=== PATIENT | male | born 1955 | race Caucasian/White ===

== ENCOUNTER 2024-02-19 09:46 | Outpatient (OUT) | payer MEDICARE, SELFPAY ==
--- NOTE | 2024-02-19 10:26 | ECG_ITS ---
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
--- NOTE | 2024-02-19 11:02 | P.GSHP_ITS ---
History of Present Illness History of Present Illness Chief complaint: bladder stones Narrative: Patient presents for preadmission testing. The patient states he had a cystoscopy after a prostate biopsy which demonstrated bladder stones. The patient states he does have a history of renal cancer with a left nephrectomy. He denies gross hematuria, dysuria, or abdominal pain. But he does admit to frequency and urgency with urination. Review of Systems ROS Narrative REVIEW OF SYSTEMS: Negative except as stated in HPI, ten or more systems reviewed. Constitutional: No fever, chills, weakness ENT: No sore throat or epistaxis Cardiovascular: intermittent pedal edema; no chest pain, palpitations, or activity intolerance Respiratory: No shortness of breath, cough, or wheezing Musculoskeletal: No joint pain or swelling Gastrointestinal: No abdominal pain, constipation, diarrhea, or vomiting Neurological: No numbness, tingling, weakness, or headache Psychiatric: No mood changes PFSH [facility] Medical History (Updated 02/19/24 @ 11:06 by Nasra Dunn NP) Urinary retention ?R33.9 - Retention of urine, unspecified (ICD-10) Elevated PSA ?R97.20 - Elevated prostate specific antigen [PSA] (ICD-10) BPH (benign prostatic hyperplasia) ?N40.0 - Benign prostatic hyperplasia without lower urinary tract symptoms (ICD-10) Bladder neoplasm ?D49.4 - Neoplasm of unspecified behavior of bladder (ICD-10) Anticoagulated ?Z79.01 - FPC (current) use of anticoagulants (ICD-10) Neuropathy ?G62.9 - Polyneuropathy, unspecified (ICD-10) Arthritis ?M19.90 - Unspecified osteoarthritis, unspecified site (ICD-10) Sleep apnea ?G47.30 - Sleep apnea, unspecified (ICD-10) Bladder stone ?N21.0 - Calculus in bladder (ICD-10) Extremity edema ?R60.0 - Localized edema (ICD-10) Atrial fibrillation ?I48.91 - Unspecified atrial fibrillation (ICD-10) Hypothyroidism ?E03.9 - Hypothyroidism, unspecified (ICD-10) Tremor ?R25.1 - Tremor, unspecified (ICD-10) Cancer of kidney ?C64.9 - Malignant neoplasm of unspecified kidney, except renal pelvis (ICD- 10) Surgical History (Updated 02/19/24 @ 11:05 by Nasra Dunn NP) Status post ORIF of fracture of ankle ?Z98.890 - Other specified postprocedural states (ICD-10) ?Z87.81 - Personal history of (healed) traumatic fracture (ICD-10) History of repair of rotator cuff ?Z98.890 - Other specified postprocedural states (ICD-10) History of colonoscopy ?Z98.890 - Other specified postprocedural states (ICD-10) History of nephrectomy, left ?Z90.5 - Acquired absence of kidney (ICD-10) S/P TURP ?Z90.79 - Acquired absence of other genital organ(s) (ICD-10) History of total hip arthroplasty ?Z96.649 - Presence of unspecified artificial hip joint (ICD-10) Hx of prostate biopsy ?Z98.890 - Other specified postprocedural states (ICD-10) S/P cystoscopy ?Z98.890 - Other specified postprocedural states (ICD-10) Family History (Updated 02/19/24 @ 10:39 by Nasra Dunn NP) Other Cancer Dementia Family history of diabetes mellitus Social History (Updated 02/19/24 @ 10:32 by Nasra Dunn NP) Within the past year, how often did you have a drink containing alcohol: monthly or less Smoking status: Never smoker Non-prescribed substance use: denies use Highest level of school completed/degree received: Associate degree: academic program Meds Home Medications and Allergies Home Medications ?Medication ?Instructions ?Recorded ?Confirmed ?Type apixaban 5 mg tablet (Eliquis) 5 mg PO Q12H 02/19/24 02/19/24 History dutasteride 0.5 mg capsule 0.5 mg PO DAILY 02/19/24 02/19/24 History levothyroxine 125 mcg tablet 125 mcg PO DAILY 02/19/24 02/19/24 History multivitamin (Daily Multi-Vitamin 1 tab PO DAILY 02/19/24 02/19/24 History tablet) pregabalin 150 mg capsule 150 mg PO Q12H 02/19/24 02/19/24 History primidone 50 mg tablet 50 mg PO Q8H 02/19/24 02/19/24 History propranolol 160 mg capsule,24 160 mg PO Q24H 02/19/24 02/19/24 History hr,extended release Allergies Allergy/AdvReac Type Severity Reaction Status Date / Time meloxicam Allergy Unknown Verified 02/19/24 10:26 Exam Narrative Exam Narrative: Constitutional: Awake, alert, comfortable, well-appearing, nontoxic, interactive, vital signs as charted Head: Normocephalic, atraumatic Neck: Supple, normal appearance, normal range of motion, no meningeal signs, no lymphadenopathy Respiratory: No respiratory distress, breath sounds clear Cardiovascular: Bradycardic rate, irregularly irregular rhythm Abdomen: Nontender, normal bowel sounds, soft, no CVA tenderness Musculoskeletal: Normal gait, no swelling or edema Skin: No rashes or induration, no lesions, only visible skin inspected Neuro: No neurological deficits, normal sensation Psychiatric: Oriented ?3, normal affect Assessment and Plan Assessment and Plan (1) Bladder stone: Plan Cystoscopy, litholapaxy scheduled with Dr. Mendiola March 04, 2024.
[2024-02-19 11:34] LABS: Basophils Percent Auto 0.6 % (0.2-2.0); Eosinophils Absolute Auto 0.3 10^3/uL (0.0-0.7); Hematocrit 43.9 % (42.0-54.0); Hemoglobin 14.3 g/dL (14.0-18.0); Immature Granulocytes Abs Auto 0.03 10^3/uL (0.00-0.03); Immature Granulocytes Pct Auto 0.6 % (0.0-0.5); Lymphocytes Absolute Auto 1.1 10^3/uL (1.2-3.8); Lymphocytes Percent Auto 20.7 % (20.5-60.0); Mean Corpuscular HGB Conc 32.6 g/dL (29.9-35.2); Mean Platelet Volume 10.9 fL (9.5-13.5); Monocytes Absolute Auto 0.8 10^3/uL (0.3-0.8); Monocytes Percent Auto 15.5 % (1.7-12.0); Neutrophils Percent Auto 57.6 % (43.0-75.0); Platelet Count 160 10^3/uL (150-450); Red Blood Count 4.62 10^6/uL (4.70-6.10); Red Cell Distribution Width 14.2 % (11.0-15.0); White Blood Count 5.2 10^3/uL (4.0-11.0)
[2024-02-19 11:56] LABS: Anion Gap 11.9; BUN Creatinine Ratio 9.4; Calcium 9.2 mg/dL (8.5-10.1); Carbon Dioxide 27.5 mmol/L (21.0-32.0); Chloride 103 mmol/L (98-107); Estimated GFR (African America >60 (>=60 mL/min/1.73m^2); Estimated GFR (Non-African Ame 56 (>=60 mL/min/1.73m^2); Glucose 100 mg/dL (74-106); Potassium 5.4 mmol/L (3.5-5.1); Sodium 137 mmol/L (136-145)
[2024-02-19 11:57] LABS: INR 1.11; Partial Thromboplastin Time 32.2 sec (22.3-36.2); Prothrombin Time 11.6 sec (9.0-11.6)
== END 2024-02-19 09:47 | disposition home or self-care (01) ==
LOC: PST 09:51
PROVIDERS: PCP Family Medicine; Visit Provider Urology
DX: Z01.810 Encounter for preprocedural cardiovascular examination (principal); Z01.812 Encounter for preprocedural laboratory examination; Z01.818 Encounter for other preprocedural examination; N21.0 Calculus in bladder
CPT/HCPCS: 36415; 80048; 85025; 85610; 85730; 93005; G0463

== ENCOUNTER 2024-03-04 07:57 | Day surgery (SDC) | payer MEDICARE, SELFPAY ==
[2024-02-19 10:51] VITALS: BP 135/84; PULSE 56; TEMP 36.3; O2SAT 98; BMI 44.6
[2024-03-04] VITALS (10 sets, daily range): BP systolic 99–121; BP diastolic 64–76; PULSE 52–68; TEMP 35.9–36.1; O2SAT 94–99; BMI 44.6
--- OUTSIDE RECORDS SUMMARY | 2024-03-04 08:03 | XMS_ITS | CCD ---
Author Organization [facility] Care Team Providers Care Piece Cutter Name Role Phone Elliot Galvan Unavailable Unavailable [facility] Unavailable Unavailable Shelby Daniels Primary Care Provider [phone] Kaushik Gallagher Attending Provider Unavailable Unavailable Dewey DANIELS Primary Care Physician Ashley Bates Unavailable Unavailable Katarina Daniels Unavailable Unavailable Primary Care Provider UnavailKatarina Willis Jr. Primary Care Provider Aba Amaya MD Unavailable Grey FIREPERSON.ORDER CLERK, Lucio Unavailable Joann KAPLAN, Nirmala Unavailable Ebony Reyes Unavailable DO Shelby Daniels Primary Care Provider CARLA Tucker Attending Provider Shelby Daniels Primary Care Unavailable Mary Tucker Attending Unavailable Mary Tucker Admitting Unavailable Joann KAPLAN, Nirmala Unavailable Katarina Daniels DO Primary Care Provider Frances Faria DO, George Robert Primary Care Provi mario Frances Faria DO, George Robert Primary Care Provi mario Elliot AN Attending Unavailable Elliot AN R Admitting Unavailable Elliot AN R Referring Unavailable Elliot AN Attending Unavailable Elliot AN Attending Unavailable Elliot AN R Admitting Unavailable Elliot AN R Attending Unavailable Elliot AN Attending Unavailable ABA AMAYA Referring Unavailable KASUSYAN KATARINA LATIF Primary Care Unavail able ABA AMAYA Attending Unavailable ABA AMAYA Attending Unavailable ABA AMAYA Referring Unavailable KASUSYAN KATARINA LATIF FLORENCIO Primary Care Unavail able ABA AMAYA Referring Unavailable KASUSYAN KATARINA LATIF FLORENCIO Primary Care Unavail able ABA AMAYA Referring Unavailable KASUSYAN KATARINA LATIF Primary Care Unavail able ABA AMAYA Referring Unavailable KASUSYAN KATARINA LATIF FLORENCIO Primary Care Unavail able ABA AMAYA Referring Unavailable KASUSYAN KATARINA LATIF FLORENCIO Primary Care Unavail able ABA AMAYA Attending Unavailable ABA AMAYA Referring Unavailable KAFTAN KATARINA LATIF FLORENCIO Primary Care Unavail able ABA AMAYA Referring Unavailable KAFTAN KATARINA LATIF FLORENCIO Primary Care Unavail able ABA AMAYA Referring Unavailable KASUSYAN KATARINA LATIF FLORENCIO Primary Care Unavail able ABA AMAYA Referring Unavailable MARTINAN KATARINA LATIF FLORENCIO Primary Care Unavail able ABA AMAYA Referring Unavailable KASUSYAN KATARINA LATIF Primary Care Unavail able ABA AMAYA Attending Unavailable ABA AMAYA Referring Unavailable KATARINA DANIELS JR FL[facility] Primary Care Unavail able LUCIO DAMON Attending Unavailable KATARINA DANIELS JR [facility] Primary Care Unavail able ABA AMAYA Referring Unavailable KASUSYAN KATARINA LATIF FLORENCIO Primary Care Unavail able ABA AMAYA Referring Unavailable ABA AMAYA Referring Unavailable KASUSYAN KATARINA LATIF FLORENCIO Primary Care Unavail able ABA AMAYA Referring Unavailable KATARINA DANIELS JR [facility] Care Unavail able ABA AMAYA Referring Unavailable KATARINA DANIELS JR [facility] Care Unavail able KATARINA DANIELS JR [facility] Primary Care Unavail able ABA AMAYA Referring Unavailable KASUSYAN KATARINA LATIF Primary Care Unavail able ABA AMAYA Attending Unavailable ABA AMAYA Referring Unavailable KAKATARINA CHADWICK JR [facility] Primary Care Unavail able KASUSYAN JR [facility] Primary Care Unavail able ABA AMAYA Referring Unavailable ABA AMAYA Referring Unavailable KASUSYAN KATARINA LATIF FLORENCIO Primary Care Unavail able KASUSYAN KATARINA LATIF FLORENCIO Primary Care Unavail able ABA AMAYA Referring Unavailable KAFTAN KATARINA LATIF FLORENCIO Primary Care Unavail able ABA AMAYA Referring Unavailable KASUSYAN KATARINA LATIF FLORENCIO Primary Care Unavail able ABA AMAYA Attending Unavailable ABA AMAYA Referring Unavailable KASUSYAN KATARINA LATIF Primary Care Unavail able ABA AMAYA Referring Unavailable KASUSYAN JR [facility] Primary Care Unavail able LUCIO DAMON Attending Unavailable ABA AMAYA Referring Unavailable KATARINA DANIELS JR Primary Care Unavail able BALA URIAS Attending Unavailable KATARINA DANIELS Primary Care Unavailable RAISA ARMSTRONG Attending Unavailable BALA URIAS Referring Unavailable KATARINA DANIELS Primary Care Unavailable Elliot AN Admitting Unavailable Elliot AN Attending Unavailable Elliot AN Referring Unavailable Elliot AN Attending Unavailable Katarina Daniels DO Unavailable Katarina Daniels DO Primary Care Provider Nicole Valadez LPN Unavailable Unavailable KATARINA DANIELS Attending Unavailable TAYE MENDOZA Attending Unavailable KATARINA DANIELS Referring Unavailable KATARINA DANIELS Attending Unavailable KATARINA DANIELS Attending Unavailable Unavailable Unavailable Unavailable Allergies Allergy Classification Reported Allergen(s) Allergy Type Date of Onset Reaction(s) Facility (20 sources) meloxicam; Translations: [meloxicam] Drug Allergy 1 Vomiting [facility] (20 sources) Non-steroidal anti-inflammato ry agent; Translations: [NSAIDS (NON-STEROIDAL ANTI-INFLAMMATO RY DRUG)] Drug Allergy 1 Other: See Comments [facility] (2 sources) No Known Medication Allergies; Translations: [No Known Medication Allergies] Propensity to adverse reactions (disorder) [facility] (5 sources) meloxicam Drug Allergy 3 [facility] Work Phone: (5 sources) Non-steroidal anti-inflammato ry agent Drug Allergy 3 [facility] Medications Current Medications Medication Drug Class(es) Dates Sig (Normalized) Sig (Original) apixaban 5 mg oral tablet (20 sources) Factor Xa Inhibitor Start: 08-17-2022 End: 08-26-2022 take 1 tablet by mouth twice daily apixaban (ELIQUIS) 2.5 mg tab(s) Take 1 tablet by mouth twice daily for 9 days. 18 tablet 0 08/17/2022 08/26/2022 Active Start: 09-16-2018 End: 08-17-2022 take 1 tablet by mouth in the morning Eliquis 5 MG tablet Take 5 mg by mouth in the morning and 5 mg before bedtime. 08/12/2022 Active Comment on above: Take 5 mg by mouth t wice daily. Take 1 tablet by luiz th twice daily for 9 days. Take 1 tablet by luiz th twice daily. You may resume this medication on August 26. Apoaequorin (PREVAGEN PO) (2 sources) Apoaequorin (PRE VAGEN PO) Take by mouth Active cephalexin 500 mg oral capsule (8 sources) Cephalosporin Antibacterial Start: 01-30-2024 End: 02-26-2024 cephalexin (Keflex) 500 MG capsule Indications: Presence of artificial hip joint, left Take two caps evening prior to appointment, take two caps one hour prior to appointment 4 capsule 2 01/30/2024 02/26/2024 Discontinued Start: 08-22-2022 End: 09-06-2022 take 1 capsule by mouth four times daily cephALEXin (KEFLEX) 500 mg capsule Take 1 capsule by mouth four times daily for 7 days. 28 capsule 0 08/30/2022 09/06/2022 Active Comment on above: Take 1 capsule by mo [facility] four times daily for 7 days. digoxin 0.25 mg oral tablet (20 sources) Cardiac Glycoside Start: 04-24-2020 take 1 tablet by mouth once daily digoxin 250 mcg (0.25 mg) Tab 250 mcg = 1 tab(s), Oral, Daily Start Date: 04/24/20 Status: Ordered Start: 09-16-2018 digoxin (LANOX IN) 125 mcg (0.125 mg) tablet Take by mouth once daily. 09/16/2018 Active Start: 09-16-2018 take 250 ug by mouth once daily in the morning Digoxin Active 250 MCG PO Every morning September 16, 2018 12:00am Digoxin 0.25 MG/ ML Injection Not-Taking Digoxin Active Comment on above: Take by mouth at bed time as needed. Take by mouth once d aily. dutasteride 0.5 mg oral capsule (20 sources) 5-alpha Reductase Inhibitor Start: 05-21-2023 End: 05-15-2024 dutasteride (AVODART) 0.5 mg capsule Take 0.5 mg by mouth. 05/21/2023 05/15/2024 Active Comment on above: Take 0.5 mg by mouth . enteric contrast (will be provided with radiology test) (5 sources) Start: 01-01-2024 End: 01-02-2024 enteric contrast (will be provided with radiology test) For CT CHESTABD/PEL W IVCON Routine order Administer, As Directed One Time Only, via Oral, Rectal, both Oral and Rectal, Enteric Tube, Stoma or Indwelling Catheter, Enteric Contrast as designated per enteric contrast guidelines 1 Each 0 01/01/2024 01/02/2024 Active Start: 08-28-2023 End: 08-29-2023 enteric contrast (will be pr ovided with radiology test) For CT CHESTABD/PEL W IVCON Routine order Administer, As Directed One Time Only, via Oral, Rectal, both Oral and Rectal, Enteric Tube, Stoma or Indwelling Catheter, Enteric Contrast as designated per enteric contrast guidelines 1 Each 0 08/28/2023 08/29/2023 Active Start: 11-21-2022 End: 11-21-2022 take 1 dose by mouth once, then take 1 dose by mouth once enteric contrast (will be provided with radiology test) Take 1 Each by mouth one time only for [address] Chest ABD/PEL WO Routine order Administer, As Directed One Time Only, via Oral, Rectal, both Oral and Rectal, Enteric Tube, Stoma or Indwelling Catheter, Enteric Contrast as designated per enteric contrast guidelines 1 Each 0 11/21/2022 11/21/2022 Active Comment on above: Take 1 Each by mouth one time only for [address] Chest ABD/PEL WO Routine order Administer, As Directed One Time Only, via Oral, Rectal, both Oral and Rectal, Enteric Tube, Stoma or Indwelling Catheter, Enteric Contrast as designated per enteric contrast guidelines For CT CHESTABD/PEL W IVCON Routine order Administer, As Directed One Time Only, via Oral, Rectal, both Oral and Rectal, Enteric Tube, Stoma or Indwelling Catheter, Enteric Contrast as designated per enteric contrast guidelines gabapentin 400 mg oral capsule (20 sources) Anti-epileptic Agent Start: 05-21-2023 take 1 mg by mouth three times daily gabapentin 400 mg Cap mg cap(s), Oral, TID Start Date: 05/21/23 Status: Ordered Start: 07-18-2022 take 1 capsule by mo [facility] once daily at bedtime gabapentin (NEURONTIN) 300 mg capsule TAKE 1 CAPSULE BY MOUTH EVERY DAY AT BEDTIME 0 07/18/2022 Active take 1 tablet by luiz three times daily gabapentin (NEURONTIN) 800 mg tablet Take 800 mg by mouth three times a day. Active take 1 capsule by mo ut three times daily gabapentin (NEURONTIN) 300 mg capsule Take 300 mg by mouth three times daily. 0 Active take 1 capsule by mo uth twice daily gabapentin (NEURONTIN) 300 mg capsule Take 300 mg by mouth twice daily. 0 Active Gabapentin Activ e Comment on above: TAKE 1 CAPSULE BY MO UT EVERY DAY AT BEDTIME Take 300 mg by mouth twice daily. Take 300 mg by mouth three times daily. Take 800 mg by mouth three times a day. iv contrast (will be provided with radiology test) (4 sources) Start: 01-01-2024 End: 01-02-2024 iv contrast (will be provided with radiology test) CT Chest ABD/PEL-Inject, intravenously, once for 1 dose.No IV access, insert saline lock prior to the beginning of sedation, infusion, injection of imaging exam. Discontinue saline lock post exam. If Pt. has a central line or IVAD, may access for administration according to line specific nursing protocol. Once exam is complete flush line and de-access according to line specific nursing protocol in the CT contrast administration guidelines link. 1 Each 0 01/01/2024 01/02/2024 Active Start: 08-28-2023 End: 08-29-2023 iv contrast (will be provide d with radiology test) CT Chest ABD/PEL-Inject, intravenously, once for 1 dose.No IV access, insert saline lock prior to the beginning of sedation, infusion, injection of imaging exam. Discontinue saline lock post exam. If Pt. has a central line or IVAD, may access for administration according to line specific nursing protocol. Once exam is complete flush line and de-access according to line specific nursing protocol in the CT contrast administration guidelines link. 1 Each 0 08/28/2023 08/29/2023 Active Start: 08-22-2022 End: 08-23-2022 iv contrast (will be provide d with radiology test) Indications: Renal cell carcinoma of left kidney (HCC) CT Chest W -Inject, intravenously, once for 1 dose.No IV access, insert saline lock prior to the beginning of sedation, infusion, injection of imaging exam. Discontinue saline lock post exam. If Pt. has a central line or IVAD, may access for administration according to line specific nursing protocol. Once exam is complete flush line and de-access according to line specific nursing protocol in the CT contrast administration guidelines link. 1 Each 0 08/22/2022 08/23/2022 Active Comment on above: CT Chest W -Inject, intravenously, once for 1 dose.No IV access, insert saline lock prior to the beginning of sedation, infusion, injection of imaging exam. Discontinue saline lock post exam. If Pt. has a central line or IVAD, may access for administration according to line specific nursing protocol. Once exam is complete flush line and de-access according to line specific nursing protocol in the CT contrast administration guidelines link. CT Chest ABD/PEL-Inj ect, intravenously, once for 1 dose.No IV access, insert saline lock prior to the beginning of sedation, infusion, injection of imaging exam. Discontinue saline lock post exam. If Pt. has a central line or IVAD, may access for administration according to line specific nursing protocol. Once exam is complete flush line and de-access according to line specific nursing protocol in the CT contrast administration guidelines link. levothyroxine sodium 0.125 mg oral tablet (20 sources) l-Thyroxine Start: 12-24-19 take 1 tablet by mouth once daily levothyroxine 125 mcg (0.125 mg) Tab 125 mcg = 1 tab(s), Oral, Daily Start Date: 12/24/23 Status: Ordered Start: 11-14-2023 End: 03-13-2024 take 1 tablet by mouth once daily levothyroxine (SYNTHROID) 125 mcg tablet Take 1 tablet by mouth once daily. 30 tablet 3 11/14/2023 03/13/2024 Active Start: 10-03-2023 take 1 tablet by luiz th in the morning levothyroxine (Synthroid, Levoxyl) 100 MCG tablet Take 100 mcg by mouth in the morning. 10/03/2023 Active Start: 08-28-2023 take 1 tablet by luiz th once daily levothyroxine (SYNTHROID) 75 mcg tablet Take 1 tablet by mouth once daily. 30 tablet 2 08/28/2023 Active Start: 07-21-2023 End: 10-03-2023 take 1 tablet by mouth once daily levothyroxine (SYNTHROID) 50 mcg tablet Take 1 tablet by mouth once daily. 30 tablet 1 07/21/2023 10/03/2023 Discontinued (Course of therapy completed) Comment on above: Take 1 tablet by luiz th once daily. lidocaine 0.05 mg/mg medicated patch (2 sources) Antiarrhythmic, Amide Local Anesthetic Start: 09-21-2021 apply 1 dose topically once daily Lidocaine Active 1 PATCH TOPICAL Daily September 21, 2021 12:00am leave on most painful area for up to 12 hrs Multi Vitamin Daily (1 source) take 1 tablet by mouth once daily Multi Vitamin Daily 1 tablet Orally Once a day Active Multi Vitamin+ (8 sources) Start: 04-26-2019 Multi Vitamin+ Refill(s) 0 Start Date: 04/26/19 Status: Ordered Multiple Vitamins-Minerals (Multivitamin Adults 50+) tablet (5 sources) take 1 tablet by mouth once daily Multiple Vitamins-Minerals (Multivitamin Adults 50+) tablet Take 1 tablet by mouth 1 (one) time each day. Active multivit,thx,calciu m,iron,mins (MULTIVITAMIN AND MINERAL ORAL) (20 sources) take 1 dose by mouth once daily multivit,thx,calci um,iron,mins (MULTIVITAMIN AND MINERAL ORAL) Take 1 Dose by mouth once daily. Active take 1 dose by mouth once daily multivit,thx,calcium,iron,mins (MULTIVIT OLIVA AND MINERAL ORAL) Take 1 Dose by mouth once daily. 0 Active multivit,thx,willie cium,iron,mins (MULTIVITAMIN AND MINERAL ORAL) Take by mouth q 24 HR. 0 Active Comment on above: Take by mouth q 24 H R. Take 1 Dose by mouth once daily. Multivitamin (Multiple Vitamins) Tablet (3 sources) Start: 09-16-2018 take 1 tablet by mouth once daily Multivitamin (Multiple Vitamins) Tablet Active 1 TAB PO Daily September 16, 2018 10:13am Start: 09-16-2018 take 1 tablet by luiz th once daily Multivitamin (Multiple Vitamins) Tablet Active 1 TAB PO Daily September 16, 2018 12:00am multivitamin tablet (1 source) take 1 tablet by mouth once daily multivitamin tablet Take 1 tablet by mouth once daily. 0 Active oxybutynin chloride 5 mg oral tablet (8 sources) Cholinergic Muscarinic Antagonist Start: 08-18-19 End: 11-02-19 23 take 1 tablet by mouth three times daily oxybutynin (DITROPAN) 5 mg tablet Take 1 tablet by mouth three times daily. 90 tablet 0 08/17/2022 11/01/2022 Discontinued (Discontinued by Patient) Comment on above: Take 1 tablet by luiz three times daily. polyethylene glycol 3350 42704 mg powder for oral solution (2 sources) Osmotic Laxative Start: 08-18-19 End: 09-17-19 23 take 1 dose by mouth once daily polyethylene glycol 3350 (MIRALAX) 17 gram packet Take 1 Packet by mouth once daily. 30 Packet 0 08/17/2022 09/16/2022 Active Comment on above: Take 1 Packet by [facility] once daily. predniSONE 50 mg oral tablet (2 sources) Start: 09-22-19 take 50 mg by mouth once daily at mealtime Prednisone Active 50 MG PO Daily 09 20September 21, 2021 12:00am administer with food or milk pregabalin 150 mg oral capsule (9 sources) Start: 12-24-19 End: 03-18-20 24 take 1 capsule by mouth in the morning pregabalin (Lyrica) 150 MG capsule Indications: Neuropathy Take 1 capsule (150 mg) by mouth in the morning and 1 capsule (150 mg) before bedtime. 60 capsule 02/17/2024 03/18/2024 Active primidone 50 mg oral tablet (5 sources) Anti-epileptic Agent Start: 01-07-20 End: 01-07-20 25 take 2 tablets by mouth in the morning, then take 2 tablets by mouth in the evening, then take 2 tablets by mouth at bedtime primidone (Mysoline) 50 MG tablet Indications: Essential tremor Take 2 tablets (100 mg) by mouth in the morning and 2 tablets (100 mg) in the evening and 2 tablets (100 mg) before bedtime. 01/07/2024 01/06/2025 Active 24 hr propranolol hydrochloride 160 mg extended release oral capsule (20 sources) beta-Adrenergic [place] Start: 10-07-19 take 1 capsule by mouth once daily propranolol LA (Inderal LA) 160 MG 24 hr capsule Indications: Essential tremor Take 1 capsule (160 mg) by mouth Daily 30 capsule 3 10/07/2023 Active Start: 05-31-2020 take 1 capsule by mo [facility] once daily propranolol 80 mg Cap-ER 80 mg = 1 cap(s), Oral, Daily, # 30 cap(s), Refills(s) 0 Start Date: 05/31/20 Status: Ordered Start: 03-22-2020 take 1 capsule by mo ut once daily propranolol ER (INDERAL LA) 80 mg 24 hr capsule Take 80 mg by mouth once daily. 07/02/2022 Active Propranolol HCl Active Comment on above: Take 80 mg by mouth once daily. Completed/Discontinued Medications Medication Drug Class(es) Dates Sig (Normalized) Sig (Original) acetaminophen 325 mg / oxyCODONE hydrochloride 5 mg oral tablet (5 sources) Opioid Agonist Start: 07-16-2022 End: 02-26-2023 oxyCODONE-acetamin ophen (Percocet) 5-325 mg tablet Start: 09-21-2021 End: 07-19-2022 take 1 tablet by mouth every six hours Oxycodone-Acetaminophen Active 1 TAB PO Q6H 12 September 21, 2021 atenolol 25 mg oral tablet (4 sources) beta-Adrenergic [place] Start: 09-16-2018 End: 03-22-2020 take 25 mg by mouth once daily in the morning Atenolol Discontinued 25 MG PO Every morning September 16, 2018 12:00am March 22, 2020 8:55am ciprofloxacin 500 mg oral tablet (6 sources) Quinolone Antimicrobial Start: 12-24-2023 Cipro 500 mg Tab 500 mg = 1 tab(s), Oral, As Directed, Patient to take 1 tab the day before procedure and the 2nd tab the day of procedure once completed, # 2 tab(s), Refills(s) 0, Pharmacy: [id number], 178, cm, 12/24/23 9:49:00 EDT, Height/Length Dosing, 144, kg, 12/24/23 9:49:00 EDT, Weight Dosing Start Date: 12/24/23 Status: Ordered Start: 10-01-2018 End: 03-22-2020 take 1 tablet by mouth twice daily Ciprofloxacin Hcl (Cipro) 500 mg Tablet Discontinued 500 MG PO Twice daily 14 October 01, 2018 12:00am March 22, 2020 8:55am docusate sodium 100 mg oral capsule (2 sources) Start: 08-17-2022 take 1 capsule by mouth twice daily docusate sodium (COLACE) 100 mg capsule Take 1 capsule by mouth twice daily. 30 capsule 0 08/17/2022 Active Comment on above: Take 1 capsule by mo uth twice daily. doxycycline hyclate 100 mg oral capsule (2 sources) Tetracycline-c lass Drug Start: 08-23-2021 doxycycline hyclate 100 mg Cap 100 mg = 1 cap(s), Oral, As Directed, Take 1 pill the day before procedure, then 1 pill after the procedure., # 2 cap(s), Refills(s) 0, Pharmacy: [id number], 178, cm, 08/16/21 10:54:00 EDT, Height/Length Dosing, 142.1, kg, 08/16/21 10:54... Start Date: 08/23/21 Status: Ordered Multi Vitamin TABS (2 sources) Multi Vitamin TA BS TAKE 1 TABLET DAILY. Quantity: 0 Refills: 0 Ordered: 04-Sep-2021 DO Active oxyCODONE hydrochloride 5 mg oral tablet (3 sources) Opioid Agonist Start: 08-17-2022 End: 08-22-2022 take 1 tablet by mouth every eight hours as needed for pain oxyCODONE IR (ROXICODONE) 5 mg immediate release tablet Indications: Post-operative pain Take 1 tablet by mouth every 8 hours as needed for pain. 10 tablet 0 08/22/2022 Active Comment on above: Take 1 tablet by [facility] every 8 hours as needed for pain. PAXLOVID 150-100 mg tablets in a dose pack (2 sources) Start: 02-12-2023 End: 02-25-2023 PAXLOVID 150-100 mg tablets in a dose pack as directed. TAKE DIRECTED ON PACKAGE. 0 02/12/2023 02/25/2023 Discontinued (Course of therapy completed) Start: 02-12-2023 PAXLOVID 150-1 00 mg tablets in a dose pack as directed. TAKE DIRECTED ON PACKAGE. 0 02/12/2023 Active Comment on above: as directed. TAKE DIRECTED ON PACKAGE. perflutren lipid microspheres 1.3 mL in NaCl (PF) 0.9% 10 mL injection (DEFINITY) (20 sources) Start: 08-02-2022 End: 11-01-2023 perflutren lipid microspheres 1.3 mL in NaCl (PF) 0.9% 10 mL injection (DEFINITY) 125 ml sodium chloride 9 mg/ml prefilled syringe (20 sources) Start: 08-02-2022 End: 11-01-2023 sodium chloride 0.9 % (flush) 10 mL (BD POSIFLUSH) Problems Active Problems Problem Classification Problem Date Documented Date Episodic/Chronic Abdominal hernia (1 source) Hernia of anterior abdominal wall; Translations: [Ventral hernia without obstruction or gangrene] Onset: 07-16-2022 Episodic Calculus of urinary tract (20 sources) Kidney stone; Translations: [Calculus of kidney] Onset: 07-16-2022 07-16-2022 Episodic Cancer of kidney and renal pelvis (20 sources) Renal cell carcinoma; Translations: [Malignant neoplasm of left kidney, except renal pelvis] Onset: 08-29-2022 Chronic Cancer of kidney and renal pelvis (1 source) History of malignant neoplasm of kidney; Translations: [Personal history of other malignant neoplasm of kidney] 11-29-2022 Episodic Cardiac dysrhythmias (20 sources) Atrial fibrillation; Translations: [Chronic atrial fibrillation] Onset: 08-05-2022 05-09-2020 Chronic Chronic kidney disease (20 sources) Chronic kidney disease stage 3; Translations: [Stage 3 chronic kidney disease, unspecified whether stage 3a or 3b CKD (HCC)] Onset: 12-13-2022 12-13-2022 Chronic Complications of surgical procedures or medical care (1 source) Postoperative wound infection; Translations: [Infection following a procedure, other surgical site, initial encounter] Episodic Disorders of lipid metabolism (5 sources) Hyperlipidemia; Translations: [Hyperlipidemia, unspecified] Onset: 12-09-2022 12-09-2022 Chronic Fluid and electrolyte disorders (2 sources) Hyperkalemia; Translations: [Hyperkalemia] 02-26-2024 Episodic Hyperplasia of prostate (20 sources) Benign prostatic hyperplasia; Translations: [Benign prostatic hypertrophy without outflow obstruction] Onset: 12-31-2021 04-26-2019 Chronic Malaise and fatigue (5 sources) Malaise and fatigue; Translations: [Other malaise] Episodic Neoplasms of unspecified nature or uncertain behavior (9 sources) Neoplasm of uncertain behavior of bladder; 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] Onset: 12-24-2023 Episodic Osteoarthritis (18 sources) Osteoarthritis of hip; Translations: [Localized, primary osteoarthritis of the pelvic region and thigh] Onset: 12-09-2022 05-09-2020 Chronic Other aftercare (7 sources) Long-term current use of anticoagulant; Translations: [USP (current) use of anticoagulants] Onset: 05-21-2023 Episodic Other aftercare (2 sources) USP (current) use of anticoagulants; Translations: [USP (current) use of anticoagulants] Onset: 12-15-2023 Episodic Other connective tissue disease (5 sources) Hip joint prosthesis present; Translations: [Presence of left artificial hip joint] Onset: 12-09-2022 12-09-2022 Chronic Other connective tissue disease (10 sources) History of repair of hip joint; Translations: [Presence of left artificial hip joint] Onset: 06-10-2020 12-24-2022 Chronic Other diseases of kidney and ureters (2 sources) Disorder of kidney and/or ureter; Translations: [Other specified disorders of kidney and ureter] Onset: 07-16-2022 Chronic Other diseases of kidney and ureters (20 sources) Renal mass; Translations: [Other specified disorders of kidney and ureter] Onset: 08-02-2022 07-16-2022 Chronic Other hereditary and degenerative nervous system conditions (8 sources) Essential tremor; Translations: [Essential tremor] Onset: 02-26-2023 02-26-2023 Chronic Other hereditary and degenerative nervous system conditions (1 source) Essential tremor; Translations: [Essential tremor] Onset: 02-26-2023 Chronic Other lower respiratory disease (2 sources) Rib pain; Translations: [Pleurodynia] 09-21-2021 Episodic Other nervous system disorders (6 sources) Neuropathy; Translations: [Polyneuropathy, unspecified] Onset: 12-09-2022 02-17-2024 Chronic Other nervous system disorders (1 source) Postoperative pain ; Translations: [Other acute postprocedural pain] Episodic Other nutritional; endocrine; and metabolic disorders (20 sources) Body mass index 40+ - severely obese; Translations: [Morbid obesity] Onset: 08-10-2022 12-28-2020 Chronic Other nutritional; endocrine; and metabolic disorders (3 sources) Body mass index (BMI) 40.0-44.9, adult; Translations: [Body mass index (BMI) 40.0-44.9, adult ([facility])] Onset: 01-23-2023 Chronic Other nutritional; endocrine; and metabolic disorders (2 sources) Body mass index (BMI) 45.0-49.9, adult; Translations: [Body mass index (BMI) 45.0-49.9, adult (Multi)] Onset: 12-15-2023 Chronic Other nutritional; endocrine; and metabolic disorders (2 sources) Morbid (severe) obesity due to excess calories; Translations: [Morbid (severe) obesity due to excess calories (CMS/HCC)] Onset: 01-23-2023 Chronic Residual codes; unclassified (20 sources) Obstructive sleep apnea syndrome; Translations: [Obstructive sleep apnea (adult) (pediatric)] Onset: 08-05-2022 Chronic Residual codes; unclassified (12 sources) Sleep apnea; Translations: [Unspecified sleep apnea] Onset: 01-23-2023 04-26-2019 Chronic Residual codes; unclassified (3 sources) Obstructive sleep apnea (adult) (pediatric); Translations: [Obstructive sleep apnea (adult) (pediatric)] Onset: 01-23-2023 Chronic Residual codes; unclassified (1 source) Obstructive sleep apnea (adult)(pediatric); Translations: [Obstructive sleep apnea (adult) (pediatric)] Onset: 10-17-2022 Chronic Residual codes; unclassified (2 sources) History of nephrectomy; Translations: [Acquired absence of kidney] Episodic Residual codes; unclassified (1 source) Edema of lower extremity; Translations: [Localized edema] 04-25-2023 Episodic Screening and history of mental health and substance abuse codes (2 sources) Ex-cigarette smoker; Translations: [Personal history of tobacco use] Episodic Thyroid disorders (3 sources) Hypothyroidism caused by drug; 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] 08-28-2023 Chronic Unclassified (1 source) Patient encounter status; Translations: [Encounter for screening for malignant neoplasm of colon] Unclassified (8 sources) Drug therapy finding 06-07-2020 Unclassified (8 sources) History of repair of hip joint 06-07-2020 Unclassified (4 sources) Chronic atrial fibrillation, unspecified; Translations: [Chronic atrial fibrillation, unspecified (Multi)] Onset: 01-23-2023 Past or Other Problems Problem Classification Problem Date Documented Da te Episodic/Chronic Diabetes mellitus without complication (5 sources) Prediabetes; Translations: [Prediabetes] Onset: 12-09-2022 12-09-2022 Episodic Genitourinary symptoms and ill-defined conditions (20 sources) Cassius hematuria; Translations: [Nocturia] Onset: 12-31-2021 06-07-2020 Episodic Mood disorders (5 sources) Mood disorders Onset: 10-07-2023 10-07-2023 Other aftercare (8 sources) Drug therapy finding; Translations: [Long-term (current) use of other medications] Onset: 12-24-2022 12-24-2022 Episodic Other screening for suspected conditions (not mental disorders or infectious disease) (20 sources) Raised prostate specific antigen; Translations: [Elevated prostate specific antigen [PSA]] Onset: 12-31-2021 08-28-2020 Episodic Sprains and strains (5 sources) Partial division, tendo calcaneus (Achilles tendon); Translations: [Strain of right Achilles tendon, initial encounter] Onset: 06-28-2019 12-24-2022 Episodic Unclassified (8 sources) Asymptomatic microscopic hematuria 05-09-2020 Unclassified (1 source) Onset: 02-26-2023 02-26-2023 Results Test Name Value Interpretation Reference Range Facility ALL CBC WITH AUTO DIFFon BASOPHILS ABSOLUTE AUTO 0.0 [facility] Basophils/100 WBC (Bld) 0.6 % 0.2 - 2.0 % [facility] Eosinophils/100 WBC (Bld) 5.0 % 0.9 - 7.0 % [facility] Erythrocyte distribution width (RBC) [Ratio] 14.2 % 11.0 - 15.0 % [facility] Hematocrit (Bld) [Volume fraction] 43.9 % 42.0 - 54.0 % [facility] Hemoglobin (Bld) [Mass/Vol] 14.3 g/dL 14.0 - 18.0 g/dL [facility] IMMATURE GRANULOCYTES ABS AUTO 0.03 [facility] Immature granulocytes/100 WBC (Bld) 0.6 % High 0.0 - 0.5 % [facility] Interpretation and review of laboratory results Abnormal [facility] LYMPHOCYTES ABSOLUTE AUTO 1.1 Low [facility] Lymphocytes/100 WBC (Bld) 20.7 % 20.5 - 60.0 % [facility] MCH (RBC) [Entitic mass] 31.0 pg 25.9 - 34.0 pg [facility] MCHC (RBC) [Mass/Vol] 32.6 g/dL 29.9 - 35.2 g/dL [facility] MCV (RBC) [Entitic vol] 95.0 fL High 80.0 - 94.0 fL [facility] MONOCYTES ABSOLUTE AUTO 0.8 [facility] Monocytes/100 WBC (Bld) 15.5 % High 1.7 - 12.0 % [facility] NEUTROPHILS ABSOLUTE AUTO 3.0 [facility] Neutrophils/100 WBC (Bld) 57.6 % 43.0 - 75.0 % [facility] Platelet mean volume (Bld) [Entitic vol] 10.9 fL 9.5 - 13.5 fL [facility] TBH EO # 0.3 [facility] Healthcare TBH PLT 160 [facility] Healthcare TBH RBC 4.62 Low [facility] TB WBC 5.2 [facility] Healthcare [facility] Healthcare Main OR Preoperative Recordo n 01-29-2024 Main OR Preoperative Record Main OR Preoperative Record Holding Area Document Type FTURO Summary Primary Physician: Elliot AN MD Finalized Date/Time: 01/29/24 14:40:33 Pt. Name: KORINA BAUMSTAR Cat D.O.B./Sex: 1955 Male Med Rec #: [id number] Physician: Elliot AN MD Financial #: [id number] Pt. Type: O Room/Bed: / Admit/Disch: 01/20/24 09:32:23 - 01/20/24 23:59:59 Institution: Case Times Holding FTURO Pre-Care Text: Verifies consent for planned procedure, identifies individual values and wishes concerning care, includes family members in perioperative teaching Secures patient's records' belongings, and valuables, maintains patient's dignity and privacy, and maintains patient confidentiality Entry 1 In Holding 01/20/24 09:50:00 Outcomes Met? Yes Last Modified By: Shruthi Jaquez LPN 01/20/24 09:51:04 Post-Care Text: The patient participates in decisions affecting his or her perioperative plan of care The patient's right to privacy is maintained Surgery Checklist FTURO Entry 1 Patient Birthday, ID Band Procedure Surgical Consent, With Identification: Check, Patient Verification: Patient Participation NPO after Midnight: n/a Personal Items: Glasses Limitations: up ad micah Complaints of Pain: No Skin Integrity Intact, [place], Warm, & Dry Vitals - EU Blood Pressure 126/69 Pulse 60 bpm Respirations 18 br/min SPO2 98 % Additional None RN Reviewed Yes Specimens Collected Last Modified By: Marco Antonio KAPLAN, Amber Youssef 01/20/24 10:25:54 Finalized By: MARIETTA Costa RN, Ruthann Document Signatures Signed By: Shruthi Jaquez LPN 01/20/24 09:54 Julissa KAPLAN, Aniyah MCMANUS 01/29/24 14:40 Normal [facility] Main OR Intraoperative Recor don 01-20-2024 Main OR Intraoperative Record Main OR Intraoperative Record IntraOp Document Type FTURO Summary Primary Physician: Elliot AN MD Finalized Date/Time: 01/20/24 10:38:22 Pt. Name: JUANCARLOS BAUM Cathi Cabrera/Sex: 1955 Male Med Rec #: [id number] Physician: Elliot AN MD Financial #: [id number] Pt. Type: O Room/Bed: / Admit/Disch: 01/20/24 09:32:23 - Institution: Case Times FTURO Entry 1 Patient Times In Room 01/20/24 10:23:00 Out Room 01/20/24 10:39:00 Procedure Times Start 01/20/24 10:29:00 Stop 01/20/24 10:33:00 Anesthesia Times Last Modified By: Marco Antonio KAPLAN, Amber Youssef 01/20/24 10:33:24 Case Attendance FTURO Entry 1 Entry 2 Entry 3 Case Attendee NATALIYA SAAVEDRA, Elliot Bernard RN, Gemma Farias Role Performed Surgeon - Primary Fire Assistant - Primary Scrub - Primary Time In 01/20/24 10:23:00 01/20/24 10:23:00 01/20/24 10:23:00 Time Out 01/20/24 10:39:00 01/20/24 10:39:00 01/20/24 10:39:00 Procedure CYSTOSCOPY LOCAL(.) CYSTOSCOPY LOCAL(.) CYSTOSCOPY LOCAL(.) Comments Last Modified By: Marco Antonio KAPLAN, Amber Bernard RN, Amber Francis RN 01/20/24 Meghan Youssef 01/20/24 Meghan Youssef 01/20/24 10:33:27 10:33:27 10:33:27 Entry 4 Case Attendee MARICARMEN LAURA MD Role Performed Staff - Other Time In 01/20/24 10:23:00 Time Out 01/20/24 10:39:00 Procedure CYSTOSCOPY LOCAL(.) Comments OBSERVING Last Modified By: Amber Bernard RN 01/20/24 10:33:34 Surgical Procedures FTURO Entry 1 Procedure Description Procedure CYSTOSCOPY LOCAL Modifiers . Surgeon Description CYSTOSCOPY Primary Procedure Yes Primary Surgeon Elliot AN MD Start 01/20/24 10:29:00 Stop 01/20/24 10:33:00 Anesthesia Type Local Surgical Service Urology Wound Class 2 - Clean-Contaminated Last Modified By: Amber Bernard RN 01/20/24 10:33:26 General Case Data FTURO Pre-Care Text: Classifies surgical wound, implements aseptic technique, initiates traffic control Entry 1 Case Information OR URO 1 FT Case Level None Wound Class 2 - Clean-Contaminated Specialty Urology Preop Diagnosis HEMATURIA, HISTORY OF Postop Same As Preop Yes KIDNEY CANCER, BPH Postop Diagnosis HEMATURIA, HISTORY OF Outcomes Met? Yes KIDNEY CANCER, BPH Last Modified By: Amber Bernard RN 01/20/24 10:24:10 Post-Care Text: The patient is free from signs and symptoms of infection EU IntraOp - FTURO Pre-Care Text: Implements protective measures prior to operative or invasive procedure, confirms identity before the operative or invasive procedure, verifies operative procedure, surgical site, and laterality Entry 1 EU Perioperative Protocols Procedure(s) CYSTOSCOPY LOCAL(.) Patient Identity Birthday, ID Band Verified (select at Check, Patient least 2): Participation Consents / H and P H&P, Surgery/Procedure Operative Site N/A Verified Consent Marking Verified Surgical Site Yes Laterality Verified n/a Verified Procedure Verified Yes Correct Patient Yes Position Verified Availability Equipment, Medication Time Out Elliot AN MD, Verified (If Participants Marco Antonio KAPLAN, Amber Applicable) Miguel Douglas Laura C, KEYA SAAVEDRA, MARICARMEN Time Out Complete 01/20/24 10:29:00 Allergies Reviewed? Yes Allergies Reviewed Self/Patient With Body Position Supine Prep Area PENIS Prep Agents Betadine Solution Skin. Condition Unable to Visualize Description PARTIALLY CLOTHED Additional None Specimens Collected Vitals - EU Blood Pressure 126/69 Pulse 60 bpm Respirations 18 br/min SPO2 I&O - EU Outcomes Met? Yes Last Modified By: Amber Bernard RN 01/20/24 10:29:31 Post-Care Text: The patient is free from signs and symptoms of injury caused by extraneous objects Sign Out FTURO Entry 1 Before Patient Leaves OR Nurse verbally Yes Nurse verbally Yes confirms with the confirms with the team the name of team that the procedure(s) instrument, sponge, recorded and needle counts are correct (or N/A) Nurse verbally n/a Nurse verbally n/a confirms with the confirms with the team how the team whether there specimen is labeled are any equipment (including patient problems to be name), if applicable addressed Sign Out Complete 01/20/24 10:33:00 Last Modified By: Amber Bernard RN 01/20/24 10:33:26 Case Comments Finalized By: Amber Bernard RN Document Signatures Signed By: Amber Bernard RN 01/20/24 10:38 Normal [facility] Operative Reporton Operative Report Operative Report Patient: JUANCARLOS BAUM Age: 68 years Sex: Male : 1955 Associated Diagnoses: None Author: Elliot AN MD Procedure Operative Information Details: Date/ Time: 01/20/2024 10:38:00. Pre-Op Dx: Micro Hematuria - Asymptomatic - R31.21, BPH w/ LUTS - N40.1, Bladder Stone - N21.0, Incomplete Bladder Emptying - R39.14. Post-Op Dx: Same. Anesthesia Type: Local. Procedure: Local Cystoscopy. Complications: None. Risks/Benefits/Infor med Consent: Surgical risks, benefits, details of the procedure have been explained to the patient, Full informed consent has been obtained. Intraoperative Information Prepped: Patient is brought back to the endoscopy suite, Patient is placed in supine position, Patient prepped in the usual fashion with Betadine solution, 2% Xylocaine Jelly is placed per Urethra, After waiting several minutes the Cystoscope is introduced. The Urethra is: Normal. The Prostatic Urethra is: Obstructed, Long obstructing lateral lobes. The Bladder is: Abnormal, Trabeculated (Moderate (2), 2 bladder calculi. Each of which is approximately 1 cm in size. No bladder tumors.). The ureteral orifices: Show efflux of clear urine. Specimens Removed: Voided specimen sent for cytology. Devices Implanted: None. Removal: Cystoscope is removed, The patient tolerated it well. Postoperative Information Discharge: Patient is discharged home with antibiotic coverage, Follow up arranged. The patient is desirous for cystolitholapaxy. This will be scheduled under general anesthesia.. Normal [facility] Comment on above: Result Comment: Elec tronically Signed By: NATALIYA SAAVEDRA, Elliot Wright.autumn\Date and Time Signed: 01/20/24 10:40 EDT CNOVSPon 01-01-2024 CNOVSP Visit (SP) Office ([facility]) JUANCARLOS BAUM ([id number]) 1955 M Date Time Provider Department 01/01/24 10:00 AM ABA AMAYA During your visit today, we recorded the following information about you: Temperature Pulse Respiration Blood pressure 97.8 degrees 53/minute 18/minute 113/79 Weight Height 141.5 kg 1.73 m Aba Amaya MD 01/02/2024 5:12 AM Signed PATIENT NAME: Juancarlos Baum DATE: 01/01/2024 PRIMARY CARE PHYSICIAN: Dr. Katarina Daniels OTHER PHYSICIANS: Dr. Florencio Rose. Dr. Urias, Dr. An Portions of this encounter note have been copied from the note from 08/28/2023 and has been updated where appropriate, and reflect my current medical decision making from today. CC: This is a 68 year old male with kidney cancer, seen for scheduled follow-up and treatment. INTERIM HISTORY: Since the patient's last visit here he completed his 1 year of adjuvant pembrolizumab on 08/28/2023. He tolerated treatment well with no apparent side effects. On follow-up today he feels well. No unusual pain or other systemic symptoms. He is urinating normally. MEDICATIONS: Current Outpatient Medications Medication Sig levothyroxine (SYNTHROID) 125 mcg tablet Take 1 tablet by mouth once daily. levothyroxine (SYNTHROID) 100 mcg tablet Take 1 tablet by mouth once daily. levothyroxine (SYNTHROID) 75 mcg tablet Take 1 tablet by mouth once daily. dutasteride (AVODART) 0.5 mg capsule Take 0.5 mg by mouth. gabapentin (NEURONTIN) 800 mg tablet Take 800 mg by mouth three times a day. ELIQUIS 5 mg tab(s) Take 1 tablet by mouth twice daily. You may resume this medication on August 26. digoxin (LANOXIN) 125 mcg (0.125 mg) tablet Take by mouth once daily. propranolol ER (INDERAL LA) 80 mg 24 hr capsule Take 80 mg by mouth once daily. multivit,thx,calcium ,iron,mins (MULTIVITAMIN AND MINERAL ORAL) Take 1 Dose by mouth once daily. No current facility-administere d medications for this visit. ALLERGIES: ALLERGIES Allergen Reactions Meloxicam Vomiting Nsaids (Non-Steroid* Other: See Comments PAST MEDICAL HISTORY: PAST MEDICAL HISTORY No date: Atrial fibrillation (HCC) No date: Renal cell carcinoma (HCC) PAST SURGICAL HISTORY: PAST SURGICAL HISTORY No date: NEPHRECTOMY PARTIAL; Left Comment: total left No date: TOTAL HIP REPLACEMENT; Left FAMILY HISTORY: No family history on file. SOCIAL HISTORY: Social History Tobacco Use Smoking status: Never Passive exposure: Never Smokeless tobacco: Never Vaping Use Vaping Use: Never used Substance Use Topics Alcohol use: Yes Comment: Less than monthly per pt 08/05/2022 Drug use: Never REVIEW OF SYSTEMS: General: No weight loss, malaise or fevers. HEENT: Negative for frequent or significant headaches. No changes in hearing or vision, no nose bleeds or other nasal problems. Respiratory: Negative for cough, wheezing or shortness of breath. Cardiovascular: Negative for chest pain, leg swelling or palpitations. GI: Negative for abdominal discomfort, blood in stools or black stools or change in bowel habits. : No history of dysuria, frequency or incontinence. See HPI. Musculoskeletal: Negative for: joint pain or swelling, back pain and muscle pain. Skin: Negative for lesions, rash and itching. Hematology/Lympholog y: Negative for prolonged bleeding, bruising easily or swollen nodes. Neuro: No history of headaches, syncope, paralysis, seizures or tremors. PHYSICAL EXAM: BP 113/79 Pulse (!) 53 Temp 36.6 ?C (97.8 ?F) (Temporal) Resp 18 Ht 173 cm (5' 8.11 ) Wt (!) 141.5 kg (311 lb 15.2 oz) SpO2 98% BMI 47.28 kg/m? ECOG 0 General: Alert and oriented, no distress, pleasant and cooperative. Heart: Regular, normal S1 and S2, no murmurs, rubs, or gallops. Lungs: Clear to auscultation bilaterally. Abdomen: Benign. Extremities: Feet/ankles without edema, posterior tibial pulses full and symmetrical. PATHOLOGY: 08/14/2022 Kidney, left, total nephrectomy: - Renal cell carcinoma (7.7 cm), clear cell type, WHO/ISUP grade 3, with focal early invasion of renal sinus vessel. - Surgical margins are negative. LABS: Hemoglobin (g/dL) Date Value 12/22/2023 15.2 Hematocrit (%) Date Value 12/22/2023 45.4 WBC (k/uL) Date Value 12/22/2023 7.79 Platelet Count (k/uL) Date Value 12/22/2023 155 RADIOLOGY/OTHER STUDIES: 12/25/2023 CT chest IMPRESSION: No metastatic disease in the chest. 12/25/2023 CT abdomen/pelvis IMPRESSION: No recurrent disease in the nephrectomy bed and no metastatic disease in abdomen or pelvis. 07/12/2023 CT chest IMPRESSION: 1. Stable CT of the chest. Unchanged appearance of right upper lobe nodular opacity. No new or enlarging nodules are visualized. 2. No evidence of intrathoracic lymphadenopathy. 3. Stable sclerotic focus in the T4 vertebrae, li (more content not included)... Normal [facility] Urine Cytology ([facility])on 0 12-27-2023 Microscopic exam Cytology (U) [Interp] Diagnosis Info Invalid Interpretation Code [facility] Comment on above: Result Comment: A:Ur ine,Urine:Voided Interpretation - Negative for dysplastic cells or malignancy. Reactive urothelial cells present. Adequate cellularity for evaluation. MicroScopic Description - Adequacy - Adequate Gross Description Site ID:A color Yellow fixative Alcohol Specimen designated Urine received in alcohol preservative and labeled with the patient?s name, consists of 80ml clear yellow fluid. Electronically signed by : on: 12/27/2023 11:37:39 Performed By: #### 1 [id number] #### [facility] [address] [place] [address] CT ABD/PEL W IVCONon 024 CT ABD/PEL W IVCON * * *Final Report* * * DATE OF EXAM: Dec 25 2023 9:45AM [facility] 0530 - CT ABD/PEL W IVCON / PROCEDURE REASON: Renal cell carcinoma of left kidney (HCC) * * * * Physician Interpretation * * * * RESULT: EXAMINATION: CT ABDOMEN AND PELVIS WITH IV CONTRAST PATIENT/TECHNOLOGIST PROVIDED HISTORY: renal cell ca CLINICAL INFORMATION ( PROVIDED BY ORDERING CLINICIAN) : Renal cell carcinoma of left kidney (HCC) TECHNIQUE: CT of the abdomen and pelvis was performed using standard technique, scanning from just above the dome of the diaphragm to the pubic symphysis. . Contrast: IV: 150 ml of Omnipaque 300 Oral: 500 ml of Omni 240 10-25ml diluted with water CT Radiation dose: Integrated Dose-length product (DLP) for this visit = 2882 mGy*cm. CT Dose Reduction Employed: Automated exposure control(AEC) and iterative recon COMPARISON: 07/10/2023 and 07/16/2022 Abdomen / Pelvis: Liver: No focal hepatic lesions. Spleen: No focal splenic lesion. Pancreas: No focal pancreatic lesions. Adrenals: No mass. Biliary: No bile duct dilation. Cholelithiasis. Kidneys: Left nephrectomy. No residual/recurrent neoplasm in the resection bed. No right-sided hydronephrosis. Vasculature: The celiac axis and SMA are patent. The portal vein and branches, splenic vein, SMV, and hepatic veins are patent. Mild atherosclerotic calcifications of the abdominal aorta without aneurysm. GI tract: No bowel obstruction. Small hiatal hernia. Normal appendix. Lymph nodes: No lymphadenopathy by CT size criteria. Mesentery/Peritoneum : No ascites, fluid collection, or mass. Pelvis: Large prostate gland. Multiple bladder calcifications measuring up to 1.3 cm. Bones/Soft tissues: Left hip arthroplasty. Degenerative changes in lumbar spine. Lower thorax: Dedicated CT imaging of the chest was performed concurrently and is dictated separately. Travel Agent (topogram) images: Unremarkable. IMPRESSION: No recurrent disease in the nephrectomy bed and no metastatic disease in abdomen or pelvis. Transcribe Date/Time: Dec 25 2023 3:51P Dictated by: DALILA RON MD This examination was interpreted and the report reviewed and electronically signed by: DALILA RON MD on Dec 25 2023 4:07PM EST Thank you for allowing us to participate in the care of your patient. Should there be any questions regarding this interpretation, please call [phone]. If you are unable to reach us at the number above, please feel free to contact [facility] at [phone]. [id number] CN Normal [facility] CT Abdomen and Pelvis W cont rast Tiffanie 12-25-2023 IMPRESSION: No recurrent disease in the nephrectomy bed and no metastatic disease in abdomen or pelvis. Transcribe Date/Time: Dec 25 2023 3:51P Dictated by: DALILA RON MD This examination was interpreted and the report reviewed and electronically signed by: DALILA RON MD on Dec 25 2023 4:07PM EST Thank you for allowing us to participate in the care of your patient. Should there be any questions regarding this interpretation, please call [phone]. If you are unable to reach us at the number above, please feel free to contact [facility] at [phone]. DIVISION OF RADIOLOGY * * *Final Report* * * DATE OF EXAM: Dec 25 2023 9:45AM [facility] 0530 - CT ABD/PEL W IVCON / PROCEDURE REASON: Renal cell carcinoma of left kidney (HCC) * * * * Physician Interpretation * * * * RESULT: EXAMINATION: CT ABDOMEN AND PELVIS WITH IV CONTRAST PATIENT/TECHNOLOGIST PROVIDED HISTORY: renal cell ca CLINICAL INFORMATION ( PROVIDED BY ORDERING CLINICIAN) : Renal cell carcinoma of left kidney (HCC) TECHNIQUE: CT of the abdomen and pelvis was performed using standard technique, scanning from just above the dome of the diaphragm to the pubic symphysis. . Contrast: IV: 150 ml of Omnipaque 300 Oral: 500 ml of Omni 240 10-25ml diluted with water CT Radiation dose: Integrated Dose-length product (DLP) for this visit = 2882 mGy*cm. CT Dose Reduction Employed: Automated exposure control(AEC) and iterative recon COMPARISON: 07/10/2023 and 07/16/2022 Abdomen / Pelvis: Liver: No focal hepatic lesions. Spleen: No focal splenic lesion. Pancreas: No focal pancreatic lesions. Adrenals: No mass. Biliary: No bile duct dilation. Cholelithiasis. Kidneys: Left nephrectomy. No residual/recurrent neoplasm in the resection bed. No right-sided hydronephrosis. Vasculature: The celiac axis and SMA are patent. The portal vein and branches, splenic vein, SMV, and hepatic veins are patent. Mild atherosclerotic calcifications of the abdominal aorta without aneurysm. GI tract: No bowel obstruction. Small hiatal hernia. Normal appendix. Lymph nodes: No lymphadenopathy by CT size criteria. Mesentery/Peritoneum : No ascites, fluid collection, or mass. Pelvis: Large prostate gland. Multiple bladder calcifications measuring up to 1.3 cm. Bones/Soft tissues: Left hip arthroplasty. Degenerative changes in lumbar spine. Lower thorax: Dedicated CT imaging of the chest was performed concurrently and is dictated separately. Travel Agent (topogram) images: Unremarkable. DIVISION OF RADIOLOGY Provider, [facility] [place] - 12/25/2023 * * *Final Report* * * DATE OF EXAM: Dec 25 2023 9:45AM [facility] 0530 - CT ABD/PEL W IVCON / PROCEDURE REASON: Renal cell carcinoma of left kidney (HCC) * * * * Physician Interpretation * * * * RESULT: EXAMINATION: CT ABDOMEN AND PELVIS WITH IV CONTRAST PATIENT/TECHNOLOGIST PROVIDED HISTORY: renal cell ca CLINICAL INFORMATION ( PROVIDED BY ORDERING CLINICIAN) : Renal cell carcinoma of left kidney (HCC) TECHNIQUE: CT of the abdomen and pelvis was performed using standard technique, scanning from just above the dome of the diaphragm to the pubic symphysis. . Contrast: IV: 150 ml of Omnipaque 300 Oral: 500 ml of Omni 240 10-25ml diluted with water CT Radiation dose: Integrated Dose-length product (DLP) for this visit = 2882 mGy*cm. CT Dose Reduction Employed: Automated exposure control(AEC) and iterative recon COMPARISON: 07/10/2023 and 07/16/2022 Abdomen / Pelvis: Liver: No focal hepatic lesions. Spleen: No focal splenic lesion. Pancreas: No focal pancreatic lesions. Adrenals: No mass. Biliary: No bile duct dilation. Cholelithiasis. Kidneys: Left nephrectomy. No residual/recurrent neoplasm in the resection bed. No right-sided hydronephrosis. Vasculature: The celiac axis and SMA are patent. The portal vein and branches, splenic vein, SMV, and hepatic veins are patent. Mild atherosclerotic calcifications of the abdominal aorta without aneurysm. GI tract: No bowel obstruction. Small hiatal hernia. Normal appendix. Lymph nodes: No lymphadenopathy by CT size criteria. Mesentery/Peritoneum : No ascites, fluid collection, or mass. Pelvis: Large prostate gland. Multiple bladder calcifications measuring up to 1.3 cm. Bones/Soft tissues: Left hip arthroplasty. Degenerative changes in lumbar spine. Lower thorax: Dedicated CT imaging of the chest was performed concurrently and is dictated separately. Travel Agent (topogram) images: Unremarkable. IMPRESSION IMPRESSION: No recurrent disease in the nephrectomy bed and no metastatic disease in abdomen or pelvis. Transcribe Date/Time: Dec 25 2023 3:51P Dictated by: DALILA RON MD This examination was interpreted and the report reviewed and electronically signed by: DALILA RON MD on Dec 25 2023 4:07PM EST Thank you for allowing us to participate in the care of your patient. Should there be any questions regarding this interpretation, please call [phone]. If you are unable to reach us at the number above, please feel free to contact [facility] eRadiology at [phone]. [facility] CT Abdomen and Pelvis W cont rast IVOrdered By: [facility] Provider on 12-25-[address] [facility] [address] CHEST W IVCONon CT CHEST W IVCON * * *Final Report* * * DATE OF EXAM: Dec 25 2023 9:45AM [facility] 0539 - CT CHEST W IVCON / PROCEDURE REASON: Renal cell carcinoma of left kidney (HCC) * * * * Physician Interpretation * * * * RESULT: EXAMINATION: CHEST CT WITH CONTRAST CLINICAL HISTORY: Renal cell carcinoma of left kidney (HCC) Technique: Spiral CT acquisition of the chest from the thoracic inlet to the upper abdomen following IV contrast. MQ: CTCWR_5 Contrast: 150 mL Omnipaque [address] Dose-Length Product: 2882 mGy*cm CT Dose Reduction Employed: Automated exposure control(AEC) and iterative recon Comparison: 07/08/2023 RESULT: Lines, tubes, and devices: None. Lung parenchyma and airways: Trachea and central airways are patent. No consolidative opacity. No suspicious appearing pulmonary nodules. Pleural space: No pleural effusion or pneumothorax. Lower neck, lymph nodes, and mediastinum: No axillary, supraclavicular, mediastinal or hilar lymphadenopathy by CT size criteria. Heart, pericardium, and thoracic vessels: Moderate cardiomegaly. No pericardial effusion. The thoracic aorta and main pulmonary artery are normal in caliber. Atherosclerotic calcifications of the thoracic aorta and coronary arteries. Bones/Soft Tissues: No aggressive osseous lesions. Upper abdomen: Dedicated CT imaging of the abdomen and pelvis was performed concurrently and is dictated separately. Travel Agent (topogram) images: Unremarkable. IMPRESSION: No metastatic disease in the chest. Transcribe Date/Time: Dec 25 2023 4:12P Dictated by: DALILA RON MD This examination was interpreted and the report reviewed and electronically signed by: DALILA RON MD on Dec 25 2023 4:21PM EST Thank you for allowing us to participate in the care of your patient. Should there be any questions regarding this interpretation, please call [phone]. If you are unable to reach us at the number above, please feel free to contact [facility] eRadiology at [phone]. [id number] CN Normal [facility] CT Chest W contrast Tiffanie IMPRESSION: No metastatic disease in the chest. Transcribe Date/Time: Dec 25 2023 4:12P Dictated by: DALILA RON MD This examination was interpreted and the report reviewed and electronically signed by: DALILA RON MD on Dec 25 2023 4:21PM EST Thank you for allowing us to participate in the care of your patient. Should there be any questions regarding this interpretation, please call [phone]. If you are unable to reach us at the number above, please feel free to contact [facility] at [phone]. DIVISION OF RADIOLOGY * * *Final Report* * * DATE OF EXAM: Dec 25 2023 9:45AM [facility] 0539 - CT CHEST W IVCON / PROCEDURE REASON: Renal cell carcinoma of left kidney (HCC) * * * * Physician Interpretation * * * * RESULT: EXAMINATION: CHEST CT WITH CONTRAST CLINICAL HISTORY: Renal cell carcinoma of left kidney (HCC) Technique: Spiral CT acquisition of the chest from the thoracic inlet to the upper abdomen following IV contrast. MQ: CTCWR_5 Contrast: 150 mL Omnipaque [address] Dose-Length Product: 2882 mGy*cm CT Dose Reduction Employed: Automated exposure control(AEC) and iterative recon Comparison: 07/08/2023 RESULT: Lines, tubes, and devices: None. Lung parenchyma and airways: Trachea and central airways are patent. No consolidative opacity. No suspicious appearing pulmonary nodules. Pleural space: No pleural effusion or pneumothorax. Lower neck, lymph nodes, and mediastinum: No axillary, supraclavicular, mediastinal or hilar lymphadenopathy by CT size criteria. Heart, pericardium, and thoracic vessels: Moderate cardiomegaly. No pericardial effusion. The thoracic aorta and main pulmonary artery are normal in caliber. Atherosclerotic calcifications of the thoracic aorta and coronary arteries. Bones/Soft Tissues: No aggressive osseous lesions. Upper abdomen: Dedicated CT imaging of the abdomen and pelvis was performed concurrently and is dictated separately. Travel Agent (topogram) images: Unremarkable. DIVISION OF RADIOLOGY Provider, [facility] [place] - 12/25/2023 * * *Final Report* * * DATE OF EXAM: Dec 25 2023 9:45AM [facility] 0539 - CT CHEST W IVCON / PROCEDURE REASON: Renal cell carcinoma of left kidney (HCC) * * * * Physician Interpretation * * * * RESULT: EXAMINATION: CHEST CT WITH CONTRAST CLINICAL HISTORY: Renal cell carcinoma of left kidney (HCC) Technique: Spiral CT acquisition of the chest from the thoracic inlet to the upper abdomen following IV contrast. MQ: CTCWR_5 Contrast: 150 mL Omnipaque [address] Dose-Length Product: 2882 mGy*cm CT Dose Reduction Employed: Automated exposure control(AEC) and iterative recon Comparison: 07/08/2023 RESULT: Lines, tubes, and devices: None. Lung parenchyma and airways: Trachea and central airways are patent. No consolidative opacity. No suspicious appearing pulmonary nodules. Pleural space: No pleural effusion or pneumothorax. Lower neck, lymph nodes, and mediastinum: No axillary, supraclavicular, mediastinal or hilar lymphadenopathy by CT size criteria. Heart, pericardium, and thoracic vessels: Moderate cardiomegaly. No pericardial effusion. The thoracic aorta and main pulmonary artery are normal in caliber. Atherosclerotic calcifications of the thoracic aorta and coronary arteries. Bones/Soft Tissues: No aggressive osseous lesions. Upper abdomen: Dedicated CT imaging of the abdomen and pelvis was performed concurrently and is dictated separately. Travel Agent (topogram) images: Unremarkable. IMPRESSION IMPRESSION: No metastatic disease in the chest. Transcribe Date/Time: Dec 25 2023 4:12P Dictated by: DALILA RON MD This examination was interpreted and the report reviewed and electronically signed by: DALILA RON MD on Dec 25 2023 4:21PM EST Thank you for allowing us to participate in the care of your patient. Should there be any questions regarding this interpretation, please call [phone]. If you are unable to reach us at the number above, please feel free to contact [facility]Radiology at [phone]. [facility] No Panel Informationon 12-24 Radiology Study observation (narrative) [facility] Ambulatory Visit Summaryon 0 12-24-2023 Ambulatory Visit Summary Ambulatory Visit Summary JUANCARLOS BAUM :1955 Visit Date:12/24/2023 Ambulatory Visit Instructions Your Diagnosis Elevated PSA Bladder stone Gross hematuria Cancer of kidney BPH (benign prostatic hyperplasia) Anticoagulated Your Care Team Attending Physician - NATALIYA SAAVEDRA, Elliot Muniz Primary Care Physician - Dewey DANIELS DO This Is Your Medications List dutasteride (dutasteride 0.5 mg Cap) Contact prescribing physician if questions or concerns apixaban (Eliquis 5 mg oral tablet) digoxin (digoxin 250 mcg (0.25 mg) Tab) gabapentin (gabapentin 400 mg Cap) levothyroxine (levothyroxine 125 mcg (0.125 mg) Tab) multivitamin (Multi Vitamin+) pregabalin (pregabalin 150 mg Cap) propranolol (propranolol 80 mg Cap-ER) Procedures Performed Transrectal biopsy of prostate using ultrasound (US) guidance (04/22/2023), Cystoscopy (06/02/2020), Total hip replacement (05/29/2020), TURP - Transurethral resection of prostate (09/29/2018), Ankle (1985), Colonoscopy, Left nephrectomy, Rotator cuff. Discharge Vitals Heart Rate (Peripheral) 60 Respiratory Rate 16 Blood Pressure 130/80 Height 178 cm Height 70 in Weight 144 kg Weight 316.8 lb BMI 45.45 What to do next You Need to Schedule the Following Appointments Follow Up with NATALIYA SAAVEDRA, DANGELO Lin When: Where: [facility] [address], [place] [address]- Medications What How Much When Instructions Unchanged dutasteride (dutasteride 0.5 mg Cap) 1 Capsules By Mouth Every day Duration: 30 Days Unchanged apixaban (Eliquis 5 mg oral tablet) By Mouth 2 times a day Contact prescribing physician if questions or concerns Unchanged digoxin (digoxin 250 mcg (0.25 mg) Tab) 1 Tablets By Mouth Every day Contact prescribing physician if questions or concerns Unchanged gabapentin (gabapentin 400 mg Cap) By Mouth 3 times a day Contact prescribing physician if questions or concerns Unchanged levothyroxine (levothyroxine 125 mcg (0.125 mg) Tab) 1 Tablets By Mouth Every day Contact prescribing physician if questions or concerns Unchanged multivitamin (Multi Vitamin+) Contact prescribing physician if questions or concerns Unchanged pregabalin (pregabalin 150 mg Cap) 1 Capsules By Mouth 2 times a day Contact prescribing physician if questions or concerns Unchanged propranolol (propranolol 80 mg Cap-ER) 1 Capsules By Mouth Every day Contact prescribing physician if questions or concerns Allergies meloxicam (nausea/ kidney pain) Problems Ongoing - Any problem that you are currently receiving treatment for. Anticoagulated Bladder stone BMI 40.0-44.9, adult BPH (benign prostatic hyperplasia) Cancer of kidney Elevated PSA Gross hematuria Kidney stone Nocturia Sleep apnea Status post left hip replacement Urinary retention Historical - Any problem that you are no longer receiving treatment for. Asymptomatic microscopic hematuria Atrial fibrillation Renal mass Patient Survey You may receive a survey via text or e-mail asking about your office visit. Please share your experience with us by completing your survey. We appreciate your feedback and thank you for choosing us for your care. Normal [facility] Provider Letteron 12-24-2023 Provider Letter Provider Letter December 24, 2023 JUANCARLOS BAUM [address] [place] [address] : 1955 To Whom It May Concern, Please excuse JUANCARLOS BAUM from work ON 12/24/23. From: _ To: _ Sincerely, Madeline Ryan [facility] Normal [facility] Urine Cytology ([facility])on 0 12-24-2023 Method of Extraction Voided Normal [facility] Comment on above: Performed By: #### 1 [id number] #### [facility] [address] [place] [address] Number of Jars 1 Invalid Interpretation Code [facility] Comment on above: Performed By: #### 1 [id number] #### [facility] [address] [place] [address] Specimen Urine Normal [facility] Comment on above: Performed By: #### 1 [id number] #### [facility] [address] [place] [address] Type of Service Technical Only Normal [facility] Comment on above: Performed By: #### 1 [id number] #### [facility] [address] [place] [address] Urology Office/Clinic Noteon 12-24-2023 Urology Office/Clinic Note Urology Office/Clinic Note Chief Complaint 6 month follow up HPI Staff 6 month f/u, trus/bx 04/22/23 Dx: elevated PSA, cancer of kidney, BPH, anticoagulated. S/p TURP 09/29/18. *Started on Dutasteride 0.5mg qd at prior OV. Last PSA 01/21/23 - 5.8 & 33%. Dysuria: denies pain or burning Incomplete bladder emptying: denies Hematuria: yes sometimes once every 3 months, UA shows MODERATE Frequency: every 3-4 hours Urgency: yes Nocturia: 1x a night Stream: denies hesitancy, yes has weak stream Leaking: denies Post void dripping: yes Wearing pads/ Depends: denies Urge incontinence: denies Stress incontinence: denies Incontinence without Sensory Awareness: denies Abdominal pain: denies Flank pain: denies Sexual complaints: denies History of Present Illness Tests reviewed: reviewed UA, CT, cysto I have reviewed the previous health record information and history for this patient from Dr. An. I have reviewed and verified the staff HPI to be accurate for this encounter. Review of Systems PHQ Score Initial Depression Screen Score: 0 SCORE ROS - Provider Constitutional: denies weight loss, denies hot flashes. Eyes: denies eye problems. Gastrointestinal: denies nausea, denies vomiting. Cardiovascular: denies chest pain or angina. Integumentary: no dryness Musculoskeletal: denies musculoskeletal symptoms. ENMT: denies otolaryngeal symptoms. Respiratory: no shortness of breath. Heme/Lymph: denies easy bleeding tendency, denies easy bruising tendency. Psychiatric: no confusion, no anxiety. Genitourinary: See HPI. Physical Exam Vitals & Measurements HR: 60(Peripheral) RR: 16 BP: 130/80 HT: 70 in HT: 178 cm WT: 144 kg WT: 316.8 lb BMI: 45.45 General Appearance: alert, no distress, well nourished, well developed male. Assessment/Plan 1. Elevated PSA (R97.20: Elevated prostate specific antigen [PSA]) PSA: 04/17/20 - 9.3 & 26% 08/22/20 - 4.2 & 33% 12/20/20 - 4.1 & 32% 12/25/21 - 4.8 & 33% 01/21/23 - 5.8 & 33% S/p TRUS/bx 04/22/23 - HGPIN x 1 core, R lateral mid. Prostate volume 216 cc. 2. Bladder stone (N21.0: Calculus in bladder) CT AP wo con 12/26/22 [facility] - S/p L nephrectomy. No evidence of locally recurrent mass. Punctate 1 mm nonobstructing R renal stone. R kidney normal. Multiple urinary bladder calcifications measuring up to 8 mm, may represent a combination of urinary bladder stones and prostate calcifications. Pt recalls Dr. Au telling him that his bladder looked like an aquarium due to all of the bladder stones. No record of Dr. Au f/u on this. Discussed cysto to eval for bladder stones and likely cystolitholapaxy. Reviewed CT with pt. Will schedule cysto. The risks and benefits for cystoscopy have been discussed. The risks include bleeding, infection, and irritation of the bladder and urinary channel, among others. The patient, after being informed of procedural details and after questions have been answered, wishes to proceed. Full informed consent has been obtained. Will order Local anesthesia. Prophylactic abx sent to [facility]. 3. Gross hematuria (R31.0: Gross hematuria) UA shows moderate blood wo signs of infection. Still having gross hematuria every now and then. Counseled pt that this is not normal especially after TURPs. 4. 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 Au 08/29/21 - several superficial bladder tumors at the dome of the bladder I counted 7 in all scattered over the top of the dome of the bladder. [4] Pt had L nephrectomy after this cysto but there appears to be no f/u TURBT after this cysto. -Cysto above. 5. Cancer of kidney (C64.9: Malignant neoplasm of unspecified kidney, except renal pelvis) S/p hand assisted laparoscopic L radical nephrectomy by Dr. Rose at [facility] 08/14/22 - RCC, clear cell type, WHO/ISUP grade 3, with focal early invasion of renal sinus vessel. Surgical margins are neg. Adjuvant Pembrolizumab q3wk started 09/19/22, plan for pt to receive for [address] AP wo con 12/26/22 - No evidence of intra-abdominal/pelv ic mets. [1] Pt having CT done tomorrow through [facility] for Dr. Amaya. 6. BPH (benign prostatic hyperplasia) (N40.0: Benign prostatic hyperplasia without lower urinary tract symptoms) S/p TURP 09/29/18 and 06/02/20. Cysto by Dr. Au 08/29/21 - Moderate Hypertrophy. [1] Trabeculated (Moderate (2) [2]. Prostate bladder neck open now since TURP [3]. Started Dutasteride 0.5 mg qd. IPSS 13 (22). Happy with stream but a little weak. Start/stop stream once in a while. Feels he empties completely but can void a little more if he stays over the toilet. 7. Anticoagulated (Z79.01: USP (current) use of anticoagulants) Eliquis. Likely exacerbating #3. Follow-up With When Contact Information Elliot AN MD, URL [facility] [address], [place] [address]- Additional Instructions: sched cysto Patient Education B (more content not included)... Normal [facility] Comment on above: Result Comment: Elec tronically Signed By: Elliot AN MD\.br\Date and Time Signed: 12/24/23 10:24 EDT\.br\Electronically Co-Signed By: Alba Layne\.br\Date and Time Co-Signed: 12/24/23 10:20 EDT CBC W Auto Differential pane l (Bld)on 12-22-2023 Basophils (Bld) [#/Vol] 0.06 10*3/uL Normal <0.11 [facility] Comment on above: Order Comment: Speci men Type: BLOOD SPECIMENOrdering Facility: [facility] Address: [address] [place] [address] Performed By: #### 5 7021-8 ####[facility] LABCLIA [id number] [place] [address] Basophils/100 WBC (Bld) 0.8 % Normal [facility] Comment on above: Order Comment: Speci men Type: BLOOD SPECIMENOrdering Facility: [facility] Address: [address] [place] [address] Performed By: #### 5 7021-8 ####[facility] LABCLIA [id number] [place] [address] Differential cell count method Nom (Bld) Auto Normal [facility] Comment on above: Order Comment: Speci men Type: BLOOD SPECIMENOrdering Facility: [facility] Address: [address] [place] [address] Performed By: #### 5 7021-8 ####[facility] LABCLIA [id number] [place] [address] Eosinophils (Bld) [#/Vol] 0.38 10*3/uL Normal <0.46 [facility] Comment on above: Order Comment: Speci men Type: BLOOD SPECIMENOrdering Facility: [facility] Address: [address] [place] [address] Performed By: #### 5 7021-8 ####[facility] LABCLIA [id number] [place] [address] Eosinophils/100 WBC (Bld) 4.9 % Normal [facility] Comment on above: Order Comment: Speci men Type: BLOOD SPECIMENOrdering Facility: [facility] Address: [address] [place] [address] Performed By: #### 5 7021-8 ####[facility] LABCLIA [id number] [place] [address] Erythrocyte distribution width (RBC) [Ratio] 13.8 % Normal 11.5-15.0 [facility] Comment on above: Order Comment: Speci men Type: BLOOD SPECIMENOrdering Facility: [facility] Address: [address] [place] [address] Performed By: #### 5 7021-8 ####[facility] LABCLIA [id number] [place] [address] Hematocrit (Bld) [Volume fraction] 45.4 % Normal 39.0-51.0 [facility] Comment on above: Order Comment: Speci men Type: BLOOD SPECIMENOrdering Facility: [facility] Address: [address] [place] [address] Performed By: #### 5 7021-8 ####[facility] LABCLIA [id number] [place] [address] Hemoglobin (Bld) [Mass/Vol] 15.2 g/dL Normal 13.0-17.0 [facility] Comment on above: Order Comment: Speci men Type: BLOOD SPECIMENOrdering Facility: [facility] Address: [address] [place] [address] Performed By: #### 5 7021-8 ####[facility] LABCLIA [id number] [place] [address] Immature granulocytes (Bld) [#/Vol] 0.06 10*3/uL Normal <0.10 [facility] Comment on above: Order Comment: Speci men Type: BLOOD SPECIMENOrdering Facility: [facility] Address: [address] [place] [address] Performed By: #### 5 7021-8 ####[facility] LABCLIA [id number] [place] [address] Immature granulocytes/100 WBC (Bld) 0.8 % Normal [facility] Comment on above: Order Comment: Speci men Type: BLOOD SPECIMENOrdering Facility: [facility] Address: [address] [place] [address] Performed By: #### 5 7021-8 ####[facility] LABCLIA [id number] [place] [address] Lymphocytes (Bld) [#/Vol] 1.22 10*3/uL Normal 1.00-4.00 [facility] Comment on above: Order Comment: Speci men Type: BLOOD SPECIMENOrdering Facility: [facility] Address: [address] [place] [address] Performed By: #### 5 7021-8 ####[facility] LABCLIA [id number] [place] [address] Lymphocytes/100 WBC (Bld) 15.7 % Normal [facility] Comment on above: Order Comment: Speci men Type: BLOOD SPECIMENOrdering Facility: [facility] Address: [address] [place] [address] Performed By: #### 5 7021-8 ####[facility] LABCLIA [id number] [place] [address] MCH (RBC) [Entitic mass] 31.9 pg Normal 26.0-34.0 [facility] Comment on above: Order Comment: Speci men Type: BLOOD SPECIMENOrdering Facility: [facility] Address: [address] [place] [address] Performed By: #### 5 7021-8 ####[facility] LABCLIA [id number] [place] [address] MCHC (RBC) [Mass/Vol] 33.5 g/dL Normal 30.5-36.0 [facility] Comment on above: Order Comment: Speci men Type: BLOOD SPECIMENOrdering Facility: [facility] Address: [address] [place] [address] Performed By: #### 5 7021-8 ####[facility] LABCLIA [id number] [place] [address] MCV (RBC) [Entitic vol] 95.2 fL Normal 80.0-100.0 [facility] Comment on above: Order Comment: Speci men Type: BLOOD SPECIMENOrdering Facility: [facility] Address: [address] [place] [address] Performed By: #### 5 7021-8 ####[facility] LABCLIA [id number] [place] [address] Monocytes (Bld) [#/Vol] 1.23 10*3/uL High <0.87 [facility] Comment on above: Order Comment: Speci men Type: BLOOD SPECIMENOrdering Facility: [facility] Address: [address] [place] [address] Performed By: #### 5 7021-8 ####[facility] LABCLIA [id number] [place] [address] Monocytes/100 WBC (Bld) 15.8 % Normal [facility] Comment on above: Order Comment: Speci men Type: BLOOD SPECIMENOrdering Facility: [facility] Address: [address] [place] [address] Performed By: #### 5 7021-8 ####[facility] LABCLIA [id number] [place] [address] Neutrophils (Bld) [#/Vol] 4.84 10*3/uL Normal 1.45-7.50 [facility] Comment on above: Order Comment: Speci men Type: BLOOD SPECIMENOrdering Facility: [facility] Address: [address] [place] [address] Performed By: #### 5 7021-8 ####[facility] LABCLIA [id number] [place] [address] Neutrophils/100 WBC (Bld) 62.0 % Normal [facility] Comment on above: Order Comment: Speci men Type: BLOOD SPECIMENOrdering Facility: [facility] Address: [address] [place] [address] Performed By: #### 5 7021-8 ####[facility] LABCLIA [id number] [place] [address] Nucleated RBC (Bld) [#/Vol] 10*3/uL Normal <0.01 [facility] Comment on above: Order Comment: Speci men Type: BLOOD SPECIMENOrdering Facility: [facility] Address: [address] [place] [address] Performed By: #### 5 7021-8 ####[facility] LABCLIA [id number] [place] [address] Nucleated RBC/100 WBC (Bld) [Ratio] 0.0 /100 WBC Normal [facility] Comment on above: Order Comment: Speci men Type: BLOOD SPECIMENOrdering Facility: [facility] Address: [address] [place] [address] Performed By: #### 5 7021-8 ####[facility] LABCLIA [id number] [place] [address] Platelet mean volume (Bld) [Entitic vol] 11.5 fL Normal 9.0-12.7 [facility] Comment on above: Order Comment: Speci men Type: BLOOD SPECIMENOrdering Facility: [facility] Address: [address] [place] [address] Performed By: #### 5 7021-8 ####[facility] LABIA [id number] [place] [address] Platelets (Bld) [#/Vol] 155 10*3/uL Normal 150-400 [facility] Comment on above: Order Comment: Speci men Type: BLOOD SPECIMENOrdering Facility: [facility] Address: [address] [place] [address] Performed By: #### 5 7021-8 ####[facility] LABIA [id number] [place] [address] RBC (Bld) [#/Vol] 4.77 10*6/uL Normal 4.20-6.[address] [facility] Comment on above: Order Comment: Speci men Type: BLOOD SPECIMENOrdering Facility: [facility] Address: [address] [place] [address] Performed By: #### 5 7021-8 ####[facility] [id number] [place] [address] WBC (Bld) [#/Vol] 7.79 10*3/uL Normal 3.70-11.[address] [facility] Comment on above: Order Comment: Speci men Type: BLOOD SPECIMENOrdering Facility: [facility] Address: [address] [place] [address] Performed By: #### 5 7021-8 ####[facility] [id number] [place] [address] CNCOon 12-22-2023 CNCO Letter Text Normal [facility] Peter 12-22-2023 CNPN Telephone (HEMASA) JUANCARLOS BAUM ([id number]) 1955 M Date Time Provider Department 12/22/23 NIRMALA REGALADO During your visit today, we recorded the following information about you: Nirmala Regalado RN 12/22/2023 10:28 AM Signed Pt requesting a letter confirming that he was in our office today for labs. Will hand picker when back on . Letter written and up at front office coordinator. Nirmala Regalado RN Allergies As of Date: 12/22/2023 Noted Allergy Reaction MELOXICAM 04/24/2021 11 - Vomiting NSAIDS (NON-STEROIDAL ANTI-INFLAM*04/24/20 21 14 - Other: See Comments Date Reviewed: 10/03/2023 Reviewed by: Lara Wells PA-C - Fully Assessed Reason for Visit: Care Coordination [0932] Cmt: Letter Request Prescriptions as of 12/22/2023 - levothyroxine (SYNTHROID) 125 mcg tablet Take 1 tablet by mouth once daily. - levothyroxine (SYNTHROID) 100 mcg tablet Take 1 tablet by mouth once daily. - levothyroxine (SYNTHROID) 75 mcg tablet Take 1 tablet by mouth once daily. - dutasteride (AVODART) 0.5 mg capsule Take 0.5 mg by mouth. - gabapentin (NEURONTIN) 800 mg tablet Take 800 mg by mouth three times a day. - ELIQUIS 5 mg tab(s) Take 1 tablet by mouth twice daily. You may resume this medication on August 26. - digoxin (LANOXIN) 125 mcg (0.125 mg) tablet Take by mouth once daily. - propranolol ER (INDERAL LA) 80 mg 24 hr capsule Take 80 mg by mouth once daily. - multivit,thx,calcium ,iron,mins (MULTIVITAMIN AND MINERAL ORAL) Take 1 Dose by mouth once daily. Problem List As Of Date 12/22/2023 Noted Resolved Renal mass [N28.89] 08/02/2022 A-fib (HCC) [I48.91] 08/05/2022 GEOVANNA (obstructive sleep apnea) [G47.33] 08/05/2022 Obesity, Class III, BMI >= 40 [E66.01] 08/10/2022 Left renal mass [N28.89] 08/14/2022 Cancer of left kidney (HCC) [C64.2] 08/29/2022 Stage 3 chronic kidney disease (HCC) [N18.30] 12/13/2022 Encounter Status:Closed by NIRMALA REGALADO on 12/22/23 Normal [facility] metabolic 2000 panelon 12-22-2023 Albumin [Mass/Vol] 4.7 g/dL Normal 3.9-4.9 [facility] Comment on above: Order Comment: Speci men Type: BLOOD SPECIMENOrdering Facility: [facility] Address: [address] [place] [address] Performed By: #### 2 4323-8 ####[facility] LABCLIA [id number] [place] [address] ALP [Catalytic activity/Vol] 97 U/L Normal 38-113 [facility] Comment on above: Order Comment: Speci men Type: BLOOD SPECIMENOrdering Facility: [facility] Address: [address] [place] [address] Performed By: #### 2 4323-8 ####[facility] LABCLIA [id number] [place] [address] ALT [Catalytic activity/Vol] 19 U/L Normal 10-54 [facility] Comment on above: Order Comment: Speci men Type: BLOOD SPECIMENOrdering Facility: [facility] Address: [address] [place] [address] Performed By: #### 2 4323-8 ####[facility] LABCLIA [id number] [place] [address] Anion gap [Moles/Vol] 11 mmol/L Normal 8-15 [facility] Comment on above: Order Comment: Speci men Type: BLOOD SPECIMENOrdering Facility: [facility] Address: [address] [place] [address] Performed By: #### 2 4323-8 ####[facility] LABCLIA [id number] [place] [address] AST [Catalytic activity/Vol] 19 U/L Normal 14-40 [facility] Comment on above: Order Comment: Speci men Type: BLOOD SPECIMENOrdering Facility: [facility] Address: [address] [place] [address] Performed By: #### 2 4323-8 ####[facility] LABCLIA [id number] [place] [address] Bilirubin [Mass/Vol] 0.6 mg/dL Normal 0.2-1.3 [facility] Comment on above: Order Comment: Speci men Type: BLOOD SPECIMENOrdering Facility: [facility] Address: [address] [place] [address] Performed By: #### 2 4323-8 ####[facility] LABCLIA [id number] [place] [address] Calcium [Mass/Vol] 10.0 mg/dL Normal 8.5-10.2 [facility] Comment on above: Order Comment: Speci men Type: BLOOD SPECIMENOrdering Facility: [facility] Address: [address] [place] [address] Performed By: #### 2 4323-8 ####[facility] LABCLIA [id number] [place] [address] Chloride [Moles/Vol] 105 mmol/L Normal 98-107 [facility] Comment on above: Order Comment: Speci men Type: BLOOD SPECIMENOrdering Facility: [facility] Address: [address] [place] [address] Performed By: #### 2 4323-8 ####[facility] LABCLIA [id number] [place] [address] CO2 [Moles/Vol] 25 mmol/L Normal 22-30 [facility] Comment on above: Order Comment: Speci men Type: BLOOD SPECIMENOrdering Facility: [facility] Address: [address] [place] [address] Performed By: #### 2 4323-8 ####[facility] LABCLIA [id number] [place] [address] Creatinine [Mass/Vol] 1.40 mg/dL High 0.73-1.22 [facility] Comment on above: Order Comment: Speci men Type: BLOOD SPECIMENOrdering Facility: [facility] Address: [address] [place] [address] Performed By: #### 2 4323-8 ####[facility] LABCLIA [id number] [place] [address] Creatinine and Glomerular filtration rate.predicted panel (S/P/Bld) 54 mL/min/1.73m??? Low >=60 [facility] Comment on above: Order Comment: Speci men Type: BLOOD SPECIMENOrdering Facility: [facility] Address: [address] [place] [address] Result Comment: Krista mated Glomerular Filtration Rate (eGFR) is calculated using the 2020 CKD-EPI creatinine equation. This equation utilizes serum creatinine, sex, and age as parameters. The creatinine assay has traceable calibration to isotope dilution-mass spectrometry. Refer to KDIGO guidelines for clinical interpretation. In patients with unstable renal function, e.g. those with acute kidney injury, the eGFR may not accurately reflect actual GFR. Performed By: #### 2 4323-8 ####[facility] LABCLIA [id number] [place] [address] Glucose [Mass/Vol] 114 mg/dL High 74-99 [facility] Comment on above: Order Comment: Speci men Type: BLOOD SPECIMENOrdering Facility: [facility] Address: [address] [place] [address] Result Comment: The [place] [employer] (ADA) provides guidance for cutoff values for fasting glucose and random glucose. The ADA defines fasting as no caloric intake for at least 8 hours. Fasting plasma glucose results between 100 to 125 mg/dL indicate increased risk for diabetes (prediabetes). Fasting plasma glucose results greater than or equal to 126 mg/dL meet the criteria for diagnosis of diabetes. In the absence of unequivocal hyperglycemia, results should be confirmed by repeat testing. In a patient with classic symptoms of hyperglycemia or hyperglycemic crisis, random plasma glucose results greater than or equal to 200 mg/dL meet the criteria for diagnosis of diabetes. Reference: Standards of Medical Care in Diabetes 2016, [place] [employer]. Diabetes Care. 2016.39(Suppl 1). Performed By: #### 2 4323-8 ####[facility] LABCLIA [id number] [place] [address] Potassium [Moles/Vol] 5.4 mmol/L High 3.7-5.1 [facility] Comment on above: Order Comment: Speci men Type: BLOOD SPECIMENOrdering Facility: [facility] Address: [address] [place] [address] Performed By: #### 2 4323-8 ####[facility] LABCLIA [id number] [place] [address] Protein [Mass/Vol] 7.3 g/dL Normal 6.3-8.0 [facility] Comment on above: Order Comment: Speci men Type: BLOOD SPECIMENOrdering Facility: [facility] Address: [address] [place] [address] Performed By: #### 2 4323-8 ####[facility] LABCLIA [id number] [place] [address] Sodium [Moles/Vol] 141 mmol/L Normal 136-144 [facility] Comment on above: Order Comment: Speci men Type: BLOOD SPECIMENOrdering Facility: [facility] Address: [address] [place] [address] Performed By: #### 2 4323-8 ####[facility] LABCLIA [id number] [place] [address] Urea nitrogen [Mass/Vol] 17 mg/dL Normal 9-24 [facility] Comment on above: Order Comment: Speci men Type: BLOOD SPECIMENOrdering Facility: [facility] Address: [address] [place] [address] Performed By: #### 2 4323-8 ####[facility] LABCLIA [id number] [place] [address] TSH SerPl-aCncon 12-22-2023 TSH Qn 8.740 m[IU]/L High 0.270-4.200 [facility] Comment on above: Order Comment: Speci men Type: BLOOD SPECIMENOrdering Facility: [facility] Address: [address] [place], [place] [address] Performed By: #### 3 016-3 ####[facility] LABCLIA [id number] [facility] [id number] [id number] [facility] CNPLian 11-14-2023 CNPN Telephone (HEMASA) JUANCARLOS BAUM ([id number]) 1955 M Date Time Provider Department 11/14/23 NIRMALA REGALADO During your visit today, we recorded the following information about you: Nirmala Regalado RN 11/14/2023 12:02 PM Signed Yesterday's TSH was 21.2. Pt taking Synthroid 100 mcg/day. Does he need to adjust his dose? EUSEBIO Gorman Rebecca, RN 11/14/2023 2:19 PM Signed Aba Amaya MD You6 minutes ago (2:10 PM) Yes, would increase Synthroid to 125. please prescribe one month supply with three refills. Nirmala Regalado RN 11/14/2023 2:19 PM Signed Pt's spouse notified and verbalizes understanding. BRM: New Rx pended. Nirmala Regalado RN Allergies As of Date: 11/14/2023 Noted Allergy Reaction MELOXICAM 04/24/2021 11 - Vomiting NSAIDS (NON-STEROIDAL ANTI-INFLAM*04/24/20 21 14 - Other: See Comments Date Reviewed: 10/03/2023 Reviewed by: Lara Wells PA-C - Fully Assessed Reason for Visit: Results [95] Cmt: TSH Order(s):levothyroxi ne (SYNTHROID) 125 mcg tabletTake 1 tablet by mouth once daily.Disp: 30 tabletRfl: 3 Prescriptions as of 11/14/2023 - levothyroxine (SYNTHROID) 125 mcg tablet Take 1 tablet by mouth once daily. - levothyroxine (SYNTHROID) 100 mcg tablet Take 1 tablet by mouth once daily. - levothyroxine (SYNTHROID) 75 mcg tablet Take 1 tablet by mouth once daily. - dutasteride (AVODART) 0.5 mg capsule Take 0.5 mg by mouth. - gabapentin (NEURONTIN) 800 mg tablet Take 800 mg by mouth three times a day. - ELIQUIS 5 mg tab(s) Take 1 tablet by mouth twice daily. You may resume this medication on August 26. - digoxin (LANOXIN) 125 mcg (0.125 mg) tablet Take by mouth once daily. - propranolol ER (INDERAL LA) 80 mg 24 hr capsule Take 80 mg by mouth once daily. - multivit,thx,calcium ,iron,mins (MULTIVITAMIN AND MINERAL ORAL) Take 1 Dose by mouth once daily. Problem List As Of Date 11/14/2023 Noted Resolved Renal mass [N28.89] 08/02/2022 A-fib (HCC) [I48.91] 08/05/2022 GEOVANNA (obstructive sleep apnea) [G47.33] 08/05/2022 Obesity, Class III, BMI >= 40 [E66.01] 08/10/2022 Left renal mass [N28.89] 08/14/2022 Cancer of left kidney (HCC) [C64.2] 08/29/2022 Stage 3 chronic kidney disease (HCC) [N18.30] 12/13/2022 Prescriptions ordered this encounter Disp Refills Start End LEVOTHYROXINE 125 MCG TABLET 30 t* 3 11/14/2023 03/13/2024 Route: ORAL Sig: Take 1 tablet by mouth once daily. Encounter Status:Closed by SAMY DIGGS on 11/14/23 Normal [facility] T4 Free SerPl-mCncon 11-12-2 024 Free T4 [Mass/Vol] 1.0 ng/dL Normal 0.9-1.7 [facility] Comment on above: Order Comment: Speci men Type: BLOOD SPECIMENOrdering Facility: [facility] Address: [address] [place] [address] Performed By: #### 3 024-7, 3016-3 ####[facility] LABIA [id number] [address] [place] TSH SerPl-aCncon 11-13-2023 TSH Qn 21.200 m[IU]/L High 0.270-4.200 [facility] Comment on above: Order Comment: Speci men Type: BLOOD SPECIMENOrdering Facility: [facility] Address: [address] [place] [address] Performed By: #### 3 024-7, 3016-3 ####[facility] LABIA [id number] [address] [place] CNPNon 10-03-2023 CNPN Telephone (HEMASA) JUANCARLOS BAUM ([id number]) 1955 M Date Time Provider Department 10/03/23 YOON REYNOLDS During your visit today, we recorded the following information about you: Yoon Reynolds RN 10/03/2023 9:58 AM Signed ----- Message from Aba Amaya MD sent at 10/03/2023 6:57 AM EDT ----- Please inform the patient that his TSH remains elevated. Verify if he is on Synthroid 75 mcg. If so would increase to 100 mcg daily. Repeat TFTs in 6 weeks. Yoon Reynolds RN 10/03/2023 10:06 AM Signed Pt informed of BRM message and agreeable to increase of synthroid from 75 mcg to 100 mcg daily. Pt denies any questions, needs or concerns at this time. Yoon Reynolds RN BRM Please review and sign repeat lab orders and RX increase PSS: Please call to schedule repeat labs in 6 weeks EUSEBIO Walker Mindy M, PA-C 10/03/2023 10:33 AM Signed Signed TANNER Degroot Amy S 10/03/2023 10:58 AM Signed Spoke to patient AND scheduled repeat labs in 6 weeks on 11/13/2023 at 9:15 am. 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 - levothyroxine (SYNTHROID) 75 mcg tablet Take 1 tablet by mouth once daily. - dutasteride (AVODART) 0.5 mg capsule Take 0.5 mg by mouth. - gabapentin (NEURONTIN) 800 mg tablet Take 800 mg by mouth three times a day. - ELIQUIS 5 mg tab(s) Take 1 tablet by mouth twice daily. You may resume this medication on August 26. - digoxin (LANOXIN) 125 mcg (0.125 mg) tablet Take by mouth once daily. - propranolol ER (INDERAL LA) 80 mg 24 hr capsule Take 80 mg by mouth once daily. - multivit,thx,calcium ,iron,mins (MULTIVITAMIN AND MINERAL ORAL) Take 1 Dose by mouth once daily. Facility-Administere d Medications as of 10/03/2023 - perflutren lipid microspheres 1.3 mL in NaCl (PF) 0.9% 10 mL injection (DEFINITY) - sodium chloride 0.9 % (flush) 10 mL (BD POSIFLUSH) Problem List As Of Date 10/03/2023 Noted Resolved Renal mass [N28.89] 08/02/2022 A-fib (HCC) [I48.91] 08/05/2022 GEOVANNA (obstructive sleep apnea) [G47.33] 08/05/2022 Obesity, Class III, BMI >= 40 [E66.01] 08/10/2022 Left renal mass [N28.89] 08/14/2022 Cancer of left kidney (HCC) [C64.2] 08/29/2022 Stage 3 chronic kidney disease (HCC) [N18.30] 12/13/2022 Prescriptions ordered this encounter Disp Refills Start End LEVOTHYROXINE 100 MCG TABLET 90 t* 3 10/03/2023 Route: ORAL Sig: Take 1 tablet by mouth once daily. Medications Discontinued During This Encounter Prescriptions - levothyroxine (SYNTHROID) 50 mcg tablet (Discontinued) Take 1 tablet by mouth once daily. Encounter Status:Closed by YOON REYNOLDS on 10/03/23 Normal [facility] CBC W Auto Differential pane l (Bld)on 10-02-2023 Basophils (Bld) [#/Vol] 0.05 10*3/uL Normal <0.11 [facility] Comment on above: Order Comment: Speci men Type: BLOOD SPECIMENOrdering Facility: [facility] Address: [address] [place] [address] Performed By: #### 5 7021-8 ####[facility] LABCLIA [id number] [place] [address] Basophils/100 WBC (Bld) 0.7 % Normal [facility] Comment on above: Order Comment: Speci men Type: BLOOD SPECIMENOrdering Facility: [facility] Address: [address] [place] [address] Performed By: #### 5 7021-8 ####[facility] LABCLIA [id number] [place] [address] Differential cell count method Nom (Bld) Auto Normal [facility] Comment on above: Order Comment: Speci men Type: BLOOD SPECIMENOrdering Facility: [facility] Address: [address] [place] [address] Performed By: #### 5 7021-8 ####[facility] LABCLIA [id number] [place] [address] Eosinophils (Bld) [#/Vol] 0.28 10*3/uL Normal <0.46 [facility] Comment on above: Order Comment: Speci men Type: BLOOD SPECIMENOrdering Facility: [facility] Address: [address] [place] [address] Performed By: #### 5 7021-8 ####[facility] LABCLIA [id number] [place] [address] Eosinophils/100 WBC (Bld) 3.8 % Normal [facility] Comment on above: Order Comment: Speci men Type: BLOOD SPECIMENOrdering Facility: [facility] Address: [address] [place] [address] Performed By: #### 5 7021-8 ####[facility] LABCLIA [id number] [place] [address] Erythrocyte distribution width (RBC) [Ratio] 15.0 % Normal 11.5-15.0 [facility] Comment on above: Order Comment: Speci men Type: BLOOD SPECIMENOrdering Facility: [facility] Address: [address] [place] [address] Performed By: #### 5 7021-8 ####[facility] LABCLIA [id number] [place] [address] Hematocrit (Bld) [Volume fraction] 44.2 % Normal 39.0-51.0 [facility] Comment on above: Order Comment: Speci men Type: BLOOD SPECIMENOrdering Facility: [facility] Address: [address] [place] [address] Performed By: #### 5 7021-8 ####[facility] LABIA [id number] [place] [address] Hemoglobin (Bld) [Mass/Vol] 14.8 g/dL Normal 13.0-17.0 [facility] Comment on above: Order Comment: Speci men Type: BLOOD SPECIMENOrdering Facility: [facility] Address: [address] [place] [address] Performed By: #### 5 7021-8 ####[facility] LABIA [id number] [place] [address] Immature granulocytes (Bld) [#/Vol] 0.08 10*3/uL Normal <0.10 [facility] Comment on above: Order Comment: Speci men Type: BLOOD SPECIMENOrdering Facility: [facility] Address: [address] [place] [address] Performed By: #### 5 7021-8 ####[facility] LABIA [id number] [place] [address] Immature granulocytes/100 WBC (Bld) 1.1 % Normal [facility] Comment on above: Order Comment: Speci men Type: BLOOD SPECIMENOrdering Facility: [facility] Address: [address] [place] [address] Performed By: #### 5 7021-8 ####[facility] LABCLIA [id number] [place] [address] Lymphocytes (Bld) [#/Vol] 1.57 10*3/uL Normal 1.00-4.00 [facility] Comment on above: Order Comment: Speci men Type: BLOOD SPECIMENOrdering Facility: [facility] Address: [address] [place] [address] Performed By: #### 5 7021-8 ####[facility] LABCLIA [id number] [place] [address] Lymphocytes/100 WBC (Bld) 21.5 % Normal [facility] Comment on above: Order Comment: Speci men Type: BLOOD SPECIMENOrdering Facility: [facility] Address: [address] [place] [address] Performed By: #### 5 7021-8 ####[facility] LABCLIA [id number] [place] [address] MCH (RBC) [Entitic mass] 31.8 pg Normal 26.0-34.0 [facility] Comment on above: Order Comment: Speci men Type: BLOOD SPECIMENOrdering Facility: [facility] Address: [address] [place] [address] Performed By: #### 5 7021-8 ####[facility] LABCLIA [id number] [place] [address] MCHC (RBC) [Mass/Vol] 33.5 g/dL Normal 30.5-36.0 [facility] Comment on above: Order Comment: Speci men Type: BLOOD SPECIMENOrdering Facility: [facility] Address: [address] [place] [address] Performed By: #### 5 7021-8 ####[facility] LABCLIA [id number] [place] [address] MCV (RBC) [Entitic vol] 95.1 fL Normal 80.0-100.0 [facility] Comment on above: Order Comment: Speci men Type: BLOOD SPECIMENOrdering Facility: [facility] Address: [address] [place] [address] Performed By: #### 5 7021-8 ####[facility] LABCLIA [id number] [place] [address] Monocytes (Bld) [#/Vol] 1.13 10*3/uL High <0.87 [facility] Comment on above: Order Comment: Speci men Type: BLOOD SPECIMENOrdering Facility: [facility] Address: [address] [place], [place] [address] Performed By: #### 5 7021-8 ####[facility] LABCLIA [id number] [place] [address] Monocytes/100 WBC (Bld) 15.5 % Normal [facility] Comment on above: Order Comment: Speci men Type: BLOOD SPECIMENOrdering Facility: [facility] [facility] Address: [address] [place] [address] Performed By: #### 5 7021-8 ####[facility] LABCLIA [id number] [place] [address] Neutrophils (Bld) [#/Vol] 4.20 10*3/uL Normal 1.45-7.50 [facility] Comment on above: Order Comment: Speci men Type: BLOOD SPECIMENOrdering Facility: [facility] Address: [address] [place] [address] Performed By: #### 5 7021-8 ####[facility] LABCLIA [id number] [place] [address] Neutrophils/100 WBC (Bld) 57.4 % Normal [facility] Comment on above: Order Comment: Speci men Type: BLOOD SPECIMENOrdering Facility: [facility] Address: [address] [place] [address] Performed By: #### 5 7021-8 ####[facility] LABCLIA [id number] [place] [address] Nucleated RBC (Bld) [#/Vol] 10*3/uL Normal <0.01 [facility] Comment on above: Order Comment: Speci men Type: BLOOD SPECIMENOrdering Facility: [facility] Address: [address] [place] [address] Performed By: #### 5 7021-8 ####[facility] LABCLIA [id number] [place] [address] Nucleated RBC/100 WBC (Bld) [Ratio] 0.0 /100 WBC Normal [facility] Comment on above: Order Comment: Speci men Type: BLOOD SPECIMENOrdering Facility: [facility] Address: [address] [place] [address] Performed By: #### 5 7021-8 ####[facility] LABCLIA [id number] [place] [address] Platelet mean volume (Bld) [Entitic vol] 11.0 fL Normal 9.0-12.7 [facility] Comment on above: Order Comment: Speci men Type: BLOOD SPECIMENOrdering Facility: [facility] Address: [address] [place] [address] Performed By: #### 5 7021-8 ####[facility] LABCLIA [id number] [place] [address] Platelets (Bld) [#/Vol] 175 10*3/uL Normal 150-400 [facility] Comment on above: Order Comment: Speci men Type: BLOOD SPECIMENOrdering Facility: [facility] Address: [address] [place] [address] Performed By: #### 5 7021-8 ####[facility] LABIA [id number] [place] [address] RBC (Bld) [#/Vol] 4.65 10*6/uL Normal 4.20-6.[address] [facility] Comment on above: Order Comment: Speci men Type: BLOOD SPECIMENOrdering Facility: [facility] Address: [address] [place] [address] Performed By: #### 5 7021-8 ####[facility] LABCLIA [id number] [place] [address] WBC (Bld) [#/Vol] 7.31 10*3/uL Normal 3.70-11.[address] [facility] Comment on above: Order Comment: Speci men Type: BLOOD SPECIMENOrdering Facility: [facility] Address: [address] [place] [address] Performed By: #### 5 7021-8 ####[facility] LABCLIA [id number] [place] [address] Comprehensive metabolic 2000 panelon 10-02-2023 Albumin [Mass/Vol] 4.5 g/dL Normal 3.9-4.9 [facility] Comment on above: Order Comment: Speci men Type: BLOOD SPECIMENOrdering Facility: [facility] Address: [address] [place] [address] Performed By: #### 2 4323-8 ####[facility] LABCLIA [id number] [place] [address] ALP [Catalytic activity/Vol] 81 U/L Normal 38-113 [facility] Comment on above: Order Comment: Speci men Type: BLOOD SPECIMENOrdering Facility: [facility] Address: [address] [place] [address] Performed By: #### 2 4323-8 ####[facility] LABCLIA [id number] [place] [address] ALT [Catalytic activity/Vol] 19 U/L Normal 10-54 [facility] Comment on above: Order Comment: Speci men Type: BLOOD SPECIMENOrdering Facility: [facility] Address: [address] [place] [address] Performed By: #### 2 4323-8 ####[facility] LABCLIA [id number] [place] [address] Anion gap [Moles/Vol] 9 mmol/L Normal 9-18 [facility] Comment on above: Order Comment: Speci men Type: BLOOD SPECIMENOrdering Facility: [facility] Address: [address] [place] [address] Performed By: #### 2 4323-8 ####[facility] LABCLIA [id number] [place] [address] AST [Catalytic activity/Vol] 18 U/L Normal 14-40 [facility] Comment on above: Order Comment: Speci men Type: BLOOD SPECIMENOrdering Facility: [facility] Address: [address] [place] [address] Performed By: #### 2 4323-8 ####[facility] LABCLIA [id number] [place] [address] Bilirubin [Mass/Vol] 0.6 mg/dL Normal 0.2-1.3 [facility] Comment on above: Order Comment: Speci men Type: BLOOD SPECIMENOrdering Facility: [facility] Address: [address] [place] [address] Performed By: #### 2 4323-8 ####[facility] LABCLIA [id number] [place] [address] Calcium [Mass/Vol] 9.7 mg/dL Normal 8.5-10.2 [facility] Comment on above: Order Comment: Speci men Type: BLOOD SPECIMENOrdering Facility: [facility] Address: [address] [place] [address] Performed By: #### 2 4323-8 ####[facility] LABCLIA [id number] [place] [address] Chloride [Moles/Vol] 107 mmol/L High 97-105 [facility] Comment on above: Order Comment: Speci men Type: BLOOD SPECIMENOrdering Facility: [facility] Address: [address] [place] [address] Performed By: #### 2 4323-8 ####[facility] LABCLIA [id number] [place] [address] CO2 [Moles/Vol] 28 mmol/L Normal 22-30 [facility] Comment on above: Order Comment: Speci men Type: BLOOD SPECIMENOrdering Facility: [facility] Address: [address] [place] [address] Performed By: #### 2 4323-8 ####[facility] LABCLIA [id number] [place] [address] Creatinine [Mass/Vol] 1.50 mg/dL High 0.73-1.22 [facility] Comment on above: Order Comment: Elliott pedraza Type: BLOOD SPECIMENOrdering Facility: [facility] Address: [address] [id number] Performed By: #### 2 4323-8 ####[facility] LABCLIA [id number] [place] [address] Creatinine and Glomerular filtration rate.predicted panel (S/P/Bld) 50 mL/min/1.73m??? Low >=60 [facility] Comment on above: Order Comment: Elliott pedraza Type: BLOOD SPECIMENOrdering Facility: [facility] Address: [address] [place] [address] Result Comment: Krista mated Glomerular Filtration Rate (eGFR) is calculated using the 2020 CKD-EPI creatinine equation. This equation utilizes serum creatinine, sex, and age as parameters. The creatinine assay has traceable calibration to isotope dilution-mass spectrometry. Refer to KDIGO guidelines for clinical interpretation. In patients with unstable renal function, e.g. those with acute kidney injury, the eGFR may not accurately reflect actual GFR. Performed By: #### 2 4323-8 ####[facility] LABCLIA [id number] [place] [address] Glucose [Mass/Vol] 133 mg/dL High 74-99 [facility] Comment on above: Order Comment: Elliott pedraza Type: BLOOD SPECIMENOrdering Facility: [facility] Address: [address] [place], [place] [address] Result Comment: The [place] [employer] (ADA) provides guidance for cutoff values for fasting glucose and random glucose. The ADA defines fasting as no caloric intake for at least 8 hours. Fasting plasma glucose results between 100 to 125 mg/dL indicate increased risk for diabetes (prediabetes). Fasting plasma glucose results greater than or equal to 126 mg/dL meet the criteria for diagnosis of diabetes. In the absence of unequivocal hyperglycemia, results should be confirmed by repeat testing. In a patient with classic symptoms of hyperglycemia or hyperglycemic crisis, random plasma glucose results greater than or equal to 200 mg/dL meet the criteria for diagnosis of diabetes. Reference: Standards of Medical Care in Diabetes 2016, [place] [employer]. Diabetes Care. 2016.39(Suppl 1). Performed By: #### 2 4323-8 ####[facility] LABCLIA [id number] [place] [address] Potassium [Moles/Vol] 5.3 mmol/L High 3.7-5.1 [facility] Comment on above: Order Comment: Speci men Type: BLOOD SPECIMENOrdering Facility: [facility] Address: [address] [place] [address] Performed By: #### 2 4323-8 ####[facility] LABCLIA [id number] [place] [address] Protein [Mass/Vol] 7.3 g/dL Normal 6.3-8.0 [facility] Comment on above: Order Comment: Speci men Type: BLOOD SPECIMENOrdering Facility: [facility] Address: [address] [place] [address] Performed By: #### 2 4323-8 ####[facility] LABCLIA [id number] [place] [address] Sodium [Moles/Vol] 144 mmol/L Normal 136-144 [facility] Comment on above: Order Comment: Speci men Type: BLOOD SPECIMENOrdering Facility: [facility] Address: [address] [place] [address] Performed By: #### 2 4323-8 ####[facility] LABCLIA [id number] [place] [address] Urea nitrogen [Mass/Vol] 17 mg/dL Normal 9-24 [facility] Comment on above: Order Comment: Speci men Type: BLOOD SPECIMENOrdering Facility: [facility] Address: [address] [place] [address] Performed By: #### 2 4323-8 ####[facility] LABCLIA [id number] [place] [address] T4/FTI/T4Uon 10-02-2023 FTI 4.4 ug/dL Low 5.3-10.8 [facility] Comment on above: Order Comment: Speci men Type: BLOOD SPECIMEN [facility] Address: [address] [place] [address] Performed By: #### 2 4323-8 #### [facility] LAB CLIA [id number] [address] [place], [place] [address] T4 [Mass/Vol] 5.0 ug/dL Low 5.5-10.2 [facility] Comment on above: Order Comment: Speci men Type: BLOOD SPECIMEN [facility] Address: [address] [place] [address] Performed By: #### 2 4323-8 #### [facility] CLIA [id number] [address] [place] [address] T4 uptake [Mass/Vol] 1.13 Normal 0.91-1.19 [facility] Comment on above: Order Comment: Speci men Type: BLOOD SPECIMEN [facility] Address: [address] [place] [address] Performed By: #### 2 4323-8 #### [facility] CLIA [id number] [address] [place] [address] TSH SerPl-aCncon 10-02-2023 TSH Qn 28.200 m[IU]/L High 0.270-4.200 [facility] Comment on above: Order Comment: Speci men Type: BLOOD SPECIMEN [facility] Address: [address] [place] [address] Performed By: #### 2 4323-8 #### [facility] CLIA [id number] [address] [place] [address] CNOVSPon 08-28-2023 CNOVSP Visit (SP) Office ([facility]) JUANCAROLS BAUM ([id number]) 1955 M Date Time Provider Department 08/28/23 9:45 AM ABA AMAYA During your visit today, we recorded the following information about you: Temperature Pulse Respiration Blood pressure 97.9 degrees 58/minute 18/minute 130/83 Weight Height 145.9 kg 1.73 m Aba Amaya MD 08/28/2023 7:23 PM Signed PATIENT NAME: Juancarlos Baum DATE: 08/28/2023 PRIMARY CARE PHYSICIAN: Dr. Katarina Daniels OTHER PHYSICIANS: Dr. Florencio Rose. Dr. Urias, Dr. An Portions of this encounter note have been copied from the note from 07/17/2023 and has been updated where appropriate, and reflect my current medical decision making from today. CC: This is a 67 year old male with kidney cancer, seen for scheduled follow-up and treatment. INTERIM HISTORY: Since the patient's last visit here he has had no significant medical changes. He remains on pembrolizumab every 6 weeks and is tolerating it well. He has had no apparent adverse effects. At this time he feels well with no complaints. MEDICATIONS: Current Outpatient Medications Medication Sig levothyroxine (SYNTHROID) 50 mcg tablet Take 1 tablet by mouth once daily. dutasteride (AVODART) 0.5 mg capsule Take 0.5 mg by mouth. gabapentin (NEURONTIN) 800 mg tablet Take 800 mg by mouth three times a day. ELIQUIS 5 mg tab(s) Take 1 tablet by mouth twice daily. You may resume this medication on August 26. digoxin (LANOXIN) 125 mcg (0.125 mg) tablet Take by mouth once daily. propranolol ER (INDERAL LA) 80 mg 24 hr capsule Take 80 mg by mouth once daily. multivit,thx,calcium ,iron,mins (MULTIVITAMIN AND MINERAL ORAL) Take 1 Dose by mouth once daily. Current Facility-Administere d Medications Medication Dose Route Frequency perflutren lipid microspheres 1.3 mL in NaCl (PF) 0.9% 10 mL injection (DEFINITY) INTRAVENOUS DIRECTED PRN sodium chloride 0.9 % (flush) 10 mL (BD POSIFLUSH) 10 mL INTRAVENOUS DIRECTED PRN ALLERGIES: ALLERGIES Allergen Reactions Meloxicam Vomiting Nsaids (Non-Steroid* Other: See Comments PAST MEDICAL HISTORY: PAST MEDICAL HISTORY Diagnosis Date Atrial fibrillation (HCC) Renal cell carcinoma (HCC) PAST SURGICAL HISTORY: PAST SURGICAL HISTORY Procedure Laterality Date NEPHRECTOMY PARTIAL Left total left TOTAL HIP REPLACEMENT Left FAMILY HISTORY: No family history on file. SOCIAL HISTORY: Social History Tobacco Use Smoking status: Never Passive exposure: Never Smokeless tobacco: Never Vaping Use Vaping Use: Never used Substance Use Topics Alcohol use: Yes Comment: Less than monthly per pt 08/05/2022 Drug use: Never REVIEW OF SYSTEMS: General: No weight loss, malaise or fevers. HEENT: Negative for frequent or significant headaches. No changes in hearing or vision, no nose bleeds or other nasal problems. Respiratory: Negative for cough, wheezing or shortness of breath. Cardiovascular: Negative for chest pain, leg swelling or palpitations. GI: Negative for abdominal discomfort, blood in stools or black stools or change in bowel habits. : No history of dysuria, frequency or incontinence. See HPI. Musculoskeletal: Negative for: joint pain or swelling, back pain and muscle pain. Skin: Negative for lesions, rash and itching. Hematology/Lympholog y: Negative for prolonged bleeding, bruising easily or swollen nodes. Neuro: No history of headaches, syncope, paralysis, seizures or tremors. PHYSICAL EXAM: BP 130/83 Pulse (!) 58 Temp 36.6 ?C (97.9 ?F) (Temporal) Resp 18 Ht 173 cm (5' 8.11 ) Wt (!) 145.9 kg (321 lb 10.4 oz) SpO2 100% BMI 48.75 kg/m? ECOG 0 General: Alert and oriented, no distress, pleasant and cooperative. Heart: Regular, normal S1 and S2, no murmurs, rubs, or gallops. Lungs: Clear to auscultation bilaterally. Abdomen: Benign. Extremities: Feet/ankles without edema, posterior tibial pulses full and symmetrical. PATHOLOGY: 08/14/2022 Kidney, left, total nephrectomy: - Renal cell carcinoma (7.7 cm), clear cell type, WHO/ISUP grade 3, with focal early invasion of renal sinus vessel. - Surgical margins are negative. LABS: Hemoglobin (g/dL) Date Value 08/27/2023 14.8 Hematocrit (%) Date Value 08/27/2023 43.7 WBC (k/uL) Date Value 08/27/2023 7.18 Platelet Count (k/uL) Date Value 08/27/2023 183 RADIOLOGY/OTHER STUDIES: 07/12/2023 CT chest IMPRESSION: 1. Stable CT of the chest. Unchanged appearance of right upper lobe nodular opacity. No new or enlarging nodules are visualized. 2. No evidence of intrathoracic lymphadenopathy. 3. Stable sclerotic focus in the T4 vertebrae, likely on the basis of a bone island. 07/12/2023 CT abdomen/pelvis IMPRESSION: 1. Postsurgical changes in keeping with left nephrectomy. No findings to suggest local recurren (more content not included)... Normal [facility] CBC W Auto Differential pane l (Bld)on 08-27-2023 Basophils (Bld) [#/Vol] 0.04 10*3/uL Normal <0.11 [facility] Comment on above: Order Comment: Speci men Type: BLOOD SPECIMENOrdering Facility: [facility] Address: [address] [place] [address] Performed By: #### 5 7021-8 ####[facility] LABCLIA [id number] [place] [address] Basophils/100 WBC (Bld) 0.6 % Normal [facility] Comment on above: Order Comment: Speci men Type: BLOOD SPECIMENOrdering Facility: [facility] Address: [address] [place] [address] Performed By: #### 5 7021-8 ####[facility] LABCLIA [id number] [place] [address] Differential cell count method Nom (Bld) Auto Normal [facility] Comment on above: Order Comment: Speci men Type: BLOOD SPECIMENOrdering Facility: [facility] Address: [address] [place] [address] Performed By: #### 5 7021-8 ####[facility] LABCLIA [id number] [place] [address] Eosinophils (Bld) [#/Vol] 0.31 10*3/uL Normal <0.46 [facility] Comment on above: Order Comment: Speci men Type: BLOOD SPECIMENOrdering Facility: [facility] Address: [address] [place] [address] Performed By: #### 5 7021-8 ####[facility] LABCLIA [id number] [place] [address] Eosinophils/100 WBC (Bld) 4.3 % Normal [facility] Comment on above: Order Comment: Speci men Type: BLOOD SPECIMENOrdering Facility: [facility] Address: [address] [place] [address] Performed By: #### 5 7021-8 ####[facility] LABCLIA [id number] [place] [address] Erythrocyte distribution width (RBC) [Ratio] 14.3 % Normal 11.5-15.0 [facility] Comment on above: Order Comment: Speci men Type: BLOOD SPECIMENOrdering Facility: [facility] Address: [address] [place] [address] Performed By: #### 5 7021-8 ####[facility] LABCLIA [id number] [place] [address] Hematocrit (Bld) [Volume fraction] 43.7 % Normal 39.0-51.0 [facility] Comment on above: Order Comment: Speci men Type: BLOOD SPECIMENOrdering Facility: [facility] Address: [address] [place] [address] Performed By: #### 5 7021-8 ####[facility] LABCLIA [id number] [place] [address] Hemoglobin (Bld) [Mass/Vol] 14.8 g/dL Normal 13.0-17.0 [facility] Comment on above: Order Comment: Speci men Type: BLOOD SPECIMENOrdering Facility: [facility] Address: [address] [place] [address] Performed By: #### 5 7021-8 ####[facility] LABCLIA [id number] [place] [address] Immature granulocytes (Bld) [#/Vol] 0.10 10*3/uL High <0.10 [facility] Comment on above: Order Comment: Speci men Type: BLOOD SPECIMENOrdering Facility: [facility] Address: [address] [place] [address] Performed By: #### 5 7021-8 ####[facility] LABCLIA [id number] [place] [address] Immature granulocytes/100 WBC (Bld) 1.4 % Normal [facility] Comment on above: Order Comment: Speci men Type: BLOOD SPECIMENOrdering Facility: [facility] Address: [address] [place] [address] Performed By: #### 5 7021-8 ####[facility] LABCLIA [id number] [place] [address] Lymphocytes (Bld) [#/Vol] 1.76 10*3/uL Normal 1.00-4.00 [facility] Comment on above: Order Comment: Speci men Type: BLOOD SPECIMENOrdering Facility: [facility] Address: [address] [place] [address] Performed By: #### 5 7021-8 ####[facility] LABCLIA [id number] [place] [address] Lymphocytes/100 WBC (Bld) 24.5 % Normal [facility] Comment on above: Order Comment: Speci men Type: BLOOD SPECIMENOrdering Facility: [facility] Address: [address] [place] [address] Performed By: #### 5 7021-8 ####[facility] LABCLIA [id number] [place] [address] MCH (RBC) [Entitic mass] 31.4 pg Normal 26.0-34.0 [facility] Comment on above: Order Comment: Speci men Type: BLOOD SPECIMENOrdering Facility: [facility] Address: [address] [place] [address] Performed By: #### 5 7021-8 ####[facility] LABCLIA [id number] [place] [address] MCHC (RBC) [Mass/Vol] 33.9 g/dL Normal 30.5-36.0 [facility] Comment on above: Order Comment: Speci men Type: BLOOD SPECIMENOrdering Facility: [facility] Address: [address] [place] [address] Performed By: #### 5 7021-8 ####[facility] LABCLIA [id number] [place] [address] MCV (RBC) [Entitic vol] 92.8 fL Normal 80.0-100.0 [facility] Comment on above: Order Comment: Speci men Type: BLOOD SPECIMENOrdering Facility: [facility] Address: [address] [place] [address] Performed By: #### 5 7021-8 ####[facility] LABCLIA [id number] [place] [address] Monocytes (Bld) [#/Vol] 0.83 10*3/uL Normal <0.87 [facility] Comment on above: Order Comment: Speci men Type: BLOOD SPECIMENOrdering Facility: [facility] Address: [address] [place] [address] Performed By: #### 5 7021-8 ####[facility] LABCLIA [id number] [place] [address] Monocytes/100 WBC (Bld) 11.6 % Normal [facility] Comment on above: Order Comment: Speci men Type: BLOOD SPECIMENOrdering Facility: [facility] Address: [address] [place] [address] Performed By: #### 5 7021-8 ####[facility] LABCLIA [id number] [place] [address] Neutrophils (Bld) [#/Vol] 4.14 10*3/uL Normal 1.45-7.50 [facility] Comment on above: Order Comment: Speci men Type: BLOOD SPECIMENOrdering Facility: [facility] Address: [address] [place] [address] Performed By: #### 5 7021-8 ####[facility] LABCLIA [id number] [place] [address] Neutrophils/100 WBC (Bld) 57.6 % Normal [facility] Comment on above: Order Comment: Speci men Type: BLOOD SPECIMENOrdering Facility: [facility] Address: [address] [place] [address] Performed By: #### 5 7021-8 ####[facility] LABCLIA [id number] [place] [address] Nucleated RBC (Bld) [#/Vol] 10*3/uL Normal <0.01 [facility] Comment on above: Order Comment: Speci men Type: BLOOD SPECIMENOrdering Facility: [facility] Address: [address] [place] [address] Performed By: #### 5 7021-8 ####[facility] LABCLIA [id number] [place] [address] Nucleated RBC/100 WBC (Bld) [Ratio] 0.0 /100 WBC Normal [facility] Comment on above: Order Comment: Speci men Type: BLOOD SPECIMENOrdering Facility: [facility] Address: [address] [place] [address] Performed By: #### 5 7021-8 ####[facility] LABIA [id number] [place] [address] Platelet mean volume (Bld) [Entitic vol] 10.8 fL Normal 9.0-12.7 [facility] Comment on above: Order Comment: Speci men Type: BLOOD SPECIMENOrdering Facility: [facility] Address: [address] [place] [address] Performed By: #### 5 7021-8 ####[facility] LABCLIA [id number] [place] [address] Platelets (Bld) [#/Vol] 183 10*3/uL Normal 150-400 [facility] Comment on above: Order Comment: Speci men Type: BLOOD SPECIMENOrdering Facility: [facility] Address: [address] [place] [address] Performed By: #### 5 7021-8 ####[facility] LABCLIA [id number] [place] [address] RBC (Bld) [#/Vol] 4.71 10*6/uL Normal 4.20-6.[address] [facility] Comment on above: Order Comment: Speci men Type: BLOOD SPECIMENOrdering Facility: [facility] Address: [address] [place] [address] Performed By: #### 5 7021-8 ####[facility] LABCLIA [id number] [place] [address] WBC (Bld) [#/Vol] 7.18 10*3/uL Normal 3.70-11.[address] [facility] Comment on above: Order Comment: Speci men Type: BLOOD SPECIMENOrdering Facility: [facility] Address: [address] [place] [address] Performed By: #### 5 7021-8 ####[facility] LABCLIA [id number] [place] [address] Comprehensive metabolic 2000 panelon 08-27-2023 Albumin [Mass/Vol] 4.5 g/dL Normal 3.9-4.9 [facility] Comment on above: Order Comment: Speci men Type: BLOOD SPECIMEN [facility] Address: [address] [place] [address] Performed By: #### 2 4323-8 #### [facility] CLIA [id number] [address] [place] [address] ALP [Catalytic activity/Vol] 87 U/L Normal 38-113 [facility] Comment on above: Order Comment: Speci men Type: BLOOD SPECIMEN Ordering Facility: [facility] Address: [address] [place] [address] Performed By: #### 2 4323-8 #### [facility] CLIA [id number] [address] [place] [address] ALT [Catalytic activity/Vol] 23 U/L Normal 10-54 [facility] Comment on above: Order Comment: Speci men Type: BLOOD SPECIMEN Ordering Facility: [facility] Address: [address] [place] [place] [id number] Performed By: #### 2 4323-8 #### [facility] CLIA [id number] [address] [place] [address] Anion gap [Moles/Vol] 11 mmol/L Normal 9-18 [facility] Comment on above: Order Comment: Speci men Type: BLOOD SPECIMEN Ordering Facility: [facility] Address: [address] [id number] Performed By: #### 2 4323-8 #### [facility] CLIA [id number] [address] [place] [address] AST [Catalytic activity/Vol] 23 U/L Normal 14-40 [facility] Comment on above: Order Comment: Speci men Type: BLOOD SPECIMEN Ordering Facility: [facility] Address: [address] [place] [address] Performed By: #### 2 4323-8 #### [facility] CLIA [id number] [address] [place] [address] Bilirubin [Mass/Vol] 0.7 mg/dL Normal 0.2-1.3 [facility] Comment on above: Order Comment: Speci men Type: BLOOD SPECIMEN Ordering Facility: [facility] Address: [address] [place] [address] Performed By: #### 2 4323-8 #### [facility] CLIA [id number] [address] [place] [address] Calcium [Mass/Vol] 9.7 mg/dL Normal 8.5-10.2 [facility] Comment on above: Order Comment: Speci men Type: BLOOD SPECIMEN Ordering Facility: [facility] Address: [address] [place] [address] Performed By: #### 2 4323-8 #### [facility] CLIA [id number] [address] [place] [address] Chloride [Moles/Vol] 106 mmol/L High 97-105 [facility] Comment on above: Order Comment: Speci men Type: BLOOD SPECIMEN Ordering Facility: [facility] Address: [address] [place], [place] [address] Performed By: #### 2 4323-8 #### [facility] CLIA [id number] [address] [place] [address] CO2 [Moles/Vol] 26 mmol/L Normal 22-30 [facility] Comment on above: Order Comment: Speci men Type: BLOOD SPECIMEN Ordering Facility: [facility] Address: [address] [place], [place] [address] Performed By: #### 2 4323-8 #### [facility] CLIA [id number] [address] [place] [address] Creatinine [Mass/Vol] 1.51 mg/dL High 0.73-1.22 [facility] Comment on above: Order Comment: Speci men Type: BLOOD SPECIMEN Ordering Facility: [facility] Address: [address] [place] [address] Performed By: #### 2 4323-8 #### [facility] CLIA [id number] [address] [place] [address] Creatinine and Glomerular filtration rate.predicted panel (S/P/Bld) 50 mL/min/1.73m??? Low >=60 [facility] Comment on above: Order Comment: Speci men Type: BLOOD SPECIMEN Ordering Facility: [facility] Address: [address] [place] [address] Result Comment: Krista mated Glomerular Filtration Rate (eGFR) is calculated using the 2020 CKD-EPI creatinine equation. This equation utilizes serum creatinine, sex, and age as parameters. The creatinine assay has traceable calibration to isotope dilution-mass spectrometry. Refer to KDIGO guidelines for clinical interpretation. In patients with unstable renal function, e.g. those with acute kidney injury, the eGFR may not accurately reflect actual GFR. Performed By: #### 2 4323-8 #### [facility] CLIA [id number] [address] [place] [address] Glucose [Mass/Vol] 104 mg/dL High 74-99 [facility] Comment on above: Order Comment: Elliott pedraza Type: BLOOD SPECIMEN Ordering Facility: [facility] Address: [address] [place] [address] Result Comment: The [place] [employer] (ADA) provides guidance for cutoff values for fasting glucose and random glucose. The ADA defines fasting as no caloric intake for at least 8 hours. Fasting plasma glucose results between 100 to 125 mg/dL indicate increased risk for diabetes (prediabetes). Fasting plasma glucose results greater than or equal to 126 mg/dL meet the criteria for diagnosis of diabetes. In the absence of unequivocal hyperglycemia, results should be confirmed by repeat testing. In a patient with classic symptoms of hyperglycemia or hyperglycemic crisis, random plasma glucose results greater than or equal to 200 mg/dL meet the criteria for diagnosis of diabetes. Reference: Standards of Medical Care in Diabetes 2016, [place] [employer] Association. Diabetes Care. 2016.39(Suppl 1). Performed By: #### 2 4323-8 #### [facility] CLIA [id number] [address] [place] [address] Potassium [Moles/Vol] 4.8 mmol/L Normal 3.7-5.1 [facility] Comment on above: Order Comment: Elliott pedraza Type: BLOOD SPECIMEN Ordering Facility: [facility] Address: [address] [place] [address] Performed By: #### 2 4323-8 #### [facility] CLIA [id number] [address] [place] [address] Protein [Mass/Vol] 7.1 g/dL Normal 6.3-8.0 [facility] Comment on above: Order Comment: Speci men Type: BLOOD SPECIMEN Ordering Facility: [facility] Address: [address] [place] [address] Performed By: #### 2 4323-8 #### [facility] CLIA [id number] [address] [place] [address] Sodium [Moles/Vol] 143 mmol/L Normal 136-144 [facility] Comment on above: Order Comment: Speci men Type: BLOOD SPECIMEN Ordering Facility: [facility] Address: [address] [place] [address] Performed By: #### 2 4323-8 #### [facility] CLIA [id number] [address] [place] [address] Urea nitrogen [Mass/Vol] 16 mg/dL Normal 9-24 [facility] Comment on above: Order Comment: Speci men Type: BLOOD SPECIMEN Ordering Facility: [facility] Address: [address] [place] [address] Performed By: #### 2 4323-8 #### [facility] CLIA [id number] [address] [place] [address] TSH SerPl-aCncon 08-27-2023 TSH Qn 15.400 m[IU]/L High 0.270-4.200 [facility] Comment on above: Order Comment: Speci men Type: BLOOD SPECIMENOrdering Facility: [facility] Address: [address] [place] [address] Performed By: #### 3 016-3 ####[facility]IA [id number] [place] [id number] [place] CNPNon 07-21-2023 CNPN Telephone (HEMAS[place]) JUANCARLOS BAUM ([id number]) 1955 M Date Time Provider Department 07/21/23 NIRMALA REGALADO During your visit today, we recorded the following information about you: Nirmala Regalado RN 07/21/2023 9:14 AM Signed ----- Message from Aba Amaya MD sent at 07/21/2023 8:53 AM EST ----- Please inform the patient that his labs indicate moderate hypothyroidism. Would start Synthroid 50 mcg daily. Prescribed #30. Will repeat TFTs in 4 weeks. Nirmala Regalado RN 07/21/2023 9:17 AM Signed Call placed to pt. No answer. Message left requesting call back. EUSEBIO Gorman Rebecca, RN 07/21/2023 9:43 AM Signed Pt notified and verbalizes understanding. IVY/Lucio: Rx pended. Nirmala Regalado RN Allergies As of Date: 07/21/2023 Noted Allergy Reaction MELOXICAM 04/24/2021 11 - Vomiting NSAIDS (NON-STEROIDAL ANTI-INFLAM*04/24/20 21 14 - Other: See Comments Date Reviewed: 07/17/2023 Reviewed by: Dian Oropeza MA - Fully Assessed Reason for Visit: Care Coordination [3491] Cmt: TSH Results Order(s):levothyroxi ne (SYNTHROID) 50 mcg tabletTake 1 tablet by mouth once daily.Disp: 30 tabletRfl: 1 Prescriptions as of 07/21/2023 - levothyroxine (SYNTHROID) 50 mcg tablet Take 1 tablet by mouth once daily. - dutasteride (AVODART) 0.5 mg capsule Take 0.5 mg by mouth. - gabapentin (NEURONTIN) 800 mg tablet Take 800 mg by mouth three times a day. - ELIQUIS 5 mg tab(s) Take 1 tablet by mouth twice daily. You may resume this medication on August 26. - digoxin (LANOXIN) 125 mcg (0.125 mg) tablet Take by mouth once daily. - propranolol ER (INDERAL LA) 80 mg 24 hr capsule Take 80 mg by mouth once daily. - multivit,thx,calcium ,iron,mins (MULTIVITAMIN AND MINERAL ORAL) Take 1 Dose by mouth once daily. Facility-Administere d Medications as of 07/21/2023 - perflutren lipid microspheres 1.3 mL in NaCl (PF) 0.9% 10 mL injection (DEFINITY) - sodium chloride 0.9 % (flush) 10 mL (BD POSIFLUSH) Problem List As Of Date 07/21/2023 Noted Resolved Renal mass [N28.89] 08/02/2022 A-fib (HCC) [I48.91] 08/05/2022 GEOVANNA (obstructive sleep apnea) [G47.33] 08/05/2022 Obesity, Class III, BMI >= 40 [E66.01] 08/10/2022 Left renal mass [N28.89] 08/14/2022 Cancer of left kidney (HCC) [C64.2] 08/29/2022 Stage 3 chronic kidney disease (HCC) [N18.30] 12/13/2022 Prescriptions ordered this encounter Disp Refills Start End LEVOTHYROXINE 50 MCG TABLET 30 t* 1 07/21/2023 09/19/2023 Route: ORAL Sig: Take 1 tablet by mouth once daily. Encounter Status:Closed by NIRMALA REGALADO on 07/21/23 Normal [facility] CBC W Auto Differential pane l (Bld)on 07-17-2023 Basophils (Bld) [#/Vol] 0.06 10*3/uL Normal <0.11 [facility] Comment on above: Order Comment: Speci men Type: BLOOD SPECIMENOrdering Facility: [facility] Address: [address] [place] [address] Performed By: #### 5 7021-8 ####[facility]CLIA [id number] [place] [address] Basophils/100 WBC (Bld) 0.9 % Normal [facility] Comment on above: Order Comment: Speci men Type: BLOOD SPECIMENOrdering Facility: [facility] Address: [address] [place] [address] Performed By: #### 5 7021-8 ####[facility]CLIA [id number] [place] [address] Differential cell count method Nom (Bld) Auto Normal [facility] Comment on above: Order Comment: Speci men Type: BLOOD SPECIMENOrdering Facility: [facility] Address: [address] [place] [address] Performed By: #### 5 7021-8 ####[facility]CLIA [id number] [place] [address] Eosinophils (Bld) [#/Vol] 0.28 10*3/uL Normal <0.46 [facility] Comment on above: Order Comment: Speci men Type: BLOOD SPECIMENOrdering Facility: [facility] Address: [address] [place] [address] Performed By: #### 5 7021-8 ####[facility]CLIA [id number] [place] [address] Eosinophils/100 WBC (Bld) 4.2 % Normal [facility] Comment on above: Order Comment: Speci men Type: BLOOD SPECIMENOrdering Facility: [facility] Address: [address] [place] [address] Performed By: #### 5 7021-8 ####[facility]CLIA [id number] [place] [address] Erythrocyte distribution width (RBC) [Ratio] 14.6 % Normal 11.5-15.0 [facility] Comment on above: Order Comment: Speci men Type: BLOOD SPECIMENOrdering Facility: [facility] Address: [address] [place] [address] Performed By: #### 5 7021-8 ####[facility]CLIA [id number] [place] [address] Hematocrit (Bld) [Volume fraction] 45.1 % Normal 39.0-51.0 [facility] Comment on above: Order Comment: Speci men Type: BLOOD SPECIMENOrdering Facility: [facility] Address: [address] [place] [address] Performed By: #### 5 7021-8 ####[facility]CLIA [id number] [place] [address] Hemoglobin (Bld) [Mass/Vol] 14.9 g/dL Normal 13.0-17.0 [facility] Comment on above: Order Comment: Speci men Type: BLOOD SPECIMENOrdering Facility: [facility] Address: [address] [place] [address] Performed By: #### 5 7021-8 ####[facility]CLIA [id number] [place] [address] Immature granulocytes (Bld) [#/Vol] 0.05 10*3/uL Normal <0.10 [facility] Comment on above: Order Comment: Speci men Type: BLOOD SPECIMENOrdering Facility: [facility] Address: [address] [place] [address] Performed By: #### 5 7021-8 ####[facility]CLIA [id number] [place] [address] Immature granulocytes/100 WBC (Bld) 0.8 % Normal [facility] Comment on above: Order Comment: Speci men Type: BLOOD SPECIMENOrdering Facility: [facility] Address: [address] [place] [address] Performed By: #### 5 7021-8 ####[facility]CLIA [id number] [place] [address] Lymphocytes (Bld) [#/Vol] 1.57 10*3/uL Normal 1.00-4.00 [facility] Comment on above: Order Comment: Speci men Type: BLOOD SPECIMENOrdering Facility: [facility] Address: [address] [place] [address] Performed By: #### 5 7021-8 ####[facility]CLIA [id number] [place] [address] Lymphocytes/100 WBC (Bld) 23.7 % Normal [facility] Comment on above: Order Comment: Speci men Type: BLOOD SPECIMENOrdering Facility: [facility] Address: [address] [place] [address] Performed By: #### 5 7021-8 ####[facility]CLIA [id number] [place] [address] MCH (RBC) [Entitic mass] 30.7 pg Normal 26.0-34.0 [facility] Comment on above: Order Comment: Speci men Type: BLOOD SPECIMENOrdering Facility: [facility] Address: [address] [place] [address] Performed By: #### 5 7021-8 ####[facility] LABCLIA [id number] [place] [address] MCHC (RBC) [Mass/Vol] 33.0 g/dL Normal 30.5-36.0 [facility] Comment on above: Order Comment: Speci men Type: BLOOD SPECIMENOrdering Facility: [facility] Address: [address] [place] [address] Performed By: #### 5 7021-8 ####[facility] LABCLIA [id number] [place] [address] MCV (RBC) [Entitic vol] 93.0 fL Normal 80.0-100.0 [facility] Comment on above: Order Comment: Speci men Type: BLOOD SPECIMENOrdering Facility: [facility] Address: [address] [place] [address] Performed By: #### 5 7021-8 ####[facility] LABIA [id number] [place] [address] Monocytes (Bld) [#/Vol] 1.20 10*3/uL High <0.87 [facility] Comment on above: Order Comment: Speci men Type: BLOOD SPECIMENOrdering Facility: [facility] Address: [address] [place] [address] Performed By: #### 5 7021-8 ####[facility] LABCLIA [id number] [place] [address] Monocytes/100 WBC (Bld) 18.1 % Normal [facility] Comment on above: Order Comment: Speci men Type: BLOOD SPECIMENOrdering Facility: [facility] Address: [address] [place] [address] Performed By: #### 5 7021-8 ####[facility] LABCLIA [id number] [place] [address] Neutrophils (Bld) [#/Vol] 3.47 10*3/uL Normal 1.45-7.50 [facility] Comment on above: Order Comment: Speci men Type: BLOOD SPECIMENOrdering Facility: [facility] Address: [address] [place] [address] Performed By: #### 5 7021-8 ####[facility] LABCLIA [id number] [place] [address] Neutrophils/100 WBC (Bld) 52.3 % Normal [facility] Comment on above: Order Comment: Speci men Type: BLOOD SPECIMENOrdering Facility: [facility] Address: [address] [place] [address] Performed By: #### 5 7021-8 ####[facility] LABCLIA [id number] [place] [address] Nucleated RBC (Bld) [#/Vol] 10*3/uL Normal <0.01 [facility] Comment on above: Order Comment: Speci men Type: BLOOD SPECIMENOrdering Facility: [facility] Address: [address] [place] [address] Performed By: #### 5 7021-8 ####[facility] LABCLIA [id number] [place] [address] Nucleated RBC/100 WBC (Bld) [Ratio] 0.0 /100 WBC Normal [facility] Comment on above: Order Comment: Speci men Type: BLOOD SPECIMENOrdering Facility: [facility] Address: [address] [place] [address] Performed By: #### 5 7021-8 ####[facility] LABCLIA [id number] [place] [address] Platelet mean volume (Bld) [Entitic vol] 11.0 fL Normal 9.0-12.7 [facility] Comment on above: Order Comment: Speci men Type: BLOOD SPECIMENOrdering Facility: [facility] Address: [address] [place] [address] Performed By: #### 5 7021-8 ####[facility] LABCLIA [id number] [place] [address] Platelets (Bld) [#/Vol] 170 10*3/uL Normal 150-400 [facility] Comment on above: Order Comment: Speci men Type: BLOOD SPECIMENOrdering Facility: [facility] Address: [address] [place] [address] Performed By: #### 5 7021-8 ####[facility] LABCLIA [id number] [place] [address] RBC (Bld) [#/Vol] 4.85 10*6/uL Normal 4.20-6.[address] [facility] Comment on above: Order Comment: Speci men Type: BLOOD SPECIMENOrdering Facility: [facility] Address: [address] [place] [address] Performed By: #### 5 7021-8 ####[facility] LABCLIA [id number] [place] [address] WBC (Bld) [#/Vol] 6.63 10*3/uL Normal 3.70-11.[address] [facility] Comment on above: Order Comment: Speci men Type: BLOOD SPECIMENOrdering Facility: [facility] Address: [address] [place], [place] [address] [address] Performed By: #### 5 7021-8 ####[facility] [id number] [place] [address] CNOVSPon 07-17-2023 CNOVSP Visit (SP) Office (HEM[place]) JUANCARLOS BAUM ([id number]) 1955 M Date Time Provider Department 07/17/23 10:30 AM ABA AMAYA During your visit today, we recorded the following information about you: Temperature Pulse Respiration Blood pressure 97.1 degrees 55/minute 16/minute 100/86 Weight Height 148.2 kg 1.73 m Aba Amaya MD 07/17/2023 5:36 PM Signed PATIENT NAME: Juancarlos Baum DATE: 07/17/2023 PRIMARY CARE PHYSICIAN: Dr. Katarina Daniels OTHER PHYSICIANS: Dr. Florencio Rose. Dr. Urias, Dr. An Portions of this encounter note have been copied from the note from 06/05/2023 and has been updated where appropriate, and reflect my current medical decision making from today. CC: This is a 67 year old male with kidney cancer, seen for scheduled follow-up and treatment. INTERIM HISTORY: Since the patient's last visit here he has had no significant medical changes. He remains on pembrolizumab every 6 weeks and is tolerating it well. He has had no apparent adverse effects. At this time he feels well with no complaints. MEDICATIONS: Current Outpatient Medications Medication Sig dutasteride (AVODART) 0.5 mg capsule Take 0.5 mg by mouth. gabapentin (NEURONTIN) 800 mg tablet Take 800 mg by mouth three times a day. ELIQUIS 5 mg tab(s) Take 1 tablet by mouth twice daily. You may resume this medication on Emmy 10 th. digoxin (LANOXIN) 125 mcg (0.125 mg) tablet Take by mouth once daily. propranolol ER (INDERAL LA) 80 mg 24 hr capsule Take 80 mg by mouth once daily. multivit,thx,calcium ,iron,mins (MULTIVITAMIN AND MINERAL ORAL) Take 1 Dose by mouth once daily. Current Facility-Administere d Medications Medication Dose Route Frequency perflutren lipid microspheres 1.3 mL in NaCl (PF) 0.9% 10 mL injection (DEFINITY) INTRAVENOUS DIRECTED PRN sodium chloride 0.9 % (flush) 10 mL (BD POSIFLUSH) 10 mL INTRAVENOUS DIRECTED PRN ALLERGIES: ALLERGIES Allergen Reactions Meloxicam Vomiting Nsaids (Non-Steroid* Other: See Comments PAST MEDICAL HISTORY: PAST MEDICAL HISTORY Diagnosis Date Atrial fibrillation (HCC) Renal cell carcinoma (HCC) PAST SURGICAL HISTORY: PAST SURGICAL HISTORY Procedure Laterality Date NEPHRECTOMY PARTIAL Left total left TOTAL HIP REPLACEMENT Left FAMILY HISTORY: No family history on file. SOCIAL HISTORY: Social History Tobacco Use Smoking status: Never Passive exposure: Never Smokeless tobacco: Never Vaping Use Vaping Use: Never used Substance Use Topics Alcohol use: Yes Comment: Less than monthly per pt 08/05/2022 Drug use: Never REVIEW OF SYSTEMS: General: No weight loss, malaise or fevers. HEENT: Negative for frequent or significant headaches. No changes in hearing or vision, no nose bleeds or other nasal problems. Respiratory: Negative for cough, wheezing or shortness of breath. Cardiovascular: Negative for chest pain, leg swelling or palpitations. GI: Negative for abdominal discomfort, blood in stools or black stools or change in bowel habits. : No history of dysuria, frequency or incontinence. See HPI. Musculoskeletal: Negative for: joint pain or swelling, back pain and muscle pain. Skin: Negative for lesions, rash and itching. Hematology/Lympholog y: Negative for prolonged bleeding, bruising easily or swollen nodes. Neuro: No history of headaches, syncope, paralysis, seizures or tremors. PHYSICAL EXAM: BP 100/86 Pulse (!) 55 Temp 36.2 ?C (97.1 ?F) (Temporal) Resp 16 Ht 173 cm (5' 8.11 ) Wt (!) 148.2 kg (326 lb 11.6 oz) SpO2 96% BMI 49.52 kg/m? ECOG 0 General: Alert and oriented, no distress, pleasant and cooperative. Heart: Regular, normal S1 and S2, no murmurs, rubs, or gallops. Lungs: Clear to auscultation bilaterally. Abdomen: Benign. Extremities: Feet/ankles without edema, posterior tibial pulses full and symmetrical. PATHOLOGY: 08/14/2022 Kidney, left, total nephrectomy: - Renal cell carcinoma (7.7 cm), clear cell type, WHO/ISUP grade 3, with focal early invasion of renal sinus vessel. - Surgical margins are negative. LABS: Hemoglobin (g/dL) Date Value 07/17/2023 14.9 Hematocrit (%) Date Value 07/17/2023 45.1 WBC (k/uL) Date Value 07/17/2023 6.63 Platelet Count (k/uL) Date Value 07/17/2023 170 RADIOLOGY/OTHER STUDIES: 07/12/2023 CT chest IMPRESSION: 1. Stable CT of the chest. Unchanged appearance of right upper lobe nodular opacity. No new or enlarging nodules are visualized. 2. No evidence of intrathoracic lymphadenopathy. 3. Stable sclerotic focus in the T4 vertebrae, likely on the basis of a bone island. 07/12/2023 CT abdomen/pelvis IMPRESSION: 1. Postsurgical changes in keeping with left nephrectomy. No findings to suggest local recurrence. 2. No findings to suggest abdominal or pelvic metastatic disease. 3. (more content not included)... Normal [facility] Comprehensive metabolic 2000 panelon 07-17-2023 Albumin [Mass/Vol] 4.5 g/dL Normal 3.9-4.9 [facility] Comment on above: Order Comment: Speci men Type: BLOOD SPECIMENOrdering Facility: [facility] Address: [address] [place] [address] Performed By: #### 2 4323-8 ####[facility] LABCLIA [id number] [place] [address] ALP [Catalytic activity/Vol] 74 U/L Normal 38-113 [facility] Comment on above: Order Comment: Speci men Type: BLOOD SPECIMENOrdering Facility: [facility] Address: [address] [place] [address] Performed By: #### 2 4323-8 ####[facility] LABCLIA [id number] [place] [address] ALT [Catalytic activity/Vol] 23 U/L Normal 10-54 [facility] Comment on above: Order Comment: Speci men Type: BLOOD SPECIMENOrdering Facility: [facility] Address: [address] [place], [place] [address] Performed By: #### 2 4323-8 ####[facility] LABCLIA [id number] [place] [address] Anion gap [Moles/Vol] 9 mmol/L Normal 9-18 [facility] Comment on above: Order Comment: Speci men Type: BLOOD SPECIMENOrdering Facility: [facility] Address: [address] [place] [address] Performed By: #### 2 4323-8 ####[facility] LABCLIA [id number] [place] [address] AST [Catalytic activity/Vol] 22 U/L Normal 14-40 [facility] Comment on above: Order Comment: Speci men Type: BLOOD SPECIMENOrdering Facility: [facility] Address: [address] [place] [address] Performed By: #### 2 4323-8 ####[facility] LABCLIA [id number] [place] [address] Bilirubin [Mass/Vol] 0.7 mg/dL Normal 0.2-1.3 [facility] Comment on above: Order Comment: Speci men Type: BLOOD SPECIMENOrdering Facility: [facility] Address: [address] [place], [place] [address] Performed By: #### 2 4323-8 ####[facility] LABCLIA [id number] [place] [address] Calcium [Mass/Vol] 10.0 mg/dL Normal 8.5-10.2 [facility] Comment on above: Order Comment: Speci men Type: BLOOD SPECIMENOrdering Facility: [facility] Address: [address] [place], [place] [id number] Performed By: #### 2 4323-8 ####[facility] LABCLIA [id number] [place] [address] Chloride [Moles/Vol] 107 mmol/L High 97-105 [facility] Comment on above: Order Comment: Speci men Type: BLOOD SPECIMENOrdering Facility: [facility] Address: [address] [place] [address] Performed By: #### 2 4323-8 ####[facility] LABCLIA [id number] [place] [address] CO2 [Moles/Vol] 27 mmol/L Normal 22-30 [facility] Comment on above: Order Comment: Speci men Type: BLOOD SPECIMENOrdering Facility: [facility] Address: [address] [place] [address] Performed By: #### 2 4323-8 ####[facility] LABCLIA [id number] [place] [address] Creatinine [Mass/Vol] 1.37 mg/dL High 0.73-1.22 [facility] Comment on above: Order Comment: Speci men Type: BLOOD SPECIMENOrdering Facility: [facility] Address: [address] [place] [address] Performed By: #### 2 4323-8 ####[facility] LABCLIA [id number] [place] [address] Creatinine and Glomerular filtration rate.predicted panel (S/P/Bld) 56 mL/min/1.73m??? Low >=60 [facility] Comment on above: Order Comment: Speci men Type: BLOOD SPECIMENOrdering Facility: [facility] Address: [address] [place] [address] Result Comment: Krista mated Glomerular Filtration Rate (eGFR) is calculated using the 2020 CKD-EPI creatinine equation. This equation utilizes serum creatinine, sex, and age as parameters. The creatinine assay has traceable calibration to isotope dilution-mass spectrometry. Refer to KDIGO guidelines for clinical interpretation. In patients with unstable renal function, e.g. those with acute kidney injury, the eGFR may not accurately reflect actual GFR. Performed By: #### 2 4323-8 ####[facility] LABCLIA [id number] [place] [address] Glucose [Mass/Vol] 129 mg/dL High 74-99 [facility] Comment on above: Order Comment: Elliott pedraza Type: BLOOD SPECIMENOrdering Facility: [facility] Address: [address] [place] [address] Result Comment: The [place] [employer] (ADA) provides guidance for cutoff values for fasting glucose and random glucose. The ADA defines fasting as no caloric intake for at least 8 hours. Fasting plasma glucose results between 100 to 125 mg/dL indicate increased risk for diabetes (prediabetes). Fasting plasma glucose results greater than or equal to 126 mg/dL meet the criteria for diagnosis of diabetes. In the absence of unequivocal hyperglycemia, results should be confirmed by repeat testing. In a patient with classic symptoms of hyperglycemia or hyperglycemic crisis, random plasma glucose results greater than or equal to 200 mg/dL meet the criteria for diagnosis of diabetes. Reference: Standards of Medical Care in Diabetes 2016, [place] [employer] Association. Diabetes Care. 2016.39(Suppl 1). Performed By: #### 2 4323-8 ####[facility] LABCLIA [id number] [place] [address] Potassium [Moles/Vol] 5.5 mmol/L High 3.7-5.1 [facility] Comment on above: Order Comment: Elliott pedraza Type: BLOOD SPECIMENOrdering Facility: [facility] Address: [address] [place] [address] Performed By: #### 2 4323-8 ####[facility] LABCLIA [id number] [place] [address] Protein [Mass/Vol] 7.0 g/dL Normal 6.3-8.0 [facility] Comment on above: Order Comment: Elliott pedraza Type: BLOOD SPECIMENOrdering Facility: [facility] Address: [address] [place] [address] Performed By: #### 2 4323-8 ####[facility] LABCLIA [id number] [place] [address] Sodium [Moles/Vol] 143 mmol/L Normal 136-144 [facility] Comment on above: Order Comment: Speci men Type: BLOOD SPECIMENOrdering Facility: [facility] Address: [address] [place] [address] Performed By: #### 2 4323-8 ####[facility] LABCLIA [id number] [place] [address] Urea nitrogen [Mass/Vol] 19 mg/dL Normal 9-24 [facility] Comment on above: Order Comment: Speci men Type: BLOOD SPECIMENOrdering Facility: [facility] Address: [address] [place] [address] Performed By: #### 2 4323-8 ####[facility] LABCLIA [id number] [place] [address] T3 SerPl-mCncon 07-17-2023 T3 [Mass/Vol] 93 ng/dL Normal 79-165 [facility] Comment on above: Order Comment: Speci men Type: BLOOD SPECIMENOrdering Facility: [facility] Address: [address] [place] [address] Performed By: #### 3 024-7, 3053-6, 3016-3 ####[facility] LABCLIA [id number] [facility] [id number] [place] [address] [place] T4 Free SerPl-mCncon 024 Free T4 [Mass/Vol] 0.8 ng/dL Low 0.9-1.7 [facility] Comment on above: Order Comment: Speci men Type: BLOOD SPECIMENOrdering Facility: [facility] Address: [address] [place] [address] Performed By: #### 3 024-7, 3053-6, 3016-3 ####[facility] LABCLIA [id number] [place] [id number] [place] TSH SerPl-aCncon 07-17-2023 TSH Qn 16.800 m[IU]/L High 0.270-4.200 [facility] Comment on above: Order Comment: Speci men Type: BLOOD SPECIMENOrdering Facility: [facility] Address: [address] [place] [address] Performed By: #### 3 024-7, 3053-6, 3016-3 ####[facility] LABCLIA [id number] [place] [id number] [place] CNCOon 07-10-2023 CNCO Letter Text Normal [facility] CT ABD/PEL W IVCONon 024 CT ABD/PEL W IVCON * * *Final Report* * * DATE OF EXAM: Jul 10 2023 9:42AM [facility] 0530 - CT ABD/PEL W IVCON / PROCEDURE REASON: Renal cell carcinoma of left kidney (HCC) * * * * Physician Interpretation * * * * RESULT: EXAMINATION: CT ABDOMEN AND PELVIS WITH IV CONTRAST CLINICAL HISTORY: Renal cell carcinoma. TECHNIQUE: CT of the abdomen and pelvis was performed using standard technique, scanning from just above the dome of the diaphragm to the symphysis pubis. MQ: CTAP_3 Contrast: IV: 150 ml of Omnipaque 300 Oral: 500 ml of Omni 240 10-25ml diluted with water CT Radiation dose: Integrated Dose-length product (DLP) for this visit = 2320 mGy*cm. CT Dose Reduction Employed: Automated exposure control (AEC) COMPARISON: CT performed 12/26/2022 RESULT: Liver: The liver is decreased in attenuation, compatible with hepatic steatosis. There is a stable 8mm hypodensity in the left hepatic lobe which is too small to definitively characterize, but likely represents a cyst. No new hepatic mass is visualized. Biliary: There is cholelithiasis without evidence of acute cholecystitis. No biliary ductal dilation is seen. Spleen: No mass. No splenomegaly. Pancreas: No mass or duct dilation. Adrenals: No mass. Kidneys: The left kidney is surgically absent. No soft tissue mass is seen in the left renal fossa to suggest a locally recurrent mass. Subcentimeter hypodensities are seen in the right kidney, likely representing small cysts. No right-sided renal calculus or hydronephrosis is noted. GI tract: Portions of the ascending colon were outside of the field of view. Bowel loops are otherwise unremarkable. Lymph nodes: No abdominal or pelvic lymphadenopathy. Mesentery/Peritoneum : No ascites or mass. Retroperitoneum: No mass. Vasculature: - Abdominal aorta and iliac arteries: Atherosclerotic calcifications without aneurysm. - Celiac and SMA: Patent without stenosis. - Portal venous system (SMV, splenic vein, portal vein and branches): Patent. - Hepatic veins: Patent. Pelvis: A 1 cm calculus is noted within the urinary bladder. The urinary bladder is incompletely distended. The prostate gland appears enlarged and measures up to 6.9 x 5.6 cm. Bones/Soft Tissues: Mild degenerative changes seen in the lumbar spine. There is a left hip arthroplasty in place. No destructive osseous lesions are seen. The soft tissues of the bilateral flanks are incompletely visualized. There is a fat-containing umbilical hernia. Superficial soft tissues are otherwise unremarkable. Lower thorax: A chest CT performed will be reported separately. Travel Agent (topogram) images: No additional findings. IMPRESSION: 1. Postsurgical changes in keeping with left nephrectomy. No findings to suggest local recurrence. 2. No findings to suggest abdominal or pelvic metastatic disease. 3. Cholelithiasis without evidence of acute cholecystitis. 4. Bladder calculus. Prostatomegaly. Transcribe Date/Time: Jul 10 2023 4:21P Dictated by: ALBANIA RAINEY MD This examination was interpreted and the report reviewed and electronically signed by: ALBANIA RAINEY MD on Jul 10 2023 4:42PM EST Thank you for allowing us to participate in the care of your patient. Should there be any questions regarding this interpretation, please call [phone]. If you are unable to reach us at the number above, please feel free to contact [facility]iology at [phone]. [id number] CN Normal [facility] CT Abdomen and Pelvis W cont rast Tiffanie 07-10-2023 IMPRESSION: 1. Postsurgical changes in keeping with left nephrectomy. No findings to suggest local recurrence. 2. No findings to suggest abdominal or pelvic metastatic disease. 3. Cholelithiasis without evidence of acute cholecystitis. 4. Bladder calculus. Prostatomegaly. Transcribe Date/Time: Jul 10 2023 4:21P Dictated by: ALBANIA RAINEY MD This examination was interpreted and the report reviewed and electronically signed by: ALBANIA RAINEY MD on Jul 10 2023 4:42PM EST Thank you for allowing us to participate in the care of your patient. Should there be any questions regarding this interpretation, please call [phone]. If you are unable to reach us at the number above, please feel free to contact [facility] at [phone]. DIVISION OF RADIOLOGY * * *Final Report* * * DATE OF EXAM: Jul 10 2023 9:42AM [facility] 0530 - CT ABD/PEL W IVCON / PROCEDURE REASON: Renal cell carcinoma of left kidney (HCC) * * * * Physician Interpretation * * * * RESULT: EXAMINATION: CT ABDOMEN AND PELVIS WITH IV CONTRAST CLINICAL HISTORY: Renal cell carcinoma. TECHNIQUE: CT of the abdomen and pelvis was performed using standard technique, scanning from just above the dome of the diaphragm to the symphysis pubis. MQ: CTAP_3 Contrast: IV: 150 ml of Omnipaque 300 Oral: 500 ml of Omni 240 10-25ml diluted with water CT Radiation dose: Integrated Dose-length product (DLP) for this visit = 2320 mGy*cm. CT Dose Reduction Employed: Automated exposure control (AEC) COMPARISON: CT performed 12/26/2022 RESULT: Liver: The liver is decreased in attenuation, compatible with hepatic steatosis. There is a stable 8mm hypodensity in the left hepatic lobe which is too small to definitively characterize, but likely represents a cyst. No new hepatic mass is visualized. Biliary: There is cholelithiasis without evidence of acute cholecystitis. No biliary ductal dilation is seen. Spleen: No mass. No splenomegaly. Pancreas: No mass or duct dilation. Adrenals: No mass. Kidneys: The left kidney is surgically absent. No soft tissue mass is seen in the left renal fossa to suggest a locally recurrent mass. Subcentimeter hypodensities are seen in the right kidney, likely representing small cysts. No right-sided renal calculus or hydronephrosis is noted. GI tract: Portions of the ascending colon were outside of the field of view. Bowel loops are otherwise unremarkable. Lymph nodes: No abdominal or pelvic lymphadenopathy. Mesentery/Peritoneum : No ascites or mass. Retroperitoneum: No mass. Vasculature: - Abdominal aorta and iliac arteries: Atherosclerotic calcifications without aneurysm. - Celiac and SMA: Patent without stenosis. - Portal venous system (SMV, splenic vein, portal vein and branches): Patent. - Hepatic veins: Patent. Pelvis: A 1 cm calculus is noted within the urinary bladder. The urinary bladder is incompletely distended. The prostate gland appears enlarged and measures up to 6.9 x 5.6 cm. Bones/Soft Tissues: Mild degenerative changes seen in the lumbar spine. There is a left hip arthroplasty in place. No destructive osseous lesions are seen. The soft tissues of the bilateral flanks are incompletely visualized. There is a fat-containing umbilical hernia. Superficial soft tissues are otherwise unremarkable. Lower thorax: A chest CT performed will be reported separately. Travel Agent (topogram) images: No additional findings. DIVISION OF RADIOLOGY Provider, [facility] - 07/10/2023 * * *Final Report* * * DATE OF EXAM: Jul 10 2023 9:42AM [facility] 0530 - CT ABD/PEL W IVCON / PROCEDURE REASON: Renal cell carcinoma of left kidney (HCC) * * * * Physician Interpretation * * * * RESULT: EXAMINATION: CT ABDOMEN AND PELVIS WITH IV CONTRAST CLINICAL HISTORY: Renal cell carcinoma. TECHNIQUE: CT of the abdomen and pelvis was performed using standard technique, scanning from just above the dome of the diaphragm to the symphysis pubis. MQ: CTAP_3 Contrast: IV: 150 ml of Omnipaque 300 Oral: 500 ml of Omni 240 10-25ml diluted with water CT Radiation dose: Integrated Dose-length product (DLP) for this visit = 2320 mGy*cm. CT Dose Reduction Employed: Automated exposure control (AEC) COMPARISON: CT performed 12/26/2022 RESULT: Liver: The liver is decreased in attenuation, compatible with hepatic steatosis. There is a stable 8mm hypodensity in the left hepatic lobe which is too small to definitively characterize, but likely represents a cyst. No new hepatic mass is visualized. Biliary: There is cholelithiasis without evidence of acute cholecystitis. No biliary ductal dilation is seen. Spleen: No mass. No splenomegaly. Pancreas: No mass or duct dilation. Adrenals: No mass. Kidneys: The left kidney is surgically absent. No soft tissue mass is seen in the left renal fossa to suggest a locally recurrent mass. Subcentimeter hypodensities are seen in the right kidney, likely representing small cysts. No right-sided renal calculus or hydronephrosis is noted. GI tract: Portions of the ascending colon were outside of the field of view. Bowel loops are otherwise unremarkable. Lymph nodes: No abdominal or pelvic lymphadenopathy. Mesentery/Peritoneum : No ascites or mass. Retroperitoneum: No mass. Vasculature: - Abdominal aorta and iliac arteries: Atherosclerotic calcifications without aneurysm. - Celiac and SMA: Patent without stenosis. - Portal venous system (SMV, splenic vein, portal vein and branches): Patent. - Hepatic veins: Patent. Pelvis: A 1 cm calculus is noted within the urinary bladder. The urinary bladder is incompletely distended. The prostate gland appears enlarged and measures up to 6.9 x 5.6 cm. Bones/Soft Tissues: Mild degenerative changes seen in the lumbar spine. There is a left hip arthroplasty in place. No destructive osseous lesions are seen. The soft tissues of the bilateral flanks are incompletely visualized. There is a fat-containing umbilical hernia. Superficial soft tissues are otherwise unremarkable. Lower thorax: A chest CT performed will be reported separately. Travel Agent (topogram) images: No additional findings. IMPRESSION IMPRESSION: 1. Postsurgical changes in keeping with left nephrectomy. No findings to suggest local recurrence. 2. No findings to suggest abdominal or pelvic metastatic disease. 3. Cholelithiasis without evidence of acute cholecystitis. 4. Bladder calculus. Prostatomegaly. Transcribe Date/Time: Jul 10 2023 4:21P Dictated by: ALBANIA RAINEY MD This examination was interpreted and the report reviewed and electronically signed by: ALBANIA RAINEY MD on Jul 10 2023 4:42PM EST Thank you for allowing us to participate in the care of your patient. Should there be any questions regarding this interpretation, please call [phone]. If you are unable to reach us at the number above, please feel free to contact [facility] at [phone]. [facility] CT Abdomen and Pelvis W cont rast IVOrdered By: [facility] Provider on 07-10-[address] [facility] [address] CHEST W IVCONon CT CHEST W IVCON * * *Final Report* * * DATE OF EXAM: Jul 10 2023 9:42AM [facility] 0539 - CT CHEST W IVCON / PROCEDURE REASON: Renal cell carcinoma of left kidney (HCC) * * * * Physician Interpretation * * * * RESULT: EXAMINATION: CHEST CT WITH CONTRAST CLINICAL HISTORY: History of renal cell carcinoma. Technique: Spiral CT acquisition of the chest from the thoracic inlet to the upper abdomen following IV contrast. MQ: CTCW_6 Contrast: 150 mL Omnipaque [address] Radiation dose: Integrated Dose-length product (DLP) for this visit = 2320 mGy*cm CT Dose Reduction Employed: Automated exposure control (AEC) Comparison: CT performed 12/26/2022 RESULT: Limitations: None. Lines, tubes, and devices: None. Lung parenchyma and airways: No lobar consolidation is noted. There is elevation of the left hemidiaphragm with associated mild left basal atelectasis. There is a stable 3-4 mm nodular opacity in the medial right upper lobe (3:75). No new or enlarging nodules are visualized. The central airways are widely patent. Pleural space: No pleural effusion. No pleural thickening. Lower neck, lymph nodes, and mediastinum: The imaged thyroid gland is normal. No lymphadenopathy in the supraclavicular, axillary, mediastinal, or hilar regions. Heart, pericardium, and thoracic vessels: The thoracic aorta and main pulmonary artery are normal in caliber. The cardiac chambers are normal in size. Coronary artery atherosclerotic calcification is noted. No pericardial effusion or thickening. Bones and soft tissues: Multilevel degenerative changes seen throughout the thoracic spine. No destructive osseous lesions are seen. There is a stable sclerotic focus in the left T4 transverse process. Superficial soft tissues are unremarkable. Upper abdomen: A dedicated CT of the abdomen and pelvis was performed concurrently and is reported separately. Travel Agent (topogram) images: No additional findings. IMPRESSION: 1. Stable CT of the chest. Unchanged appearance of right upper lobe nodular opacity. No new or enlarging nodules are visualized. 2. No evidence of intrathoracic lymphadenopathy. 3. Stable sclerotic focus in the T4 vertebrae, likely on the basis of a bone island. Transcribe Date/Time: Jul 10 2023 4:00P Dictated by: ALBANIA RAINEY MD This examination was interpreted and the report reviewed and electronically signed by: ALBANIA RAINEY MD on Jul 10 2023 4:20PM EST Thank you for allowing us to participate in the care of your patient. Should there be any questions regarding this interpretation, please call [phone]. If you are unable to reach us at the number above, please feel free to contact [facility] at [phone]. [id number] CN Normal [facility] CT Chest W contrast Tiffanie IMPRESSION: 1. Stable CT of the chest. Unchanged appearance of right upper lobe nodular opacity. No new or enlarging nodules are visualized. 2. No evidence of intrathoracic lymphadenopathy. 3. Stable sclerotic focus in the T4 vertebrae, likely on the basis of a bone island. Transcribe Date/Time: Jul 10 2023 4:00P Dictated by: ALBANIA RAINEY MD This examination was interpreted and the report reviewed and electronically signed by: ALBANIA RAINEY MD on Jul 10 2023 4:20PM EST Thank you for allowing us to participate in the care of your patient. Should there be any questions regarding this interpretation, please call [phone]. If you are unable to reach us at the number above, please feel free to contact [facility] at [phone]. DIVISION OF RADIOLOGY * * *Final Report* * * DATE OF EXAM: Jul 10 2023 9:42AM [facility] 0539 - CT CHEST W IVCON / PROCEDURE REASON: Renal cell carcinoma of left kidney (HCC) * * * * Physician Interpretation * * * * RESULT: EXAMINATION: CHEST CT WITH CONTRAST CLINICAL HISTORY: History of renal cell carcinoma. Technique: Spiral CT acquisition of the chest from the thoracic inlet to the upper abdomen following IV contrast. MQ: CTCW_6 Contrast: 150 mL Omnipaque [address] Radiation dose: Integrated Dose-length product (DLP) for this visit = 2320 mGy*cm CT Dose Reduction Employed: Automated exposure control (AEC) Comparison: CT performed 12/26/2022 RESULT: Limitations: None. Lines, tubes, and devices: None. Lung parenchyma and airways: No lobar consolidation is noted. There is elevation of the left hemidiaphragm with associated mild left basal atelectasis. There is a stable 3-4 mm nodular opacity in the medial right upper lobe (3:75). No new or enlarging nodules are visualized. The central airways are widely patent. Pleural space: No pleural effusion. No pleural thickening. Lower neck, lymph nodes, and mediastinum: The imaged thyroid gland is normal. No lymphadenopathy in the supraclavicular, axillary, mediastinal, or hilar regions. Heart, pericardium, and thoracic vessels: The thoracic aorta and main pulmonary artery are normal in caliber. The cardiac chambers are normal in size. Coronary artery atherosclerotic calcification is noted. No pericardial effusion or thickening. Bones and soft tissues: Multilevel degenerative changes seen throughout the thoracic spine. No destructive osseous lesions are seen. There is a stable sclerotic focus in the left T4 transverse process. Superficial soft tissues are unremarkable. Upper abdomen: A dedicated CT of the abdomen and pelvis was performed concurrently and is reported separately. Travel Agent (topogram) images: No additional findings. DIVISION OF RADIOLOGY Provider, [facility] [place] - 07/10/2023 * * *Final Report* * * DATE OF EXAM: Jul 10 2023 9:42AM [facility] 0539 - CT CHEST W IVCON / PROCEDURE REASON: Renal cell carcinoma of left kidney (HCC) * * * * Physician Interpretation * * * * RESULT: EXAMINATION: CHEST CT WITH CONTRAST CLINICAL HISTORY: History of renal cell carcinoma. Technique: Spiral CT acquisition of the chest from the thoracic inlet to the upper abdomen following IV contrast. MQ: CTCW_6 Contrast: 150 mL Omnipaque [address] Radiation dose: Integrated Dose-length product (DLP) for this visit = 2320 mGy*cm CT Dose Reduction Employed: Automated exposure control (AEC) Comparison: CT performed 12/26/2022 RESULT: Limitations: None. Lines, tubes, and devices: None. Lung parenchyma and airways: No lobar consolidation is noted. There is elevation of the left hemidiaphragm with associated mild left basal atelectasis. There is a stable 3-4 mm nodular opacity in the medial right upper lobe (3:75). No new or enlarging nodules are visualized. The central airways are widely patent. Pleural space: No pleural effusion. No pleural thickening. Lower neck, lymph nodes, and mediastinum: The imaged thyroid gland is normal. No lymphadenopathy in the supraclavicular, axillary, mediastinal, or hilar regions. Heart, pericardium, and thoracic vessels: The thoracic aorta and main pulmonary artery are normal in caliber. The cardiac chambers are normal in size. Coronary artery atherosclerotic calcification is noted. No pericardial effusion or thickening. Bones and soft tissues: Multilevel degenerative changes seen throughout the thoracic spine. No destructive osseous lesions are seen. There is a stable sclerotic focus in the left T4 transverse process. Superficial soft tissues are unremarkable. Upper abdomen: A dedicated CT of the abdomen and pelvis was performed concurrently and is reported separately. Travel Agent (topogram) images: No additional findings. IMPRESSION IMPRESSION: 1. Stable CT of the chest. Unchanged appearance of right upper lobe nodular opacity. No new or enlarging nodules are visualized. 2. No evidence of intrathoracic lymphadenopathy. 3. Stable sclerotic focus in the T4 vertebrae, likely on the basis of a bone island. Transcribe Date/Time: Jul 10 2023 4:00P Dictated by: ALBANIA RAINEY MD This examination was interpreted and the report reviewed and electronically signed by: ALBANIA RAINEY MD on Jul 10 2023 4:20PM EST Thank you for allowing us to participate in the care of your patient. Should there be any questions regarding this interpretation, please call [phone]. If you are unable to reach us at the number above, please feel free to contact [facility] eRadiology at [phone]. [facility] No Panel Informationon 07-10 Radiology Study observation (narrative) [facility] CNPLian 06-06-2023 CNPN Telephone (HEMASA) JUANCARLOS BAUM ([id number]) 1955 M Date Time Provider Department 06/06/23 YOON REYNOLDS During your visit today, we recorded the following information about you: Yoon Reynolds RN 06/06/2023 10:04 AM Signed ----- Message from Aba Amaya MD sent at 06/06/2023 9:58 AM EST ----- Please inform the patient that his TSH is up slightly. Possibly not a concern, please add TSH plus TFTs with his next set of labs. Yoon Reynolds RN 06/06/2023 10:08 AM Signed Pt informed of BRM message and denies any questions, needs or concerns at this time. Appointment verified. Yoon Reynolds RN BRM/HM: Please sign labs added to 07/10 visit Yoon Reynolds RN Allergies As of Date: 06/06/2023 Noted Allergy Reaction MELOXICAM 04/24/2021 11 - Vomiting NSAIDS (NON-STEROIDAL ANTI-INFLAM*04/24/20 21 14 - Other: See Comments Date Reviewed: 06/05/2023 Reviewed by: Dian Oropeza MA - Fully Assessed Reason for Visit: Results [95] Orders [681] Primary Visit Diagnosis:Screening for thyroid disorder [Z13.29] Other Visit Diagnoses:Abnormal thyroid screen (blood) [R79.89] Malaise and fatigue [R53.81, R53.83] Order(s):TSH BLD [SQTSH] Order #: [id number] FUTURE T3 BLD [SQT3] Order #: [id number] FUTURE T4 FREE/FREE THYROX [SQFT4] Order #: [id number] FUTURE Prescriptions as of 06/06/2023 - dutasteride (AVODART) 0.5 mg capsule Take 0.5 mg by mouth. - iv contrast (will be provided with radiology test) CT Chest ABD/PEL-Inject, intravenously, once for 1 dose.No IV access, insert saline lock prior to the beginning of sedation, infusion, injection of imaging exam. Discontinue saline lock post exam. If Pt. has a central line or IVAD, may access for administration according to line specific nursing protocol. Once exam is complete flush line and de-access according to line specific nursing protocol in the CT contrast administration guidelines link. - enteric contrast (will be provided with radiology test) For CT CHESTABD/PEL W IVCON Routine order Administer, As Directed One Time Only, via Oral, Rectal, both Oral and Rectal, Enteric Tube, Stoma or Indwelling Catheter, Enteric Contrast as designated per enteric contrast guidelines - gabapentin (NEURONTIN) 800 mg tablet Take 800 mg by mouth three times a day. - ELIQUIS 5 mg tab(s) Take 1 tablet by mouth twice daily. You may resume this medication on August 26. - digoxin (LANOXIN) 125 mcg (0.125 mg) tablet Take by mouth once daily. - propranolol ER (INDERAL LA) 80 mg 24 hr capsule Take 80 mg by mouth once daily. - multivit,thx,calcium ,iron,mins (MULTIVITAMIN AND MINERAL ORAL) Take 1 Dose by mouth once daily. Facility-Administere d Medications as of 06/06/2023 - perflutren lipid microspheres 1.3 mL in NaCl (PF) 0.9% 10 mL injection (DEFINITY) - sodium chloride 0.9 % (flush) 10 mL (BD POSIFLUSH) Problem List As Of Date 06/06/2023 Noted Resolved Renal mass [N28.89] 08/02/2022 A-fib (HCC) [I48.91] 08/05/2022 GEOVANNA (obstructive sleep apnea) [G47.33] 08/05/2022 Obesity, Class III, BMI >= 40 [E66.01] 08/10/2022 Left renal mass [N28.89] 08/14/2022 Cancer of left kidney (HCC) [C64.2] 08/29/2022 Stage 3 chronic kidney disease (HCC) [N18.30] 12/13/2022 Encounter Status:Closed by ABA AMAYA on 06/06/23 Normal [facility] CBC W Auto Differential pane l (Bld)on 06-05-2023 Basophils (Bld) [#/Vol] 0.09 10*3/uL Normal <0.11 [facility] Comment on above: Order Comment: Speci men Type: BLOOD SPECIMENOrdering Facility: [facility] Address: [address] [place] [address] Performed By: #### 5 7021-8 ####[facility] LABCLIA [id number] [place] [id number] LABCLIA [id number] [place] [address] [place] Basophils/100 WBC (Bld) 0.9 % Normal [facility] Comment on above: Order Comment: Speci men Type: BLOOD SPECIMENOrdering Facility: [facility] Address: [address] [place] [address] Performed By: #### 5 7021-8 ####[facility] LABCLIA [id number] [address] LABCLIA [id number] [place] [address] [place] Differential cell count method Nom (Bld) Manual Normal [facility] Comment on above: Order Comment: Speci men Type: BLOOD SPECIMENOrdering Facility: [facility] Address: [address] [place] [address] Performed By: #### 5 7021-8 ####[facility] LABCLIA [id number] [address] LABCLIA [id number] [place] [address] [place] Eosinophils (Bld) [#/Vol] 0.27 10*3/uL Normal <0.46 [facility] Comment on above: Order Comment: Speci men Type: BLOOD SPECIMENOrdering Facility: [facility] Address: [address] [place] [address] Performed By: #### 5 7021-8 ####[facility] LABCLIA [id number] [address] LABCLIA [id number] [place] [address] [place] Eosinophils/100 WBC (Bld) 2.6 % Normal [facility] Comment on above: Order Comment: Speci men Type: BLOOD SPECIMENOrdering Facility: [facility] Address: [address] [place] [address] Performed By: #### 5 7021-8 ####[facility] LABCLIA [id number] [place] [id number] LABCLIA [id number] [place] [address] [place] Erythrocyte distribution width (RBC) [Ratio] 14.5 % Normal 11.5-15.0 [facility] Comment on above: Order Comment: Speci men Type: BLOOD SPECIMENOrdering Facility: [facility] Address: [address] [place] [address] Performed By: #### 5 7021-8 ####[facility] LABCLIA [id number] [address] LABCLIA [id number] [place] [address] [place] Hematocrit (Bld) [Volume fraction] 46.1 % Normal 39.0-51.0 [facility] Comment on above: Order Comment: Speci men Type: BLOOD SPECIMENOrdering Facility: [facility] Address: [address] [place] [address] Performed By: #### 5 7021-8 ####[facility] LABCLIA [id number] [place] [id number] LABCLIA [id number] [place] [address] [place] Hemoglobin (Bld) [Mass/Vol] 15.4 g/dL Normal 13.0-17.0 [facility] Comment on above: Order Comment: Speci men Type: BLOOD SPECIMENOrdering Facility: [facility] Address: [address] [place] [address] Performed By: #### 5 7021-8 ####[facility] LABCLIA [id number] [place] [id number] LABCLIA [id number] [place] [address] [place] Lymphocytes (Bld) [#/Vol] 1.53 10*3/uL Normal 1.00-4.00 [facility] Comment on above: Order Comment: Speci men Type: BLOOD SPECIMENOrdering Facility: [facility] Address: [address] [place] [address] Performed By: #### 5 7021-8 ####[facility] LABCLIA [id number] [address] LABCLIA [id number] [place] [address] [place] Lymphocytes/100 WBC (Bld) 14.9 % Normal [facility] Comment on above: Order Comment: Speci men Type: BLOOD SPECIMENOrdering Facility: [facility] Address: [address] [place] [address] Performed By: #### 5 7021-8 ####[facility] LABCLIA [id number] [address] LABCLIA [id number] [place] [address] [place] MCH (RBC) [Entitic mass] 31.0 pg Normal 26.0-34.0 [facility] Comment on above: Order Comment: Speci men Type: BLOOD SPECIMENOrdering Facility: [facility] Address: [address] [place] [address] Performed By: #### 5 7021-8 ####[facility] LABCLIA [id number] [address] LABCLIA [id number] [place] [address] [place] MCHC (RBC) [Mass/Vol] 33.4 g/dL Normal 30.5-36.0 [facility] Comment on above: Order Comment: Speci men Type: BLOOD SPECIMENOrdering Facility: [facility] Address: [address] [place] [address] Performed By: #### 5 7021-8 ####[facility] LABCLIA [id number] [place] [id number] LABCLIA [id number] [place] [address] [place] MCV (RBC) [Entitic vol] 92.9 fL Normal 80.0-100.0 [facility] Comment on above: Order Comment: Speci men Type: BLOOD SPECIMENOrdering Facility: [facility] Address: [address] [place] [address] Performed By: #### 5 7021-8 ####[facility] LABCLIA [id number] [address] LABCLIA [id number] [place] [address] [place] Monocytes (Bld) [#/Vol] 1.26 10*3/uL High <0.87 [facility] Comment on above: Order Comment: Speci men Type: BLOOD SPECIMENOrdering Facility: [facility] Address: [address] [place] [address] Performed By: #### 5 7021-8 ####[facility] LABCLIA [id number] [place] [id number] LABCLIA [id number] [place] [address] [place] Monocytes/100 WBC (Bld) 12.3 % Normal [facility] Comment on above: Order Comment: Speci men Type: BLOOD SPECIMENOrdering Facility: [facility] Address: [address] [place] [address] Performed By: #### 5 7021-8 ####[facility] LABCLIA [id number] [address] LABCLIA [id number] [place] [address] [place] MYELO% 1.8 % Normal [facility] Comment on above: Order Comment: Speci men Type: BLOOD SPECIMENOrdering Facility: [facility] Address: [address] [place] [address] Performed By: #### 5 7021-8 ####[facility] LABCLIA [id number] [place] [id number] LABCLIA [id number] [place] [address] [place] Neutrophils (Bld) [#/Vol] 6.93 10*3/uL Normal 1.45-7.50 [facility] Comment on above: Order Comment: Speci men Type: BLOOD SPECIMENOrdering Facility: [facility] Address: [address] [place] [address] Performed By: #### 5 7021-8 ####[facility] LABCLIA [id number] [address] LABCLIA [id number] [place] [address] [place] Neutrophils/100 WBC (Bld) 67.5 % Normal [facility] Comment on above: Order Comment: Speci men Type: BLOOD SPECIMENOrdering Facility: [facility] Address: [address] [place] [address] Performed By: #### 5 7021-8 ####[facility] LABCLIA [id number] [address] LABCLIA [id number] [place] [address] [place] Nucleated RBC (Bld) [#/Vol] 10*3/uL Normal <0.01 [facility] Comment on above: Order Comment: Speci men Type: BLOOD SPECIMENOrdering Facility: [facility] Address: [address] [place] [address] Performed By: #### 5 7021-8 ####[facility] LABCLIA [id number] [place] [id number] LABCLIA [id number] [place] [address] [place] Nucleated RBC/100 WBC (Bld) [Ratio] 0.0 /100 WBC Normal [facility] Comment on above: Order Comment: Speci men Type: BLOOD SPECIMENOrdering Facility: [facility] Address: [address] [place] [address] Performed By: #### 5 7021-8 ####[facility] LABCLIA [id number] [address] LABCLIA [id number] [place] [address] [place] Ovalocytes LM Ql (Bld) Few Normal [facility] Comment on above: Order Comment: Speci men Type: BLOOD SPECIMENOrdering Facility: [facility] Address: [address] [place] [address] Performed By: #### 5 7021-8 ####[facility] LABCLIA [id number] [address] LABCLIA [id number] [place] [address] [place] Platelet mean volume (Bld) [Entitic vol] 10.6 fL Normal 9.0-12.7 [facility] Comment on above: Order Comment: Speci men Type: BLOOD SPECIMENOrdering Facility: [facility] Address: [address] [place] [address] Performed By: #### 5 7021-8 ####[facility] LABCLIA [id number] [address] LABCLIA [id number] [place] [address] [place] Platelets (Bld) [#/Vol] 198 10*3/uL Normal 150-400 [facility] Comment on above: Order Comment: Speci men Type: BLOOD SPECIMENOrdering Facility: [facility] Address: [address] [place] [address] Performed By: #### 5 7021-8 ####[facility] LABCLIA [id number] [place] [id number] LABCLIA [id number] [address] [address] [place] Platelets Estimate (Bld) [#/Vol] Adequate Normal [facility] Comment on above: Order Comment: Speci men Type: BLOOD SPECIMENOrdering Facility: [facility] Address: [address] [place] [address] Performed By: #### 5 7021-8 ####[facility] LABCLIA [id number] [address] LABCLIA [id number] [place] [address] [place] Polychromasia LM Ql (Bld) Slight Normal [facility] Comment on above: Order Comment: Speci men Type: BLOOD SPECIMENOrdering Facility: [facility] Address: [address] [place] [address] Performed By: #### 5 7021-8 ####[facility] LABCLIA [id number] [address] LABCLIA [id number] [place] [address] [place] RBC (Bld) [#/Vol] 4.96 10*6/uL Normal 4.20-6.[address] [facility] Comment on above: Order Comment: Speci men Type: BLOOD SPECIMENOrdering Facility: [facility] Address: [address] [place] [address] Performed By: #### 5 7021-8 ####[facility] LABCLIA [id number] [address] LABCLIA [id number] [place] [id number] [place] RED CELL MORPH Reviewed: see results of individual morphologies Normal [facility] Comment on above: Order Comment: Speci men Type: BLOOD SPECIMENOrdering Facility: [facility] Address: [address] [place] [address] Performed By: #### 5 7021-8 ####[facility] LABCLIA [id number] [address] LABCLIA [id number] [place] [address] [place] WBC (Bld) [#/Vol] 10.27 10*3/uL Normal 3.70-11.00 [facility] Comment on above: Order Comment: Speci men Type: BLOOD SPECIMENOrdering Facility: [facility] Address: [address] [place] [address] Performed By: #### 5 7021-8 ####[facility] LABCLIA [id number] [address] LABCLIA [id number] [place] [address] [place] WBC Left Shift Ql (Bld) Present Normal [facility] Comment on above: Order Comment: Speci men Type: BLOOD SPECIMENOrdering Facility: [facility] Address: [address] [place] [address] Performed By: #### 5 7021-8 ####[facility] LABCLIA [id number] [address] LABCLIA [id number] [place] [address] [place] CNOVSPon 06-05-2023 CNOVSP Visit (SP) Office (HEMASA) JUANCARLOS BAUM ([id number]) 1955 M Date Time Provider Department 06/05/23 10:15 AM ABA AMAYA During your visit today, we recorded the following information about you: Temperature Pulse Respiration Blood pressure 97.7 degrees 58/minute 16/minute 150/84 Weight Height 145.3 kg 1.73 m Aba Amaya MD 06/06/2023 7:03 AM Signed PATIENT NAME: Juancarlos Baum DATE: 06/05/2023 PRIMARY CARE PHYSICIAN: Dr. Katarina Daniels OTHER PHYSICIANS: Dr. Florencio Rose. Dr. Urias, Dr. An Portions of this encounter note have been copied from the note from 04/24/2023 and has been updated where appropriate, and reflect my current medical decision making from today. CC: This is a 67 year old male with kidney cancer, seen for scheduled follow-up and treatment. INTERIM HISTORY: Since the patient's last visit here he underwent a prostate biopsy for evaluation of his elevated PSA. His prostate biopsy revealed no evidence of malignancy. Currently he has no significant urinary symptoms. Otherwise the patient has had no significant medical changes. He remains on pembrolizumab every 6 weeks and is tolerated well. MEDICATIONS: Current Outpatient Medications Medication Sig gabapentin (NEURONTIN) 800 mg tablet Take 800 mg by mouth three times a day. ELIQUIS 5 mg tab(s) Take 1 tablet by mouth twice daily. You may resume this medication on August 26. digoxin (LANOXIN) 125 mcg (0.125 mg) tablet Take by mouth once daily. propranolol ER (INDERAL LA) 80 mg 24 hr capsule Take 80 mg by mouth once daily. multivit,thx,calcium ,iron,mins (MULTIVITAMIN AND MINERAL ORAL) Take 1 Dose by mouth once daily. Current Facility-Administere d Medications Medication Dose Route Frequency perflutren lipid microspheres 1.3 mL in NaCl (PF) 0.9% 10 mL injection (DEFINITY) INTRAVENOUS DIRECTED PRN sodium chloride 0.9 % (flush) 10 mL (BD POSIFLUSH) 10 mL INTRAVENOUS DIRECTED PRN ALLERGIES: ALLERGIES Allergen Reactions Meloxicam Vomiting Nsaids (Non-Steroid* Other: See Comments PAST MEDICAL HISTORY: PAST MEDICAL HISTORY Diagnosis Date Atrial fibrillation (HCC) Renal cell carcinoma (HCC) PAST SURGICAL HISTORY: PAST SURGICAL HISTORY Procedure Laterality Date NEPHRECTOMY PARTIAL Left total left TOTAL HIP REPLACEMENT Left FAMILY HISTORY: No family history on file. SOCIAL HISTORY: Social History Tobacco Use Smoking status: Never Passive exposure: Never Smokeless tobacco: Never Vaping Use Vaping Use: Never used Substance Use Topics Alcohol use: Yes Comment: Less than monthly per pt 08/05/2022 Drug use: Never REVIEW OF SYSTEMS: General: No weight loss, malaise or fevers. HEENT: Negative for frequent or significant headaches. No changes in hearing or vision, no nose bleeds or other nasal problems. Respiratory: Negative for cough, wheezing or shortness of breath. Cardiovascular: Negative for chest pain, leg swelling or palpitations. GI: Negative for abdominal discomfort, blood in stools or black stools or change in bowel habits. : No history of dysuria, frequency or incontinence. See HPI. Musculoskeletal: Negative for: joint pain or swelling, back pain and muscle pain. Skin: Negative for lesions, rash and itching. Hematology/Lympholog y: Negative for prolonged bleeding, bruising easily or swollen nodes. Neuro: No history of headaches, syncope, paralysis, seizures or tremors. PHYSICAL EXAM: BP 150/84 Pulse (!) 58 Temp 36.5 ?C (97.7 ?F) (Temporal) Resp 16 Ht 173 cm (5' 8.11 ) Wt (!) 145.3 kg (320 lb 5.3 oz) SpO2 93% BMI 48.55 kg/m? ECOG 0 General: Alert and oriented, no distress, pleasant and cooperative. Heart: Regular, normal S1 and S2, no murmurs, rubs, or gallops. Lungs: Clear to auscultation bilaterally. Abdomen: Benign. Extremities: Feet/ankles without edema, posterior tibial pulses full and symmetrical. PATHOLOGY: 08/14/2022 Kidney, left, total nephrectomy: - Renal cell carcinoma (7.7 cm), clear cell type, WHO/ISUP grade 3, with focal early invasion of renal sinus vessel. - Surgical margins are negative. LABS: Hemoglobin (g/dL) Date Value 06/05/2023 15.4 Hematocrit (%) Date Value 06/05/2023 46.1 WBC (k/uL) Date Value 06/05/2023 10.27 Platelet Count (k/uL) Date Value 06/05/2023 198 RADIOLOGY/OTHER STUDIES: 12/26/2022 CT chest IMPRESSION: 1. Interval resolution of a previously described nodular opacity along the right major fissure. 2. Residual subcentimeter nodular opacity measuring less than 5 mm, stable since 08/09/22. 3. Sclerotic osseous foci most likely bone islands, stable. 4. Streaky scarring/discoid atelectasis in the bilateral lower lung winkler. 5. No evidence of new intrathoracic abnormalities. 12/26/2022 CT abdomen/pelvis IMPRESSION: 1. Interval left (more content not included)... Normal [facility] Comprehensive metabolic 2000 panelon 06-05-2023 Albumin [Mass/Vol] 4.4 g/dL Normal 3.9-4.9 [facility] Comment on above: Order Comment: Speci men Type: BLOOD SPECIMENOrdering Facility: [facility] Address: [address] [place] [address] Performed By: #### 2 4323-8 ####[facility] LABCLIA [id number] [place] [address] ALP [Catalytic activity/Vol] 85 U/L Normal 38-113 [facility] Comment on above: Order Comment: Speci men Type: BLOOD SPECIMENOrdering Facility: [facility] Address: [address] [place] [address] Performed By: #### 2 4323-8 ####[facility] LABCLIA [id number] [place] [address] ALT [Catalytic activity/Vol] 17 U/L Normal 10-54 [facility] Comment on above: Order Comment: Speci men Type: BLOOD SPECIMENOrdering Facility: [facility] Address: [address] [place] [address] Performed By: #### 2 4323-8 ####[facility] LABCLIA [id number] [place] [address] Anion gap [Moles/Vol] 9 mmol/L Normal 9-18 [facility] Comment on above: Order Comment: Speci men Type: BLOOD SPECIMENOrdering Facility: [facility] Address: [address] [place] [address] Performed By: #### 2 4323-8 ####[facility] LABCLIA [id number] [place] [address] AST [Catalytic activity/Vol] 17 U/L Normal 14-40 [facility] Comment on above: Order Comment: Speci men Type: BLOOD SPECIMENOrdering Facility: [facility] Address: [address] [place] [address] Performed By: #### 2 4323-8 ####[facility] LABCLIA [id number] [place] [address] Bilirubin [Mass/Vol] 0.7 mg/dL Normal 0.2-1.3 [facility] Comment on above: Order Comment: Speci men Type: BLOOD SPECIMENOrdering Facility: [facility] Address: [address] [place] [address] Performed By: #### 2 4323-8 ####[facility] LABCLIA [id number] [place] [address] Calcium [Mass/Vol] 9.7 mg/dL Normal 8.5-10.2 [facility] Comment on above: Order Comment: Speci men Type: BLOOD SPECIMENOrdering Facility: [facility] Address: [address] [place] [address] Performed By: #### 2 4323-8 ####[facility] LABCLIA [id number] [place] [address] Chloride [Moles/Vol] 107 mmol/L High 97-105 [facility] Comment on above: Order Comment: Speci men Type: BLOOD SPECIMENOrdering Facility: [facility] Address: [address] [place] [address] Performed By: #### 2 4323-8 ####[facility] LABCLIA [id number] [place] [address] CO2 [Moles/Vol] 26 mmol/L Normal 22-30 [facility] Comment on above: Order Comment: Speci men Type: BLOOD SPECIMENOrdering Facility: [facility] Address: [address] [id number] Performed By: #### 2 4323-8 ####[facility] LABCLIA [id number] [place] [address] Creatinine [Mass/Vol] 1.40 mg/dL High 0.73-1.22 [facility] Comment on above: Order Comment: Speci men Type: BLOOD SPECIMENOrdering Facility: [facility] Address: [address] [place] [address] Performed By: #### 2 4323-8 ####[facility] LABCLIA [id number] [place] [address] Creatinine and Glomerular filtration rate.predicted panel (S/P/Bld) 55 mL/min/1.73m??? Low >=60 [facility] Comment on above: Order Comment: Speci men Type: BLOOD SPECIMENOrdering Facility: [facility] Address: [address] [place] [address] Result Comment: Krista mated Glomerular Filtration Rate (eGFR) is calculated using the 2020 CKD-EPI creatinine equation. This equation utilizes serum creatinine, sex, and age as parameters. The creatinine assay has traceable calibration to isotope dilution-mass spectrometry. Refer to KDIGO guidelines for clinical interpretation. In patients with unstable renal function, e.g. those with acute kidney injury, the eGFR may not accurately reflect actual GFR. Performed By: #### 2 4323-8 ####[facility] LABCLIA [id number] [place] [address] Glucose [Mass/Vol] 125 mg/dL High 74-99 [facility] Comment on above: Order Comment: Speci men Type: BLOOD SPECIMENOrdering Facility: [facility] Address: [address] [place] [address] Result Comment: The [place] Diabetes Association (ADA) provides guidance for cutoff values for fasting glucose and random glucose. The ADA defines fasting as no caloric intake for at least 8 hours. Fasting plasma glucose results between 100 to 125 mg/dL indicate increased risk for diabetes (prediabetes). Fasting plasma glucose results greater than or equal to 126 mg/dL meet the criteria for diagnosis of diabetes. In the absence of unequivocal hyperglycemia, results should be confirmed by repeat testing. In a patient with classic symptoms of hyperglycemia or hyperglycemic crisis, random plasma glucose results greater than or equal to 200 mg/dL meet the criteria for diagnosis of diabetes. Reference: Standards of Medical Care in Diabetes 2016, [place] Diabetes Association. Diabetes Care. 2016.39(Suppl 1). Performed By: #### 2 4323-8 ####[facility] LABCLIA [id number] [place] [address] Potassium [Moles/Vol] 5.3 mmol/L High 3.7-5.1 [facility] Comment on above: Order Comment: Speci men Type: BLOOD SPECIMENOrdering Facility: [facility] Address: [address] [place] [address] Performed By: #### 2 4323-8 ####[facility] LABCLIA [id number] [place] [address] Protein [Mass/Vol] 7.1 g/dL Normal 6.3-8.0 [facility] Comment on above: Order Comment: Speci men Type: BLOOD SPECIMENOrdering Facility: [facility] Address: [address] [place] [address] Performed By: #### 2 4323-8 ####[facility] LABCLIA [id number] [place] [address] Sodium [Moles/Vol] 142 mmol/L Normal 136-144 [facility] Comment on above: Order Comment: Speci men Type: BLOOD SPECIMENOrdering Facility: [facility] Address: [address] [place] [address] Performed By: #### 2 4323-8 ####[facility] LABCLIA [id number] [place] [address] Urea nitrogen [Mass/Vol] 23 mg/dL Normal 9-24 [facility] Comment on above: Order Comment: Speci men Type: BLOOD SPECIMENOrdering Facility: [facility] Address: [address] [id number] Performed By: #### 2 4323-8 ####[facility] LABCLIA [id number] [place] [address] TSH SerPl-aCncon 06-05-2023 TSH Qn 5.480 m[IU]/L High 0.270-4.200 [facility] Comment on above: Order Comment: Speci men Type: BLOOD SPECIMEN [facility] Address: [address] [id number] Performed By: #### 2 4323-8 #### [facility] LAB CLIA [id number] [address] [place] [address] Screenson 05-23-2023 Screens [id number] #1.00TIFF Normal [facility] Ambulatory Visit Summaryon 0 05-21-2023 Ambulatory Visit Summary JUANCARLOS BAUM :1955 Visit Date:05/21/2023 Ambulatory Visit Instructions Your Diagnosis Elevated PSA Cancer of kidney BPH (benign prostatic hyperplasia) Anticoagulated Tests Performed Urnls Dip Stick Auto w/o Microscopy POC 44158 Your Care Team Attending Physician - Elliot AN MD Primary Care Physician - Dewey DANIELS DO This Is Your Medications List dutasteride (dutasteride 0.5 mg Cap) Contact prescribing physician if questions or concerns apixaban (Eliquis 5 mg oral tablet) digoxin (digoxin 250 mcg (0.25 mg) Tab) gabapentin (gabapentin 400 mg Cap) multivitamin (Multi Vitamin+) propranolol (propranolol 80 mg Cap-ER) Procedures Performed Transrectal biopsy of prostate using ultrasound (US) guidance (04/22/2023), Cystoscopy (06/02/2020), Total hip replacement (05/29/2020), TURP - Transurethral resection of prostate (09/29/2018), Ankle (1984), Colonoscopy, Left nephrectomy, Rotator cuff. Discharge Vitals Height 178 cm Height 70 in Weight 142 kg Weight 312.4 lb BMI 44.82 What to do next Scheduled Follow-Up Appointments Friday 8:15 AM EDT With: NATALIYA SAAVEDRA, Elliot Muniz Where: [facility] Izzy Denney [facility] Patient Educationon 05-21-19 24 Patient Education Oncology Prostate Cancer Screening Prostate cancer screening is testing that is done to check for the presence of prostate cancer in men. The prostate gland is a walnut-sized gland that is located below the bladder and in front of the rectum in males. The function of the prostate is to add fluid to semen during ejaculation. Prostate cancer is one of the most common types of cancer in men. Who should have prostate cancer screening? Screening recommendations vary based on age and other risk factors, as well as between the professional organizations who make the recommendations. In general, screening is recommended if: ? You are age 50 to 70 and have an average risk for prostate cancer. You should talk with your health care provider about your need for screening and how often screening should be done. Because most prostate cancers are slow growing and will not cause , screening in this age group is generally reserved for men who have a 10- to 15-year life expectancy. ? You are younger than age 50, and you have these risk factors: ? Having a father, brother, or uncle who has been diagnosed with prostate cancer. The risk is higher if your family member's cancer occurred at an early age or if you have multiple family members with prostate cancer at an early age. ? Being a male who is Black or is of Corn[place] or sub-Saharan descent. In general, screening is not recommended if: ? You are younger than age 40. ? You are between the ages of 40 and 49 and you have no risk factors. ? You are 70 years of age or older. At this age, the risks that screening can cause are greater than the benefits that it may provide. If you are at high risk for prostate cancer, your health care provider may recommend that you have screenings more often or that you start screening at a younger age. How is screening for prostate cancer done? The recommended prostate cancer screening test is a blood test called the prostate-specific antigen (PSA) test. PSA is a protein that is made in the prostate. As you age, your prostate naturally produces more PSA. Abnormally high PSA levels may be caused by: ? Prostate cancer. ? An enlarged prostate that is not caused by cancer (benign prostatic hyperplasia, or BPH). This condition is very common in older men. ? A prostate gland infection (prostatitis) or urinary tract infection. ? Certain medicines such as male hormones (like testosterone) or other medicines that raise testosterone levels. A rectal exam may be done as part of prostate cancer screening to help provide information about the size of your prostate gland. When a rectal exam is performed, it should be done after the PSA level is drawn to avoid any effect on the results. Depending on the PSA results, you may need more tests, such as: ? A physical exam to check the size of your prostate gland, if not done as part of screening. ? Blood and imaging tests. ? A procedure to remove tissue samples from your prostate gland for testing (biopsy). This is the only way to know for certain if you have prostate cancer. What are the benefits of prostate cancer screening? ? Screening can help to identify cancer at an early stage, before symptoms start and when the cancer can be treated more easily. ? There is a small chance that screening may lower your risk of dying from prostate cancer. The chance is small because prostate cancer is a slow-growing cancer, and most men with prostate cancer from a different cause. What are the risks of prostate cancer screening? The main risk of prostate cancer screening is diagnosing and treating prostate cancer that would never have caused any symptoms or problems. This is called overdiagnosisand overtreatment. PSA screening cannot tell you if your PSA is high due to cancer or a different cause. A prostate biopsy is the only procedure to diagnose prostate cancer. Even the results of a biopsy may not tell you if your cancer needs to be treated. Slow-growing prostate cancer may not need any treatment other than monitoring, so diagnosing and treating it may cause unnecessary stress or other side effects. Questions to ask your health care provider ? When should I start prostate cancer screening? ? What is my risk for prostate cancer? ? How often do I need screening? ? What type of screening tests do I need? ? How do I get my test results? ? What do my results mean? ? Do I need treatment? Where to find more information ? The [place] Cancer Society: www.cancer.org ? [place] [employer] Association: www.auanet.org Contact a health care provider if: ? You have difficulty urinating. ? You have pain when you urinate or ejaculate. ? You have blood in your urine or semen. ? You have pain in your back or in the area of your prostate. Summary ? Prostate cancer is a common type of cancer in men. The prostate gland is located below the bladder and in front of the rectum. This gland adds flu (more content not included)... Normal [facility] Urology Office/Clinic Noteon 05-21-2023 Urology Office/Clinic Note Chief Complaint Follow up to TRUS/Bx done 04/22/23, review pathology report HPI Staff Follow up to Trus/bx done 04/22/23, review pathology report. Previous DX: BPH, elevated PSA, gross hematuria, kidney stone, nocturia, renal mass, urinary retention. PVR today 0ml. Dysuria: denies pain and burning Incomplete bladder emptying: yes Hematuria: last seen blood last night, Pt states he sees blood in urine every 4 days since TRUS/Bx Frequency: yes Urgency: denies Nocturia: denies Stream: denies Leaking: yes Post void dripping: yes Wearing pads/ Depends: denies Urge incontinence: denies Stress incontinence: denies Incontinence without Sensory Awareness: denies Abdominal pain: denies Flank pain: denies Sexual complaints: _ History of Present Illness Tests reviewed: reviewed UA, op note, path I have reviewed the previous health record information and history for this patient from Dr. An. I have reviewed and verified the staff HPI to be accurate for this encounter. There have been no associated fever, chills, flank pain, or blood in the urine. Denies any urinary infections since last encounter. Review of Systems PHQ Score Initial Depression Screen Score: 0 SCORE ROS - Provider Constitutional: denies weight loss, denies hot flashes. Eyes: denies eye problems. Gastrointestinal: denies nausea, denies vomiting. Cardiovascular: denies chest pain or angina. Integumentary: no dryness Musculoskeletal: denies musculoskeletal symptoms. ENMT: denies otolaryngeal symptoms. Respiratory: no shortness of breath. Heme/Lymph: denies easy bleeding tendency, denies easy bruising tendency. Psychiatric: no confusion, no anxiety. Genitourinary: See HPI. Physical Exam Vitals & Measurements HT: 70 in HT: 178 cm WT: 142 kg WT: 312.4 lb BMI: 44.82 General Appearance: alert, no distress, well nourished, well developed male. Genitourinary: normal scrotum, normal testes, normal urethra, normal epididymis, normal vas deferens/spermatic cord. Flank Pain: none. Bladder: nonpalpable. Assessment/Plan Pt here with a family member today. 1. Elevated PSA (R97.20: Elevated prostate specific antigen [PSA]) PSA: 04/17/20 - 9.3 & 26% 08/22/20 - 4.2 & 33% 12/20/20 - 4.1 & 32% 12/25/21 - 4.8 & 33% 01/21/23 - 5.8 & 33% S/p TRUS/bx 04/22/23 - HGPIN x 1 core, R lateral mid. Prostate volume 216 cc. UA shows large blood, neg for infection. Still seeing gross hematuria occasionally. Will cont to gradually resolve. The pathology report was reviewed with the patient in detail today. There is no evidence of malignancy and no further evaluation of the tissue removed is planned. All questions were answered and the report discussed in terms that the patient could understand. Educated pt on likely cause of his PSA elevation from chronic subclinical prostatitis. Extremely large prostate can account for bleeding and PSA elevation. -PSA in 1 yr. 2. Cancer of kidney (C64.9: Malignant neoplasm of unspecified kidney, except renal pelvis) S/p hand assisted laparoscopic L radical nephrectomy by Dr. 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 Surgical margins are neg. Adjuvant Pembrolizumab q3wk started 09/19/22, plan for pt to receive for [address] AP wo con 12/26/22 - No evidence of intra-abdominal/pelv ic mets. [1] 3. BPH (benign prostatic hyperplasia) (N40.0: Benign prostatic hyperplasia without lower urinary tract symptoms) S/p TURP 09/29/18. Not taking any prostate meds. IPSS 22 (13). PVR today 0 ml. Discussed adding prostate bark scaler to help with urination and gross hematuria. Follow up 6 mos or sooner if needed. Pt understands and agrees with plan. -Start Dutasteride 0.5 mg qd. SEs discussed. Rx sent to [facility]. 4. 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 Follow-up With When Contact Information Elliot AN MD, URL [facility] [address], [place] [address]- Additional Instructions: 6 mos no labs Patient Education Prostate Cancer Screening I, Alba Layne, personally scribed for Dr. An on 05/21/2023 12:23:27. . Documentation recorded by the scribe, Alba Layne, accurately reflects the services(s) I performed and decisions made by me. Authenticated by Dr. An on 05/21/2023 12:26:03. Problem List/Past Medical History Ongoing Anticoagulated BMI 40.0-44.9, adult BPH (benign prostatic hyperplasia) Cancer of kidney Elevated PSA Gross hematuria Kidney stone Nocturia Sleep apnea Status post left hip replacement Urinary retention Historical Asymptomatic microscopic hematuria Atrial fibrillation Renal mass Procedure/Surgical History Transrectal biopsy of prostate using ultrasound (US) guidance (04/22/2023), Cystoscopy (06/02/2020), Total hip (more content not included)... Normal [facility] Comment on above: Result Comment: Elec tronically Signed By: Elliot AN MD\.br\Date and Time Signed: 05/21/23 12:26 EST\.br\Electronically Co-Signed By: Alba Layne\.br\Date and Time Co-Signed: 05/21/23 12:24 EST Intra[facility] Documentson 1 06-29-2022 [facility] [id number]#1.00TIFF Normal [facility] Prostate Histology ([facility]) on 04-28-2023 Prostate Histology Diagnosis Info Invalid Interpretation Code [facility] Comment on above: Result Comment: A:Pr ostate,Left Lateral Base:Needle Biopsy Interpretation - - Benign prostatic tissue. MicroScopic Description - B:Prostate,Left Lateral Mid:Needle Biopsy Interpretation - - Benign prostatic tissue. MicroScopic Description - C:Prostate,Left Lateral [place]:Needle Biopsy Interpretation - - Benign prostatic tissue. MicroScopic Description - D:Prostate,Left Base:Needle Biopsy Interpretation - - Benign prostatic tissue. MicroScopic Description - E:Prostate,Left Mid:Needle Biopsy Interpretation - - Benign prostatic tissue. MicroScopic Description - F:Prostate,Left [place]lands:Needle Biopsy Interpretation - - Benign prostatic tissue. MicroScopic Description - G:Prostate,Right Base:Needle Biopsy Interpretation - - Benign prostatic tissue. MicroScopic Description - H:Prostate,Right Mid:Needle Biopsy Interpretation - - Benign prostatic tissue. MicroScopic Description - I:Prostate,Right [place]lands:Needle Biopsy Interpretation - - Benign prostatic tissue. MicroScopic Description - J:Prostate,Right Lateral Base:Needle Biopsy Interpretation - - Benign prostatic tissue. MicroScopic Description - K:Prostate,Right Lateral Mid:Needle Biopsy Interpretation - - High-grade prostatic intraepithelial neoplasia (HGPIN). MicroScopic Description - L:Prostate,Right Lateral [place]:Needle Biopsy Interpretation - - Benign prostatic tissue. MicroScopic Description - Gross Description Site ID:A color brown-white fixative Formalin cores 1 units cm Site ID:B color brown-white fixative Formalin cores 2 units cm adhered to sponge Site ID:C color brown-white fixative Formalin cores 2 units cm stringy Site ID:D color brown-white fixative Formalin cores 1 units cm Site ID:E color brown-white fixative Formalin cores 1 units cm Site ID:F color brown-white fixative Formalin cores 1 units cm Site ID:G color brown-white fixative Formalin cores 1 units cm partially stringy Site ID:H color brown-white fixative Formalin cores 1 units cm Site ID:I color brown-white fixative Formalin cores 1 units cm Site ID:J color brown-white fixative Formalin cores 1 units cm Site ID:K color brown-white fixative Formalin cores 1 units cm partially stringy Site ID:L color brown-white fixative Formalin cores 1 units cm CPT code: 06690 x 12 Electronically signed by : on: 04/28/2023 10:39:00 Performed By: #### 1 [id number] ####[facility] [id number] [place] [address] CBC W Auto Differential pane l (Bld)on 04-24-2023 Basophils (Bld) [#/Vol] 0.05 10*3/uL Normal <0.11 [facility] Comment on above: Order Comment: Speci men Type: BLOOD SPECIMEN [facility] Address: [address] [place] [address] Performed By: #### 5 7021-8 #### [facility] CLIA [id number] [address] [place] [address] Basophils/100 WBC (Bld) 0.8 % Normal [facility] Comment on above: Order Comment: Speci men Type: BLOOD SPECIMEN [facility] Address: [address] [place] [address] Performed By: #### 5 7021-8 #### [facility] CLIA [id number] [address] [place] [address] Differential cell count method Nom (Bld) Auto Normal [facility] Comment on above: Order Comment: Speci men Type: BLOOD SPECIMEN [facility] Address: [address] [place] [address] Performed By: #### 5 7021-8 #### [facility] CLIA [id number] [address] [place] [address] Eosinophils (Bld) [#/Vol] 0.28 10*3/uL Normal <0.46 [facility] Comment on above: Order Comment: Speci men Type: BLOOD SPECIMEN [facility] Address: [address] [place] [address] Performed By: #### 5 7021-8 #### [facility] CLIA [id number] [address] [place] [address] Eosinophils/100 WBC (Bld) 4.3 % Normal [facility] Comment on above: Order Comment: Speci men Type: BLOOD SPECIMEN [facility] Address: [address] [place] [address] Performed By: #### 5 7021-8 #### [facility] CLIA [id number] [address] [place] [address] Erythrocyte distribution width (RBC) [Ratio] 14.1 % Normal 11.5-15.0 [facility] Comment on above: Order Comment: Speci men Type: BLOOD SPECIMEN [facility] Address: [address] [place] [address] Performed By: #### 5 7021-8 #### [facility] CLIA [id number] [address] [place] [address] Hematocrit (Bld) [Volume fraction] 44.2 % Normal 39.0-51.0 [facility] Comment on above: Order Comment: Speci men Type: BLOOD SPECIMEN [facility] Address: [address] [place] [address] Performed By: #### 5 7021-8 #### [facility] CLIA [id number] [address] [place] [address] Hemoglobin (Bld) [Mass/Vol] 15.1 g/dL Normal 13.0-17.0 [facility] Comment on above: Order Comment: Speci men Type: BLOOD SPECIMEN [facility] Address: [address] [place] [address] Performed By: #### 5 7021-8 #### [facility] CLIA [id number] [address] [place] [address] Immature granulocytes (Bld) [#/Vol] 0.05 10*3/uL Normal <0.10 [facility] Comment on above: Order Comment: Speci men Type: BLOOD SPECIMEN [facility] Address: [address] [place] [address] Performed By: #### 5 7021-8 #### [facility] CLIA [id number] [address] [place] [address]268 Immature granulocytes/100 WBC (Bld) 0.8 % Normal [facility] Comment on above: Order Comment: Speci men Type: BLOOD SPECIMEN [facility] Address: [address] [place] [address] Performed By: #### 5 7021-8 #### [facility] CLIA [id number] [address] [place] [address] Lymphocytes (Bld) [#/Vol] 1.47 10*3/uL Normal 1.00-4.00 [facility] Comment on above: Order Comment: Speci men Type: BLOOD SPECIMEN [facility] Address: [address] [place] [address] Performed By: #### 5 7021-8 #### [facility] CLIA [id number] [address] [place] [address] Lymphocytes/100 WBC (Bld) 22.8 % Normal [facility] Comment on above: Order Comment: Speci men Type: BLOOD SPECIMEN [facility] Address: [address] [place] [address] Performed By: #### 5 7021-8 #### [facility] CLIA [id number] [address] [place] [address] 17932 MCH (RBC) [Entitic mass] 30.7 pg Normal 26.0-34.0 [facility] Comment on above: Order Comment: Speci men Type: BLOOD SPECIMEN [facility] Address: [address] [place] [address] Performed By: #### 5 7021-8 #### [facility] CLIA [id number] [address] [place] [address]388 MCHC (RBC) [Mass/Vol] 34.2 g/dL Normal 30.5-36.0 [facility] Comment on above: Order Comment: Speci men Type: BLOOD SPECIMEN [facility] Address: [address] [place] [address] Performed By: #### 5 7021-8 #### [facility] CLIA [id number] [address] [place] [address] MCV (RBC) [Entitic vol] 89.8 fL Normal 80.0-100.0 [facility] Comment on above: Order Comment: Speci men Type: BLOOD SPECIMEN [facility] Address: [address] [place] [address] Performed By: #### 5 7021-8 #### [facility] CLIA [id number] [address] [place] [address] 18151 Monocytes (Bld) [#/Vol] 1.29 10*3/uL High <0.87 [facility] Comment on above: Order Comment: Speci men Type: BLOOD SPECIMEN [facility] Address: [address] [place] [address] Performed By: #### 5 7021-8 #### [facility] CLIA [id number] [address] [place] [address] Monocytes/100 WBC (Bld) 20.0 % Normal [facility] Comment on above: Order Comment: Speci men Type: BLOOD SPECIMEN [facility] Address: [address] [place] [address] Performed By: #### 5 7021-8 #### [facility] CLIA [id number] [address] [place] [address] Neutrophils (Bld) [#/Vol] 3.32 10*3/uL Normal 1.45-7.50 [facility] Comment on above: Order Comment: Speci men Type: BLOOD SPECIMEN Ordering Facility: [facility] Address: [address] [place] [address] Performed By: #### 5 7021-8 #### [facility] CLIA [id number] [address] [place] [address] Neutrophils/100 WBC (Bld) 51.3 % Normal [facility] Comment on above: Order Comment: Speci men Type: BLOOD SPECIMEN Ordering Facility: [facility] Address: [address] [place] [address] Performed By: #### 5 7021-8 #### [facility] CLIA [id number] [address] [place] [address] Nucleated RBC (Bld) [#/Vol] 10*3/uL Normal <0.01 [facility] Comment on above: Order Comment: Speci men Type: BLOOD SPECIMEN Ordering Facility: [facility] Address: [address] [place] [address] Performed By: #### 5 7021-8 #### [facility] CLIA [id number] [address] [place] [address] Nucleated RBC/100 WBC (Bld) [Ratio] 0.0 /100 WBC Normal [facility] Comment on above: Order Comment: Speci men Type: BLOOD SPECIMEN Ordering Facility: [facility] Address: [address] [place] [address] Performed By: #### 5 7021-8 #### [facility] CLIA [id number] [address] [place] [address] Platelet mean volume (Bld) [Entitic vol] 10.6 fL Normal 9.0-12.7 [facility] Comment on above: Order Comment: Speci men Type: BLOOD SPECIMEN Ordering Facility: [facility] Address: [address] [place] [address] Performed By: #### 5 7021-8 #### [facility] CLIA [id number] [address] [place] [address]85 Platelets (Bld) [#/Vol] 185 10*3/uL Normal 150-400 [facility] Comment on above: Order Comment: Speci men Type: BLOOD SPECIMEN Ordering Facility: [facility] Address: [address] [place] [address] Performed By: #### 5 7021-8 #### [facility] CLIA [id number] [address] [place] [address]65 RBC (Bld) [#/Vol] 4.92 10*6/uL Normal 4.20-6.[address] [facility] Comment on above: Order Comment: Speci men Type: BLOOD SPECIMEN Ordering Facility: [facility] Address: [address] [place] [address] Performed By: #### 5 7021-8 #### [facility] CLIA [id number] [address] [place] [address] 60565 WBC (Bld) [#/Vol] 6.46 10*3/uL Normal 3.70-11.[address] [facility] Comment on above: Order Comment: Speci men Type: BLOOD SPECIMEN Ordering Facility: [facility] Address: [place] [address] Performed By: #### 5 7021-8 #### [facility] CLIA [id number] [address] [place] [address]955 CNOVSPon 04-24-2023 CNOVSP Visit (SP) Office ([place]) JUANCARLOS BAUM ([id number]) 1955 M Date Time Provider Department 04/24/23 10:30 AM LUCIO DAMON During your visit today, we recorded the following information about you: Temperature Pulse Respiration Blood pressure 97.4 degrees 56/minute 20/minute 123/67 Weight Height 143.7 kg 1.73 m Lucio Damon APRN.ORDER CLERK 04/25/2023 11:15 AM Signed PATIENT NAME: Juancarlos Baum DATE: 04/24/2023 PRIMARY CARE PHYSICIAN: Dr. Katarina Daniels OTHER PHYSICIANS: Dr. Florencio Rose. Dr. Urias, Dr. An Portions of this encounter note have been copied from Dr. Amaya's note from 04/03/2023 and has been updated where appropriate, and reflect my current medical decision making from today. CC: This is a 67 year old male with kidney cancer, seen for scheduled follow-up and treatment. INTERIM HISTORY: Juancarlos Baum returns for follow-up and continued treatment. He remains on pembrolizumab and is tolerating it well. He has requested to go back to the 6-week dosing. He denies skin rashes. No cough, shortness of breath or other pulmonary complaints. No abdominal pain or diarrhea. No headaches or vision changes. He is urinating well. No pain, burning or difficulty. He has noticed a little blood in his urine. He has had an elevated PSA. He recently had a prostate biopsy by Dr. An. He denies fevers, chills, night sweats and signs/symptoms of infection. No bleeding or abnormal bruising. Overall, he is doing well and wishes to proceed with treatment as planned. MEDICATIONS: Current Outpatient Medications Medication Sig gabapentin (NEURONTIN) 800 mg tablet Take 800 mg by mouth three times a day. ELIQUIS 5 mg tab(s) Take 1 tablet by mouth twice daily. You may resume this medication on August 26. digoxin (LANOXIN) 125 mcg (0.125 mg) tablet Take by mouth once daily. propranolol ER (INDERAL LA) 80 mg 24 hr capsule Take 80 mg by mouth once daily. multivit,thx,calcium ,iron,mins (MULTIVITAMIN AND MINERAL ORAL) Take 1 Dose by mouth once daily. Current Facility-Administere d Medications Medication Dose Route Frequency perflutren lipid microspheres 1.3 mL in NaCl (PF) 0.9% 10 mL injection (DEFINITY) INTRAVENOUS DIRECTED PRN sodium chloride 0.9 % (flush) 10 mL (BD POSIFLUSH) 10 mL INTRAVENOUS DIRECTED PRN ALLERGIES: ALLERGIES Allergen Reactions Meloxicam Vomiting Nsaids (Non-Steroid* Other: See Comments PAST MEDICAL HISTORY: PAST MEDICAL HISTORY Diagnosis Date Atrial fibrillation (HCC) Renal cell carcinoma (HCC) PAST SURGICAL HISTORY: PAST SURGICAL HISTORY Procedure Laterality Date NEPHRECTOMY PARTIAL Left total left TOTAL HIP REPLACEMENT Left FAMILY HISTORY: History reviewed. No pertinent family history. SOCIAL HISTORY: Social History Tobacco Use Smoking status: Never Passive exposure: Never Smokeless tobacco: Never Vaping Use Vaping Use: Never used Substance Use Topics Alcohol use: Yes Comment: Less than monthly per pt 08/05/2022 Drug use: Never REVIEW OF SYSTEMS: General: No weight loss, malaise or fevers. HEENT: Negative for frequent or significant headaches. No changes in hearing or vision, no nose bleeds or other nasal problems. Respiratory: Negative for cough, wheezing or shortness of breath. Cardiovascular: Negative for chest pain, leg swelling or palpitations. GI: Negative for abdominal discomfort, blood in stools or black stools or change in bowel habits. : No history of dysuria, frequency or incontinence. See HPI. Musculoskeletal: Negative for: joint pain or swelling, back pain and muscle pain. Skin: Negative for lesions, rash and itching. Hematology/Lympholog y: Negative for prolonged bleeding, bruising easily or swollen nodes. Neuro: No history of headaches, syncope, paralysis, seizures or tremors. PHYSICAL EXAM: BP 123/67 Pulse (!) 56 Temp 36.3 ?C (97.4 ?F) (Temporal) Resp 20 Ht 173 cm (5' 8.11 ) Wt (!) 143.7 kg (316 lb 12.8 oz) SpO2 98% BMI 48.01 kg/m? ECOG 0 General: Alert and oriented, no distress, pleasant and cooperative. Heart: Regular, normal S1 and S2, no murmurs, rubs, or gallops. Lungs: Clear to auscultation bilaterally. Abdomen: Benign. Extremities: Feet/ankles without edema, posterior tibial pulses full and symmetrical. PATHOLOGY: 08/14/2022 Kidney, left, total nephrectomy: - Renal cell carcinoma (7.7 cm), clear cell type, WHO/ISUP grade 3, with focal early invasion of renal sinus vessel. - Surgical margins are negative. LABS: Hemoglobin (g/dL) Date Value 04/24/2023 15.1 Hematocrit (%) Date Value 04/24/2023 44.2 WBC (k/uL) Date Value 04/24/2023 6.46 Platelet Count (k/uL) Date Value 04/24/2023 185 RADIOLOGY/OTHER STUDIES: 12/26/2022 CT chest IMPRESSION: 1. Interval resolution of a previously described nodular opacit (more content not included)... Normal [facility] Comprehensive metabolic 2000 panelon 04-24-2023 Albumin [Mass/Vol] 4.5 g/dL Normal 3.9-4.9 [facility] Comment on above: Order Comment: Speci milo Type: BLOOD SPECIMENOrdering Facility: [facility] Address: [address] [place] [address] Performed By: #### 2 4323-8 ####[facility] [id number] [place] [address] ALP [Catalytic activity/Vol] 71 U/L Normal 38-113 [facility] Comment on above: Order Comment: Speci men Type: BLOOD SPECIMENOrdering Facility: [facility] Address: [address] [place] [address] Performed By: #### 2 4323-8 ####[facility] [id number] [place] [address] ALT [Catalytic activity/Vol] 20 U/L Normal 10-54 [facility] Comment on above: Order Comment: Speci men Type: BLOOD SPECIMENOrdering Facility: [facility] Address: [address] [place] [address] Performed By: #### 2 4323-8 ####[facility] [id number] [place] [address] Anion gap [Moles/Vol] 9 mmol/L Normal 9-18 [facility] Comment on above: Order Comment: Speci men Type: BLOOD SPECIMENOrdering Facility: [facility] Address: [address] [place] [address] Performed By: #### 2 4323-8 ####[facility] [id number] [place] [address] AST [Catalytic activity/Vol] 20 U/L Normal 14-40 [facility] Comment on above: Order Comment: Speci men Type: BLOOD SPECIMENOrdering Facility: [facility] Address: [address] [place] [address] Performed By: #### 2 4323-8 ####[facility]IA [id number] [place] [address] Bilirubin [Mass/Vol] 0.6 mg/dL Normal 0.2-1.3 [facility] Comment on above: Order Comment: Speci men Type: BLOOD SPECIMENOrdering Facility: [facility] Address: [address] [place] [address] Performed By: #### 2 4323-8 ####[facility]IA [id number] [place] [address] Calcium [Mass/Vol] 9.7 mg/dL Normal 8.5-10.2 [facility] Comment on above: Order Comment: Speci men Type: BLOOD SPECIMENOrdering Facility: [facility] Address: [address] [place] [address] Performed By: #### 2 4323-8 ####[facility]IA [id number] [place] [address] Chloride [Moles/Vol] 106 mmol/L High 97-105 [facility] Comment on above: Order Comment: Speci men Type: BLOOD SPECIMENOrdering Facility: [facility] Address: [address] [place] [address] Performed By: #### 2 4323-8 ####[facility]IA [id number] [place] [address] CO2 [Moles/Vol] 26 mmol/L Normal 22-30 [facility] Comment on above: Order Comment: Speci men Type: BLOOD SPECIMENOrdering Facility: [facility] Address: [address] [place] [address] Performed By: #### 2 4323-8 ####[facility]CLIA [id number] [place] [address] Creatinine [Mass/Vol] 1.47 mg/dL High 0.73-1.22 [facility] Comment on above: Order Comment: Speci men Type: BLOOD SPECIMENOrdering Facility: [facility] Address: [address] [place] [address] Performed By: #### 2 4323-8 ####[facility]IA [id number] [place] [address] Creatinine and Glomerular filtration rate.predicted panel (S/P/Bld) 52 mL/min/1.73m??? Low >=60 [facility] Comment on above: Order Comment: Speci men Type: BLOOD SPECIMENOrdering Facility: [facility] Address: [address] [place] [address] Result Comment: Krista mated Glomerular Filtration Rate (eGFR) is calculated using the 2020 CKD-EPI creatinine equation. This equation utilizes serum creatinine, sex, and age as parameters. The creatinine assay has traceable calibration to isotope dilution-mass spectrometry. Refer to KDIGO guidelines for clinical interpretation. In patients with unstable renal function, e.g. those with acute kidney injury, the eGFR may not accurately reflect actual GFR. Performed By: #### 2 4323-8 ####[facility]CLIA [id number] [place] [address] Glucose [Mass/Vol] 130 mg/dL High 74-99 [facility] Comment on above: Order Comment: Speci men Type: BLOOD SPECIMENOrdering Facility: [facility] Address: [address] [place] [address] Result Comment: The [place] [employer] Association (ADA) provides guidance for cutoff values for fasting glucose and random glucose. The ADA defines fasting as no caloric intake for at least 8 hours. Fasting plasma glucose results between 100 to 125 mg/dL indicate increased risk for diabetes (prediabetes). Fasting plasma glucose results greater than or equal to 126 mg/dL meet the criteria for diagnosis of diabetes. In the absence of unequivocal hyperglycemia, results should be confirmed by repeat testing. In a patient with classic symptoms of hyperglycemia or hyperglycemic crisis, random plasma glucose results greater than or equal to 200 mg/dL meet the criteria for diagnosis of diabetes. Reference: Standards of Medical Care in Diabetes 2016, [place] [employer] Association. Diabetes Care. 2016.39(Suppl 1). Performed By: #### 2 4323-8 ####[facility]IA [id number] [place] [address] Potassium [Moles/Vol] 5.3 mmol/L High 3.7-5.1 [facility] Comment on above: Order Comment: Speci men Type: BLOOD SPECIMENOrdering Facility: [facility] Address: [address] [place] [address] Performed By: #### 2 4323-8 ####[facility] [id number] [place] [address] Protein [Mass/Vol] 6.9 g/dL Normal 6.3-8.0 [facility] Comment on above: Order Comment: Speci men Type: BLOOD SPECIMENOrdering Facility: [facility] Address: [address] [place] [address] Performed By: #### 2 4323-8 ####[facility]CLIA [id number] [place] [address] Sodium [Moles/Vol] 141 mmol/L Normal 136-144 [facility] Comment on above: Order Comment: Speci men Type: BLOOD SPECIMENOrdering Facility: [facility] Address: [address] [place] [address] Performed By: #### 2 4323-8 ####[facility]CLIA [id number] [place] [address] Urea nitrogen [Mass/Vol] 21 mg/dL Normal 9-24 [facility] Comment on above: Order Comment: Speci men Type: BLOOD SPECIMENOrdering Facility: [facility] Address: [address] [place] [address] Performed By: #### 2 4323-8 ####[facility]CLIA [id number] [place] [address] TSH SerPl-aCncon 04-24-2023 TSH Qn 0.548 m[IU]/L Normal 0.270-4.200 [facility] Comment on above: Order Comment: Speci men Type: BLOOD SPECIMENOrdering Facility: [facility] Address: [address] [place] [address] Performed By: #### 3 016-3 ####[facility] LABCLIA [id number] [place] [id number] [place] Consent for Procedure/Surger yon 04-22-2023 Consent for Procedure/Surgery [id number] #1.00TIFF Normal [facility] Consent for Treatmenton Consent for Treatment [id number] #1.00TIFF Normal [facility] IntraOperative Documentson 1 06-23-2022 IntraOperative Documents [id number] #1.00TIFF Олег Castillo [facility] Main OR Intraoperative Recor fly 04-22-2023 Main OR Intraoperative Record IntraOp Document Type FTURO Summary Primary Physician: Elliot AN MD Finalized Date/Time: 04/22/23 10:33:21 Pt. Name: KORINA BAUMSTAR Johnson/Sex: 1955 Male Med Rec #: [id number] Physician: Elliot AN MD Financial #: [id number] Pt. Type: O Room/Bed: / Admit/Disch: 04/22/23 09:04:47 - Institution: Case Times FTURO Entry 1 Patient Times In Room 04/22/23 10:04:00 Out Room 04/22/23 10:31:00 Procedure Times Start 04/22/23 10:08:00 Stop 04/22/23 10:24:00 Anesthesia Times Last Modified By: Julissa KAPLAN, Aniyah MCMANUS 04/22/23 10:26:51 Case Attendance FTURO Entry 1 Entry 2 Entry 3 Case Attendee Elliot AN MD RN, CNOR, Khalif WILHELM, Bambi Dill Role Performed Surgeon - Primary Fire Assistant - Primary Scrub - Primary Time In 04/22/23 10:04:00 04/22/23 10:04:00 04/22/23 10:04:00 Time Out 04/22/23 10:31:00 04/22/23 10:31:00 04/22/23 10:31:00 Procedure PROSTATE TRANSRECTAL PROSTATE TRANSRECTAL PROSTATE TRANSRECTAL ULTRASOUND WITH BIO(.) ULTRASOUND WITH BIO(.) ULTRASOUND WITH BIO(.) Comments Last Modified By: Julissa RN, CNOR, Julissa RN, RYANOR, Julissa KAPLAN, MARIETTA, Aniyah 04/22/23 Aniyah 04/22/23 Aniyah 04/22/23 10:26:54 10:26:54 10:26:54 Surgical Procedures FTURO Entry 1 Procedure Description Procedure PROSTATE TRANSRECTAL Modifiers . ULTRASOUND WITH BIOPSY Surgeon Description TRUS BIOPSY Primary Procedure Yes Primary Surgeon Elliot AN MD Start 04/22/23 10:08:00 Stop 04/22/23 10:24:00 Anesthesia Type Local Surgical Service Urology Wound Class 2 - Clean-Contaminated Last Modified By: MARIETTA Costa RN, Ruthann 04/22/23 10:26:56 General Case Data FTURO Pre-Care Text: Classifies surgical wound, implements aseptic technique, initiates traffic control Entry 1 Case Information OR URO 1 FT Case Level None Wound Class 2 - Clean-Contaminated Specialty Urology Preop Diagnosis ELEVATED PSA Postop Same As Preop Yes Postop Diagnosis ELEVATED PSA Outcomes Met? Yes Last Modified By: MARIETTA Costa RN, Ruthann 04/22/23 09:53:18 Post-Care Text: The patient is free from signs and symptoms of infection EU IntraOp - FTURO Pre-Care Text: Implements protective measures prior to operative or invasive procedure, confirms identity before the operative or invasive procedure, verifies operative procedure, surgical site, and laterality Entry 1 EU Perioperative Protocols Procedure(s) PROSTATE TRANSRECTAL Patient Identity Birthday, ID Band ULTRASOUND WITH BIO(.) Verified (select at Check, Patient least 2): Participation Consents / H and P HandP, Transfusion Consent Operative Site N/A Verified Marking Verified Surgical Site Yes Laterality Verified n/a Verified Procedure Verified Yes Correct Patient Yes Position Verified Availability Equipment, Medication Time Out Elliot AN MD, Verified (If Participants Julissa KAPLAN, RYANOR, Applicable) Khalif Dill CST, Kimberly A Time Out Complete 04/22/23 10:06:00 Allergies Reviewed? Yes Allergies Reviewed Self/Patient With Body Position Lateral, right side up Prep Area none Prep Agents None Skin. Condition Unable to Visualize Additional Tissue Specimens Comment p4 Specimens Collected Vitals - EU Blood Pressure 128/76 Pulse 58 bpm Respirations SPO2 EBL 0 IandO - EU Total Intake 0 mL Total Output 0 mL Outcomes Met? Yes Last Modified By: MARIETTA Costa RN, Ruthann 04/22/23 10:09:22 Post-Care Text: The patient is free from signs and symptoms of injury caused by extraneous objects Sign Out FTURO Entry 1 Before Patient Leaves OR Nurse verbally Yes Nurse verbally n/a confirms with the confirms with the team the name of team that the procedure(s) instrument, sponge, recorded and needle counts are correct (or N/A) Nurse verbally Yes Nurse verbally n/a confirms with the confirms with the team how the team whether there specimen is labeled are any equipment (including patient problems to be name), if applicable addressed Sign Out Complete 04/22/23 10:30:00 Last Modified By: MARIETTA Costa RN, Ruthann 04/22/23 10:33:20 Case Comments Finalized By: MARIETTA Costa RN, Ruthann Document Signatures Signed By: MARIETTA Costa RN, Ruthann 04/22/23 10:33 Normal [facility] Main OR Preoperative Recordo n 04-22-2023 Main OR Preoperative Record Holding Area Document Type FTURO Summary Primary Physician: Elliot AN MD Finalized Date/Time: 04/22/23 10:08:04 Pt. Name: JUANCARLOS BAUM /Sex: 1955 Male Med Rec #: [id number] Physician: Elliot AN MD Financial #: [id number] Pt. Type: O Room/Bed: / Admit/Disch: 04/22/23 09:04:47 - Institution: Case Times Holding FTURO Pre-Care Text: Verifies consent for planned procedure, identifies individual values and wishes concerning care, includes family members in perioperative teaching Secures patient's records' belongings, and valuables, maintains patient's dignity and privacy, and maintains patient confidentiality Entry 1 In Holding 04/22/23 09:44:00 Outcomes Met? Yes Last Modified By: Beth Arauz LPN 04/22/23 09:44:42 Post-Care Text: The patient participates in decisions affecting his or her perioperative plan of care The patient's right to privacy is maintained Surgery Checklist FTURO Entry 1 Patient Birthday, ID Band Procedure History and Physical, Identification: Check, Patient Verification: Surgical Consent, With Participation Patient NPO after Midnight: n/a Date/Time: 04/22/23 09:44:00 Personal Items: Glasses Personal Items glasses Comment: Limitations: up ad micah Complaints of Pain: No Skin Integrity Intact, [place], Warm, & Dry Vitals - EU Blood Pressure 128/76 Pulse 58 bpm Respirations 20 br/min SPO2 98 % RN Reviewed Yes Last Modified By: MARIETTA Costa RN, Ruthann 04/22/23 10:08:02 General Comments: Temp 36.6 Finalized By: MARIETTA Costa RN, Ruthann Document Signatures Signed By: Beth Arauz LPN 04/22/23 09:47 MARIETTA Costa RN, Ruthann 04/22/23 10:08 Normal [facility] Operative Reporton Operative Report Patient: JUANCARLOS BAUM Age: 67 years Sex: Male : 1955 Associated Diagnoses: None Author: lEliot AN MD Procedure Operative Information Details: Date/ Time: 04/22/2023 10:27:00. Pre-Op Dx: Elevated PSA - R97.20. Post-Op Dx: Same. Anesthesia Type: Local, Periprostatic Nerve Block. Procedure: Transrectal Ultrasound and Transrectal Ultrasound-Guided Biopsy of the Prostate. Complications: None. Risks/Benefits/Infor med Consent: Surgical risks, benefits, details of the procedure have been explained to the patient, Full informed consent has been obtained. Intraoperative Information Prepped: The patient was brought to the office suite, placed in the modified left lateral Wen position, The patient was draped appropriately, 80 mg Gentamicin IM injection administered. Procedure: Then 2% Xylocaine jelly was used for intrarectal anesthesia, After waiting several minutes, a well lubricated ultrasound probe was introduced per rectum, The prostate was carefully evaluated in the AP and Sagittal views. Volume: 216 CC. Specimens Removed: A total of 12 biopsies were taken, 6 from each side, and sent to pathology. Devices Implanted: None. Postoperative Information Discharge: The patient tolerated the procedure well and was discharged home in satisfactory condition, The patient was instructed to (Finish antibiotics, Avoid strenuous activity, Go to the emergency room for gross bleeding, fever, or chills). Radiology Report Procedure: Transrectal Ultrasound of the Prostate, Transrectal US guided needle biopsy of the prostate. Narrative: Ultrasound probe is introduced and performed in the longitudinal and transverse plains, The gland measures (84 MM Length, 88 MM Width, 56 MM Depth, with a calculated volume of 216 CC), The prostatic capsule and seminal vesicles appear to be within normal limits, The peripheral zone demonstrates No abnormalities, Rest of the prostate demonstrates No abnormalities, Ultrasound guidance was then utilized to obtain 12 biopsies, These were sent to pathology for evaluation. Normal [facility] Comment on above: Result Comment: Larissa maxwell Signed By: NATALIYA SAAVEDRA, Elliot Wright.autumn\Date and Time Signed: 04/22/23 10:28 EST Patient Educationon 04-22-20 Patient Education Custom Transrectal Ultrasound of the Prostate with US guided biopsy ? Even though there are no visible incisions, multiple prostate biopsies have been taken through the rectum and you need to follow some instructions to minimize the risks of bleeding. ? You may see some blood in your urine and stool for up to 1 week (and blood in the semen for several months) ? Diet -You may resume your normal diet, but you may want to avoid alcohol, carbonated drinks, caffeine, and spicy foods, which may increase the irritation from the surgery. -Drink plenty of water to keep the urine clear. ? Activity -You should limit any physical activity for about 48 hours -No heavy lifting or straining (10 pound limit) -No driving a car and limit long car rides for 2 days -No strenuous exercise -No sexual intercourse until this is discussed with your doctor ? Bowels -Try to keep your bowel movements soft to minimize straining to have a bowel movement. -You may use a stool softener or over the counter laxative if needed -Difficult bowel movement may lead to straining and bleeding from the prostate ? Medications -You may resume your home medications unless instructed otherwise -Hold aspirin, ibuprofen, Coumadin (warfarin) and other blood thinners for about two days or until there is no active bleeding unless otherwise instructed -Finish the antibiotic which you have already started ? Things to watch for which would require an Emergency Room visit or call 911: (this is not a complete list) -Persistent or heavy bleeding or blood clots from the rectum or in the urine -Inability to urinate -Fever over 101.5 degrees Fahrenheit, with or without chills -Severe drug reactions with itching, hives or rash -Tenderness or swelling of the calves, chest pain, or shortness of breath ? Please call the office to arrange for your post-operative appointment in 1-2 weeks [phone] or [phone] Normal [facility] Prostate Histology ([facility]) on 04-22-2023 PH Method of Extraction Needle Biopsy Normal [facility] Comment on above: Performed By: #### 1 [id number] ####[facility] [address] [place] [address] PH Number of Jars 2 Invalid Interpretation Code [facility] Comment on above: Performed By: #### 1 [id number] ####[facility] [address] [place] [address] PH Specimen 1 L Apx Prostate Normal [facility] Comment on above: Performed By: #### 1 [id number] ####[facility] [address] [place] [address] PH Specimen 10 R Mid Prostate Normal [facility] Comment on above: Performed By: #### 1 [id number] ####[facility] [address] [place] [address] PH Specimen 11 L Lat Mid Prost Normal [facility] Comment on above: Performed By: #### 1 [id number] ####[facility] [address] [place] [address] PH Specimen 12 R Lat Prostate Normal [facility] Comment on above: Performed By: #### 1 [id number] ####[facility] [address] [place] [address] PH Specimen 2 R Apx Prostate Normal [facility] Comment on above: Performed By: #### 1 [id number] ####[facility] [address] [place] [address] PH Specimen 3 L Base Prostate Normal [facility] Comment on above: Performed By: #### 1 [id number] ####[facility] [address] [place] [address] PH Specimen 4 R Base Prostate Normal [facility] Comment on above: Performed By: #### 1 [id number] ####[facility] [address] [place] [address] PH Specimen 5 L Lat Apx Prost Normal [facility] Comment on above: Performed By: #### 1 [id number] ####[facility] [address] [place] [place] [address] PH Specimen 6 R Lat Apx Prost Normal [facility] Comment on above: Performed By: #### 1 [id number] ####[facility] [address] [place] [place] [address] PH Specimen 7 L Lat Bse Prost Normal [facility] Comment on above: Performed By: #### 1 [id number] ####[facility] X[address] [place] [address] PH Specimen 8 R Lat Bse Prost Normal [facility] Comment on above: Performed By: #### 1 [id number] ####[facility] [address] [place] [address] PH Specimen 9 L Mid Prostate Normal [facility] Comment on above: Performed By: #### 1 [id number] ####[facility] [address] [place] [address] PH Type of Service Technical Only Normal [facility] Comment on above: Performed By: #### 1 [id number] ####[facility] [address] [place] [address] Consultation Noteon 04-07-20 Consultation Note [id number] #1.00TIFF Normal [facility] Consultation Note [id number] #1.00TIFF Normal [facility] CBC W Auto Differential pane l (Bld)on 04-03-2023 Basophils (Bld) [#/Vol] 0.00 10*3/uL Normal <0.11 [facility] Comment on above: Order Comment: Speci men Type: BLOOD SPECIMENOrdering Facility: [facility] Address: [address] [place] [address] Performed By: #### 5 7021-8 ####[facility] LABCLIA [id number] [place], [place] [address] LABCLIA [id number] [place] [address] [place] Basophils/100 WBC (Bld) 0.0 % Normal [facility] Comment on above: Order Comment: Speci men Type: BLOOD SPECIMENOrdering Facility: [facility] Address: [address] [place] [address] Performed By: #### 5 7021-8 ####[facility] LABCLIA [id number] [address] LABCLIA [id number] [place] [address] [place] Differential cell count method Nom (Bld) Manual Normal [facility] Comment on above: Order Comment: Speci men Type: BLOOD SPECIMENOrdering Facility: [facility] Address: [address] [place] [address] Performed By: #### 5 7021-8 ####[facility] LABCLIA [id number] [address] LABCLIA [id number] [place] [address] [place] Eosinophils (Bld) [#/Vol] 0.15 10*3/uL Normal <0.46 [facility] Comment on above: Order Comment: Speci men Type: BLOOD SPECIMENOrdering Facility: [facility] Address: [address] [place] [address] Performed By: #### 5 7021-8 ####[facility] LABCLIA [id number] [address] LABCLIA [id number] [place] [address] [place] Eosinophils/100 WBC (Bld) 1.8 % Normal [facility] Comment on above: Order Comment: Speci men Type: BLOOD SPECIMENOrdering Facility: [facility] Address: [address] [place] [address] Performed By: #### 5 7021-8 ####[facility] LABCLIA [id number] [address] LABCLIA [id number] [place] [address] [place] Erythrocyte distribution width (RBC) [Ratio] 14.4 % Normal 11.5-15.0 [facility] Comment on above: Order Comment: Speci men Type: BLOOD SPECIMENOrdering Facility: [facility] Address: [address] [place] [address] Performed By: #### 5 7021-8 ####[facility] LABCLIA [id number] [address] LABCLIA [id number] [place] [address] [place] Hematocrit (Bld) [Volume fraction] 46.1 % Normal 39.0-51.0 [facility] Comment on above: Order Comment: Speci men Type: BLOOD SPECIMENOrdering Facility: [facility] Address: [address] [place] [address] Performed By: #### 5 7021-8 ####[facility] LABCLIA [id number] [address] LABCLIA [id number] [place] [address] [place] Hemoglobin (Bld) [Mass/Vol] 15.1 g/dL Normal 13.0-17.0 [facility] Comment on above: Order Comment: Speci men Type: BLOOD SPECIMENOrdering Facility: [facility] Address: [address] [place] [address] Performed By: #### 5 7021-8 ####[facility] LABCLIA [id number] [address] LABCLIA [id number] [place] [address] [place] Lymphocytes (Bld) [#/Vol] 1.14 10*3/uL Normal 1.00-4.00 [facility] Comment on above: Order Comment: Speci men Type: BLOOD SPECIMENOrdering Facility: [facility] Address: [address] [place] [address] Performed By: #### 5 7021-8 ####[facility] LABCLIA [id number] [address] LABCLIA [id number] [place] [address] [place] Lymphocytes/100 WBC (Bld) 14.0 % Normal [facility] Comment on above: Order Comment: Speci men Type: BLOOD SPECIMENOrdering Facility: [facility] Address: [address] [place] [address] Performed By: #### 5 7021-8 ####[facility] LABCLIA [id number] [address] LABCLIA [id number] [place] [address] [place] MCH (RBC) [Entitic mass] 30.3 pg Normal 26.0-34.0 [facility] Comment on above: Order Comment: Speci men Type: BLOOD SPECIMENOrdering Facility: [facility] Address: [address] [place] [address] Performed By: #### 5 7021-8 ####[facility] LABCLIA [id number] [address] LABCLIA [id number] [place] [address] [place] MCHC (RBC) [Mass/Vol] 32.8 g/dL Normal 30.5-36.0 [facility] Comment on above: Order Comment: Speci men Type: BLOOD SPECIMENOrdering Facility: [facility] Address: [address] [place] [address] Performed By: #### 5 7021-8 ####[facility] LABCLIA [id number] [place] [id number] LABCLIA [id number] [place] [address] [place] MCV (RBC) [Entitic vol] 92.6 fL Normal 80.0-100.0 [facility] Comment on above: Order Comment: Speci men Type: BLOOD SPECIMENOrdering Facility: [facility] Address: [address] [place] [address] Performed By: #### 5 7021-8 ####[facility] LABCLIA [id number] [address] LABCLIA [id number] [place] [address] [place] Monocytes (Bld) [#/Vol] 1.22 10*3/uL High <0.87 [facility] Comment on above: Order Comment: Speci men Type: BLOOD SPECIMENOrdering Facility: [facility] Address: [address] [place] [address] Performed By: #### 5 7021-8 ####[facility] LABCLIA [id number] [place] [id number] LABCLIA [id number] [place] [address] [place] Monocytes/100 WBC (Bld) 14.9 % Normal [facility] Comment on above: Order Comment: Speci men Type: BLOOD SPECIMENOrdering Facility: [facility] Address: [address] [place] [address] Performed By: #### 5 7021-8 ####[facility] LABCLIA [id number] [place] [id number] LABCLIA [id number] [place] [address] [place] Neutrophils (Bld) [#/Vol] 5.65 10*3/uL Normal 1.45-7.50 [facility] Comment on above: Order Comment: Speci men Type: BLOOD SPECIMENOrdering Facility: [facility] Address: [address] [place] [address] Performed By: #### 5 7021-8 ####[facility] LABCLIA [id number] [address] LABCLIA [id number] [place] [address] [place] Neutrophils/100 WBC (Bld) 69.3 % Normal [facility] Comment on above: Order Comment: Speci men Type: BLOOD SPECIMENOrdering Facility: [facility] Address: [address] [place] [address] Performed By: #### 5 7021-8 ####[facility] LABCLIA [id number] [address] LABCLIA [id number] [place] [address] [place] Nucleated RBC (Bld) [#/Vol] 10*3/uL Normal <0.01 [facility] Comment on above: Order Comment: Speci men Type: BLOOD SPECIMENOrdering Facility: [facility] Address: [address] [place] [address] Performed By: #### 5 7021-8 ####[facility] LABCLIA [id number] [address] LABCLIA [id number] [place] [address] [place] Nucleated RBC/100 WBC (Bld) [Ratio] 0.0 /100 WBC Normal [facility] Comment on above: Order Comment: Speci men Type: BLOOD SPECIMENOrdering Facility: [facility] Address: [address] [place] [address] Performed By: #### 5 7021-8 ####[facility] LABCLIA [id number] [place] [id number] LABCLIA [id number] [place] [address] [place] Ovalocytes LM Ql (Bld) Few Normal Cl [facility] Comment on above: Order Comment: Speci men Type: BLOOD SPECIMENOrdering Facility: [facility] Address: [address] [place] [address] Performed By: #### 5 7021-8 ####[facility] LABCLIA [id number] [address] LABCLIA [id number] [place] [address] [place] Platelet mean volume (Bld) [Entitic vol] 10.5 fL Normal 9.0-12.7 [facility] Comment on above: Order Comment: Speci men Type: BLOOD SPECIMENOrdering Facility: [facility] Address: [address] [place] [address] Performed By: #### 5 7021-8 ####[facility] LABCLIA [id number] [address] LABCLIA [id number] [place] [address] [place] Platelets (Bld) [#/Vol] 167 10*3/uL Normal 150-400 [facility] Comment on above: Order Comment: Speci men Type: BLOOD SPECIMENOrdering Facility: [facility] Address: [address] [place] [address] Performed By: #### 5 7021-8 ####[facility] LABCLIA [id number] [address] LABCLIA [id number] [place] [address] [place] Platelets Estimate (Bld) [#/Vol] Adequate Normal [facility] Comment on above: Order Comment: Speci men Type: BLOOD SPECIMENOrdering Facility: [facility] Address: [address] [place] [address] Performed By: #### 5 7021-8 ####[facility] LABCLIA [id number] [place] [id number] LABCLIA [id number] [address] [address] [place] RBC (Bld) [#/Vol] 4.98 10*6/uL Normal 4.20-6.[address] [facility] Comment on above: Order Comment: Speci men Type: BLOOD SPECIMENOrdering Facility: [facility] Address: [address] [place] [address] Performed By: #### 5 7021-8 ####[facility] LABCLIA [id number] [address] LABCLIA [id number] [place] [address] [place] RED CELL MORPH Reviewed: see results of individual morphologies Normal [facility] Comment on above: Order Comment: Speci men Type: BLOOD SPECIMENOrdering Facility: [facility] Address: [address] [place] [address] Performed By: #### 5 7021-8 ####[facility] LABCLIA [id number] [place] [id number] LABCLIA [id number] [place] [address] [place] WBC (Bld) [#/Vol] 8.16 10*3/uL Normal 3.70-11.[address] [facility] Comment on above: Order Comment: Speci men Type: BLOOD SPECIMENOrdering Facility: [facility] Address: [address] [place] [address] Performed By: #### 5 7021-8 ####[facility] LABCLIA [id number] [place] [id number] LABCLIA [id number] [place] [address] [address] [place] CNOVSPon 04-03-2023 CNOVSP Visit (SP) Office ([facility]) JUANCARLOS BAUM ([id number]) 1955 M Date Time Provider Department 04/03/23 10:30 AM ABA AMAYA During your visit today, we recorded the following information about you: Temperature Pulse Respiration Blood pressure 97.4 degrees 55/minute 16/minute 117/69 Weight Height 140.3 kg 1.73 m Aba Amaya MD 04/04/2023 6:50 AM Signed PATIENT NAME: Juancarlos Baum DATE: 04/03/2023 PRIMARY CARE PHYSICIAN: Dr. Katarina Daniels OTHER PHYSICIANS: Dr. Florencio Rose. Dr. Urias, Dr. An Portions of this encounter note have been copied from my note from 02/20/2023 and has been updated where appropriate, and reflect my current medical decision making from today. CC: This is a 67 year old male with kidney cancer, seen for scheduled follow-up and treatment. INTERIM HISTORY: At the patient's last visit here he received pembrolizumab 400 mg. He subsequent developed intermittent hematuria, but most likely unrelated to the infusion. He was seen by his urologist and found to have an elevated PSA, and currently is scheduled undergo a biopsy. Otherwise the patient has had no significant medical changes. Currently he feels well with no other complaints. MEDICATIONS: Current Outpatient Medications Medication Sig gabapentin (NEURONTIN) 300 mg capsule Take 300 mg by mouth three times daily. ELIQUIS 5 mg tab(s) Take 1 tablet by mouth twice daily. You may resume this medication on August 26. digoxin (LANOXIN) 125 mcg (0.125 mg) tablet Take by mouth once daily. propranolol ER (INDERAL LA) 80 mg 24 hr capsule Take 80 mg by mouth once daily. multivit,thx,calcium ,iron,mins (MULTIVITAMIN AND MINERAL ORAL) Take 1 Dose by mouth once daily. Current Facility-Administere d Medications Medication Dose Route Frequency perflutren lipid microspheres 1.3 mL in NaCl (PF) 0.9% 10 mL injection (DEFINITY) INTRAVENOUS DIRECTED PRN sodium chloride 0.9 % (flush) 10 mL (BD POSIFLUSH) 10 mL INTRAVENOUS DIRECTED PRN ALLERGIES: ALLERGIES Allergen Reactions Meloxicam Vomiting Nsaids (Non-Steroid* Other: See Comments PAST MEDICAL HISTORY: PAST MEDICAL HISTORY Diagnosis Date Atrial fibrillation (HCC) Renal cell carcinoma (HCC) PAST SURGICAL HISTORY: PAST SURGICAL HISTORY Procedure Laterality Date NEPHRECTOMY PARTIAL Left total left TOTAL HIP REPLACEMENT Left FAMILY HISTORY: No family history on file. SOCIAL HISTORY: Social History Tobacco Use Smoking status: Never Passive exposure: Never Smokeless tobacco: Never Vaping Use Vaping Use: Never used Substance Use Topics Alcohol use: Yes Comment: Less than monthly per pt 08/05/2022 Drug use: Never REVIEW OF SYSTEMS: General: No weight loss, malaise or fevers. HEENT: Negative for frequent or significant headaches. No changes in hearing or vision, no nose bleeds or other nasal problems. Respiratory: Negative for cough, wheezing or shortness of breath. Cardiovascular: Negative for chest pain, leg swelling or palpitations. GI: Negative for abdominal discomfort, blood in stools or black stools or change in bowel habits. : No history of dysuria, frequency or incontinence. See HPI. Musculoskeletal: Negative for: joint pain or swelling, back pain and muscle pain. Skin: Negative for lesions, rash and itching. Hematology/Lympholog y: Negative for prolonged bleeding, bruising easily or swollen nodes. Neuro: No history of headaches, syncope, paralysis, seizures or tremors. PHYSICAL EXAM: BP 117/69 Pulse (!) 55 Temp 36.3 ?C (97.4 ?F) (Temporal) Resp 16 Ht 173 cm (5' 8.11 ) Wt (!) 140.3 kg (309 lb 6.4 oz) SpO2 97% BMI 46.89 kg/m? ECOG 0 General: Alert and oriented, no distress, pleasant and cooperative. Heart: Regular, normal S1 and S2, no murmurs, rubs, or gallops. Lungs: Clear to auscultation bilaterally. Abdomen: Benign. Extremities: Feet/ankles without edema, posterior tibial pulses full and symmetrical. PATHOLOGY: 08/14/2022 Kidney, left, total nephrectomy: - Renal cell carcinoma (7.7 cm), clear cell type, WHO/ISUP grade 3, with focal early invasion of renal sinus vessel. - Surgical margins are negative. LABS: Hemoglobin (g/dL) Date Value 04/03/2023 15.1 Hematocrit (%) Date Value 04/03/2023 46.1 WBC (k/uL) Date Value 04/03/2023 8.16 Platelet Count (k/uL) Date Value 04/03/2023 167 RADIOLOGY/OTHER STUDIES: 12/26/2022 CT chest IMPRESSION: 1. Interval resolution of a previously described nodular opacity along the right major fissure. 2. Residual subcentimeter nodular opacity measuring less than 5 mm, stable since 08/09/22. 3. Sclerotic osseous foci most likely bone islands, stable. 4. Streaky scarring/discoid atelectasis in the bilateral lower lung winkler. 5. No evidence of new intrathoracic abnormalities. 12/26/2022 CT (more content not included)... Normal [facility] Comprehensive metabolic 2000 panelon 04-03-2023 Albumin [Mass/Vol] 4.5 g/dL Normal 3.9-4.9 [facility] Comment on above: Order Comment: Speci men Type: BLOOD SPECIMEN [facility] Address: [facility] [place] [address] Performed By: #### 2 4323-8 #### [facility] CLIA [id number] [address] [place] [address] ALP [Catalytic activity/Vol] 71 U/L Normal 38-113 [facility] Comment on above: Order Comment: Speci men Type: BLOOD SPECIMEN [facility] Address: [address] [place] [id number] Performed By: #### 2 4323-8 #### [facility] CLIA [id number] [address] [place] [address] ALT [Catalytic activity/Vol] 13 U/L Normal 10-54 [facility] Comment on above: Order Comment: Speci men Type: BLOOD SPECIMEN [facility] Address: [address] [place] [address] Performed By: #### 2 4323-8 #### [facility] CLIA [id number] [address] [place] [address] Anion gap [Moles/Vol] 9 mmol/L Normal 9-18 [facility] Comment on above: Order Comment: Speci men Type: BLOOD SPECIMEN [facility] Address: [address] [place] [address] Performed By: #### 2 4323-8 #### [facility] CLIA [id number] [address] [place] [address] AST [Catalytic activity/Vol] 12 U/L Low 14-40 [facility] Comment on above: Order Comment: Speci men Type: BLOOD SPECIMEN [facility] Address: [address] [place] [address] Performed By: #### 2 4323-8 #### [facility] CLIA [id number] [address] [place] [address] Bilirubin [Mass/Vol] 0.6 mg/dL Normal 0.2-1.3 [facility] Comment on above: Order Comment: Speci men Type: BLOOD SPECIMEN [facility] Address: [address] [place] [address] Performed By: #### 2 4323-8 #### [facility] CLIA [id number] [address] [place] [address] Calcium [Mass/Vol] 9.8 mg/dL Normal 8.5-10.2 [facility] Comment on above: Order Comment: Speci men Type: BLOOD SPECIMEN [facility] Address: [address] [place], [place] [address] Performed By: #### 2 4323-8 #### [facility] CLIA [id number] [address] [place] [address] Chloride [Moles/Vol] 106 mmol/L High 97-105 [facility] Comment on above: Order Comment: Speci men Type: BLOOD SPECIMEN [facility] Address: [address] [place] [address] Performed By: #### 2 4323-8 #### [facility] CLIA [id number] [address] [place] [address] CO2 [Moles/Vol] 25 mmol/L Normal 22-30 [facility] Comment on above: Order Comment: Speci men Type: BLOOD SPECIMEN [facility] Address: [address] [place] [address] Performed By: #### 2 4323-8 #### [facility] CLIA [id number] [address] [place] [address] Creatinine [Mass/Vol] 1.28 mg/dL High 0.73-1.22 [facility] Comment on above: Order Comment: Speci men Type: BLOOD SPECIMEN [facility] Address: [address] [place] [address] Performed By: #### 2 4323-8 #### [facility] CLIA [id number] [address] [place] [address] Creatinine and Glomerular filtration rate.predicted panel (S/P/Bld) 61 mL/min/1.73m??? Normal >=60 [facility] Comment on above: Order Comment: Speci men Type: BLOOD SPECIMEN [facility] Address: [address] [place] [address] Result Comment: Krista mated Glomerular Filtration Rate (eGFR) is calculated using the 2020 CKD-EPI creatinine equation. This equation utilizes serum creatinine, sex, and age as parameters. The creatinine assay has traceable calibration to isotope dilution-mass spectrometry. Refer to KDIGO guidelines for clinical interpretation. In patients with unstable renal function, e.g. those with acute kidney injury, the eGFR may not accurately reflect actual GFR. Performed By: #### 2 4323-8 #### [facility] CLIA [id number] [address] [place] [address] Glucose [Mass/Vol] 99 mg/dL Normal 74-99 [facility] Comment on above: Order Comment: Speci men Type: BLOOD SPECIMEN [facility] Address: [address] [place] [address] Result Comment: The [place] [employer] (ADA) provides guidance for cutoff values for fasting glucose and random glucose. The ADA defines fasting as no caloric intake for at least 8 hours. Fasting plasma glucose results between 100 to 125 mg/dL indicate increased risk for diabetes (prediabetes). Fasting plasma glucose results greater than or equal to 126 mg/dL meet the criteria for diagnosis of diabetes. In the absence of unequivocal hyperglycemia, results should be confirmed by repeat testing. In a patient with classic symptoms of hyperglycemia or hyperglycemic crisis, random plasma glucose results greater than or equal to 200 mg/dL meet the criteria for diagnosis of diabetes. Reference: Standards of Medical Care in Diabetes 2016, [place] [employer]. Diabetes Care. 2016.39(Suppl 1). Performed By: #### 2 4323-8 #### [facility] CLIA [id number] [address] [place] [address] Potassium [Moles/Vol] 4.7 mmol/L Normal 3.7-5.1 [facility] Comment on above: Order Comment: Speci men Type: BLOOD SPECIMEN Ordering Facility: [facility] Address: [address] [place] [address] Performed By: #### 2 4323-8 #### [facility] CLIA [id number] [address] [place] [address] Protein [Mass/Vol] 6.9 g/dL Normal 6.3-8.0 [facility] Comment on above: Order Comment: Speci men Type: BLOOD SPECIMEN Ordering Facility: [facility] Address: [address] [place] [address] Performed By: #### 2 4323-8 #### [facility] CLIA [id number] [address] [place] [address] Sodium [Moles/Vol] 140 mmol/L Normal 136-144 [facility] Comment on above: Order Comment: Speci men Type: BLOOD SPECIMEN Ordering Facility: [facility] Address: [address] [place] [address] Performed By: #### 2 4323-8 #### [facility] CLIA [id number] [address] [place] [address] Urea nitrogen [Mass/Vol] 22 mg/dL Normal 9-24 [facility] Comment on above: Order Comment: Speci men Type: BLOOD SPECIMEN Ordering Facility: [facility] Address: [address] [place] [address] Performed By: #### 2 4323-8 #### [facility] CLIA [id number] [address] [place] [address] TSH SerPl-aCncon 04-03-2023 TSH Qn 0.121 m[IU]/L Low 0.270-4.200 [facility] Comment on above: Order Comment: Speci men Type: BLOOD SPECIMENOrdering Facility: [facility] Address: [address] [place] [address] Performed By: #### 3 016-3 ####[facility] LABCLIA [id number] [place] [address] [place] Patient Correspondenceon Patient Correspondence [phone] [id number] 1.00TIFF [facility] Peter 03-31-2023 ANATOLY Telephone ([place]AS[place]) JUANCARLOS BAUM ([id number]) 1955 M Date Time Provider Department 03/31/23 NIRMALA REGALADO During your visit today, we recorded the following information about you: Nirmala Regalado RN 03/31/2023 9:[address] Crawford's office reports that the pt is scheduled for a prostate biopsy under local anesthesia on 04/22. Any pre or post procedure concerns since pt is receiving Keytruda? EUSEBIO Gorman Brian R, MD 03/31/2023 11:25 AM Signed There should be no concerns about a prostate biopsy while receiving Keytruda. Ranjit Berger Rebecca, RN 03/31/2023 11:35 AM Signed Deandra @ Dr An' office notified and verbalizes understanding. Copy of this encounter faxed to [phone] for their records. Nirmala Regalado RN Allergies As of Date: 03/31/2023 Noted Allergy Reaction MELOXICAM 04/24/2021 11 - Vomiting NSAIDS (NON-STEROIDAL ANTI-INFLAM*04/24/20 21 14 - Other: See Comments Date Reviewed: 02/25/2023 Reviewed by: Lucio Damon APRN.ORDER CLERK - Fully Assessed Reason for Visit: Care Coordination [0751] Cmt: Clearance Request Prescriptions as of 03/31/2023 - gabapentin (NEURONTIN) 300 mg capsule Take 300 mg by mouth three times daily. - ELIQUIS 5 mg tab(s) Take 1 tablet by mouth twice daily. You may resume this medication on August 26. - digoxin (LANOXIN) 125 mcg (0.125 mg) tablet Take by mouth once daily. - propranolol ER (INDERAL LA) 80 mg 24 hr capsule Take 80 mg by mouth once daily. - multivit,thx,calcium ,iron,mins (MULTIVITAMIN AND MINERAL ORAL) Take 1 Dose by mouth once daily. Facility-Administere d Medications as of 03/31/2023 - perflutren lipid microspheres 1.3 mL in NaCl (PF) 0.9% 10 mL injection (DEFINITY) - sodium chloride 0.9 % (flush) 10 mL (BD POSIFLUSH) Problem List As Of Date 03/31/2023 Noted Resolved Renal mass [N28.89] 08/02/2022 A-fib (HCC) [I48.91] 08/05/2022 GEOVANNA (obstructive sleep apnea) [G47.33] 08/05/2022 Obesity, Class III, BMI >= 40 [E66.01] 08/10/2022 Left renal mass [N28.89] 08/14/2022 Cancer of left kidney (HCC) [C64.2] 08/29/2022 Stage 3 chronic kidney disease (HCC) [N18.30] 12/13/2022 Encounter Status:Closed by NIRMALA REGALADO on 03/31/23 Normal [facility] CBC W Auto Differential pane l (Bld)on 02-20-2023 Basophils (Bld) [#/Vol] 0.08 10*3/uL Normal <0.11 [facility] Comment on above: Order Comment: Speci men Type: BLOOD SPECIMENOrdering Facility: [facility] Address: [address] [place] [address] Performed By: #### 5 7021-8 ####[facility] LABCLIA [id number] [address] LABCLIA [id number] [place] [address] [place] Basophils/100 WBC (Bld) 0.9 % Normal [facility] Comment on above: Order Comment: Speci men Type: BLOOD SPECIMENOrdering Facility: [facility] Address: [address] [place] [address] Performed By: #### 5 7021-8 ####[facility] LABCLIA [id number] [address] LABCLIA [id number] [place] [address] [place] Differential cell count method Nom (Bld) Manual Normal [facility] Comment on above: Order Comment: Speci men Type: BLOOD SPECIMENOrdering Facility: [facility] Address: [address] [place] [address] Performed By: #### 5 7021-8 ####[facility] LABCLIA [id number] [address] LABCLIA [id number] [place] [id number] [place] Eosinophils (Bld) [#/Vol] 0.24 10*3/uL Normal <0.46 [facility] Comment on above: Order Comment: Speci men Type: BLOOD SPECIMENOrdering Facility: [facility] Address: [address] [place] [address] Performed By: #### 5 7021-8 ####[facility] LABCLIA [id number] [address] LABCLIA [id number] [place] [address] [place] Eosinophils/100 WBC (Bld) 2.6 % Normal [facility] Comment on above: Order Comment: Speci men Type: BLOOD SPECIMENOrdering Facility: [facility] Address: [address] [place] [address] Performed By: #### 5 7021-8 ####[facility] LABCLIA [id number] [address] LABCLIA [id number] [place] [address] [place] Erythrocyte distribution width (RBC) [Ratio] 14.2 % Normal 11.5-15.0 [facility] Comment on above: Order Comment: Speci men Type: BLOOD SPECIMENOrdering Facility: [facility] Address: [address] [place] [address] Performed By: #### 5 7021-8 ####[facility] LABCLIA [id number] [address] LABCLIA [id number] [place] [address] [place] Hematocrit (Bld) [Volume fraction] 46.0 % Normal 39.0-51.0 [facility] Comment on above: Order Comment: Speci men Type: BLOOD SPECIMENOrdering Facility: [facility] Address: [address] [place] [address] Performed By: #### 5 7021-8 ####[facility] LABCLIA [id number] [place] [id number] LABCLIA [id number] [place] [address] [place] Hemoglobin (Bld) [Mass/Vol] 15.4 g/dL Normal 13.0-17.0 [facility] Comment on above: Order Comment: Speci men Type: BLOOD SPECIMENOrdering Facility: [facility] Address: [address] [place] [address] Performed By: #### 5 7021-8 ####[facility] LABCLIA [id number] [address] LABCLIA [id number] [place] [address] [place] Lymphocytes (Bld) [#/Vol] 1.96 10*3/uL Normal 1.00-4.00 [facility] Comment on above: Order Comment: Speci men Type: BLOOD SPECIMENOrdering Facility: [facility] Address: [address] [place] [address] Performed By: #### 5 7021-8 ####[facility] LABCLIA [id number] [address] LABCLIA [id number] [place] [address] [place] Lymphocytes/100 WBC (Bld) 21.1 % Normal [facility] Comment on above: Order Comment: Speci men Type: BLOOD SPECIMENOrdering Facility: [facility] Address: [address] [place] [address] Performed By: #### 5 7021-8 ####[facility] LABCLIA [id number] [address] LABCLIA [id number] [place] [address] [place] MCH (RBC) [Entitic mass] 30.6 pg Normal 26.0-34.0 [facility] Comment on above: Order Comment: Speci men Type: BLOOD SPECIMENOrdering Facility: [facility] Address: [address] [place] [address] Performed By: #### 5 7021-8 ####[facility] LABCLIA [id number] [address] LABCLIA [id number] [place] [address] [place] MCHC (RBC) [Mass/Vol] 33.5 g/dL Normal 30.5-36.0 [facility] Comment on above: Order Comment: Speci men Type: BLOOD SPECIMENOrdering Facility: [facility] Address: [address] [place] [address] Performed By: #### 5 7021-8 ####[facility] LABCLIA [id number] [address] LABCLIA [id number] [place] [address] [place] MCV (RBC) [Entitic vol] 91.5 fL Normal 80.0-100.0 [facility] Comment on above: Order Comment: Speci men Type: BLOOD SPECIMENOrdering Facility: [facility] Address: [address] [place] [address] Performed By: #### 5 7021-8 ####[facility] LABCLIA [id number] [address] LABCLIA [id number] [place] [address] [place] Monocytes (Bld) [#/Vol] 1.96 10*3/uL High <0.87 [facility] Comment on above: Order Comment: Speci men Type: BLOOD SPECIMENOrdering Facility: [facility] Address: [address] [place] [address] Performed By: #### 5 7021-8 ####[facility] LABCLIA [id number] [place] [id number] LABCLIA [id number] [place] [address] [place] Monocytes/100 WBC (Bld) 21.1 % Normal [facility] Comment on above: Order Comment: Speci men Type: BLOOD SPECIMENOrdering Facility: [facility] Address: [address] [place] [address] Performed By: #### 5 7021-8 ####[facility] LABCLIA [id number] [address] LABCLIA [id number] [place] [address] [place] MYELO% 1.8 % Normal [facility] Comment on above: Order Comment: Speci men Type: BLOOD SPECIMENOrdering Facility: [facility] Address: [address] [place] [address] Performed By: #### 5 7021-8 ####[facility] LABCLIA [id number] [address] LABCLIA [id number] [place] [address] [place] Neutrophils (Bld) [#/Vol] 4.87 10*3/uL Normal 1.45-7.50 [facility] Comment on above: Order Comment: Speci men Type: BLOOD SPECIMENOrdering Facility: [facility] Address: [address] [place] [address] Performed By: #### 5 7021-8 ####[facility] LABCLIA [id number] [address] LABCLIA [id number] [place] [address] [place] Neutrophils/100 WBC (Bld) 52.5 % Normal [facility] Comment on above: Order Comment: Speci men Type: BLOOD SPECIMENOrdering Facility: [facility] Address: [address] [place] [address] Performed By: #### 5 7021-8 ####[facility] LABCLIA [id number] [place] [id number] LABCLIA [id number] [place] [address] [place] Nucleated RBC (Bld) [#/Vol] 10*3/uL Normal <0.01 [facility] Comment on above: Order Comment: Speci men Type: BLOOD SPECIMENOrdering Facility: [facility] Address: [address] [place] [address] Performed By: #### 5 7021-8 ####[facility] LABCLIA [id number] [address] LABCLIA [id number] [place] [address] [place] Nucleated RBC/100 WBC (Bld) [Ratio] 0.0 /100 WBC Normal [facility] Comment on above: Order Comment: Speci men Type: BLOOD SPECIMENOrdering Facility: [facility] Address: [address] [place] [address] Performed By: #### 5 7021-8 ####[facility] LABCLIA [id number] [place] [id number] LABCLIA [id number] [place] [address] [place] Ovalocytes LM Ql (Bld) Few Normal [facility] Comment on above: Order Comment: Speci men Type: BLOOD SPECIMENOrdering Facility: [facility] Address: [address] [place] [address] Performed By: #### 5 7021-8 ####[facility] LABCLIA [id number] [address] LABCLIA [id number] [place] [address] [place] Platelet mean volume (Bld) [Entitic vol] 10.3 fL Normal 9.0-12.7 [facility] Comment on above: Order Comment: Speci men Type: BLOOD SPECIMENOrdering Facility: [facility] Address: [address] [place] [address] Performed By: #### 5 7021-8 ####[facility] LABCLIA [id number] [address] LABCLIA [id number] [place] [address] [place] Platelets (Bld) [#/Vol] 219 10*3/uL Normal 150-400 [facility] Comment on above: Order Comment: Speci men Type: BLOOD SPECIMENOrdering Facility: [facility] Address: [address] [place] [address] Performed By: #### 5 7021-8 ####[facility] LABCLIA [id number] [address] LABCLIA [id number] [place] [address] [place] Platelets Estimate (Bld) [#/Vol] Adequate Normal [facility] Comment on above: Order Comment: Speci men Type: BLOOD SPECIMENOrdering Facility: [facility] Address: [address] [place] [address] Performed By: #### 5 7021-8 ####[facility] LABCLIA [id number] [address] LABCLIA [id number] [place] [address] [place] Polychromasia LM Ql (Bld) Slight Normal [facility] Comment on above: Order Comment: Speci men Type: BLOOD SPECIMENOrdering Facility: [facility] Address: [address] [place] [address] Performed By: #### 5 7021-8 ####[facility] LABCLIA [id number] [place] [id number] LABCLIA [id number] [place] [address] [place] RBC (Bld) [#/Vol] 5.03 10*6/uL Normal 4.20-6.[address] [facility] Comment on above: Order Comment: Speci men Type: BLOOD SPECIMENOrdering Facility: [facility] Address: [address] [place] [address] Performed By: #### 5 7021-8 ####[facility] LABCLIA [id number] [address] LABCLIA [id number] [place] [address] [place] RED CELL MORPH Reviewed: see results of individual morphologies Normal [facility] Comment on above: Order Comment: Speci men Type: BLOOD SPECIMENOrdering Facility: [facility] Address: [address] [place] [address] Performed By: #### 5 7021-8 ####[facility] LABCLIA [id number] [address] LABCLIA [id number] [place] [address] [place] WBC (Bld) [#/Vol] 9.28 10*3/uL Normal 3.70-11.[address] [facility] Comment on above: Order Comment: Speci men Type: BLOOD SPECIMENOrdering Facility: [facility] Address: [address] [place] [address] Performed By: #### 5 7021-8 ####[facility] LABCLIA [id number] [address] LABCLIA [id number] [place] [address] [place] WBC Left Shift Ql (Bld) Present Normal [facility] Comment on above: Order Comment: Speci men Type: BLOOD SPECIMENOrdering Facility: [facility] Address: [address] [facility] [place] [id number] Performed By: #### 5 7021-8 ####[facility] LABCLIA [id number] [place], [place] [address]BCXNQJJLK[facility] LABCLIA [id number] [id number] [id number] [facility] CNOVSPon 02-20-2023 CNOVSP Visit (SP) Office ([place]) JUANCARLOS BAUM ([id number]) 1955 M Date Time Provider Department 02/20/23 9:30 AM LUCIO DAMON During your visit today, we recorded the following information about you: Temperature Pulse Respiration Blood pressure 97.7 degrees 71/minute 16/minute 143/49 Weight Height 139.4 kg 1.73 m Lucio Damon APRN.ORDER CLERK 02/25/2023 11:22 AM Signed PATIENT NAME: Juancarlos Baum DATE: 02/20/2023 PRIMARY CARE PHYSICIAN: Dr. Katarina Daniels OTHER PHYSICIANS: Dr. Florencio Rose. Dr. Urias Portions of this encounter note have been copied from my note from 01/02/2023 and has been updated where appropriate, and reflect my current medical decision making from today. CC: This is a 67 year old male with kidney cancer, seen for scheduled follow-up and treatment. INTERIM HISTORY: Juancarlos Baum returns for follow-up and continued treatment. Since his last visit he had COVID. He tested negative on Friday. He currently denies cough, shortness of breath and other pulmonary complaints. No skin rashes. No nausea, vomiting, abdominal pain or diarrhea. He denies headaches and vision changes. He denies any treatment related side effects. He is scheduled for a prostate biopsy in April for an enlarged prostate. He denies any blood in his urine. No pain, burning or difficulty with urination. 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 He is heading to [place]. He will not be returning until sometime in March. MEDICATIONS: Current Outpatient Medications Medication Sig gabapentin (NEURONTIN) 300 mg capsule Take 300 mg by mouth three times daily. ELIQUIS 5 mg tab(s) Take 1 tablet by mouth twice daily. You may resume this medication on August 26. digoxin (LANOXIN) 125 mcg (0.125 mg) tablet Take by mouth once daily. propranolol ER (INDERAL LA) 80 mg 24 hr capsule Take 80 mg by mouth once daily. multivit,thx,calcium ,iron,mins (MULTIVITAMIN AND MINERAL ORAL) Take 1 Dose by mouth once daily. PAXLOVID 150-100 mg tablets in a dose pack as directed. TAKE DIRECTED ON PACKAGE. (Patient not taking: Reported on 02/20/2023) Current Facility-Administere d Medications Medication Dose Route Frequency perflutren lipid microspheres 1.3 mL in NaCl (PF) 0.9% 10 mL injection (DEFINITY) INTRAVENOUS DIRECTED PRN sodium chloride 0.9 % (flush) 10 mL (BD POSIFLUSH) 10 mL INTRAVENOUS DIRECTED PRN ALLERGIES: ALLERGIES Allergen Reactions Meloxicam Vomiting Nsaids (Non-Steroid* Other: See Comments PAST MEDICAL HISTORY: PAST MEDICAL HISTORY Diagnosis Date Atrial fibrillation (HCC) Renal cell carcinoma (HCC) PAST SURGICAL HISTORY: PAST SURGICAL HISTORY Procedure Laterality Date NEPHRECTOMY PARTIAL Left total left TOTAL HIP REPLACEMENT Left FAMILY HISTORY: History reviewed. No pertinent family history. SOCIAL HISTORY: Social History Tobacco Use Smoking status: Never Passive exposure: Never Smokeless tobacco: Never Vaping Use Vaping Use: Never used Substance Use Topics Alcohol use: Yes Comment: Less than monthly per pt 08/05/2022 Drug use: Never REVIEW OF SYSTEMS: General: No weight loss, malaise or fevers. HEENT: Negative for frequent or significant headaches. No changes in hearing or vision, no nose bleeds or other nasal problems. Respiratory: Negative for cough, wheezing or shortness of breath. Cardiovascular: Negative for chest pain, leg swelling or palpitations. GI: Negative for abdominal discomfort, blood in stools or black stools or change in bowel habits. : No history of dysuria, frequency or incontinence. See HPI. Musculoskeletal: Negative for: joint pain or swelling, back pain and muscle pain. Skin: Negative for lesions, rash and itching. Hematology/Lympholog y: Negative for prolonged bleeding, bruising easily or swollen nodes. Neuro: No history of headaches, syncope, paralysis, seizures or tremors. PHYSICAL EXAM: BP (!) 143/49 Pulse 71 Temp 36.5 ?C (97.7 ?F) (Temporal) Resp 16 Ht 173 cm (5' 8.11 ) Wt (!) 139.4 kg (307 lb 6.4 oz) SpO2 99% BMI 46.59 kg/m? ECOG 0 General: Alert and oriented, no distress, pleasant and cooperative. Heart: Regular, normal S1 and S2, no murmurs, rubs, or gallops. Lungs: Clear to auscultation bilaterally. Abdomen: Benign. Extremities: Feet/ankles without edema, posterior tibial pulses full and symmetrical. PATHOLOGY: 08/14/2022 Kidney, left, total nephrectomy: - Renal cell carcinoma (7.7 cm), clear cell type, WHO/ISUP grade 3, with focal early invasion of renal sinus vessel. - Surgical margins are negative. LABS: Hemoglobin (g/dL) Date Value 02/20/2023 15.4 Hematocrit (%) Date Value 02/20/2023 46.0 WBC (k/uL) Date Value 02/20/2023 9.28 Platelet Count (k/uL) Date Value 02/20/2023 219 RADIOLOGY/OTHER STUDIES: 12/26/2022 CT chest IMPRESSION: 1. (more content not included)... Normal [facility] Comprehensive metabolic 2000 panelon 02-20-2023 Albumin [Mass/Vol] 5.1 g/dL High 3.9-4.9 [facility] Comment on above: Order Comment: Speci men Type: BLOOD SPECIMENOrdering Facility: [facility] Address: [place] [address] Performed By: #### 2 4323-8 ####[facility] LABCLIA [id number] [place] [address] ALP [Catalytic activity/Vol] 79 U/L Normal 38-113 [facility] Comment on above: Order Comment: Speci men Type: BLOOD SPECIMENOrdering Facility: [facility] Address: [address] [place] [address] Performed By: #### 2 4323-8 ####[facility] LABCLIA [id number] [place] [address] ALT [Catalytic activity/Vol] 20 U/L Normal 10-54 [facility] Comment on above: Order Comment: Speci men Type: BLOOD SPECIMENOrdering Facility: [facility] Address: [address] [place] [address] Performed By: #### 2 4323-8 ####[facility] LABCLIA [id number] [place] [address] Anion gap [Moles/Vol] 8 mmol/L Low 9-18 [facility] Comment on above: Order Comment: Speci men Type: BLOOD SPECIMENOrdering Facility: [facility] Address: [address] [place] [address] Performed By: #### 2 4323-8 ####[facility] LABCLIA [id number] [place] [address] AST [Catalytic activity/Vol] 18 U/L Normal 14-40 [facility] Comment on above: Order Comment: Speci men Type: BLOOD SPECIMENOrdering Facility: [facility] Address: [address] [place] [address] Performed By: #### 2 4323-8 ####[facility] LABCLIA [id number] [place] [address] Bilirubin [Mass/Vol] 0.6 mg/dL Normal 0.2-1.3 [facility] Comment on above: Order Comment: Speci men Type: BLOOD SPECIMENOrdering Facility: [facility] Address: [address] [place] [address] Performed By: #### 2 4323-8 ####[facility] LABCLIA [id number] [place] [address] Calcium [Mass/Vol] 10.0 mg/dL Normal 8.5-10.2 [facility] Comment on above: Order Comment: Speci men Type: BLOOD SPECIMENOrdering Facility: [facility] Address: [address] [place] [address] Performed By: #### 2 4323-8 ####[facility] LABCLIA [id number] [place] [address] Chloride [Moles/Vol] 105 mmol/L Normal 97-105 [facility] Comment on above: Order Comment: Speci men Type: BLOOD SPECIMENOrdering Facility: [facility] Address: [address] [place] [address] Performed By: #### 2 4323-8 ####[facility] LABCLIA [id number] [place] [address] CO2 [Moles/Vol] 29 mmol/L Normal 22-30 [facility] Comment on above: Order Comment: Speci men Type: BLOOD SPECIMENOrdering Facility: [facility] Address: [address] [place] [address] Performed By: #### 2 4323-8 ####[facility] LABCLIA [id number] [place] [address] Creatinine [Mass/Vol] 1.34 mg/dL High 0.73-1.22 [facility] Comment on above: Order Comment: Speci men Type: BLOOD SPECIMENOrdering Facility: [facility] Address: [address] [place] [address] Performed By: #### 2 4323-8 ####[facility] LABCLIA [id number] [place] [address] Creatinine and Glomerular filtration rate.predicted panel (S/P/Bld) 58 mL/min/1.73m??? Low >=60 [facility] Comment on above: Order Comment: Speci men Type: BLOOD SPECIMENOrdering Facility: [facility] Address: [address] [place] [address] Result Comment: Krista mated Glomerular Filtration Rate (eGFR) is calculated using the 2021 CKD-EPI creatinine equation. This equation utilizes serum creatinine, sex, and age as parameters. The creatinine assay has traceable calibration to isotope dilution-mass spectrometry. Refer to KDIGO guidelines for clinical interpretation. In patients with unstable renal function, e.g. those with acute kidney injury, the eGFR may not accurately reflect actual GFR. Performed By: #### 2 4323-8 ####[facility] LABCLIA [id number] [place] [address] Glucose [Mass/Vol] 74 mg/dL Normal 74-99 [facility] Comment on above: Order Comment: Speci men Type: BLOOD SPECIMENOrdering Facility: [facility] Address: [address] [place] [address] Result Comment: The [place] Diabetes Association (ADA) provides guidance for cutoff values for fasting glucose and random glucose. The ADA defines fasting as no caloric intake for at least 8 hours. Fasting plasma glucose results between 100 to 125 mg/dL indicate increased risk for diabetes (prediabetes). Fasting plasma glucose results greater than or equal to 126 mg/dL meet the criteria for diagnosis of diabetes. In the absence of unequivocal hyperglycemia, results should be confirmed by repeat testing. In a patient with classic symptoms of hyperglycemia or hyperglycemic crisis, random plasma glucose results greater than or equal to 200 mg/dL meet the criteria for diagnosis of diabetes. Reference: Standards of Medical Care in Diabetes 2016, [place] Diabetes Association. Diabetes Care. 2016.39(Suppl 1). Performed By: #### 2 4323-8 ####[facility] LABCLIA [id number] [place] [address] Potassium [Moles/Vol] 4.6 mmol/L Normal 3.7-5.1 [facility] Comment on above: Order Comment: Speci men Type: BLOOD SPECIMENOrdering Facility: [facility] Address: [address] [place] [address] Performed By: #### 2 4323-8 ####[facility] LABCLIA [id number] [place] [address] Protein [Mass/Vol] 7.3 g/dL Normal 6.3-8.0 [facility] Comment on above: Order Comment: Speci men Type: BLOOD SPECIMENOrdering Facility: [facility] Address: [address] [place] [address] Performed By: #### 2 4323-8 ####[facility] LABCLIA [id number] [place] [address] Sodium [Moles/Vol] 142 mmol/L Normal 136-144 [facility] Comment on above: Order Comment: Speci men Type: BLOOD SPECIMENOrdering Facility: [facility] Address: [address] [place] [address] Performed By: #### 2 4323-8 ####[facility] LABCLIA [id number] [place] [address] Urea nitrogen [Mass/Vol] 14 mg/dL Normal 9-24 [facility] Comment on above: Order Comment: Speci men Type: BLOOD SPECIMENOrdering Facility: [facility] Address: [address] [place] [address] Performed By: #### 2 4323-8 ####[facility] LABCLIA [id number] [place] [address] TSH SerPl-aCncon 02-20-2023 TSH Qn 1.860 m[IU]/L Normal 0.270-4.200 [facility] Comment on above: Order Comment: Speci men Type: BLOOD SPECIMENOrdering Facility: [facility] Address: [address] [place] [address] Performed By: #### 3 016-3 ####[facility] LABCLIA [id number] [facility] [id number] [id number] [place] Consultation Noteon 02-07-20 Consultation Note [id number] 6#1.00CD:127 Normal [facility] RAD - CT Reporton 02-06-2023 RAD - CT Report [id number] 3#1.00CD:127 [facility] Screenson 02-06-2023 Screens [id number] 7#1.00CD:127 [facility] Ambulatory Visit Summaryon 0 02-05-2023 Ambulatory Visit Summary JUANCARLOS BAUM :1955 Visit Date:02/05/2023 Ambulatory Visit Instructions Your Diagnosis Elevated PSA Cancer of kidney BPH (benign prostatic hyperplasia) Tests Performed Urnls Dip Stick Auto w/o Microscopy POC 43038 Your Care Team Attending Physician - Elliot AN MD Primary Care Physician - Dewey DANIELS DO This Is Your Medications List Contact prescribing physician if questions or concerns apixaban (Eliquis 5 mg oral tablet) digoxin (digoxin 250 mcg (0.25 mg) Tab) multivitamin (Multi Vitamin+) propranolol (propranolol 80 mg Cap-ER) Procedures Performed Cystoscopy (06/02/2020), Total hip replacement (05/29/2020), TURP - Transurethral resection of prostate (09/29/2018), Ankle (1984), Colonoscopy, Left nephrectomy, Rotator cuff. Discharge Vitals Heart Rate (Peripheral) 72 Blood Pressure 125/89 Height 178 cm Height 70 in Weight 142 kg Weight 312.4 lb BMI 44.82 What to do next Scheduled Follow-Up Appointments Friday 10:30 AM EST With: Elliot AN MD Where: [facility] Ambulatory Visit Summary JUANCARLOS BAUM :1955 Visit Date:02/05/2023 Ambulatory Visit Instructions Your Diagnosis Elevated PSA Cancer of kidney BPH (benign prostatic hyperplasia) Tests Performed Urnls Dip Stick Auto w/o Microscopy POC 29568 Your Care Team Attending Physician - Elliot AN MD Primary Care Physician - Dewey DANIELS DO This Is Your Medications List Contact prescribing physician if questions or concerns apixaban (Eliquis 5 mg oral tablet) digoxin (digoxin 250 mcg (0.25 mg) Tab) multivitamin (Multi Vitamin+) propranolol (propranolol 80 mg Cap-ER) Procedures Performed Cystoscopy (06/02/2020), Total hip replacement (05/29/2020), TURP - Transurethral resection of prostate (09/29/2018), Ankle (1984), Colonoscopy, Left nephrectomy, Rotator cuff. Discharge Vitals Heart Rate (Peripheral) 72 Blood Pressure 125/89 Height 178 cm Height 70 in Weight 142 kg Weight 312.4 lb BMI 44.82 What to do next You Need to Schedule the Following Appointments Follow Up with NATALIYA SAAVEDRA, DANGELO Lin When: Where: [facility] [address], [place] [address]- Medications What How Much When Instructions Unchanged apixaban (Eliquis 5 mg oral tablet) By Mouth 2 times a day Contact prescribing physician if questions or concerns Unchanged digoxin (digoxin 250 mcg (0.25 mg) Tab) 1 Tablets By Mouth Every day Contact prescribing physician if questions or concerns Unchanged multivitamin (Multi Vitamin+) Contact prescribing physician if questions or concerns Unchanged propranolol (propranolol 80 mg Cap-ER) 1 Capsules By Mouth Every day Contact prescribing physician if questions or concerns Test Results Urnls Dip Stick Auto w/o Microscopy POC 46802 (02/05/2023) Bilirubin Urine Dipstick - Negative Blood Urine Dipstick - Trace-lysed Glucose Urine Dipstick - Negative Ketones Urine Dipstick - Negative Leukocytes Urine Dipstick - Negative Nitrite Urine Dipstick - Negative Protein Urine Dipstick - 1+ (30 mg/dl) Specific [place] Urine Dipstick - 1.015 Urine Appearance Urine Dipstick - Clear Urine Color Urine Dipstick - Yellow Urobilinogen Urine Dipstick - Normal 0.2-1 EU/dl pH Urine Dipstick - 7 Allergies meloxicam (nausea/ kidney pain) Problems Ongoing - Any problem that you are currently receiving treatment for. Anticoagulated BMI 40.0-44.9, adult BPH (benign prostatic hyperplasia) Cancer of kidney Elevated PSA Gross hematuria Kidney stone Nocturia Sleep apnea Status post left hip replacement Urinary retention Historical - Any problem that you are no longer receiving treatment for. Asymptomatic microscopic hematuria Atrial fibrillation Renal mass Education Materials Prostate Cancer Screening Prostate cancer screening is testing that is done to check for the presence of prostate cancer in men. The prostate gland is a walnut-sized gland that is located below the bladder and in front of the rectum in males. The function of the prostate is to add fluid to semen during ejaculation. Prostate cancer is one of the most common types of cancer in men. Who should have prostate cancer screening? Screening recommendations vary based on age and other risk factors, as well as between the professional organizations who make the recommendations. In general, screening is recommended if: ? You are age 50 to 70 and have an average risk for prostate cancer. You should talk with your health care provider about your need for screening and how often screening should be done. Because most prostate cancers are slow growing and will not cause , screening in this age group is generally reserved for men who have a 10- to 15-year life expectancy. ? You are younger than age 50, and you have these risk factors: ? Having a father, brother, or uncle who has been diagnosed with prostate cancer. The risk is higher if your family member's cancer occurred at an early age or if you have multiple family members with prostate cancer at an early age. ? Being a male who is Black or is of [place] or sub-Saharan descent. In general, screening is not recommended if: ? You are younger than age 40. ? You are between the ages of 40 and 49 and you have no risk factors. ? You are 70 years of age or older. At this age, the risks that screening can cause are greater than the benefits that it may provide. If you are at high risk for prostate cancer, your health care provider may recommend that you have screenings more often or that you start screening at a younger age. How is screening for prostate cancer done? The recommended prostate cancer screening test is a blood test called the prostate-specific antigen (PSA) test. PSA is a protein that is made in the prostate. As you age, your prostate naturally produces more PSA. Abnormally high PSA levels may be caused by: ? Prostate cancer. ? An enlarged (more content not included)... Normal [facility] Patient Educationon 02-06-20 Patient Education Oncology Prostate Cancer Screening Prostate cancer screening is testing that is done to check for the presence of prostate cancer in men. The prostate gland is a walnut-sized gland that is located below the bladder and in front of the rectum in males. The function of the prostate is to add fluid to semen during ejaculation. Prostate cancer is one of the most common types of cancer in men. Who should have prostate cancer screening? Screening recommendations vary based on age and other risk factors, as well as between the professional organizations who make the recommendations. In general, screening is recommended if: ? You are age 50 to 70 and have an average risk for prostate cancer. You should talk with your health care provider about your need for screening and how often screening should be done. Because most prostate cancers are slow growing and will not cause , screening in this age group is generally reserved for men who have a 10- to 15-year life expectancy. ? You are younger than age 50, and you have these risk factors: ? Having a father, brother, or uncle who has been diagnosed with prostate cancer. The risk is higher if your family member's cancer occurred at an early age or if you have multiple family members with prostate cancer at an early age. ? Being a male who is Black or is of [place] or sub-Saharan descent. In general, screening is not recommended if: ? You are younger than age 40. ? You are between the ages of 40 and 49 and you have no risk factors. ? You are 70 years of age or older. At this age, the risks that screening can cause are greater than the benefits that it may provide. If you are at high risk for prostate cancer, your health care provider may recommend that you have screenings more often or that you start screening at a younger age. How is screening for prostate cancer done? The recommended prostate cancer screening test is a blood test called the prostate-specific antigen (PSA) test. PSA is a protein that is made in the prostate. As you age, your prostate naturally produces more PSA. Abnormally high PSA levels may be caused by: ? Prostate cancer. ? An enlarged prostate that is not caused by cancer (benign prostatic hyperplasia, or BPH). This condition is very common in older men. ? A prostate gland infection (prostatitis) or urinary tract infection. ? Certain medicines such as male hormones (like testosterone) or other medicines that raise testosterone levels. A rectal exam may be done as part of prostate cancer screening to help provide information about the size of your prostate gland. When a rectal exam is performed, it should be done after the PSA level is drawn to avoid any effect on the results. Depending on the PSA results, you may need more tests, such as: ? A physical exam to check the size of your prostate gland, if not done as part of screening. ? Blood and imaging tests. ? A procedure to remove tissue samples from your prostate gland for testing (biopsy). This is the only way to know for certain if you have prostate cancer. What are the benefits of prostate cancer screening? ? Screening can help to identify cancer at an early stage, before symptoms start and when the cancer can be treated more easily. ? There is a small chance that screening may lower your risk of dying from prostate cancer. The chance is small because prostate cancer is a slow-growing cancer, and most men with prostate cancer from a different cause. What are the risks of prostate cancer screening? The main risk of prostate cancer screening is diagnosing and treating prostate cancer that would never have caused any symptoms or problems. This is called overdiagnosisand overtreatment. PSA screening cannot tell you if your PSA is high due to cancer or a different cause. A prostate biopsy is the only procedure to diagnose prostate cancer. Even the results of a biopsy may not tell you if your cancer needs to be treated. Slow-growing prostate cancer may not need any treatment other than monitoring, so diagnosing and treating it may cause unnecessary stress or other side effects. Questions to ask your health care provider ? When should I start prostate cancer screening? ? What is my risk for prostate cancer? ? How often do I need screening? ? What type of screening tests do I need? ? How do I get my test results? ? What do my results mean? ? Do I need treatment? Where to find more information ? The [place] Cancer Society: www.cancer.org ? [place] [employer] Association: www.auanet.org Contact a health care provider if: ? You have difficulty urinating. ? You have pain when you urinate or ejaculate. ? You have blood in your urine or semen. ? You have pain in your back or in the area of your prostate. Summary ? Prostate cancer is a common type of cancer in men. The prostate gland is located below the bladder and in front of the rectum. This gland adds flu (more content not included)... Normal [facility] Urology Office/Clinic Noteon 02-05-2023 Urology Office/Clinic Note Chief Complaint Pt is here for 7 month w/ PSA HPI Staff RWR pt. Pt last seen on 07/16/22 from [facility]. 1 year follow up w/PSA 5.8 & 33% done 01/21/23, previous PSA 4.8 & 33% done 12/25/21. Previous DX: BPH, elevated PSA, gross hematuria, kidney stone, nocturia, renal mass, urinary retention. Dysuria: denies Incomplete bladder emptying: denies Hematuria: denies Frequency: denies Urgency: denies Nocturia: 1x a night Stream: steady stream Leaking: denies Post void dripping: denies Wearing pads/ Depends: denies Urge incontinence: denies Stress incontinence: denies Incontinence without Sensory Awareness: denies Abdominal pain: denies Flank pain: denies Sexual complaints: _ History of Present Illness Tests reviewed: reviewed UA, PSA, consults, op note, path, CT I have reviewed the previous health record information and history for this patient from Dr. Au and Dr. Rose. I have reviewed and verified the staff HPI to be accurate for this encounter. There have been no associated fever, chills, flank pain, or blood in the urine. Denies any urinary infections since last encounter. Review of Systems PHQ Score Initial Depression Screen Score: 0 ROS - Provider Constitutional: denies weight loss, denies hot flashes. Eyes: denies eye problems. Gastrointestinal: denies nausea, denies vomiting. Cardiovascular: denies chest pain or angina. Integumentary: no dryness Musculoskeletal: denies musculoskeletal symptoms. ENMT: denies otolaryngeal symptoms. Respiratory: no shortness of breath. Heme/Lymph: denies easy bleeding tendency, denies easy bruising tendency. Psychiatric: no confusion, no anxiety. Genitourinary: See HPI. Physical Exam Vitals & Measurements HR: 72(Peripheral) BP: 125/89 HT: 70 in HT: 178 cm WT: 142 kg WT: 312.4 lb BMI: 44.82 General Appearance: alert, no distress, well nourished, well developed male. Genitourinary: normal scrotum, normal testes, normal urethra, normal epididymis, normal vas deferens/spermatic cord. Flank Pain: none. Bladder: nonpalpable. Assessment/Plan Prior Dr. Au pt. 1. Elevated PSA (R97.20: Elevated prostate specific antigen [PSA]) PSA: 04/17/20 - 9.3 & 26% 08/22/20 - 4.2 & 33% 12/20/20 - 4.1 & 32% 12/25/21 - 4.8 & 33% 01/21/23 - 5.8 & 33% PSA cont to increase over the past two years. Discussed that it would be beneficial to proceed with baseline prostate bx. Will schedule TRUS of Prostate with Biopsy. Will confirm prostate bx clearance with Dr. Amaya while pt receives Keytruda. The procedural risks, benefits, details, and treatment alternatives have been discussed with the patient. These include minimal to severe bleeding, infection, blood in the semen, inability to urinate, and severe infection requiring hospitalization and IV antibiotics, among others. Full informed consent has been obtained. Will order Local anesthesia. Prophylactic abx sent to [facility]. 2. Cancer of kidney (C64.9: Malignant neoplasm of unspecified kidney, except renal pelvis) [facility] 07/16/22 due to lower right-sided abdominal pain that started [address] AP w con - 8.5 x 8.0 x 7.0 cm lobulated solid heterogeneously enhancing mass predominantly within the upper pole of the left kidney is highly suspicious for renal cell carcinoma. Referred to Dr. Rose at [facility]. S/p hand assisted laparoscopic L radical nephrectomy by Dr. 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 Surgical margins are neg. Adjuvant Pembrolizumab q3wk started 09/19/22, plan for pt to receive for [address] AP wo con 12/26/22 - No evidence of intra-abdominal/pelv ic mets. Last consult with Dr. Amaya 01/02/23. Receiving IV adjuvant Keytruda q3wk by Dr. Amaya, will have 8th tx next week. -Pt to notify our office if surveillance CT needs ordered next year. Stressed the importance that this needs followed if onc provider is not ordering. 3. BPH (benign prostatic hyperplasia) (N40.0: Benign prostatic hyperplasia without lower urinary tract symptoms) S/p TURP 09/29/18. Not taking any prostate meds. IPSS 13 (20). Follow-up With When Contact Information NATALIYA SAAVEDRA, Elliot Muniz, URL [facility] [address] [place] [address]- Additional Instructions: schedule TRUS/bx Patient Education Prostate Cancer Screening I, Alba Layne, personally scribed for Dr. An on 02/05/2023 15:04:40. . Documentation recorded by the scribe, Alba Layne, accurately reflects the services(s) I performed and decisions made by me. Authenticated by Dr. An on 02/05/2023 15:08:26. Problem List/Past Medical History Ongoing Anticoagulated BMI 40.0-44.9, adult BPH (benign prostatic hyperplasia) Cancer of kidney Elevated PSA Gross hematuria Kidney stone Nocturia Sleep apnea Status post left hip replacement Urinary retention Historical Asym (more content not included)... Normal [facility] Comment on above: Result Comment: Elec tronically Signed By: NATALIYA SAAVEDRA, Elliot R\.br\Date and Time Signed: 02/05/23 15:08 EDT\.br\Electronically Co-Signed By: Alba Layne P\.br\Date and Time Co-Signed: 02/05/23 15:05 EDT\.br\Electronically Co-Signed By: Alba Layne P\.br\Date and Time Co-Signed: 02/05/23 15:07 EDT Physician Referralon 023 Physician Referral [id number] 1.00CD:127 Normal [facility] Lab Reportson 01-26-2023 Lab Reports [id number] #1.00CD:127 Normal [facility] CBC W Auto Differential pane l (Bld)on 01-23-2023 Basophils (Bld) [#/Vol] 0.04 10*3/uL <0.11 k/uL [facility] Basophils/100 WBC (Bld) 0.6 % [facility] Differential cell count method Nom (Bld) Auto [facility] Eosinophils (Bld) [#/Vol] 0.22 10*3/uL <0.46 k/uL [facility] Eosinophils/100 WBC (Bld) 3.3 % [facility] Erythrocyte distribution width (RBC) [Ratio] 14.2 % 11.5 - 15.0 % [facility] Hematocrit (Bld) [Volume fraction] 42.9 % 39.0 - 51.0 % [facility] Hemoglobin (Bld) [Mass/Vol] 14.3 g/dL 13.0 - 17.0 g/dL [facility] Immature granulocytes (Bld) [#/Vol] 0.03 10*3/uL <0.10 k/uL [facility] Immature granulocytes/100 WBC (Bld) 0.4 % [facility] Lymphocytes (Bld) [#/Vol] 1.78 10*3/uL 1.00 - 4.00 k/uL [facility] Lymphocytes/100 WBC (Bld) 26.7 % [facility] MCH (RBC) [Entitic mass] 29.6 pg 26.0 - 34.0 pg [facility] MCHC (RBC) [Mass/Vol] 33.3 g/dL 30.5 - 36.0 g/dL [facility] MCV (RBC) [Entitic vol] 88.8 fL 80.0 - 100.0 fL [facility] Monocytes (Bld) [#/Vol] 1.14 10*3/uL High <0.87 k/uL [facility] Monocytes/100 WBC (Bld) 17.1 % [facility] Neutrophils (Bld) [#/Vol] 3.46 10*3/uL 1.45 - 7.50 k/uL [facility] Neutrophils/100 WBC (Bld) 51.9 % [facility] Nucleated RBC (Bld) [#/Vol] <0.01 k/uL [facility] Nucleated RBC/100 WBC (Bld) [Ratio] 0.0 /100 WBC [facility] Platelet mean volume (Bld) [Entitic vol] 10.8 fL 9.0 - 12.7 fL [facility] Platelets (Bld) [#/Vol] 157 10*3/uL 150 - 400 k/uL [facility] RBC (Bld) [#/Vol] 4.83 10*6/uL 4.20 - 6.0 0 m/uL [facility] WBC (Bld) [#/Vol] 6.67 10*3/uL 3.70 - 11. 00 k/uL [facility] Basophils (Bld) [#/Vol] 0.04 10*3/uL Normal <0.11 [facility] Comment on above: Order Comment: Speci men Type: BLOOD SPECIMENOrdering Facility: [facility] Address: [address] [place] [id number] Performed By: #### 5 7021-8 ####[facility] LABCLIA [id number] [place] [address] Basophils/100 WBC (Bld) 0.6 % Normal [facility] Comment on above: Order Comment: Speci men Type: BLOOD SPECIMENOrdering Facility: [facility] Address: [address] [place] [address] Performed By: #### 5 7021-8 ####[facility] [facility] LABCLIA [id number] [place] [address] Differential cell count method Nom (Bld) Auto Normal [facility] Comment on above: Order Comment: Speci men Type: BLOOD SPECIMENOrdering Facility: [facility] Address: [address] [place] [address] Performed By: #### 5 7021-8 ####[facility] LABCLIA [id number] [place] [address] Eosinophils (Bld) [#/Vol] 0.22 10*3/uL Normal <0.46 [facility] Comment on above: Order Comment: Speci men Type: BLOOD SPECIMENOrdering Facility: [facility] Address: [address] [place] [address] Performed By: #### 5 7021-8 ####[facility] LABCLIA [id number] [place] [address] Eosinophils/100 WBC (Bld) 3.3 % Normal [facility] Comment on above: Order Comment: Speci men Type: BLOOD SPECIMENOrdering Facility: [facility] Address: [address] [place] [address] Performed By: #### 5 7021-8 ####[facility] LABCLIA [id number] [place] [address] Erythrocyte distribution width (RBC) [Ratio] 14.2 % Normal 11.5-15.0 [facility] Comment on above: Order Comment: Speci men Type: BLOOD SPECIMENOrdering Facility: [facility] Address: [address] [place] [address] Performed By: #### 5 7021-8 ####[facility] LABCLIA [id number] [place] [address] Hematocrit (Bld) [Volume fraction] 42.9 % Normal 39.0-51.0 [facility] Comment on above: Order Comment: Speci men Type: BLOOD SPECIMENOrdering Facility: [facility] Address: [address] [place] [address] Performed By: #### 5 7021-8 ####[facility] LABCLIA [id number] [place] [address] Hemoglobin (Bld) [Mass/Vol] 14.3 g/dL Normal 13.0-17.0 [facility] Comment on above: Order Comment: Speci men Type: BLOOD SPECIMENOrdering Facility: [facility] Address: [address] [place] [address] Performed By: #### 5 7021-8 ####[facility] LABIA [id number] [place] [address] Immature granulocytes (Bld) [#/Vol] 0.03 10*3/uL Normal <0.10 [facility] Comment on above: Order Comment: Speci men Type: BLOOD SPECIMENOrdering Facility: [facility] Address: [address] [place] [address] Performed By: #### 5 7021-8 ####[facility] LABCLIA [id number] [place] [address] Immature granulocytes/100 WBC (Bld) 0.4 % Normal [facility] Comment on above: Order Comment: Speci men Type: BLOOD SPECIMENOrdering Facility: [facility] Address: [address] [place] [address] Performed By: #### 5 7021-8 ####[facility] LABCLIA [id number] [place] [address] Lymphocytes (Bld) [#/Vol] 1.78 10*3/uL Normal 1.00-4.00 [facility] Comment on above: Order Comment: Speci men Type: BLOOD SPECIMENOrdering Facility: [facility] Address: [address] [place] [address] Performed By: #### 5 7021-8 ####[facility] LABCLIA [id number] [place] [address] Lymphocytes/100 WBC (Bld) 26.7 % Normal [facility] Comment on above: Order Comment: Speci men Type: BLOOD SPECIMENOrdering Facility: [facility] Address: [address] [place] [address] Performed By: #### 5 7021-8 ####[facility] LABCLIA [id number] [place] [address] MCH (RBC) [Entitic mass] 29.6 pg Normal 26.0-34.0 [facility] Comment on above: Order Comment: Speci men Type: BLOOD SPECIMENOrdering Facility: [facility] Address: [address] [place] [address] Performed By: #### 5 7021-8 ####[facility] LABCLIA [id number] [place] [address] MCHC (RBC) [Mass/Vol] 33.3 g/dL Normal 30.5-36.0 [facility] Comment on above: Order Comment: Speci men Type: BLOOD SPECIMENOrdering Facility: [facility] Address: [address] [place] [address] Performed By: #### 5 7021-8 ####[facility] LABCLIA [id number] [place] [address] MCV (RBC) [Entitic vol] 88.8 fL Normal 80.0-100.0 [facility] Comment on above: Order Comment: Speci men Type: BLOOD SPECIMENOrdering Facility: [facility] Address: [facility] [place] [address] Performed By: #### 5 7021-8 ####[facility] LABCLIA [id number] [place] [address] Monocytes (Bld) [#/Vol] 1.14 10*3/uL High <0.87 [facility] Comment on above: Order Comment: Speci men Type: BLOOD SPECIMENOrdering Facility: [facility] Address: [address] [place] [address] Performed By: #### 5 7021-8 ####[facility] LABCLIA [id number] [place] [address] Monocytes/100 WBC (Bld) 17.1 % Normal [facility] Comment on above: Order Comment: Speci men Type: BLOOD SPECIMENOrdering Facility: [facility] Address: [address] [place] [address] Performed By: #### 5 7021-8 ####[facility] LABCLIA [id number] [place] [address] Neutrophils (Bld) [#/Vol] 3.46 10*3/uL Normal 1.45-7.50 [facility] Comment on above: Order Comment: Speci men Type: BLOOD SPECIMENOrdering Facility: [facility] Address: [address] [place] [address] Performed By: #### 5 7021-8 ####[facility] LABCLIA [id number] [place] [address] Neutrophils/100 WBC (Bld) 51.9 % Normal [facility] Comment on above: Order Comment: Speci men Type: BLOOD SPECIMENOrdering Facility: [facility] Address: [address] [place] [address] Performed By: #### 5 7021-8 ####[facility] LABCLIA [id number] [place] [address] Nucleated RBC (Bld) [#/Vol] 10*3/uL Normal <0.01 [facility] Comment on above: Order Comment: Speci men Type: BLOOD SPECIMENOrdering Facility: [facility] Address: [address] [place] [address] Performed By: #### 5 7021-8 ####[facility] LABCLIA [id number] [place] [address] Nucleated RBC/100 WBC (Bld) [Ratio] 0.0 /100 WBC Normal [facility] Comment on above: Order Comment: Speci men Type: BLOOD SPECIMENOrdering Facility: [facility] Address: [address] [place] [address] Performed By: #### 5 7021-8 ####[facility] LABIA [id number] [place] [address] Platelet mean volume (Bld) [Entitic vol] 10.8 fL Normal 9.0-12.7 [facility] Comment on above: Order Comment: Speci men Type: BLOOD SPECIMENOrdering Facility: [facility] Address: [address] [place] [address] Performed By: #### 5 7021-8 ####[facility] LABIA [id number] [place] [address] Platelets (Bld) [#/Vol] 157 10*3/uL Normal 150-400 [facility] Comment on above: Order Comment: Speci men Type: BLOOD SPECIMENOrdering Facility: [facility] Address: [address] Performed By: #### 5 7021-8 ####[facility] LABIA [id number] [place] [address] RBC (Bld) [#/Vol] 4.83 10*6/uL Normal 4.20-6.[address] [facility] Comment on above: Order Comment: Speci men Type: BLOOD SPECIMENOrdering Facility: [facility] Address: [address] [place], [place] [address] Performed By: #### 5 7021-8 ####[facility] LABCLIA [id number] [place] [address] WBC (Bld) [#/Vol] 6.67 10*3/uL Normal 3.70-11.[address] [facility] Comment on above: Order Comment: Speci men Type: BLOOD SPECIMENOrdering Facility: [facility] Address: [place] [address] Performed By: #### 5 7021-8 ####[facility] LABCLIA [id number] [place] [address] Comprehensive metabolic 2000 panelon 01-23-2023 Albumin [Mass/Vol] 4.3 g/dL 3.9 - 4.9 g/dL [facility] ALP [Catalytic activity/Vol] 72 U/L 38 - 113 U/L [facility] ALT [Catalytic activity/Vol] 18 U/L 10 - 54 U/L [facility] Anion gap [Moles/Vol] 9 mmol/L 9 - 18 mmol/L [facility] AST [Catalytic activity/Vol] 17 U/L 14 - 40 U/L [facility] Bilirubin [Mass/Vol] 0.9 mg/dL 0.2 - 1 .3 mg/dL [facility] Calcium [Mass/Vol] 9.3 mg/dL 8.5 - 10. 2 mg/dL [facility] Chloride [Moles/Vol] 107 mmol/L High 97 - 10 5 mmol/L [facility] CO2 [Moles/Vol] 23 mmol/L 22 - 30 mmol/L [facility] Creatinine [Mass/Vol] 1.13 mg/dL 0.73 - 1.22 mg/dL [facility] Estimated Glomerular Filtration Rate 71 mL/min/1.73m >=60 mL/min/1.73m [facility] Glucose [Mass/Vol] 123 mg/dL High 74 - 99 mg/dL [facility] Potassium [Moles/Vol] 4.2 mmol/L 3.7 - 5.1 mmol/L [facility] Protein [Mass/Vol] 6.4 g/dL 6.3 - 8.0 g/dL [facility] Sodium [Moles/Vol] 139 mmol/L 136 - 144 mmol/L [facility] Urea nitrogen [Mass/Vol] 18 mg/dL 9 - 24 mg/dL [facility] Albumin [Mass/Vol] 4.3 g/dL Normal 3.9-4.9 [facility] Comment on above: Order Comment: Speci men Type: BLOOD SPECIMENOrdering Facility: [facility] Address: [address] [place] [address] Performed By: #### 2 4323-8 ####[facility] LABCLIA [id number] [place] [address] ALP [Catalytic activity/Vol] 72 U/L Normal 38-113 [facility] Comment on above: Order Comment: Speci men Type: BLOOD SPECIMENOrdering Facility: [facility] Address: [address] [place] [address] Performed By: #### 2 4323-8 ####[facility] LABCLIA [id number] [place] [address] ALT [Catalytic activity/Vol] 18 U/L Normal 10-54 [facility] Comment on above: Order Comment: Speci men Type: BLOOD SPECIMENOrdering Facility: [facility] Address: [address] [place] [address] Performed By: #### 2 4323-8 ####[facility] LABCLIA [id number] [place] [address] Anion gap [Moles/Vol] 9 mmol/L Normal 9-18 [facility] Comment on above: Order Comment: Speci men Type: BLOOD SPECIMENOrdering Facility: [facility] Address: [address] [place] [address] Performed By: #### 2 4323-8 ####[facility] LABCLIA [id number] [place] [address] AST [Catalytic activity/Vol] 17 U/L Normal 14-40 [facility] Comment on above: Order Comment: Speci men Type: BLOOD SPECIMENOrdering Facility: [facility] Address: [address] [place] [address] Performed By: #### 2 4323-8 ####[facility] LABCLIA [id number] [place] [address] Bilirubin [Mass/Vol] 0.9 mg/dL Normal 0.2-1.3 [facility] Comment on above: Order Comment: Speci men Type: BLOOD SPECIMENOrdering Facility: [facility] Address: [address] [place] [address] Performed By: #### 2 4323-8 ####[facility] LABCLIA [id number] [place] [address] Calcium [Mass/Vol] 9.3 mg/dL Normal 8.5-10.2 [facility] Comment on above: Order Comment: Speci men Type: BLOOD SPECIMENOrdering Facility: [facility] Address: [address] [place] [address] Performed By: #### 2 4323-8 ####[facility] LABCLIA [id number] [place] [address] Chloride [Moles/Vol] 107 mmol/L High 97-105 [facility] Comment on above: Order Comment: Speci men Type: BLOOD SPECIMENOrdering Facility: [facility] Address: [address] [place] [address] Performed By: #### 2 4323-8 ####[facility] LABCLIA [id number] [place] [address] CO2 [Moles/Vol] 23 mmol/L Normal 22-30 [facility] Comment on above: Order Comment: Speci men Type: BLOOD SPECIMENOrdering Facility: [facility] Address: [address] [place] [address] Performed By: #### 2 4323-8 ####[facility] LABCLIA [id number] [place] [address] Creatinine [Mass/Vol] 1.13 mg/dL Normal 0.73-1.22 [facility] Comment on above: Order Comment: Elliott pedraza Type: BLOOD SPECIMENOrdering Facility: [facility] Address: [place] [address] Performed By: #### 2 4323-8 ####[facility] LABCLIA [id number] [place] [address] Creatinine and Glomerular filtration rate.predicted panel (S/P/Bld) 71 mL/min/1.73m??? Normal >=60 [facility] Comment on above: Order Comment: Elliott pedraza Type: BLOOD SPECIMENOrdering Facility: [facility] Address: [address] [place] [id number] Result Comment: Krista mated Glomerular Filtration Rate (eGFR) is calculated using the 2020 CKD-EPI creatinine equation. This equation utilizes serum creatinine, sex, and age as parameters. The creatinine assay has traceable calibration to isotope dilution-mass spectrometry. Refer to KDIGO guidelines for clinical interpretation. In patients with unstable renal function, e.g. those with acute kidney injury, the eGFR may not accurately reflect actual GFR. Performed By: #### 2 4323-8 ####[facility] LABCLIA [id number] [place] [address] Glucose [Mass/Vol] 123 mg/dL High 74-99 [facility] Comment on above: Order Comment: Elliott pedraza Type: BLOOD SPECIMENOrdering Facility: [facility] Address: [address] [place] [id number] Result Comment: The [place] [employer] (ADA) provides guidance for cutoff values for fasting glucose and random glucose. The ADA defines fasting as no caloric intake for at least 8 hours. Fasting plasma glucose results between 100 to 125 mg/dL indicate increased risk for diabetes (prediabetes). Fasting plasma glucose results greater than or equal to 126 mg/dL meet the criteria for diagnosis of diabetes. In the absence of unequivocal hyperglycemia, results should be confirmed by repeat testing. In a patient with classic symptoms of hyperglycemia or hyperglycemic crisis, random plasma glucose results greater than or equal to 200 mg/dL meet the criteria for diagnosis of diabetes. Reference: Standards of Medical Care in Diabetes 2016, [place] [employer]. Diabetes Care. 2016.39(Suppl 1). Performed By: #### 2 4323-8 ####[facility] LABCLIA [id number] [place] [address] Potassium [Moles/Vol] 4.2 mmol/L Normal 3.7-5.1 [facility] Comment on above: Order Comment: Speci men Type: BLOOD SPECIMENOrdering Facility: [facility] Address: [address] [place] [address] Performed By: #### 2 4323-8 ####[facility] LABCLIA [id number] [place] [address] Protein [Mass/Vol] 6.4 g/dL Normal 6.3-8.0 [facility] Comment on above: Order Comment: Speci men Type: BLOOD SPECIMENOrdering Facility: [facility] Address: [address] [place] [address] Performed By: #### 2 4323-8 ####[facility] LABCLIA [id number] [place] [address] Sodium [Moles/Vol] 139 mmol/L Normal 136-144 [facility] Comment on above: Order Comment: Speci men Type: BLOOD SPECIMENOrdering Facility: [facility] Address: [address] [place] [address] Performed By: #### 2 4323-8 ####[facility] LABCLIA [id number] [place] [address] Urea nitrogen [Mass/Vol] 18 mg/dL Normal 9-24 [facility] Comment on above: Order Comment: Speci men Type: BLOOD SPECIMENOrdering Facility: [facility] Address: [address] [place] [address] Performed By: #### 2 4323-8 ####[facility] LABCLIA [id number] [place] [address] TSH SerPl-aCncon 01-23-2023 TSH Qn 0.490 m[IU]/L Normal 0.270-4.200 [facility] Comment on above: Order Comment: Speci men Type: BLOOD SPECIMENOrdering Facility: [facility] Address: [address] [place] [address] Performed By: #### 3 016-3 ####[facility] LABCLIA [id number] [facility] [id number] [place] CBC W Auto Differential pane l (Bld)on 01-02-2023 Basophils (Bld) [#/Vol] 0.04 10*3/uL Normal <0.11 [facility] Comment on above: Order Comment: Speci men Type: BLOOD SPECIMENOrdering Facility: [facility] Address: [address] [place] [address] Performed By: #### 5 7021-8 ####[facility] LABCLIA [id number] [place] [address] Basophils/100 WBC (Bld) 0.7 % Normal [facility] Comment on above: Order Comment: Speci men Type: BLOOD SPECIMENOrdering Facility: [facility] Address: [address] [place] [address] Performed By: #### 5 7021-8 ####[facility] LABCLIA [id number] [place] [address] Differential cell count method Nom (Bld) Auto Normal [facility] Comment on above: Order Comment: Speci men Type: BLOOD SPECIMENOrdering Facility: [facility] Address: [address] [place] [address] Performed By: #### 5 7021-8 ####[facility] LABCLIA [id number] [place] [address] Eosinophils (Bld) [#/Vol] 0.22 10*3/uL Normal <0.46 [facility] Comment on above: Order Comment: Speci men Type: BLOOD SPECIMENOrdering Facility: [facility] Address: [address] [place] [address] Performed By: #### 5 7021-8 ####[facility] LABCLIA [id number] [place] [address] Eosinophils/100 WBC (Bld) 3.8 % Normal [facility] Comment on above: Order Comment: Speci men Type: BLOOD SPECIMENOrdering Facility: [facility] Address: [address] [place] [address] Performed By: #### 5 7021-8 ####[facility] LABCLIA [id number] [place] [address] Erythrocyte distribution width (RBC) [Ratio] 14.1 % Normal 11.5-15.0 [facility] Comment on above: Order Comment: Speci men Type: BLOOD SPECIMENOrdering Facility: [facility] Address: [address] [place] [address] Performed By: #### 5 7021-8 ####[facility] LABCLIA [id number] [place] [address] Hematocrit (Bld) [Volume fraction] 45.9 % Normal 39.0-51.0 [facility] Comment on above: Order Comment: Speci men Type: BLOOD SPECIMENOrdering Facility: [facility] Address: [address] [place] [address] Performed By: #### 5 7021-8 ####[facility] LABCLIA [id number] [place] [address] Hemoglobin (Bld) [Mass/Vol] 15.3 g/dL Normal 13.0-17.0 [facility] Comment on above: Order Comment: Speci men Type: BLOOD SPECIMENOrdering Facility: [facility] Address: [address] [place] [address] Performed By: #### 5 7021-8 ####[facility] LABCLIA [id number] [place] [address] Immature granulocytes (Bld) [#/Vol] 0.05 10*3/uL Normal <0.10 [facility] Comment on above: Order Comment: Speci men Type: BLOOD SPECIMENOrdering Facility: [facility] Address: [address] [place] [address] Performed By: #### 5 7021-8 ####[facility] LABCLIA [id number] [place] [address] Immature granulocytes/100 WBC (Bld) 0.9 % Normal [facility] Comment on above: Order Comment: Speci men Type: BLOOD SPECIMENOrdering Facility: [facility] Address: [address] [place] [address] Performed By: #### 5 7021-8 ####[facility] LABCLIA [id number] [place] [address] Lymphocytes (Bld) [#/Vol] 1.30 10*3/uL Normal 1.00-4.00 [facility] Comment on above: Order Comment: Speci men Type: BLOOD SPECIMENOrdering Facility: [facility] Address: [address] [place] [address] Performed By: #### 5 7021-8 ####[facility] LABCLIA [id number] [place] [address] Lymphocytes/100 WBC (Bld) 22.2 % Normal [facility] Comment on above: Order Comment: Speci men Type: BLOOD SPECIMENOrdering Facility: [facility] Address: [address] [place] [address] Performed By: #### 5 7021-8 ####[facility] LABCLIA [id number] [place] [address] MCH (RBC) [Entitic mass] 30.3 pg Normal 26.0-34.0 [facility] Comment on above: Order Comment: Speci men Type: BLOOD SPECIMENOrdering Facility: [facility] Address: [address] [place] [address] Performed By: #### 5 7021-8 ####[facility] LABCLIA [id number] [place] [address] MCHC (RBC) [Mass/Vol] 33.3 g/dL Normal 30.5-36.0 [facility] Comment on above: Order Comment: Speci men Type: BLOOD SPECIMENOrdering Facility: [facility] Address: [address] [place] [address] Performed By: #### 5 7021-8 ####[facility] LABCLIA [id number] [place] [address] MCV (RBC) [Entitic vol] 90.9 fL Normal 80.0-100.0 [facility] Comment on above: Order Comment: Speci men Type: BLOOD SPECIMENOrdering Facility: [facility] Address: [address] [place] [address] Performed By: #### 5 7021-8 ####[facility] LABIA [id number] [place] [address] Monocytes (Bld) [#/Vol] 0.90 10*3/uL High <0.87 [facility] Comment on above: Order Comment: Speci men Type: BLOOD SPECIMENOrdering Facility: [facility] Address: [address] [place] [address] Performed By: #### 5 7021-8 ####[facility] LABCLIA [id number] [place] [address] Monocytes/100 WBC (Bld) 15.4 % Normal [facility] Comment on above: Order Comment: Speci men Type: BLOOD SPECIMENOrdering Facility: [facility] Address: [address] [place] [address] Performed By: #### 5 7021-8 ####[facility] LABCLIA [id number] [place] [address] Neutrophils (Bld) [#/Vol] 3.35 10*3/uL Normal 1.45-7.50 [facility] Comment on above: Order Comment: Speci men Type: BLOOD SPECIMENOrdering Facility: [facility] Address: [address] [place] [address] Performed By: #### 5 7021-8 ####[facility] LABCLIA [id number] [place] [address] Neutrophils/100 WBC (Bld) 57.0 % Normal [facility] Comment on above: Order Comment: Speci men Type: BLOOD SPECIMENOrdering Facility: [facility] Address: [address] [place] [address] Performed By: #### 5 7021-8 ####[facility] LABCLIA [id number] [place] [address] Nucleated RBC (Bld) [#/Vol] 10*3/uL Normal <0.01 [facility] Comment on above: Order Comment: Speci men Type: BLOOD SPECIMENOrdering Facility: [facility] Address: [address] [place] [place] [address] Performed By: #### 5 7021-8 ####[facility] LABCLIA [id number] [place] [address] Nucleated RBC/100 WBC (Bld) [Ratio] 0.0 /100 WBC Normal [facility] Comment on above: Order Comment: Speci men Type: BLOOD SPECIMENOrdering Facility: [facility] Address: [address] [place] [place] [address] Performed By: #### 5 7021-8 ####[facility] LABIA [id number] [place] [address] Platelet mean volume (Bld) [Entitic vol] 10.4 fL Normal 9.0-12.7 [facility] Comment on above: Order Comment: Speci men Type: BLOOD SPECIMENOrdering Facility: [facility] Address: [address] [place] [address] Performed By: #### 5 7021-8 ####[facility] LABCLIA [id number] [place] [address] Platelets (Bld) [#/Vol] 199 10*3/uL Normal 150-400 [facility] Comment on above: Order Comment: Speci men Type: BLOOD SPECIMENOrdering Facility: [facility] Address: [address] [place] [address] Performed By: #### 5 7021-8 ####[facility] LABIA [id number] [place] [address] RBC (Bld) [#/Vol] 5.05 10*6/uL Normal 4.20-6.[address] [facility] Comment on above: Order Comment: Speci men Type: BLOOD SPECIMENOrdering Facility: [facility] Address: [address] [place] [address] Performed By: #### 5 7021-8 ####[facility] LABIA [id number] [place] [address] WBC (Bld) [#/Vol] 5.86 10*3/uL Normal 3.70-11.[address] [facility] Comment on above: Order Comment: Speci men Type: BLOOD SPECIMENOrdering Facility: [facility] Address: [address] [place] [address] Performed By: #### 5 7021-8 ####[facility] LABIA [id number] [place] [address] CNOVSPon 01-02-2023 CNOVSP Visit (SP) Office ([place]) JUANCARLOS BAUM ([id number]) 1955 M Date Time Provider Department 01/02/23 9:45 AM ABA AMAYA During your visit today, we recorded the following information about you: Temperature Pulse Respiration Blood pressure 97.6 degrees 51/minute 16/minute 118/66 Weight Height 136.5 kg 1.73 m Aba Amaya MD 01/02/2023 9:51 PM Signed PATIENT NAME: Juancarlos Baum DATE: 01/02/2023 PRIMARY CARE PHYSICIAN: Dr. Katarina Daniels OTHER PHYSICIANS: Dr. Florencio Rose. Dr. Urias Portions of this encounter note have been copied from my note from 12/12/2022 and has been updated where appropriate, and reflect my current medical decision making from today. CC: This is a 67 year old male with kidney cancer, seen for scheduled follow-up and treatment. INTERIM HISTORY: The patient remains on pembrolizumab every 3 weeks and is tolerating it well. He has had no apparent adverse effects. Currently feels well with no complaints. Recent staging CT scans revealed no evidence of disease. MEDICATIONS: Current Outpatient Medications Medication Sig gabapentin (NEURONTIN) 300 mg capsule Take 300 mg by mouth three times daily. ELIQUIS 5 mg tab(s) Take 1 tablet by mouth twice daily. You may resume this medication on August 26. digoxin (LANOXIN) 125 mcg (0.125 mg) tablet Take by mouth once daily. propranolol ER (INDERAL LA) 80 mg 24 hr capsule Take 80 mg by mouth once daily. multivit,thx,calcium ,iron,mins (MULTIVITAMIN AND MINERAL ORAL) Take 1 Dose by mouth once daily. Current Facility-Administere d Medications Medication Dose Route Frequency perflutren lipid microspheres 1.3 mL in NaCl (PF) 0.9% 10 mL injection (DEFINITY) INTRAVENOUS DIRECTED PRN sodium chloride 0.9 % (flush) 10 mL (BD POSIFLUSH) 10 mL INTRAVENOUS DIRECTED PRN ALLERGIES: ALLERGIES Allergen Reactions Meloxicam Vomiting Nsaids (Non-Steroid* Other: See Comments PAST MEDICAL HISTORY: PAST MEDICAL HISTORY Diagnosis Date Atrial fibrillation (HCC) Renal cell carcinoma (HCC) PAST SURGICAL HISTORY: PAST SURGICAL HISTORY Procedure Laterality Date NEPHRECTOMY PARTIAL Left total left TOTAL HIP REPLACEMENT Left FAMILY HISTORY: No family history on file. SOCIAL HISTORY: Social History Tobacco Use Smoking status: Never Passive exposure: Never Smokeless tobacco: Never Vaping Use Vaping Use: Never used Substance Use Topics Alcohol use: Yes Comment: Less than monthly per pt 08/05/2022 Drug use: Never REVIEW OF SYSTEMS: General: No weight loss, malaise or fevers. HEENT: Negative for frequent or significant headaches. No changes in hearing or vision, no nose bleeds or other nasal problems. Respiratory: Negative for cough, wheezing or shortness of breath. Cardiovascular: Negative for chest pain, leg swelling or palpitations. GI: Negative for abdominal discomfort, blood in stools or black stools or change in bowel habits. : No history of dysuria, frequency or incontinence. See HPI. Musculoskeletal: Negative for: joint pain or swelling, back pain and muscle pain. Skin: Negative for lesions, rash and itching. Hematology/Lympholog y: Negative for prolonged bleeding, bruising easily or swollen nodes. Neuro: No history of headaches, syncope, paralysis, seizures or tremors. PHYSICAL EXAM: BP 118/66 Pulse (!) 51 Temp 36.4 ?C (97.6 ?F) (Temporal) Resp 16 Ht 173 cm (5' 8.11 ) Wt (!) 136.5 kg (301 lb) SpO2 100% BMI 45.62 kg/m? General: Alert and oriented, no distress, pleasant and cooperative. Heart: Regular, normal S1 and S2, no murmurs, rubs, or gallops. Lungs: Clear to auscultation bilaterally. Abdomen: Benign. Extremities: Feet/ankles without edema, posterior tibial pulses full and symmetrical. PATHOLOGY: 08/14/2022 Kidney, left, total nephrectomy: - Renal cell carcinoma (7.7 cm), clear cell type, WHO/ISUP grade 3, with focal early invasion of renal sinus vessel. - Surgical margins are negative. LABS: Hemoglobin (g/dL) Date Value 01/02/2023 15.3 Hematocrit (%) Date Value 01/02/2023 45.9 WBC (k/uL) Date Value 01/02/2023 5.86 Platelet Count (k/uL) Date Value 01/02/2023 199 RADIOLOGY/OTHER STUDIES: 12/26/2022 CT chest IMPRESSION: 1. Interval resolution of a previously described nodular opacity along the right major fissure. 2. Residual subcentimeter nodular opacity measuring less than 5 mm, stable since 08/09/22. 3. Sclerotic osseous foci most likely bone islands, stable. 4. Streaky scarring/discoid atelectasis in the bilateral lower lung winkler. 5. No evidence of new intrathoracic abnormalities. 12/26/2022 CT abdomen/pelvis IMPRESSION: 1. Interval left nephrectomy. 2. New 2.2 cm rounded area of reticular fat adjacent to the sigmoid colon most likely an area of epiploic appendagitis. 3. Otherwis (more content not included)... Normal [facility] Comprehensive metabolic 2000 panelon 01-02-2023 Albumin [Mass/Vol] 4.6 g/dL Normal 3.9-4.9 [facility] Comment on above: Order Comment: Speci men Type: BLOOD SPECIMENOrdering Facility: [facility] Address: [address] [place] [address] Performed By: #### 2 4323-8 ####[facility] LABCLIA [id number] [place] [address] ALP [Catalytic activity/Vol] 83 U/L Normal 38-113 [facility] Comment on above: Order Comment: Speci men Type: BLOOD SPECIMENOrdering Facility: [facility] Address: [address] [place] [address] Performed By: #### 2 4323-8 ####[facility] LABCLIA [id number] [place] [address] ALT [Catalytic activity/Vol] 18 U/L Normal 10-54 [facility] Comment on above: Order Comment: Speci men Type: BLOOD SPECIMENOrdering Facility: [facility] Address: [address] [address] Performed By: #### 2 4323-8 ####[facility] LABCLIA [id number] [place] [address] Anion gap [Moles/Vol] 7 mmol/L Low 9-18 [facility] Comment on above: Order Comment: Speci men Type: BLOOD SPECIMENOrdering Facility: [facility] Address: [address] [place] [address] Performed By: #### 2 4323-8 ####[facility] LABCLIA [id number] [place] [address] AST [Catalytic activity/Vol] 18 U/L Normal 14-40 [facility] Comment on above: Order Comment: Speci men Type: BLOOD SPECIMENOrdering Facility: [facility] Address: [address] [place] [address] Performed By: #### 2 4323-8 ####[facility] LABCLIA [id number] [place] [address] Bilirubin [Mass/Vol] 0.7 mg/dL Normal 0.2-1.3 [facility] Comment on above: Order Comment: Speci men Type: BLOOD SPECIMENOrdering Facility: [facility] Address: [address] [place] [address] Performed By: #### 2 4323-8 ####[facility] LABCLIA [id number] [place] [address] Calcium [Mass/Vol] 9.7 mg/dL Normal 8.5-10.2 [facility] Comment on above: Order Comment: Speci men Type: BLOOD SPECIMENOrdering Facility: [facility] Address: [address] [place] [address] Performed By: #### 2 4323-8 ####[facility] LABCLIA [id number] [place] [address] Chloride [Moles/Vol] 103 mmol/L Normal 97-105 [facility] Comment on above: Order Comment: Speci men Type: BLOOD SPECIMENOrdering Facility: [facility] Address: [address] [place] [address] Performed By: #### 2 4323-8 ####[facility] LABCLIA [id number] [place] [address] CO2 [Moles/Vol] 28 mmol/L Normal 22-30 [facility] Comment on above: Order Comment: Speci men Type: BLOOD SPECIMENOrdering Facility: [facility] Address: [address] [address] Performed By: #### 2 4323-8 ####[facility] LABCLIA [id number] [place] [address] Creatinine [Mass/Vol] 1.33 mg/dL High 0.73-1.22 [facility] Comment on above: Order Comment: Speci men Type: BLOOD SPECIMENOrdering Facility: [facility] Address: [address] [address] Performed By: #### 2 4323-8 ####[facility] LABCLIA [id number] [place] [address] Creatinine and Glomerular filtration rate.predicted panel (S/P/Bld) 58 mL/min/1.73m??? Low >=60 [facility] Comment on above: Order Comment: Speci men Type: BLOOD SPECIMENOrdering Facility: [facility] Address: [address] [address] Result Comment: Krista mated Glomerular Filtration Rate (eGFR) is calculated using the 2020 CKD-EPI creatinine equation. This equation utilizes serum creatinine, sex, and age as parameters. The creatinine assay has traceable calibration to isotope dilution-mass spectrometry. Refer to KDIGO guidelines for clinical interpretation. In patients with unstable renal function, e.g. those with acute kidney injury, the eGFR may not accurately reflect actual GFR. Performed By: #### 2 4323-8 ####[facility] LABCLIA [id number] [place] [address] Glucose [Mass/Vol] 113 mg/dL High 74-99 [facility] Comment on above: Order Comment: Speci men Type: BLOOD SPECIMENOrdering Facility: [facility] Address: [address] [address] Result Comment: The [place] [employer] (ADA) provides guidance for cutoff values for fasting glucose and random glucose. The ADA defines fasting as no caloric intake for at least 8 hours. Fasting plasma glucose results between 100 to 125 mg/dL indicate increased risk for diabetes (prediabetes). Fasting plasma glucose results greater than or equal to 126 mg/dL meet the criteria for diagnosis of diabetes. In the absence of unequivocal hyperglycemia, results should be confirmed by repeat testing. In a patient with classic symptoms of hyperglycemia or hyperglycemic crisis, random plasma glucose results greater than or equal to 200 mg/dL meet the criteria for diagnosis of diabetes. Reference: Standards of Medical Care in Diabetes 2016, [place] [employer]. Diabetes Care. 2016.39(Suppl 1). Performed By: #### 2 4323-8 ####[facility] LABCLIA [id number] [place] [address] Potassium [Moles/Vol] 4.8 mmol/L Normal 3.7-5.1 [facility] Comment on above: Order Comment: Speci men Type: BLOOD SPECIMENOrdering Facility: [facility] Address: [address] [place] [address] Performed By: #### 2 4323-8 ####[facility] LABCLIA [id number] [place] [address] Protein [Mass/Vol] 7.2 g/dL Normal 6.3-8.0 [facility] Comment on above: Order Comment: Speci men Type: BLOOD SPECIMENOrdering Facility: [facility] Address: [address] [place] [address] Performed By: #### 2 4323-8 ####[facility] LABCLIA [id number] [place] [address] Sodium [Moles/Vol] 138 mmol/L Normal 136-144 [facility] Comment on above: Order Comment: Speci men Type: BLOOD SPECIMENOrdering Facility: [facility] Address: [address] [address] Performed By: #### 2 4323-8 ####[facility] LABCLIA [id number] [place] [address] Urea nitrogen [Mass/Vol] 17 mg/dL Normal 9-24 [facility] Comment on above: Order Comment: Speci men Type: BLOOD SPECIMENOrdering Facility: [facility] Address: [address] [id number] Performed By: #### 2 4323-8 ####[facility] LABCLIA [id number] [place] [address] TSH SerPl-aCncon 01-02-2023 TSH Qn 1.270 m[IU]/L Normal 0.270-4.200 [facility] Comment on above: Order Comment: Speci men Type: BLOOD SPECIMENOrdering Facility: [facility] Address: [address] [id number] Performed By: #### 3 016-3 ####[facility] LABCLIA [id number] [facility] [id number] [id number] [place] CT Abdomen and Pelvis WO con traston 12-26-2022 IMPRESSION: 1. Interval left nephrectomy. 2. New 2.2 cm rounded area of reticular fat adjacent to the sigmoid colon most likely an area of epiploic appendagitis. 3. Otherwise no evidence of intra-abdominal/pelv ic metastases. 4. Fat-containing umbilical hernia. 5. Cholelithiasis. Transcribe Date/Time: Dec 26 2022 10:31A Dictated by: MARIBEL MARIE MD This examination was interpreted and the report reviewed and electronically signed by: MARIBEL MARIE MD on Dec 26 2022 10:51AM EST Thank you for allowing us to participate in the care of your patient. Should there be any questions regarding this interpretation, please call [phone]. If you are unable to reach us at the number above, please feel free to contact [facility] eRadiology at [phone]. DIVISION OF RADIOLOGY * * *Final Report* * * DATE OF EXAM: Dec 26 2022 9:13AM [facility] 0531 - CT ABD/PEL WO IVCON / PROCEDURE REASON: multiple diagnoses * * * * Physician Interpretation * * * * RESULT: EXAMINATION: CT ABDOMEN AND PELVIS WITHOUT IV CONTRAST CLINICAL HISTORY: Renal cell carcinoma TECHNIQUE: Non-IV contrast imaging of the abdomen and pelvis was performed using standard technique, scanning from just above the dome of the diaphragm to the symphysis pubis. Unenhanced imaging is limited for the evaluation of some intra-abdominal and pelvic pathology. MQ: CTAPWO_3 Contrast: IV: None Oral: 500 ml of Omni 240 10-25ml diluted with water CT Radiation dose: Integrated Dose-length product (DLP) for this visit = 2010 mGy*cm. CT Dose Reduction Employed: mAs-kVp adjusted based on patient size-age COMPARISON: 07/16/22. RESULT: Abdomen / Pelvis: Liver: Borderline hepatic fatty infiltration. No evidence of a mass as limited by noncontrast technique.. Biliary: Cholelithiasis. Spleen: No splenomegaly. Pancreas: No evidence of a mass as limited by noncontrast technique. . Adrenals: No mass. Kidneys: Status post left nephrectomy. No evidence of locally recurrent mass. Punctate 1 mm nonobstructing right renal stone. Right kidney demonstrates no hydronephrosis or new contour abnormalities. GI Tract: No bowel dilation. No evidence of appendicitis.There is a new 2.2 cm rounded area of reticular fat adjacent to the sigmoid colon (3:98) most likely an area of epiploic appendagitis. Lymph Nodes: No lymphadenopathy. Mesentery/peritoneum : No ascites. Retroperitoneum: No mass. Vasculature: Arterial atherosclerotic disease without aneurysm. Pelvis: No mass or ascites. Urinary bladder is decompressed. Multiple urinary bladder calcifications measuring up to 8mm may represent a combination of urinary bladder stones and prostate calcifications. Bones/Soft Tissues: Fat-containing umbilical hernia. Left hip arthroplasty. No new osseous abnormalities. Lower thorax: A chest CT performed will be reported separately. Travel Agent (topogram) images: No additional findings. DIVISION OF RADIOLOGY Provider, [facility] [place] - 12/26/2022 * * *Final Report* * * DATE OF EXAM: Dec 26 2022 9:13AM [facility] 0531 - CT ABD/PEL WO IVCON / PROCEDURE REASON: multiple diagnoses * * * * Physician Interpretation * * * * RESULT: EXAMINATION: CT ABDOMEN AND PELVIS WITHOUT IV CONTRAST CLINICAL HISTORY: Renal cell carcinoma TECHNIQUE: Non-IV contrast imaging of the abdomen and pelvis was performed using standard technique, scanning from just above the dome of the diaphragm to the symphysis pubis. Unenhanced imaging is limited for the evaluation of some intra-abdominal and pelvic pathology. MQ: CTAPWO_3 Contrast: IV: None Oral: 500 ml of Omni 240 10-25ml diluted with water CT Radiation dose: Integrated Dose-length product (DLP) for this visit = 2010 mGy*cm. CT Dose Reduction Employed: mAs-kVp adjusted based on patient size-age COMPARISON: 07/16/22. RESULT: Abdomen / Pelvis: Liver: Borderline hepatic fatty infiltration. No evidence of a mass as limited by noncontrast technique.. Biliary: Cholelithiasis. Spleen: No splenomegaly. Pancreas: No evidence of a mass as limited by noncontrast technique. . Adrenals: No mass. Kidneys: Status post left nephrectomy. No evidence of locally recurrent mass. Punctate 1 mm nonobstructing right renal stone. Right kidney demonstrates no hydronephrosis or new contour abnormalities. GI Tract: No bowel dilation. No evidence of appendicitis.There is a new 2.2 cm rounded area of reticular fat adjacent to the sigmoid colon (3:98) most likely an area of epiploic appendagitis. Lymph Nodes: No lymphadenopathy. Mesentery/peritoneum : No ascites. Retroperitoneum: No mass. Vasculature: Arterial atherosclerotic disease without aneurysm. Pelvis: No mass or ascites. Urinary bladder is decompressed. Multiple urinary bladder calcifications measuring up to 8mm may represent a combination of urinary bladder stones and prostate calcifications. Bones/Soft Tissues: Fat-containing umbilical hernia. Left hip arthroplasty. No new osseous abnormalities. Lower thorax: A chest CT performed will be reported separately. Travel Agent (topogram) images: No additional findings. IMPRESSION IMPRESSION: 1. Interval left nephrectomy. 2. New 2.2 cm rounded area of reticular fat adjacent to the sigmoid colon most likely an area of epiploic appendagitis. 3. Otherwise no evidence of intra-abdominal/pelv ic metastases. 4. Fat-containing umbilical hernia. 5. Cholelithiasis. Transcribe Date/Time: Dec 26 2022 10:31A Dictated by: MARIBEL MARIE MD This examination was interpreted and the report reviewed and electronically signed by: MARIBEL MARIE MD on Dec 26 2022 10:51AM EST Thank you for allowing us to participate in the care of your patient. Should there be any questions regarding this interpretation, please call [phone]. If you are unable to reach us at the number above, please feel free to contact [facility] eRadiology at [phone]. [facility] CT Chest WO kamaron 12-26 IMPRESSION: 1. Interval resolution of a previously described nodular opacity along the right major fissure. 2. Residual subcentimeter nodular opacity measuring less than 5 mm, stable since 08/09/22. 3. Sclerotic osseous foci most likely bone islands, stable. 4. Streaky scarring/discoid atelectasis in the bilateral lower lung winkler. 5. No evidence of new intrathoracic abnormalities. Transcribe Date/Time: Dec 26 2022 10:13A Dictated by: MARIBEL MARIE MD This examination was interpreted and the report reviewed and electronically signed by: MARIBEL MARIE MD on Dec 26 2022 10:51AM EST Thank you for allowing us to participate in the care of your patient. Should there be any questions regarding this interpretation, please call [phone]. If you are unable to reach us at the number above, please feel free to contact [facility] eRadiology at [phone]. DIVISION OF RADIOLOGY * * *Final Report* * * DATE OF EXAM: Dec 26 2022 9:13AM [facility] 0541 - CT CHEST WO IVCON / PROCEDURE REASON: multiple diagnoses * * * * Physician Interpretation * * * * RESULT: EXAMINATION: CHEST CT WITHOUT CONTRAST CLINICAL HISTORY: Renal cell carcinoma Technique: Spiral CT acquisition of the chest from the thoracic inlet to the upper abdomen without contrast. MQ: CTCWO_6 CT Radiation dose: Integrated Dose-length product (DLP) for this visit = 2010 mGy*cm CT Dose Reduction Employed: mAs-kVp adjusted based on patient size-age Comparison: 08/09/22 RESULT: Limitations: None. Lines, tubes, and devices: None. Lung parenchyma and airways: Streaky scarring/discoid atelectasis is noted in the bilateral lower lung winkler. Subcentimeter nodular opacities measuring less than 5 mm, stable. For example: Right upper lobe medially along the pleura (4:59) Previously described nodular opacity along the right major fissure is not visualized. No new airspace opacities. The central airways are patent. Pleural space: No pleural effusion. No pleural thickening. Lower neck, lymph nodes, and mediastinum: The imaged thyroid gland is normal. No lymphadenopathy in the supraclavicular, axillary, mediastinal, or hilar regions. Heart, pericardium, and thoracic vessels: The thoracic aorta and main pulmonary artery are normal in caliber. The cardiac chambers are normal in size. No coronary artery atherosclerotic calcifications are noted, although the study is not optimized for coronary assessment. No pericardial effusion or thickening. Bones and soft tissues: Sclerotic foci in the left T4 transverse process (3:38) and T11 body (sagittal image 6:50), stable most likely bone islands. No new osseous abnormalities. Upper abdomen: Please refer to the abdomen CT scan report for the abdomen findings. Travel Agent (topogram) images: No additional findings. DIVISION OF RADIOLOGY Provider, [facility] [place] - 12/26/2022 * * *Final Report* * * DATE OF EXAM: Dec 26 2022 9:13AM [facility] 0541 - CT CHEST WO IVCON / PROCEDURE REASON: multiple diagnoses * * * * Physician Interpretation * * * * RESULT: EXAMINATION: CHEST CT WITHOUT CONTRAST CLINICAL HISTORY: Renal cell carcinoma Technique: Spiral CT acquisition of the chest from the thoracic inlet to the upper abdomen without contrast. MQ: CTCWO_6 CT Radiation dose: Integrated Dose-length product (DLP) for this visit = 2010 mGy*cm CT Dose Reduction Employed: mAs-kVp adjusted based on patient size-age Comparison: 08/09/22 RESULT: Limitations: None. Lines, tubes, and devices: None. Lung parenchyma and airways: Streaky scarring/discoid atelectasis is noted in the bilateral lower lung winkler. Subcentimeter nodular opacities measuring less than 5 mm, stable. For example: Right upper lobe medially along the pleura (4:59) Previously described nodular opacity along the right major fissure is not visualized. No new airspace opacities. The central airways are patent. Pleural space: No pleural effusion. No pleural thickening. Lower neck, lymph nodes, and mediastinum: The imaged thyroid gland is normal. No lymphadenopathy in the supraclavicular, axillary, mediastinal, or hilar regions. Heart, pericardium, and thoracic vessels: The thoracic aorta and main pulmonary artery are normal in caliber. The cardiac chambers are normal in size. No coronary artery atherosclerotic calcifications are noted, although the study is not optimized for coronary assessment. No pericardial effusion or thickening. Bones and soft tissues: Sclerotic foci in the left T4 transverse process (3:38) and T11 body (sagittal image 6:50), stable most likely bone islands. No new osseous abnormalities. Upper abdomen: Please refer to the abdomen CT scan report for the abdomen findings. Travel Agent (topogram) images: No additional findings. IMPRESSION IMPRESSION: 1. Interval resolution of a previously described nodular opacity along the right major fissure. 2. Residual subcentimeter nodular opacity measuring less than 5 mm, stable since 08/09/22. 3. Sclerotic osseous foci most likely bone islands, stable. 4. Streaky scarring/discoid atelectasis in the bilateral lower lung winkler. 5. No evidence of new intrathoracic abnormalities. Transcribe Date/Time: Dec 26 2022 10:13A Dictated by: MARIBEL MARIE MD This examination was interpreted and the report reviewed and electronically signed by: MARIBEL MARIE MD on Dec 26 2022 10:51AM EST Thank you for allowing us to participate in the care of your patient. Should there be any questions regarding this interpretation, please call [phone]. If you are unable to reach us at the number above, please feel free to contact [facility]Radiology at [phone]. [facility] No Panel InformationOrdered By: [facility] Provider on 12-26-2022 [facility] [facility] No Panel Informationon 12-26 Radiology Study observation (narrative) [facility] TSH BLDon 09-20-2022 TSH Qn 1.650 m[IU]/L 0.270 - 4.200 mIU/L [facility] CBC W Auto Differential pane l (Bld)on 09-19-2022 Basophils (Bld) [#/Vol] 0.04 10*3/uL <0.11 k/uL [facility] Basophils/100 WBC (Bld) 0.5 % [facility] Differential cell count method Nom (Bld) Auto [facility] Eosinophils (Bld) [#/Vol] 0.42 10*3/uL <0.46 k/uL [facility] Eosinophils/100 WBC (Bld) 5.5 % [facility] Erythrocyte distribution width (RBC) [Ratio] 13.5 % 11.5 - 15.0 % [facility] Hematocrit (Bld) [Volume fraction] 44.2 % 39.0 - 51.0 % [facility] Hemoglobin (Bld) [Mass/Vol] 14.5 g/dL 13.0 - 17.0 g/dL [facility] Immature granulocytes (Bld) [#/Vol] 0.04 10*3/uL <0.10 k/uL [facility] Immature granulocytes/100 WBC (Bld) 0.5 % [facility] Lymphocytes (Bld) [#/Vol] 1.78 10*3/uL 1.00 - 4.00 k/uL [facility] Lymphocytes/100 WBC (Bld) 23.4 % [facility] MCH (RBC) [Entitic mass] 29.6 pg 26.0 - 34.0 pg [facility] MCHC (RBC) [Mass/Vol] 32.8 g/dL 30.5 - 36.0 g/dL [facility] MCV (RBC) [Entitic vol] 90.2 fL 80.0 - 100.0 fL [facility] Monocytes (Bld) [#/Vol] 1.50 10*3/uL High <0.87 k/uL [facility] Monocytes/100 WBC (Bld) 19.7 % [facility] Neutrophils (Bld) [#/Vol] 3.84 10*3/uL 1.45 - 7.50 k/uL [facility] Neutrophils/100 WBC (Bld) 50.4 % [facility] Nucleated RBC (Bld) [#/Vol] <0.01 k/uL [facility] Nucleated RBC/100 WBC (Bld) [Ratio] 0.0 /100 WBC [facility] Platelet mean volume (Bld) [Entitic vol] 10.6 fL 9.0 - 12.7 fL [facility] Platelets (Bld) [#/Vol] 203 10*3/uL 150 - 400 k/uL [facility] RBC (Bld) [#/Vol] 4.90 10*6/uL 4.20 - 6.0 0 m/uL [facility] WBC (Bld) [#/Vol] 7.62 10*3/uL 3.70 - 11. 00 k/uL [facility] Comprehensive metabolic 2000 panelon 09-19-2022 Albumin [Mass/Vol] 4.6 g/dL 3.9 - 4.9 g/dL [facility] ALP [Catalytic activity/Vol] 85 U/L 38 - 113 U/L [facility] ALT [Catalytic activity/Vol] 15 U/L 10 - 54 U/L [facility] Anion gap [Moles/Vol] 7 mmol/L Low 9 - 18 mmol/L [facility] AST [Catalytic activity/Vol] 16 U/L 14 - 40 U/L [facility] Bilirubin [Mass/Vol] 0.5 mg/dL 0.2 - 1 .3 mg/dL [facility] Calcium [Mass/Vol] 10.4 mg/dL High 8.5 - 10. 2 mg/dL [facility] Chloride [Moles/Vol] 101 mmol/L 97 - 10 5 mmol/L [facility] CO2 [Moles/Vol] 30 mmol/L 22 - 30 mmol/L [facility] Creatinine [Mass/Vol] 1.26 mg/dL High 0.73 - 1.22 mg/dL [facility] Estimated Glomerular Filtration Rate 63 mL/min/1.73m >=60 mL/min/1.73m [facility] Glucose [Mass/Vol] 98 mg/dL 74 - 99 mg/dL [facility] Potassium [Moles/Vol] 4.5 mmol/L 3.7 - 5.1 mmol/L [facility] Protein [Mass/Vol] 7.4 g/dL 6.3 - 8.0 g/dL [facility] Sodium [Moles/Vol] 138 mmol/L 136 - 144 mmol/L [facility] Urea nitrogen [Mass/Vol] 19 mg/dL 9 - 24 mg/dL [facility] CT CHEST WO IVCONon 08-10-19 [facility] CONFIRM BLOOD TYPEon 023 ABO A [facility] Rh Nom (Bld) Positive [facility] ECHOon 08-05-2022 [facility] NM CARDIAC PERF STRESS/PHARM on 08-05-2022 [facility] URINALYSIS, REFLEX MICROSCOP ICon 08-05-2022 Bilirubin Ql (U) Negative Negative [facility] Clarity (Unsp spec) Clear Clear [facility] Color (U) Yellow Yellow [facility] Epithelial cells LM.HPF (Urine sed) [#/Area] Few [facility] Glucose Test strip (U) [Mass/Vol] Negative Trace, Negative [facility] Hemoglobin Ql (U) 2+ Abnormal Negative, Trace [facility] Ketones Ql (U) Negative Trace, Negative [facility] Leukocyte esterase Test strip Ql (U) Negative Negative, 25 Robbie/uL [facility] Nitrite Ql (U) Negative Negative [facility] pH (U) 7.0 [pH] 5.0 - 8.0 [facility] Protein (U) [Mass/Vol] 1+ Abnormal Trace , Negative [facility] RBC LM.HPF (Urine sed) [#/Area] /[HPF] Abnormal 0-3 /HPF [facility] Specific gravity (U) [Rel density] 1.022 1.005 - 1.030 [facility] Urobilinogen Ql (U) Negative Negative [facility] WBC LM.HPF (Urine sed) [#/Area] 0-5 /HPF 0-5 /HPF [facility] URINALYSIS, REFLEX MICROSCOP ICon 08-02-2022 Bilirubin Ql (U) Negative Negative [facility] Clarity (Unsp spec) Clear Clear [facility] Color (U) Yellow Yellow [facility] Glucose Test strip (U) [Mass/Vol] Negative Trace, Negative [facility] Hemoglobin Ql (U) 1+ Abnormal Negative, Trace [facility] Ketones Ql (U) Negative Negative, Trace [facility] Leukocyte esterase Test strip Ql (U) 25 Robbie/uL Negative, 25 Robbie/uL [facility] Nitrite Ql (U) Negative Negative [facility] pH (U) 6.5 [pH] 5.0 - 8.0 [facility] Protein (U) [Mass/Vol] Negative Trace , Negative [facility] RBC LM.HPF (Urine sed) [#/Area] 11-25 /HPF Abnormal 0-3 /HPF [facility] Specific gravity (U) [Rel density] 1.013 1.005 - 1.030 [facility] Urobilinogen Ql (U) Negative Negative [facility] WBC LM.HPF (Urine sed) [#/Area] 6-10 /HPF Abnormal 0-5 /HPF [facility] CHEMISTRYOrdered By: SYSTEM SYSTEM on 07-16-2022 Albumin [Mass/Vol] 4.4 g/dL Normal 3.3 - 5.0 gm/dL [facility] Remisol Albumin/Globulin [Mass ratio] 1.3 {ratio} Normal 1.1 - 2.2 [facility] ALP [Catalytic activity/Vol] 70 [iU]/d Normal 21 - 98 Int._Unit/L [facility] ALT No additional P-5'-P [Catalytic activity/Vol] 20 [iU]/d Normal 6 - 46 Int._Unit/L [facility] Anion gap [Moles/Vol] 13 mmol/L Normal 6 - 16 mEq/L [facility] AST [Catalytic activity/Vol] 23 [iU]/d Normal 5 - 43 Int._Unit/L [facility] Bilirubin [Mass/Vol] 1.4 mg/dL High 0.0 - 1 .1 mg/dL [facility] Bilirubin.direct [Mass/Vol] 0.2 mg/dL Normal 0.1 - 0.4 mg/dL [facility] Bilirubin.indirect [Mass or moles/Vol] 1.2 mg/dL High 0.1 - 0.9 mg/dL [facility] Calcium [Mass/Vol] 9.3 mg/dL Normal 8.9 - 11. 1 mg/dL [facility] Chloride [Moles/Vol] 104 mmol/L Normal 101 - 1 11 mmol/L [facility] CO2 [Moles/Vol] 24 mmol/L Normal 21 - 31 mmol/L [facility] Creatinine [Mass/Vol] 0.9 mg/dL Normal 0.5 - 1.3 mg/dL [facility] GFR/1.73 sq M.predicted among blacks MDRD (S/P/Bld) [Vol rate/Area] mL/min/1.73 m2 Normal >=59mL/min/1 .73 m2 [facility] S GFR/1.73 sq M.predicted among non-blacks MDRD (S/P/Bld) [Vol rate/Area] mL/min/1.73 m2 Normal >=59mL/min/1 .73 m2 [facility] S Globulin (S) [Mass/Vol] 3.5 g/dL Normal 1.4 - 4.0 gm/dL [facility] Glucose [Mass/Vol] 109 mg/dL Normal 55 - 199 mg/dL [facility] Lipase [Catalytic activity/Vol] 45 U/L Normal 13 - 58 unit/L [facility] Potassium [Moles/Vol] 4.3 mmol/L Normal 3.5 - 5.3 mmol/L [facility] Protein [Mass/Vol] 7.9 g/dL High 6.0 - 7.8 gm/dL [facility] Sodium [Moles/Vol] 137 mmol/L Normal 135 - 145 mmol/L [facility] Urea nitrogen [Mass/Vol] 14 mg/dL Normal 5 - 21 mg/dL [facility] Urea nitrogen/Creatinine [Mass ratio] 16 mg/mg Normal 10 - 20 [facility] HEMATOLOGYOrdered By: SYSTEM SYSTEM on 07-16-2022 Basophils/100 WBC (Bld) 0.6 % Normal 0.0 - 2.0 % [facility] HemeAutoSS Basophils/Leukocytes Auto (Bld) [Pure # fraction] 0.0 E9/L Normal 0.0 - 0.2 E9/L [facility] Eosinophils/100 WBC (Bld) 2.2 % Normal 0.0 - 8.0 % [facility]eAuto[facility] Eosinophils/Leukocytes Auto (Bld) [Pure # fraction] 0.2 E9/L Normal 0.0 - 0.5 E9/L [facility] Lymphocytes/100 WBC (Bld) 22.6 % Normal 14.0 - 50.0 % [facility] Lymphocytes/Leukocytes Auto (Bld) [Pure # fraction] 1.6 E9/L Normal 1.0 - 4.0 E9/L [facility]eAuto[facility] Monocytes/100 WBC (Bld) 14.4 % High 4.0 - 14.0 % [facility] Monocytes/Leukocytes Auto (Bld) [Pure # fraction] 1.0 E9/L Normal 0.2 - 1.0 E9/L [facility] Neutrophils/100 WBC (Bld) 60.2 % Normal 36.0 - 75.0 % [facility]eAuto[facility] Neutrophils/Leukocytes Auto (Bld) [Pure # fraction] 4.2 E9/L Normal 2.0 - 7.5 E9/L [facility] HEMATOLOGYOrdered By: Felipe Everett on 07-16-2022 Erythrocyte distribution width (RBC) [Ratio] 13.9 % Normal 10.9 - 14.2 % [facility] Hematocrit (Bld) [Volume fraction] 45.9 % Normal 37.7 - 49.0 % [facility] Hemoglobin (Bld) [Mass/Vol] 15.9 g/dL Normal 13.5 - 17.5 gm/dL [facility] MCH (RBC) [Entitic mass] 30.8 pg Normal 27.0 - 34.0 pg [facility] MCHC (RBC) [Mass/Vol] 34.7 g/dL Normal 31.4 - 36.0 gm/dL [facility] MCV (RBC) [Entitic vol] 88.7 fL Normal 80.0 - 100.0 fL [facility] Platelet mean volume (Bld) [Entitic vol] 9.2 fL Normal 6.4 - 10.8 fL [facility] Platelets (Bld) [#/Vol] 194.0 E9/L Normal 150.0 - 500.0 E9/L [facility] RBC (Bld) [#/Vol] 5.2 E12/L Normal 4.3 - 5.9 E12/L [facility] WBC corrected for nucl RBC Auto (Bld) [#/Vol] 7.0 E9/L Normal 4.0 - 11.0 E9/L [facility] URINALYSISOrdered By: Nessa Bee on 07-16-2022 Bilirubin Ql (U) Negative (07/16/22 7:44 AM) Normal Negative [facility] UA Auto SS Clarity (U) Clear (07/16/22 7:44 AM) Normal Clear [facility] UA Auto SS Color (U) Dark Yellow *ABN* (07/16/22 7:44 AM) Invalid Interpretation Code Yellow [facility] UA Auto SS Epithelial cells.squamous LM.HPF (Urine sed) [#/Area] 0-2 /HPF Normal 0-2/HPF [facility] UA Aut o SS Glucose Test strip (U) [Mass/Vol] Negative (07/16/22 7:44 AM) Normal Negative [facility] UA Auto SS Hemoglobin Ql (U) 3+ *ABN* (07/16/22 7:44 AM) Invalid Interpretation Code Negative [facility] UA Auto SS Ketones (U) [Mass/Vol] 2+ *ABN* (07/16/22 7:44 AM) Invalid Interpretation Code Negative [facility] UA Auto SS [place].plasma/[place] .RBC (Bld) [Mass ratio] 4-20 /HPF Normal 0-3/HPF [facility] UA Auto SS Mucus Ql (Urine sed) Trace (07/16/22 7:44 AM) Normal [facility] UA Auto SS Nitrite Ql (U) Negative (07/16/22 7:44 AM) Normal Negative [facility] UA Auto SS pH (U) 6.0 *NA* (07/16/22 7:44 AM) Invalid Interpretation Code 5.0 - 9.0 [facility] UA Auto SS Protein (U) [Mass/Vol] 1+ *ABN* (07/16/22 7:44 AM) Invalid Interpretation Code Negative [facility] UA Auto SS Specific gravity (U) [Rel density] >=1.030 *NA* (07/16/22 7:44 AM) Invalid Interpretation Code 1.005 - 1.030 [facility] UA Auto SS UA Spec Desc Clean Catch (07/16/22 7:44 AM) Normal [facility] UA Auto SS Urobilinogen Qn (U) [id number] {Tomy'U}/dL Normal 0.0 - 1.0 EU/dL [facility] UA Auto SS WBC Auto Ql (U) Trace *ABN* (07/16/22 7:44 AM) Invalid Interpretation Code Negative [facility] UA Auto SS WBC LM.HPF (Urine sed) [#/Area] 0-5 /HPF Normal 0-5/HPF [facility] UA Auto SS Office Visit (Cardiology)on 09-04-2021 Follow-up visit Diagnoses/Problems Assessed Chronic atrial fibrillation (427.31) (I48.20) High risk medication use (V58.69) (Z79.899) Morbid obesity with BMI of 40.0-44.9, adult (278.01,V85.41) (E66.01,Z68.41) Former cigarette smoker (V15.82) (Z87.891) Sleep apnea (780.57) (G47.30) Orders High risk medication use, Morbid obesity with BMI of 40.0-44.9, adult Healthy Weight Tips; Status:Complete; Done: [id number] SocHx: Former cigarette smoker Tobacco Use Screening; Status:Complete; Done: 04Sep2021 Patient Instructions By signing my name below, IMargarette RN,Scribe Please bring all medicines, vitamins, and herbal supplements with you when you come to the office. Prescriptions will not be filled unless you are compliant with your follow up appointments or have a follow up appointment scheduled as per instruction of your physician. Refills should be requested at the time of your visit. Follow up in 1 year. Chief Complaint JUANCARLOS BAUM is being seen for an annual follow-up of. History of Present Illness Mr. Baum is a 65-year-old male who is seen back today for follow-up on his atrial fibrillation which is now chronic. His atrial fibrillation was discovered in May 2011. At that time he had a chest trauma and was in the emergency room and his rhythm was found to be atrial fibrillation. He had no symptoms related to the atrial fibrillation and was therefore unclear how long he had had this. He has chronic obesity and sleep apnea. Echocardiogram as previously demonstrated the atria to be significantly dilated but no significant valve disease. Ejection fraction was normal. He has been cardioverted which was done in June 2011 but he had prompt recurrence of atrial fibrillation and he elected chronic anticoagulation and rate control. He is on chronic Eliquis. He typically does well with this but has occasional episodes of urinary tract bleeding apparently from prostate problem. This is relatively infrequent. Physical exam: Neck: No carotid bruits are heard Lungs: Clear Heart: Irregularly irregular without murmurs or extra sounds Extremities: Trace edema Recommendation is continuation of current medications. I have discussed with him on multiple occasions the importance of weight loss and has been quite unsuccessful with this and actually again his weight is up compared to his previous office visit. Weight loss was again discussed with him. He is to return in 1 year for follow-up. Surgical History Problems History of Ankle surgery History of Complete colonoscopy History of Hip replacement History of Prostate ablation cryosurgery History of Prostate surgery History of Shoulder surgery History of Transurethral resection of prostate Current Meds Medication NameInstruction Digoxin 125 MCG Oral TabletTAKE 1 TABLET Daily Eliquis 5 MG Oral TabletTAKE 1 TABLET BY MOUTH TWICE DAILY Multi Vitamin TABSTAKE 1 TABLET DAILY. Propranolol HCl ER 80 MG Oral Capsule Extended Release 24 HourTAKE 1 CAPSULE Daily Patient did not bring medication list or bottles. Updated verbally with patient Allergies Medication No Known Drug Allergies Recorded By: Floridalma Dupree; 07/03/2021 9:51:06 AM Social History Problems Alcohol use (V49.89) (Z72.89) occasional Caffeine use (V49.89) (Z78.9) tea 2 cups daily coffee 1 cup daily Former cigarette smoker (V15.82) (Z87.891) Never a smoker No illicit drug use Review of Systems Constitutional: not feeling tired. Cardiovascular: no intermittent leg claudication and as noted in HPI. Respiratory: no cough and no shortness of breath. Gastrointestinal: no change in bowel habits and no blood in stools. Integumentary: no skin rashes. Neurological: no seizures and no frequent falls. All other systems have been reviewed and are negative for complaint. Vitals Vital Signs Recorded: 04Sep2021 08:58AM Heart Rate63, L Brachial Artery Suiwidpp161, LUE, Sitting Jwtpumxfi97, LUE, Sitting Height5 ft 10 in Emevlv309 lb BMI Iyogbyywtd61.77 kg/m2 BSA Calculated2.52 Tobacco Useb) No PHQ-2 #1. Over the last 2 weeks have you felt down, depressed or hopeless? (If yes, answer PHQ-9 below)No PHQ-2 #2. Over the last 2 weeks have you felt little interest or pleasure in doing things? (If yes, answer PHQ-9 below)No Fall Screeninga) No falls within the last year Signatures Electronically signed by : Kaushik Guzman DO; Sep 04 2021 9:16AM EST (Author) Normal [employer] Tobacco Screening.on 022 Adult depression screening assessment No [employer] [facility] [address] DO Work Phone: Fall risk assessment a) No falls within the last year [facility] [address] DO Work Phone: Tobacco use status [facility] b) No [facility] [address] DO Work Phone: Complete Blood Count with Au to Diffon 04-24-2021 Basophils (Bld) [#/Vol] 0.05 10*3/uL Normal 0.00-0.20 [facility] Comment on above: Performed By: #### C BCAD, CMP, LIPD #### [facility] [address] [place], [place] [id number] Basophils/100 WBC (Bld) 0.8 % Normal [facility] Comment on above: Performed By: #### C BCAD, CMP, LIPD #### [facility] [address] [place], [place] [id number] Eosinophils (Bld) [#/Vol] 0.17 10*3/uL Normal 0.02-0.50 [facility] Specialist Comment on above: Performed By: #### C BCAD, CMP, LIPD #### [facility] [address] [facility] [place] [id number] Eosinophils/100 WBC (Bld) 2.6 % Normal [facility] Comment on above: Performed By: #### C BCAD, CMP, LIPD #### [facility] [address] [place], [place] [id number] Erythrocyte distribution width (RBC) [Ratio] 13.1 % Normal 11.0-15.0 [facility] Comment on above: Performed By: #### C BCAD, CMP, LIPD #### [facility] [address] [place], [place] [id number] Hematocrit (Bld) [Volume fraction] 48.9 % Normal 38.5-50.0 [facility] Special[facility] Comment on above: Performed By: #### C BCAD, CMP, LIPD #### [facility] [address] [place], [place] [id number] Hemoglobin (Bld) [Mass/Vol] 16.4 g/dL Normal 13.0-17.1 [facility] Specialist Comment on above: Performed By: #### C BCAD, CMP, LIPD #### [facility] [address] [place], [place] [id number] Lymphocytes (Bld) [#/Vol] 1.7 10*3/uL Normal 0.9-3.9 [facility] Special[facility] Comment on above: Performed By: #### C BCAD, CMP, LIPD #### [facility] [address] [place], [place] [id number] Lymphocytes/100 WBC (Bld) 25.3 % Normal [facility] Specialist Comment on above: Performed By: #### C BCAD, CMP, LIPD #### [facility] [address] [place], [place] [id number] MCH (RBC) [Entitic mass] 30.8 pg Normal 27.0-33.0 [facility] Specialist Comment on above: Performed By: #### C BCAD, CMP, LIPD #### [facility] [address] [place], [place] [id number] MCHC (RBC) [Mass/Vol] 33.5 g/dL Normal 32.0-36.0 [facility] Comment on above: Performed By: #### C BCAD, CMP, LIPD #### [facility] [address] [place], [place] [id number] MCV (RBC) [Entitic vol] 92 fL Normal 80-100 [facility] Specialist Comment on above: Performed By: #### C BCAD, CMP, LIPD #### [facility] [address] [place], [place] [id number] Monocytes (Bld) [#/Vol] 1.0 10*3/uL High 0.2-0.9 [facility] Special[facility] Comment on above: Performed By: #### C BCAD, CMP, LIPD #### [facility] [address] [place], [place] [id number] Monocytes/100 WBC (Bld) 15.4 % Normal [facility] Specialist Comment on above: Performed By: #### C BCAD, CMP, LIPD #### [facility] [address] [place], [place] [id number] Neutrophils (Bld) [#/Vol] 3.6 10*3/uL Normal 1.5-7.8 [facility] Special[facility] Comment on above: Performed By: #### C BCAD, CMP, LIPD #### [facility] [address] [place], [place] [id number] Neutrophils/100 WBC (Bld) 55.3 % Normal [facility] Specialist Comment on above: Performed By: #### C BCAD, CMP, LIPD #### [facility] [address] [place], [place] [id number] Platelet mean volume (Bld) [Entitic vol] 11.40 fL Normal 7.50-12.50 [facility] Specialist Comment on above: Performed By: #### C BCAD, CMP, LIPD #### [facility] [address] [place], [place] [id number] Platelets (Bld) [#/Vol] 216 10*3/uL Normal 140-400 [facility] Specialist Comment on above: Performed By: #### C BCAD, CMP, LIPD #### [facility] [address] [place], [place] [id number] RBC (Bld) [#/Vol] 5.32 10*6/uL Normal 4.20-5.80 [facility] Comment on above: Performed By: #### C BCAD, CMP, LIPD #### [facility] [address] [place], [place] [id number] RDW-SD 43.8 fL Normal 37.0-50.0 [facility] Specialist Comment on above: Performed By: #### C BCAD, CMP, LIPD #### [facility] [address] [place], [place] [id number] WBC (Bld) [#/Vol] 6.6 10*3/uL Normal 3.8-11.0 [facility] Specialist Comment on above: Performed By: #### C BCAD, CMP, LIPD #### [facility] [address] [place], [place] [id number] Comprehensive Metabolic Pane harrison 04-24-2021 Albumin [Mass/Vol] 4.8 g/dL Normal 3.6-5.1 [facility] Specialist Comment on above: Performed By: #### C BCAD, CMP, LIPD #### [facility] [address] [place], [place] [id number] Albumin/Globulin [Mass ratio] 1.9 {ratio} Normal 1.0-2.5 [facility] Comment on above: Performed By: #### C BCAD, CMP, LIPD #### [facility] [address] [place], [place] [id number] ALP [Catalytic activity/Vol] 85 U/L Normal 40-129 [facility] Specialist Comment on above: Performed By: #### C BCAD, CMP, LIPD #### [facility] [address] [place], [place] [id number] ALT [Catalytic activity/Vol] 17 U/L Normal 9-46 [facility] Specialist Comment on above: Result Comment: 04/18 Female reference range changed. Performed By: #### C BCAD, CMP, LIPD #### [facility] [address] [place], [place] [id number] Anion gap [Moles/Vol] 19 mmol/L Normal 12-20 [facility] Comment on above: Result Comment: Shruti ctive 05/24/2019 reference range changed. Performed By: #### C BCAD, CMP, LIPD #### [facility] [address] [place], [place] [id number] AST [Catalytic activity/Vol] 19 U/L Normal 10-40 [facility] Comment on above: Performed By: #### C BCAD, CMP, LIPD #### [facility] [address] [place], [place] [id number] Bilirubin [Mass/Vol] 0.84 mg/dL Normal 0.30-1.20 [facility] Comment on above: Performed By: #### C BCAD, CMP, LIPD #### [facility] [address] [place], [place] [id number] BUN/CREA 18 Ratio Normal 6-22 [facility] Comment on above: Performed By: #### C BCAD, CMP, LIPD #### [facility] [address] [place], [place] [id number] Calcium [Mass/Vol] 10.5 mg/dL High 8.6-10.2 [facility] Comment on above: Performed By: #### C BCAD, CMP, LIPD #### [facility] [address] [place], [place] [id number] Chloride [Moles/Vol] 104 mmol/L Normal 98-107 [facility] Comment on above: Performed By: #### C BCAD, CMP, LIPD #### [facility] [address] [place], [place] [id number] CO2 [Moles/Vol] 24 mmol/L Normal 20-31 [facility] Comment on above: Performed By: #### C BCAD, CMP, LIPD #### [facility] [address] [facility] [place] [id number] Creatinine [Mass/Vol] 0.8 mg/dL Normal 0.7-1.4 [facility] Specialist Comment on above: Performed By: #### C BCAD, CMP, LIPD #### [facility] [address] [place], [place] [id number] eGFRAA 116 mL/min/1.73m2 Normal >60 [facility] Specialist Comment on above: Performed By: #### C BCAD, CMP, LIPD #### [facility] [address] [place], [place] [id number] eGFRNAA 95 mL/min/1.73m2 Normal >60 [facility] Specialist Comment on above: Performed By: #### C BCAD, CMP, LIPD #### [facility] [address] [place], [place] [id number] Globulin (S) [Mass/Vol] 2.5 g/dL Normal 1.9-3.7 [facility] Specialist Comment on above: Performed By: #### C BCAD, CMP, LIPD #### [facility] [address] [place], [place] [id number] Glucose [Mass/Vol] 107 mg/dL High 65-99 [facility] Comment on above: Result Comment: For FASTING Glucose --- ADA reference ranges: Normal 65-99 mg/dl Prediabetes 100-125 Diabetes >/= 126 Performed By: #### C BCAD, CMP, LIPD #### [facility] [address] [place], [place] [id number] Potassium [Moles/Vol] 4.8 mmol/L Normal 3.5-5.5 [facility] Specialist Comment on above: Performed By: #### C BCAD, CMP, LIPD #### [facility] [address] [place], [place] [id number] Protein [Mass/Vol] 7.3 g/dL Normal 6.1-8.1 [facility] [place] [facility] Comment on above: Performed By: #### C BCAD, CMP, LIPD #### [facility] [address] [place], [place] [id number] Sodium [Moles/Vol] 142 mmol/L Normal 135-146 [facility] [place] [facility] Comment on above: Performed By: #### C BCAD, CMP, LIPD #### [facility] [address] [place], [place] [id number] Urea nitrogen [Mass/Vol] 14 mg/dL Normal 7-25 [facility] Comment on above: Performed By: #### C BCAD, CMP, LIPD #### [facility] [address] [place], [place] [id number] Lipid Panelon 04-24-2021 Cholesterol [Mass/Vol] 138 mg/dL Normal 125-200 [facility] on above: Result Comment: Low risk < 200mg/dL Borderline risk 201-239 mg/dl High risk > or equal to 240 Performed By: #### C BCAD, CMP, LIPD #### [facility] [address] [place], [place] [id number] Cholesterol in HDL [Mass/Vol] 26 mg/dL Low >40 [facility] Comment on above: Result Comment: High Cardiovascular Risk HDL <40 mg/dL Low Cardiovascular Risk HDL > or equal to 60 mg/dl Performed By: #### C BCAD, CMP, LIPD #### [facility] [address] [place], [place] [id number] Cholesterol in LDL [Mass/Vol] 80 mg/dL Normal [facility] Comment on above: Result Comment: LDL ATP III CLASSIFICATION LDL less than 100 mg/dl Optimal LDL 100-129 mg/dl Near or above optimal LDL 130-159 Borderline high LDL 160-189 High LDL greater than 189 mg/dl Very High Performed By: #### C BCAD, CMP, LIPD #### [facility] [address] [place], [place] [id number] Cholesterol in VLDL [Mass/Vol] 32 mg/dL Normal [facility] Comment on above: Performed By: #### C BCAD, CMP, LIPD #### [facility] [address] [place], [place] [id number] Cholesterol.total/Chol esterol in HDL [Mass ratio] 5 {ratio} Normal [facility] Comment on above: Performed By: #### C BCAD, CMP, LIPD #### [facility] [address] [place], [place] [id number] Triglyceride [Mass/Vol] 160 mg/dL High 30-150 [facility] Comment on above: Result Comment: TRIG ATPIII CLASSIFICATIONS TRIG less than 150 mg/dl Normal TRIG 150-199 mg/dl Borderline High TRIG 200-500 mg/dl High TRIG greather than 500 mg/dl Very High Performed By: #### C BCAD, CMP, LIPD #### [facility] [address] [place], [place] [id number] Vital Signs Date Time Vital Sign Value Performing Clinician Facility 02-26-2024 09:08-0400 Body height 174 cm Katarina Daniels [place] Work Phone: [facility] [employer] 02-26-2024 09:08-0400 Body mass index (BMI) [Ratio] 45.25 kg/m2 Katarina Daniels [place] Work Phone: [facility] 02-26-2024 09:08-0400 Body temperature 97.11 [degF] Katarina Daniels [place] Work Phone: [facility] [employer] 02-26-2024 09:08-0400 Body weight 136.99 kg Katarina Daniels [place] Work Phone: [facility] 02-26-2024 09:08-0400 Diastolic blood pressure 72 mm[Hg] Katarina Daniels [place] Work Phone: [facility] [employer] 02-26-2024 09:08-0400 Heart rate 58 /min Katarina Daniels [place] Work Phone: [facility] [employer] 02-26-2024 09:08-0400 SaO2% (BldA) [Mass fraction] 98 % Katarina Daniels [place] Work Phone: [facility] 02-26-2024 09:08-0400 Systolic blood pressure 116 mm[Hg] Katarina Daniels [place] Work Phone: [facility] 01-01-2024 09:48-0400 Body height 173 cm Aba Amaya MD Work Phone: [facility] 01-01-2024 09:48-0400 Body mass index (BMI) [Ratio] 47.28 kg/m2 Aba Amaya MD Work Phone: [facility] 01-01-2024 09:48-0400 Body temperature 97.81 [degF] Aba Amaya MD Work Phone: [facility] 01-01-2024 09:48-0400 Body weight 141.5 kg Aba Amaya MD Work Phone: [facility] 01-01-2024 09:48-0400 Diastolic blood pressure 79 mm[Hg] Aba Amaya MD Work Phone: [facility] 01-01-2024 09:48-0400 Heart rate 53 /min Aba Amaya MD Work Phone: [facility] 01-01-2024 09:48-0400 Respiratory rate 18 /min Aba Amaya MD Work Phone: [facility] 01-01-2024 09:48-0400 SaO2% (BldA) [Mass fraction] 98 % Aba Amaya MD Work Phone: [facility] 01-01-2024 09:48-0400 Systolic blood pressure 113 mm[Hg] Aba Amaya MD Work Phone: [facility] 12-24-2023 09:41-0400 Blood Pressure Location Elliot AN [facility] 12-24-2023 09:41-0400 Diastolic blood pressure 80 mm[Hg] Elliot AN [facility] 12-24-2023 09:41-0400 Heart rate 60 /min Elliot AN [facility] 12-24-2023 09:41-0400 Respiratory rate 16 /min Elliot AN [facility] 12-24-2023 09:41-0400 Systolic blood pressure 130 mm[Hg] Elliot AN [facility] 10-21-2023 09:19-0400 Body height 176.53 cm [facility] 10-21-2023 09:19-0400 Body mass index (BMI) [Ratio] 47.5 kg/m2 [facility] 10-21-2023 09:19-0400 Body weight 148.32 kg [facility] 10-21-2023 09:19-0400 Diastolic blood pressure 81 mm[Hg] [facility] 10-21-2023 09:19-0400 Heart rate 60 /min [facility] 10-21-2023 09:19-0400 SaO2% (BldA) [Mass fraction] 98 % [facility] 10-21-2023 09:19-0400 Systolic blood pressure 130 mm[Hg] [facility] 08-28-2023 09:11-0400 Body height 173 cm Aba Amaya MD Work Phone: [facility] 08-28-2023 09:11-0400 Body temperature 97.9 [degF] Aba Amaya MD Work Phone: [facility] 08-28-2023 09:11-0400 Body weight 145.9 kg Aba Amaya MD Work Phone: [facility] 08-28-2023 09:11-0400 Diastolic blood pressure 83 mm[Hg] Aba Amaya MD Work Phone: [facility] 08-28-2023 09:11-0400 Heart rate 58 /min Aba Amaya MD Work Phone: [facility] 08-28-2023 09:11-0400 Respiratory rate 18 /min Aba Amaya MD Work Phone: [facility] 08-28-2023 09:11-0400 SaO2% (BldA) [Mass fraction] 100 % Aba Amaya MD Work Phone: [facility] 08-28-2023 09:11-0400 Systolic blood pressure 130 mm[Hg] Aba Amaya MD Work Phone: [facility] 07-17-2023 09:29-0500 Body height 173 cm Aba Amaya MD Work Phone: [facility] 07-17-2023 09:29-0500 Body temperature 97.11 [degF] Aba Amaya MD Work Phone: [facility] 07-17-2023 09:29-0500 Body weight 148.2 kg Aba Amaya MD Work Phone: [facility] 07-17-2023 09:29-0500 Diastolic blood pressure 86 mm[Hg] Aba Amaya MD Work Phone: [facility] 07-17-2023 09:29-0500 Heart rate 55 /min Aba Amaya MD Work Phone: [facility] 07-17-2023 09:29-0500 Respiratory rate 16 /min Aba Amaya MD Work Phone: [facility] 07-17-2023 09:29-0500 SaO2% (BldA) [Mass fraction] 96 % Aba Amaya MD Work Phone: [facility] 07-17-2023 09:29-0500 Systolic blood pressure 100 mm[Hg] Aba Amaya MD Work Phone: [facility] 04-24-2023 09:59-0500 Body height 173 cm Lucio Damon APRN.ORDER CLERK Work Phone: [facility] 04-24-2023 09:59-0500 Body temperature 97.39 [degF] Lucio Damon APRN.ORDER CLERK Work Phone: [facility] 04-24-2023 09:59-0500 Body weight 143.7 kg Lucio Damon APRN.ORDER CLERK Work Phone: [facility] 04-24-2023 09:59-0500 Diastolic blood pressure 67 mm[Hg] Lucio Damon APRN.ORDER CLERK Work Phone: [facility] 04-24-2023 09:59-0500 Heart rate 56 /min Lucio Damon APRN.ORDER CLERK Work Phone: [facility] 04-24-2023 09:59-0500 Respiratory rate 20 /min Lucio Damon APRN.ORDER CLERK Work Phone: [facility] 04-24-2023 09:59-0500 SaO2% (BldA) [Mass fraction] 98 % Lucio Damon APRN.ORDER CLERK Work Phone: [facility] 04-24-2023 09:59-0500 Systolic blood pressure 123 mm[Hg] Lucio Damon APRN.ORDER CLERK Work Phone: [facility] 04-03-2023 10:27-0500 Body height 173 cm Aba Amaya MD Work Phone: [facility] 04-03-2023 10:27-0500 Body temperature 97.39 [degF] Aba Amaya MD Work Phone: [facility] 04-03-2023 10:27-0500 Body weight 140.34 kg Aba Amaya MD Work Phone: [facility] 04-03-2023 10:27-0500 Diastolic blood pressure 69 mm[Hg] Aba Amaya MD Work Phone: [facility] 04-03-2023 10:27-0500 Heart rate 55 /min Aba Amaya MD Work Phone: [facility] 04-03-2023 10:27-0500 Respiratory rate 16 /min Aba Amaya MD Work Phone: [facility] 04-03-2023 10:27-0500 SaO2% (BldA) [Mass fraction] 97 % Aba Amaya MD Work Phone: [facility] 04-03-2023 10:27-0500 Systolic blood pressure 117 mm[Hg] Aba Amaya MD Work Phone: [facility] 02-26-2023 15:44-0400 Body height 170.2 cm Bala Urias MD Work Phone: [place] 02-26-2023 15:44-0400 Body mass index (BMI) [Ratio] 47.93 kg/m2 Bala Urias MD Work Phone: [facility] 02-26-2023 15:44-0400 Body weight 138.8 kg Bala Urias MD Work Phone: [facility] 02-26-2023 15:44-0400 Diastolic blood pressure 70 mm[Hg] Bala Urias MD Work Phone: [facility] 02-26-2023 15:44-0400 Heart rate 58 /min Bala Urias MD Work Phone: [facility] 02-26-2023 15:44-0400 Systolic blood pressure 120 mm[Hg] Bala Urias MD Work Phone: [place] 02-20-2023 09:12-0400 Body height 173 cm Lucio Damon APRN.ORDER CLERK Work Phone: [facility] 02-20-2023 09:12-0400 Body temperature 97.7 [degF] Lucio Damon APRN.ORDER CLERK Work Phone: [facility] 02-20-2023 09:12-0400 Body weight 139.44 kg Lucio Damon APRN.ORDER CLERK Work Phone: [facility] 02-20-2023 09:12-0400 Diastolic blood pressure 49 mm[Hg] Lucio Damon APRN.ORDER CLERK Work Phone: [facility] 02-20-2023 09:12-0400 Heart rate 71 /min Lucio Damon APRN.ORDER CLERK Work Phone: [facility] 02-20-2023 09:12-0400 Respiratory rate 16 /min Lucio Damon APRN.ORDER CLERK Work Phone: [facility] 02-20-2023 09:12-0400 SaO2% (BldA) [Mass fraction] 99 % Lucio Damon APRN.ORDER CLERK Work Phone: [facility] 02-20-2023 09:12-0400 Systolic blood pressure 143 mm[Hg] Lucio Damon APRN.ORDER CLERK Work Phone: [facility] 01-02-2023 09:36-0400 Body height 173 cm Aba Amaya MD Work Phone: [facility] 01-02-2023 09:36-0400 Body temperature 97.59 [degF] Aba Amaya MD Work Phone: [facility] 01-02-2023 09:36-0400 Body weight 136.53 kg Aba Amaya MD Work Phone: [facility] 01-02-2023 09:36-0400 Diastolic blood pressure 66 mm[Hg] Aba Amaya MD Work Phone: [facility] 01-02-2023 09:36-0400 Heart rate 51 /min Aba Amaya MD Work Phone: [facility] 01-02-2023 09:36-0400 Respiratory rate 16 /min Aba Amaya MD Work Phone: [facility] 01-02-2023 09:36-0400 SaO2% (BldA) [Mass fraction] 100 % Aba Amaya MD Work Phone: [facility] 01-02-2023 09:36-0400 Systolic blood pressure 118 mm[Hg] Aba Amaya MD Work Phone: [facility] 12-12-2022 13:20-0400 Body height 173 cm Lucio Damon APRN.ORDER CLERK Work Phone: [facility] 12-12-2022 13:20-0400 Body temperature 97.3 [degF] Lucio Damon APRN.ORDER CLERK Work Phone: [facility] 12-12-2022 13:20-0400 Body weight 136.44 kg Lucio Damon APRN.ORDER CLERK Work Phone: [facility] 12-12-2022 13:20-0400 Diastolic blood pressure 85 mm[Hg] Lucio Damon APRN.ORDER CLERK Work Phone: [facility] 12-12-2022 13:20-0400 Heart rate 60 /min Lucio Damon APRN.ORDER CLERK Work Phone: [facility] 07-27-2023 13:20-0400 Respiratory rate 16 /min Lucio Damon APRN.ORDER CLERK Work Phone: [facility] 12-12-2022 13:20-0400 SaO2% (BldA) [Mass fraction] 97 % Lucio Damon APRN.ORDER CLERK Work Phone: [facility] 12-12-2022 13:20-0400 Systolic blood pressure 132 mm[Hg] Lucio Damon APRN.ORDER CLERK Work Phone: [facility] 11-21-2022 09:44-0400 Body height 173 cm Lara Russell PA-C Work Phone: [facility] 11-21-2022 09:44-0400 Body temperature 97.39 [degF] Lara Russell PA-C Work Phone: [facility] 11-21-2022 09:44-0400 Body weight 136.35 kg Lara Russell PA-C Work Phone: [facility] 11-21-2022 09:44-0400 Diastolic blood pressure 80 mm[Hg] Lara Russell PA-C Work Phone: [facility] 11-21-2022 09:44-0400 Heart rate 50 /min Lara Russell PA-C Work Phone: [facility] 11-21-2022 09:44-0400 Respiratory rate 16 /min Lara Russell PA-C Work Phone: [facility] 11-21-2022 09:44-0400 SaO2% (BldA) [Mass fraction] 97 % Lara Russell PA-C Work Phone: [facility] 11-21-2022 09:44-0400 Systolic blood pressure 117 mm[Hg] Alra Russell PA-C Work Phone: [facility] 10-31-2022 10:13-0400 Body height 173 cm Aba Amaya MD Work Phone: [facility] 10-31-2022 10:13-0400 Body temperature 97.59 [degF] Aba Amaya MD Work Phone: [facility] 10-31-2022 10:13-0400 Body weight 133.27 kg Aba Amaya MD Work Phone: [facility] 10-31-2022 10:13-0400 Diastolic blood pressure 59 mm[Hg] Aba Amaya MD Work Phone: [facility] 10-31-2022 10:13-0400 Heart rate 63 /min Aba Amaya MD Work Phone: [facility] 10-31-2022 10:13-0400 Respiratory rate 16 /min Aba Amaya MD Work Phone: [facility] 10-31-2022 10:13-0400 SaO2% (BldA) [Mass fraction] 96 % Aba Amaya MD Work Phone: [facility] 10-31-2022 10:13-0400 Systolic blood pressure 118 mm[Hg] Aba Amaya MD Work Phone: [facility] 10-17-2022 13:30-0400 Body height 177.8 cm Ebony Reyes Other [employer] Other 10-17-2022 13:30-0400 Body mass index (BMI) [Ratio] 42.75 kg/m2 Ebony Reyes Other [employer] Other 10-17-2022 13:30-0400 Body weight 135.17 kg Ebony Reyes Other [employer] Other 10-17-2022 13:30-0400 Diastolic blood pressure 72 mm[Hg] Ebony Reyes Other [employer] Other 10-17-2022 13:30-0400 SaO2% (BldA) [Mass fraction] 98 % Ebony Reyes Other [employer] Other 10-17-2022 13:30-0400 Systolic blood pressure 119 mm[Hg] Ebony Reyes Other [employer] Other 09-19-2022 13:01-0400 Body height 173 cm Aba Amaya MD Work Phone: [facility] 09-19-2022 13:01-0400 Body temperature 97.81 [degF] Aba Amaya MD Work Phone: [facility] 09-19-2022 13:01-0400 Body weight 136.35 kg Aba Amaya MD Work Phone: [facility] 09-19-2022 13:01-0400 Diastolic blood pressure 58 mm[Hg] Aba Amaya MD Work Phone: [facility] 09-19-2022 13:01-0400 Heart rate 56 /min Aba Amaya MD Work Phone: [facility] 09-19-2022 13:01-0400 Respiratory rate 16 /min Aba Amaya MD Work Phone: [facility] 09-19-2022 13:01-0400 SaO2% (BldA) [Mass fraction] 98 % Aba Amaya MD Work Phone: [facility] 09-19-2022 13:01-0400 Systolic blood pressure 110 mm[Hg] Aba Amaya MD Work Phone: [facility] 08-29-2022 10:53-0400 Body height 177.8 cm Aba Amaya MD Work Phone: [facility] 08-29-2022 10:53-0400 Body temperature 96.91 [degF] Aba Amaya MD Work Phone: [facility] 08-29-2022 10:53-0400 Body weight 134.9 kg Aba Amaya MD Work Phone: [facility] 08-29-2022 10:53-0400 Diastolic blood pressure 61 mm[Hg] Aba Amaya MD Work Phone: [facility] 08-29-2022 10:53-0400 Heart rate 56 /min Aba Amaya MD Work Phone: [facility] 08-29-2022 10:53-0400 Respiratory rate 18 /min Aba Amaya MD Work Phone: [facility] 08-29-2022 10:53-0400 SaO2% (BldA) [Mass fraction] 97 % Aba Amaya MD Work Phone: [facility] 08-29-2022 10:53-0400 Systolic blood pressure 112 mm[Hg] Aba Amaya MD Work Phone: [facility] 08-05-2022 10:41-0400 Body height 177.8 cm Pacc 8 Work Phone: [facility] 08-05-2022 10:41-0400 Body temperature 97.7 [degF] Pacc 8 Work Phone: [facility] 08-05-2022 10:41-0400 Body weight 137.89 kg Pacc 8 Work Phone: [facility] 08-05-2022 10:41-0400 Diastolic blood pressure 73 mm[Hg] Pacc 8 Work Phone: [facility] 08-05-2022 10:41-0400 Heart rate 57 /min Pacc 8 Work Phone: [facility] 08-05-2022 10:41-0400 SaO2% (BldA) [Mass fraction] 98 % Pacc 8 Work Phone: [facility] 08-05-2022 10:41-0400 Systolic blood pressure 114 mm[Hg] Pacc 8 Work Phone: [facility] 08-02-2022 09:07-0400 Body weight 138.71 kg Florencio Rose MD Work Phone: [facility] 08-02-2022 09:07-0400 Diastolic blood pressure 77 mm[Hg] Florencio Rose MD Work Phone: [facility] 08-02-2022 09:07-0400 Heart rate 77 /min Florencio Rose MD Work Phone: [facility] 08-02-2022 09:07-0400 Systolic blood pressure 131 mm[Hg] Florencio Rose MD Work Phone: [facility] 07-16-2022 09:04-0500 Diastolic blood pressure 77 mm[Hg] Sathish Ordoneze [facility] 07-16-2022 09:04-0500 Heart rate 69 /min Sathish Ricco [facility] 07-16-2022 09:04-0500 Mean blood pressure 88 mm[Hg] Sathish Ricco [facility] 07-16-2022 09:04-0500 SaO2% (BldA) [Mass fraction] 96 % Sathish Ricco [facility] 07-16-2022 09:04-0500 Systolic blood pressure 111 mm[Hg] Sathish Ricco [facility] 07-16-2022 09:03-0500 Hourly Rounding Sathish Ordoneze [facility] 07-16-2022 09:03-0500 Promise to Return Sathish Ordoneze [facility] 07-16-2022 08:00-0500 Diastolic blood pressure 76 mm[Hg] Sathish Ricco [facility] 07-16-2022 08:00-0500 Heart rate 64 /min Sathish Ricco [facility] 07-16-2022 08:00-0500 Hourly Rounding Sathish Ordoneze [facility] 07-16-2022 08:00-0500 Mean blood pressure 94 mm[Hg] Sathish Ricco [facility] 07-16-2022 08:00-0500 Promise to Return Sathish Chacko [facility] 07-16-2022 08:00-0500 Systolic blood pressure 131 mm[Hg] Sathish Chacko [facility] 07-16-2022 07:09-0500 Body temperature 97.52 [degF] Sathish Chacko [facility] 07-16-2022 07:09-0500 Diastolic blood pressure 86 mm[Hg] Sathish Chacko [facility] 07-16-2022 07:09-0500 Heart rate 77 /min Sathish Chacko [facility] 07-16-2022 07:09-0500 Respiratory rate 18 /min Sathish Chacko [facility] 07-16-2022 07:09-0500 SaO2% (BldA) [Mass fraction] 97 % Sathish Chacko [facility] 07-16-2022 07:09-0500 Systolic blood pressure 146 mm[Hg] Sathish Chacko [facility] 09-04-2021 08:58-0400 Body height 177.8 cm Katarina Baumhattie Work Phone: [facility] [employer] 250 DO Work Phone: 09-04-2021 08:58-0400 Body mass index (BMI) [Ratio] 44.77 kg/m2 Katarina Cristy Baumhattie Work Phone: [facility] [employer] 250 DO Work Phone: 09-04-2021 08:58-0400 Body surface area Derived from formula 2.52 m2 Katarina Cristy Baumhattie Work Phone: [facility] [employer] 250 DO Work Phone: 09-04-2021 08:58-0400 Body weight 141.52 kg Katarina Daniels Work Phone: [facility] 250 DO Work Phone: 09-04-2021 08:58-0400 Diastolic blood pressure 88 mm[Hg] Katarina Daniels Work Phone: [facility] 250 DO Work Phone: 09-04-2021 08:58-0400 Heart rate 63 /min Katarina Daniels Work Phone: [facility] 250 DO Work Phone: 09-04-2021 08:58-0400 Systolic blood pressure 135 mm[Hg] Katarina Daniels Work Phone: [facility] 250 DO Work Phone: Encounters Encounter Date Encounter Type Care Provider Facility Start: 03-04-2024 ambulatory Elliot Guerin ty:[id number] Start: 02-26-2024 End: 02-26-2024 Bamboo flowsheet Katarina Daniels DO Work Phone: [facility] Start: 02-26-2024 End: 02-26-2024 Bamboo flowsheet Katarina Daniels DO Work Phone: [facility] Start: 02-26-2024 End: 02-26-2024 Office outpatient visit 15 minutes Katarina Daniels DO Work Phone: [facility] Comment on above: Bladder stones (Prim ly Dx); Stage 3a chronic kidney disease (HCC) (CMS/HCC); Hyperkalemia Start: 02-26-2024 End: 02-26-2024 ambulatory KATARINA DANIELS Not Available Start: 02-19-2024 End: 02-19-2024 Clinisync Result Encounter Generic External Data Provider [facility] External Department Unsolicited Start: 02-19-2024 End: 02-19-2024 Clinisync Result Encounter Generic External Data Provider [facility] External Department Unsolicited Start: 02-17-2024 End: 02-17-2024 Refill Zohaib Cohen KIM Work Phone: [facility] Comment on above: Neuropathy Start: 01-20-2024 End: 01-20-2024 ambulatory Elliot AN Facility:[facility] Start: 01-20-2024 End: 01-20-2024 Patient encounter procedure Elliot AN [facility] Start: 01-07-2024 End: 01-07-2024 ambulatory KATARINA Cristy MARTINGLORY Not Available Start: 01-01-2024 End: 01-01-2024 ambulatory Aba Amaya MD Work Phone: Hematology/Oncology Comment on above: Cancer of left kidne y (HCC) (Primary Dx); Hypothyroidism due to medication Start: 01-01-2024 End: 01-01-2024 Patient encounter procedure Aba Amaya MD Work Phone: Hematology/Oncology Start: 12-25-2023 End: 12-25-2023 ambulatory ABA AMAYA Facility:[facility] Start: 12-25-2023 End: 12-25-2023 Subsequent hospital visit by physician Arrival Time Radiology Work Phone: Radiology Pet CT Comment on above: Renal cell carcinoma of left kidney (HCC) [C64.2] Start: 12-24-2023 End: 12-24-2023 ambulatory Elliot AN Facility:[facility] Start: 12-24-2023 End: 12-24-2023 Lab Drop off Elliot AN [facility] Start: 12-24-2023 End: 12-24-2023 ambulatory Elliot AN Facility:[facility] Start: 12-24-2023 End: 12-24-2023 Patient encounter procedure Elliot AN [facility] [place] Start: 12-22-2023 Telephone encounter Nirmala christensen RN Work Phone: Hematology/Oncology Comment on above: Care Coordination (L bradley Request) Start: 12-22-2023 End: 12-22-2023 ambulatory KATARINA DANIELS JR Facility:[facility] Start: 12-15-2023 End: 12-15-2023 ambulatory [facility] Start: 11-14-2023 Telephone encounter Nirmala christensen RN Work Phone: Hematology/Oncology Comment on above: Results (TSH) Start: 11-13-2023 End: 11-13-2023 ambulatory ABA AMAYA Facility:[facility] Start: 10-21-2023 End: 10-21-2023 ambulatory [facility] Work Phone: Start: 10-21-2023 End: 10-21-2023 Patient encounter procedure [facility] Work Phone: Start: 10-07-2023 End: 10-07-2023 ambulatory TAYE MENDOZA Not Available Start: 10-03-2023 Telephone encounter Yoon Alex Hematology/Oncology Comment on above: Results Start: 10-02-2023 End: 10-02-2023 ambulatory KATARINA DANIELS JR Facility:[facility] Start: 08-28-2023 End: 08-28-2023 ambulatory Neel Magana Work Phone: Hematology/Oncology Comment on above: Cancer of left kidne y (HCC) (Primary Dx) Renal cell carcinoma of left kidney (HCC) (Primary Dx); Hypothyroidism due to medication Start: 08-28-2023 End: 08-28-2023 Patient encounter procedure Aba Amaya MD Work Phone: IZZY Start: 08-27-2023 End: 08-27-2023 ambulatory ABA AMAYA Facility:[facility] Start: 07-21-2023 Telephone encounter Nirmala christensen RN Work Phone: Hematology/Oncology Comment on above: Care Coordination (T SH Results) Start: 07-17-2023 End: 07-17-2023 Patient encounter procedure Aba Amaya MD Work Phone: IZZY Start: 07-17-2023 End: 07-17-2023 ambulatory Chair 14 Izzy Work Phone: Hematology/Oncology Comment on above: Cancer of left kidne y (HCC) (Primary Dx) Renal cell carcinoma of left kidney (HCC) (Primary Dx) Start: 07-17-2023 End: 07-17-2023 ambulatory ABA AMAYA Facility:[facility] Start: 07-10-2023 End: 07-10-2023 ambulatory ABA AMAYA Facility:[facility] Start: 07-10-2023 End: 07-10-2023 Subsequent hospital visit by physician Arrival Time Radiology Work Phone: Radiology Pet CT Comment on above: Renal cell carcinoma of left kidney (HCC) [C64.2] Start: 06-05-2023 End: 06-05-2023 ambulatory ABA AMAYA Facility:[facility] Start: 05-21-2023 End: 05-21-2023 ambulatory Elliot AN Facility:[facility] [place] Start: 05-21-2023 End: 05-21-2023 Patient encounter procedure Elliot AN [facility] Izzy Start: 04-24-2023 End: 04-24-2023 Patient encounter procedure Lucio Damon APRN.CNP Work Phone: IZZY Start: 04-24-2023 End: 04-24-2023 ambulatory Chair 15 Izzy Work Phone: Hematology/Oncology Comment on above: Cancer of left kidne y (HCC) (Primary Dx) Renal cell carcinoma of left kidney (HCC) (Primary Dx); Elevated prostate specific antigen (PSA); Malaise and fatigue; Atrial fibrillation, unspecified type (HCC); Lower extremity edema; Stage 3 chronic kidney disease, unspecified whether stage 3a or 3b CKD (HCC) Start: 04-22-2023 End: 04-22-2023 ambulatory Elliot AN Facility:[facility] Start: 04-04-2023 End: 04-04-2023 ambulatory KATARINA DANIELS Not Available Start: 04-03-2023 End: 04-03-2023 Patient encounter procedure Aba Amaya MD Work Phone: IZZY Start: 04-03-2023 End: 04-03-2023 ambulatory Aba Amaya MD Work Phone: Hematology/Oncology Comment on above: Renal cell carcinoma of left kidney (HCC) (Primary Dx); Elevated prostate specific antigen (PSA) Start: 03-31-2023 Telephone encounter Nirmala christensen RN Work Phone: Hematology/Oncology Comment on above: Care Coordination (C learance Request) Start: 02-26-2023 End: 02-26-2023 Office outpatient visit 15 minutes Bala Urias MD Work Phone: [facility] Comment on above: Chronic atrial fibri llation (CMS/HCC) (Primary Dx); Morbid obesity with BMI of 40.0-44.9, adult (CMS/HCC); Essential tremor Start: 02-26-2023 End: 02-26-2023 [facility] Start: 02-20-2023 End: 02-20-2023 Patient encounter procedure Lucio Damon APRN.CNP Work Phone: IZZY Start: 02-20-2023 End: 02-20-2023 ambulatory Chair 13 Izzy Work Phone: Hematology/Oncology Comment on above: Cancer of left kidne y (HCC) (Primary Dx) Renal cell carcinoma of left kidney (HCC) (Primary Dx); Malaise and fatigue; Stage 3 chronic kidney disease, unspecified whether stage 3a or 3b CKD (HCC) Start: 02-05-2023 End: 02-05-2023 ambulatory Elliot AN Facility:[facility] [place] Start: 01-23-2023 End: 01-23-2023 ambulatory Chair 13 Izzy Work Phone: Hematology/Oncology Comment on above: Renal cell carcinoma of left kidney (HCC) (Primary Dx); Cancer of left kidney (HCC) Start: 01-02-2023 End: 01-02-2023 Patient encounter procedure Aba Amaya MD Work Phone: IZZY Start: 01-02-2023 End: 01-02-2023 ambulatory Aba Amaya MD Work Phone: Hematology/Oncology Comment on above: Renal cell carcinoma of left kidney (HCC) (Primary Dx) Start: 12-26-2022 End: 12-26-2022 Subsequent hospital visit by physician Arrival Time Radiology Work Phone: Radiology Pet CT Comment on above: Renal cell carcinoma of left kidney (HCC) [C64.2] Start: 12-12-2022 End: 12-12-2022 ambulatory Chair 16 Izzy Work Phone: Hematology/Oncology Comment on above: Cancer of left kidne y (HCC) (Primary Dx) Renal cell carcinoma of left kidney (HCC) (Primary Dx); Obesity, Class III, BMI 40-49.9 (morbid obesity) (HCC); Stage 3 chronic kidney disease, unspecified whether stage 3a or 3b CKD (HCC) Start: 12-12-2022 End: 12-12-2022 Patient encounter procedure Lucio Damon APRN.CNP Work Phone: IZZY Start: 11-29-2022 End: 11-29-2022 ambulatory Florencio Rose MD Work Phone: Urology Comment on above: History of renal candido l carcinoma (Primary Dx); History of left nephrectomy Start: 11-29-2022 End: 11-29-2022 Telemedicine consultation with patient Florencio Rose MD Work Phone: [facility] Start: 11-21-2022 End: 11-21-2022 ambulatory Lara Wells PA-C Work Phone: Hematology/Oncology Comment on above: Renal cell carcinoma of left kidney (HCC) (Primary Dx); Malaise and fatigue; Obesity, Class III, BMI 40-49.9 (morbid obesity) (HCC) Cancer of left kidne y (HCC) (Primary Dx) Start: 11-21-2022 End: 11-21-2022 Patient encounter procedure Lara Wells PA-C Work Phone: IZZY Start: 11-20-2022 Telephone encounter Lara Carrington christoph PA-C Work Phone: Hematology/Oncology Comment on above: Lab Orders Start: 10-31-2022 End: 10-31-2022 ambulatory Chair 9 Izzy Work Phone: Hematology/Oncology Comment on above: Cancer of left kidne y (HCC) (Primary Dx) Renal cell carcinoma of left kidney (HCC) (Primary Dx) Start: 10-31-2022 End: 10-31-2022 Patient encounter procedure Aba Amaya MD Work Phone: IZZY Start: 10-17-2022 Office outpatient vi sit 25 minutes [facility] Start: 10-17-2022 End: 10-17-2022 ambulatory DO DeweySummer Florencio Frances Work Phone: [facility] Work Phone: Start: 10-17-2022 End: 10-17-2022 Patient encounter procedure DO Shelby Florencio Frances Work Phone: [facility]-Sleep Lab Work Phone: Start: 09-24-2022 Telephone encounter Nirmala christensen RN Work Phone: Hematology/Oncology Comment on above: Care Coordination (C 1D1 Post Treatment Call) Start: 09-19-2022 End: 09-19-2022 ambulatory Chair 16 Izzy Work Phone: Hematology/Oncology Comment on above: Cancer of left kidne y (HCC) (Primary Dx) Renal cell carcinoma of left kidney (HCC) (Primary Dx) Start: 09-19-2022 End: 09-19-2022 Patient encounter procedure Aba Amaya MD Work Phone: IZZY Start: 09-17-2022 Telephone encounter Niki Miguel RD Work Phone: Nutrition Therapy Comment on above: Returning Patient's Call Start: 08-29-2022 End: 08-29-2022 ambulatory Aba Amaya MD Work Phone: Hematology/Oncology Comment on above: Renal cell carcinoma of left kidney (HCC) (Primary Dx) Start: 08-29-2022 End: 08-29-2022 Patient encounter procedure Aba Amaya MD Work Phone: IZZY Start: 08-22-2022 End: 08-22-2022 ambulatory Amarilis Rosario FIREPERSON.ORDER CLERK Work Phone: Urology Comment on above: Renal cell carcinoma of left kidney (HCC) (Primary Dx); History of left nephrectomy; Postoperative wound infection; Post-operative pain Start: 08-22-2022 End: 08-22-2022 Telemedicine consultation with patient Amarilis Rosario FIREPERSON.ORDER CLERK Work Phone: [facility] Start: 08-06-2022 Telephone encounter Katarina haynes Work Phone: [facility] 250 DO Work Phone: Start: 08-05-2022 End: 08-05-2022 Patient encounter procedure Orlando Arita MD Work Phone: Urology Comment on above: Left renal mass (Karie omar Dx) Start: 08-05-2022 End: 08-05-2022 ambulatory Pacc Main 8 Work Phone: Pre Anesthesia Comment on above: Pre-op evaluation (P rimary Dx); Atrial fibrillation, unspecified type (HCC); GEOVANNA (obstructive sleep apnea) Start: 08-05-2022 Telephone encounter Omar Alex Pre Anesthesia Comment on above: Pre-op Labs Start: 08-05-2022 End: 08-05-2022 Admission to establishment Pacc Main 8 Work Phone: [facility] Start: 08-05-2022 End: 08-05-2022 Preprocedural examination done Pac Main 8 Work Phone: Pre Anesthesia Start: 08-02-2022 ambulatory Amairani Armstrong RN [facility] Start: 08-02-2022 End: 08-02-2022 Patient encounter procedure Florencio Rose MD Work Phone: Urology Comment on above: Left renal mass (Karie omar Dx); Renal mass; Left renal stone; Benign prostatic hyperplasia with urinary obstruction; Encounter for preprocedural cardiovascular examination ; Obstructive sleep apnea (adult) (pediatric) Start: 08-02-2022 End: 08-02-2022 Patient encounter status Florencio Rose MD Work Phone: Urology Start: 07-16-2022 End: 07-16-2022 Patient encounter procedure Florencio Muñoz ANGELY [facility] [place] Start: 07-16-2022 End: 07-16-2022 Emergency department patient visit Sathish Chacko [facility] Start: 12-31-2021 End: 12-31-2021 Patient encounter procedure Florencio AU [facility] Izzy Start: 09-04-2021 Office outpatient vi sit 25 minutes Katarina Daniels Work Phone: [facility] 250 DO Work Phone: Start: 08-29-2021 End: 08-29-2021 Patient encounter procedure Florencio AU [facility] Start: 08-27-2021 Rx Renewal Kaushik Guzman DO Work Phone: [facility] 250 DO Work Phone: Start: 07-03-2021 Rx Renewal Kaushik Guzman DO Work Phone: [facility] [employer] 250 DO Work Phone: Start: 06-19-2020 End: 06-19-2020 Discharged Carleen Daniels -Physical Therapy Viktor Start: 02-06-2018 End: 02-06-2018 Patient encounter Elliot Galvan Facility:[facility] Procedures Date Procedure Procedure Detail Performing Clinician Start: 02-19-2024 ALL CBC WITH AUTO DIFF Generic External Data Provider Start: 12-25-2023 Ct abdomen & pelvis w/contrast material Aba Amaya MD Work Phone: Start: 12-25-2023 Ct thorax w/contrast material Aba Amaya MD Work Phone: Start: 10-07-2023 Lipid 1996 panel - S yogi or Plasma Nirmala Regalado RN Work Phone: Start: 07-10-2023 Ct abdomen & pelvis w/contrast material Aba Amaya MD Work Phone: Start: 07-10-2023 Ct thorax w/contrast material Aba mAaya MD Work Phone: Start: 04-22-2023 Transrectal biopsy o f prostate using ultrasound guidance Elliot AN Start: 01-23-2023 Blood count complete auto&auto difrntl wbc Aba Amaya MD Work Phone: Start: 12-26-2022 Ct abdomen & pelvis w/o contrast material Lara Wells PA-C Work Phone: Start: 12-26-2022 Ct thorax w/o contra st material Lara Wells PA-C Work Phone: Start: 08-05-2022 Urnls dip stick/tabl et reagent auto microscopy Bulk Order Provider Start: 08-02-2022 Urnls dip stick/tabl et reagent auto microscopy Bulk Order Provider Start: 06-02-2020 Cystoscopy Florencio Lee Start: 05-29-2020 Total replacement of hip Florencio AU Start: 03-22-2020 Colonoscopy Chair Cami smith Work Phone: Start: 09-29-2018 Transurethral prostatectomy Florencio AU Start: 05-19-1984 Ankle region structu re (body structure) Florencio AU Colonoscopy Florencio AU Excision of left kidney Patr gurwinder AN Operative procedure on ankle Kaushik Lysjaja DO Work Phone: Procedure on prostate Samir cat Lyster DO Work Phone: Prostate destructive procedure Kaushik Lysjaja DO Work Phone: Prosthetic arthropla sty of the hip Kaushik Lyster DO Work Phone: Repair of shoulder Kaushik Cat yster DO Work Phone: Rotator cuff includi ng muscles and tendons (body structure) Florencio AU Total colonoscopy Kaushik Ly ster DO Work Phone: Total replacement of hip Efren katelin Daniels Work Phone: Transurethral prostatectomy Kaushik Guzman DO Work Phone: Plan of Treatment Date Care Activity Detail Author Start: 01-30-2031 DTaP/Tdap/Td Vaccine s (2 - Td or Tdap) DTaP/Tdap/Td Vaccines (2 - Td or Tdap) [place] Start: 01-30-2031 Urine microalbumin profile [facility] Start: 03-22-2030 Screening for malign ant neoplasm of colon [facility] Start: 10-06-2028 Lipid panel Lipid Screening [facility] Start: 12-21-2026 [facility] Start: 10-06-2026 Diabetes Screening Diabetes [facility] Start: 10-01-2026 Diabetes Screening [facility] Start: 08-26-2026 Diabetes Screening [facility] Start: 07-16-2026 Diabetes Screening [facility] Start: 04-24-2026 Diabetes Screening [facility] Start: 04-03-2026 Diabetes Screening [facility] Start: 02-20-2026 Diabetes Screening [facility] Start: 01-23-2026 DIABETES SCREEN DIABETES SCREEN [facility] Start: 01-02-2026 DIABETES SCREEN DIABETES SCREEN [facility] Start: 12-12-2025 DIABETES SCREEN DIABETES SCREEN [facility] Start: 11-21-2025 DIABETES SCREEN DIABETES SCREEN [facility] Start: 10-31-2025 DIABETES SCREEN DIABETES SCREEN [facility] Start: 09-19-2025 DIABETES SCREEN DIABETES SCREEN [facility] Start: 08-16-2025 DIABETES SCREEN DIABETES SCREEN [facility] Start: 08-05-2025 DIABETES SCREEN DIABETES SCREEN [facility] Start: 12-21-2024 Complete blood count Hemoglobin/Miguel tocnmt [facility] Start: 12-21-2024 Creatinine measurement Serum Creatin ine [facility] Start: 10-06-2024 Medicare Annual Wellness (AWV) Medicare Annual Wellness (AWV) [facility] Start: 10-01-2024 Complete blood count Hemoglobin/[facility] Start: 10-01-2024 Creatinine measurement Serum Creatin ine [facility] Start: 08-26-2024 Complete blood count Hemoglobin/[facility]uel [facility] Start: 08-26-2024 Creatinine measurement Serum Creatin ine [facility] Start: 07-22-2024 End: 07-22-2024 Follow-up encounter 07/22/2024 9:30 AM EST Visit (SP) Office Hematology/Oncology [address] [facility] [place] [address] Aba Amyaa MD [address] [facility] [place] [address] 29 week follow up after ct and lab Hematology/Oncology Comment on above: [address] up af [address] and lab Start: 07-16-2024 Complete blood count Hemoglobin/[facility]uel [facility] Start: 07-16-2024 Creatinine measurement Serum Creatin ine [facility] Start: 07-15-2024 End: 07-15-2024 Patient encounter procedure 07/15/2024 9:30 AM EST Appointment Radiology Pet CT [address] [place] [address] Ct CAP with contrast and lab Radiology Pet CT Comment on above: Ct CAP with contrast and lab Start: 04-24-2024 Hemoglobin/Hematocrit Hemoglobin/Hem atocrit [facility] Start: 04-24-2024 Serum Creatinine Serum Creatinine [facility] Start: 04-03-2024 Serum Creatinine Serum Creatinine Cl [facility] Start: 04-02-2024 End: 07-02-2024 T4/FTI/T4U T4/FTI/T4U Lab Routine Hypothyroidism due to medication Expected: 04/02/2024 (Approximate), Expires: 07/02/2024 [facility] Comment on above: Expected: 04/02/2024 (Approximate), Expires: 07/02/2024 Start: 04-02-2024 End: 07-02-2024 Thyrotropin [Units/volume] in Serum or Plasma THYROID STIMULATING HORMONE Lab Routine Hypothyroidism due to medication Expected: 04/02/2024 (Approximate), Expires: 07/02/2024 [facility] Comment on above: Expected: 04/02/2024 (Approximate), Expires: 07/02/2024 Start: 04-01-2024 End: 04-01-2024 Patient encounter procedure 04/01/2024 9:30 AM EST Office Visit [facility] [address] [place] [address] [place] [address] [facility] Comment on above: [facility] Start: 02-26-2024 End: 02-25-2025 Basic metabolic 1998 panel - Serum or Plasma Basic metabolic panel Lab Routine Stage 3a chronic kidney disease (HCC) (CMS/HCC) Hyperkalemia Expected: 02/26/2024 (Approximate), Expires: 02/25/2025 [facility] Work Phone: Comment on above: Expected: 02/26/2024 (Approximate), Expires: 02/25/2025 Start: 02-26-2024 End: 02-26-2024 Patient encounter procedure 02/26/2024 9:20 AM EDT Office Visit [facility] [address] [place] [address] Katarina Daniels DO [address] [place] [address] Arrived [facility] Comment on above: Arrived Start: 02-21-2024 Hemoglobin/Hematocrit Hemoglobin/Hem atocrit [facility] Start: 02-21-2024 Serum Creatinine Serum Creatinine Cl [facility] Start: 01-24-2024 SERUM CREATININE SERUM CREATININE Cl [facility] Start: 01-18-2024 Covid-19 Vaccine ( season) Covid-19 Vaccine ( season) [facility] Start: 01-18-2024 Influenza vaccination Influenza Vacc ine (#1) [facility] Start: 01-03-2024 HEMOGLOBIN/HEMATOCRIT HEMOGLOBIN/HEM ATOCRIT [facility] Start: 01-03-2024 SERUM CREATININE SERUM CREATININE Cl [facility] Start: 01-01-2024 End: 01-01-2024 Follow-up encounter 01/01/2024 10:00 AM EDT Visit (SP) Office Hematology/Oncology [address] [facility] [place] [address] Aba Amaya MD [address] [facility] [place] [address] 4 month follow up after ct and lab Hematology/Oncology Comment on above: [address] and lab Start: 12-25-2023 End: 12-25-2023 Patient encounter procedure 12/25/2023 8:45 AM EDT Appointment Radiology Pet CT [address] [facility] [place] [address] Ct CAP with contrast with lab Radiology Pet CT Comment on above: Ct CAP with contrast with lab Start: 12-18-2023 End: 12-18-2023 Patient encounter procedure 12/18/2023 9:50 AM EDT Office Visit [place] [address] [place] [id number] Bala Urias MD [address] [facility] [place] [address] [facility] Start: 12-13-2023 HEMOGLOBIN/HEMATOCRIT HEMOGLOBIN/HEM ATOCRIT [facility] Start: 12-13-2023 SERUM CREATININE SERUM CREATININE Cl [facility] Start: 11-14-2023 End: 02-13-2024 Thyrotropin [Units/volume] in Serum or Plasma THYROID STIMULATING HORMONE Lab Routine Hypothyroidism due to medication Expected: 11/14/2023, Expires: 02/13/2024 [facility] Work Phone: Comment on above: Expected: 11/14/2023 , Expires: 02/13/2024 Start: 11-14-2023 End: 02-13-2024 Thyroxine (T4) free [Mass/volume] in Serum or Plasma T4 FREE/FREE THYROXINE Lab Routine Hypothyroidism due to medication Expected: 11/14/2023, Expires: 02/13/2024 [facility] Comment on above: Expected: 11/14/2023 , Expires: 02/13/2024 Start: 11-13-2023 End: 11-13-2023 Patient encounter procedure 11/13/2023 9:15 AM EDT Office Visit [facility] [address] [place] [address] [place] [address] 6 week labs per phone encounter [facility] Comment on above: 6 week labs per phon e encounter Start: 10-02-2023 End: 01-01-2024 T4/FTI/T4U T4/FTI/T4U Lab Routine Hypothyroidism due to medication Expected: 10/02/2023 (Approximate), Expires: 01/01/2024 [facility] Work Phone: Comment on above: Expected: 10/02/2023 (Approximate), Expires: 01/01/2024 Start: 10-02-2023 End: 01-01-2024 Thyrotropin [Units/volume] in Serum or Plasma THYROID STIMULATING HORMONE Lab Routine Hypothyroidism due to medication Expected: 10/02/2023 (Approximate), Expires: 01/01/2024 [facility] Work Phone: Comment on above: Expected: 10/02/2023 (Approximate), Expires: 01/01/2024 Start: 07-04-2023 Medicare Annual Wellness Visit Medicare Annual Wellness Visit (AWV) [place] Start: 06-06-2023 End: 09-05-2023 CBC W Auto Differential panel - Blood CBC + DIFF Lab Routine Renal cell carcinoma of left kidney (HCC) Elevated prostate specific antigen (PSA) Malaise and fatigue Expected: 06/06/2023, Expires: 09/05/2023 [facility] Work Phone: Comment on above: Expected: 06/06/2023 , Expires: 09/05/2023 Start: 06-06-2023 End: 09-05-2023 Comprehensive metabolic 2000 panel - Serum or Plasma COMP METABOLIC PANEL Lab Routine Renal cell carcinoma of left kidney (HCC) Elevated prostate specific antigen (PSA) Malaise and fatigue Expected: 06/06/2023, Expires: 09/05/2023 [facility] Work Phone: Comment on above: Expected: 06/06/2023 , Expires: 09/05/2023 Start: 06-06-2023 End: 09-05-2023 Thyrotropin [Units/volume] in Serum or Plasma TSH BLD Lab Routine Renal cell carcinoma of left kidney (HCC) Elevated prostate specific antigen (PSA) Malaise and fatigue Expected: 06/06/2023, Expires: 09/05/2023 [facility] Work Phone: Comment on above: Expected: 06/06/2023 , Expires: 09/05/2023 Start: 06-05-2023 Covid-19 Vaccine (7 - Mixed Product series) Covid-19 Vaccine (7 - Mixed Product series) [facility] Start: 06-05-2023 Covid-19 Vaccine (2022-24 season) Covid-19 Vaccine ( season) [facility] Start: 05-19-2023 Advance Directive Discussion Advance Directive Discussion [facility] Start: 05-19-2023 Behavioral Health Screening Behavioral Health Screening [facility] Start: 05-19-2023 Depression Assessment Depression Ass essment [facility] Start: 04-08-2023 End: 06-08-2023 CBC W Auto Differential panel - Blood CBC + DIFF Lab Routine Renal cell carcinoma of left kidney (HCC) Malaise and fatigue Expected: 04/08/2023, Expires: 06/08/2023 [facility] Work Phone: Comment on above: Expected: 04/08/2023 , Expires: 06/08/2023 Start: 04-08-2023 End: 06-08-2023 Comprehensive metabolic 2000 panel - Serum or Plasma COMP METABOLIC PANEL Lab Routine Renal cell carcinoma of left kidney (HCC) Malaise and fatigue Expected: 04/08/2023, Expires: 06/08/2023 [facility] Work Phone: Comment on above: Expected: 04/08/2023 , Expires: 06/08/2023 Start: 04-08-2023 End: 06-08-2023 Thyrotropin [Units/volume] in Serum or Plasma TSH BLD Lab Routine Renal cell carcinoma of left kidney (HCC) Malaise and fatigue Expected: 04/08/2023, Expires: 06/08/2023 [facility] Work Phone: Comment on above: Expected: 04/08/2023 , Expires: 06/08/2023 Start: 03-31-2023 COVID-19 Vaccine (5 - Mixed Product series) COVID-19 Vaccine (5 - Mixed Product series) [place] Start: 03-07-2023 DIABETES SCREEN DIABETES SCREEN [facility] Start: 02-26-2023 FUV, Provider: Bala Urias, Status: Pen, Time: 3:50 PM FUV, Provider: Bala Urias, Status: Pen, Time: 3:50 PM [facility] 250 DO Work Phone: Start: 01-17-2023 Influenza vaccination INFLUENZA (#1) [facility] Start: 01-03-2023 End: 03-05-2023 CBC W Auto Differential panel - Blood CBC + DIFF Lab Routine Renal cell carcinoma of left kidney (HCC) Expected: 01/03/2023, Expires: 03/05/2023 [facility] Work Phone: Comment on above: Expected: 01/03/2023 , Expires: 03/05/2023 Start: 01-03-2023 End: 03-05-2023 Comprehensive metabolic 2000 panel - Serum or Plasma COMP METABOLIC PANEL Lab Routine Renal cell carcinoma of left kidney (HCC) Expected: 01/03/2023, Expires: 03/05/2023 [facility] Work Phone: Comment on above: Expected: 01/03/2023 , Expires: 03/05/2023 Start: 12-26-2022 End: 12-21-2023 Ct abdomen & pelvis w/o contrast material CT ABD/PEL WO IVCON Radiology Routine Renal cell carcinoma of left kidney (HCC) Malaise and fatigue Expected: 12/26/2022 (Approximate), Expires: 12/21/2023 [facility] Work Phone: Comment on above: Expected: 12/26/2022 (Approximate), Expires: 12/21/2023 Start: 12-26-2022 End: 12-21-2023 Ct thorax w/o contrast material CT CHEST WO IVCON Radiology Routine Renal cell carcinoma of left kidney (HCC) Malaise and fatigue Expected: 12/26/2022 (Approximate), Expires: 12/21/2023 [facility] Work Phone: Comment on above: Expected: 12/26/2022 (Approximate), Expires: 12/21/2023 Start: 12-12-2022 End: 02-11-2023 CBC W Auto Differential panel - Blood CBC + DIFF Lab Routine Renal cell carcinoma of left kidney (HCC) Malaise and fatigue Expected: 12/12/2022 (Approximate), Expires: 02/11/2023 [facility] Work Phone: Comment on above: Expected: 12/12/2022 (Approximate), Expires: 02/11/2023 Start: 12-12-2022 End: 02-11-2023 Comprehensive metabolic 2000 panel - Serum or Plasma COMP METABOLIC PANEL Lab Routine Renal cell carcinoma of left kidney (HCC) Malaise and fatigue Expected: 12/12/2022 (Approximate), Expires: 02/11/2023 [facility] Work Phone: Comment on above: Expected: 12/12/2022 (Approximate), Expires: 02/11/2023 Start: 12-12-2022 End: 02-11-2023 Thyrotropin [Units/volume] in Serum or Plasma TSH BLD Lab Routine Renal cell carcinoma of left kidney (HCC) Malaise and fatigue Expected: 12/12/2022 (Approximate), Expires: 02/11/2023 [facility] Work Phone: Comment on above: Expected: 12/12/2022 (Approximate), Expires: 02/11/2023 Start: 11-21-2022 End: 01-21-2023 CBC W Auto Differential panel - Blood CBC + DIFF Lab Routine Renal cell carcinoma of left kidney (HCC) Malaise and fatigue Expected: 11/21/2022, Expires: 01/21/2023 [facility] Work Phone: Comment on above: Expected: 11/21/2022 , Expires: 01/21/2023 Start: 11-21-2022 End: 01-21-2023 Comprehensive metabolic 2000 panel - Serum or Plasma COMP METABOLIC PANEL Lab Routine Renal cell carcinoma of left kidney (HCC) Malaise and fatigue Expected: 11/21/2022, Expires: 01/21/2023 [facility] Work Phone: Comment on above: Expected: 11/21/2022 , Expires: 01/21/2023 Start: 11-21-2022 End: 01-21-2023 Thyrotropin [Units/volume] in Serum or Plasma TSH BLD Lab Routine Renal cell carcinoma of left kidney (HCC) Malaise and fatigue Expected: 11/21/2022, Expires: 01/21/2023 [facility] Work Phone: Comment on above: Expected: 11/21/2022 , Expires: 01/21/2023 Start: 11-20-2022 End: 01-20-2023 CBC W Auto Differential panel - Blood CBC + DIFF Lab Routine Renal cell carcinoma of left kidney (HCC) Screening for thyroid disorder Malaise and fatigue Expected: 11/20/2022, Expires: 01/20/2023 [facility] Work Phone: Comment on above: Expected: 11/20/2022 , Expires: 01/20/2023 Start: 11-20-2022 End: 01-20-2023 Comprehensive metabolic 2000 panel - Serum or Plasma COMP METABOLIC PANEL Lab Routine Renal cell carcinoma of left kidney (HCC) Screening for thyroid disorder Malaise and fatigue Expected: 11/20/2022, Expires: 01/20/2023 [facility] Work Phone: Comment on above: Expected: 11/20/2022 , Expires: 01/20/2023 Start: 11-20-2022 End: 01-20-2023 Thyrotropin [Units/volume] in Serum or Plasma TSH BLD Lab Routine Renal cell carcinoma of left kidney (HCC) Screening for thyroid disorder Malaise and fatigue Expected: 11/20/2022, Expires: 01/20/2023 [facility] Work Phone: Comment on above: Expected: 11/20/2022 , Expires: 01/20/2023 Start: 08-13-2022 End: 10-13-2022 aPTT in Platelet poor plasma by Coagulation assay ACTIVATED PTT Lab Routine Renal mass Expected: 08/13/2022 (Approximate), Expires: 10/13/2022 [facility] Work Phone: Comment on above: Expected: 08/13/2022 (Approximate), Expires: 10/13/2022 Start: 08-13-2022 End: 10-13-2022 CBC panel - Blood by Automated count CBC Lab Routine Renal mass Expected: 08/13/2022 (Approximate), Expires: 10/13/2022 [facility] Work Phone: Comment on above: Expected: 08/13/2022 (Approximate), Expires: 10/13/2022 Start: 08-13-2022 End: 10-13-2022 Comprehensive metabolic 2000 panel - Serum or Plasma COMP METABOLIC PANEL Lab Routine Renal mass Expected: 08/13/2022 (Approximate), Expires: 10/13/2022 [facility] Work Phone: Comment on above: Expected: 08/13/2022 (Approximate), Expires: 10/13/2022 Start: 08-13-2022 End: 10-13-2022 PT panel - Platelet poor plasma by Coagulation assay PROTHROMBIN TIME/PT Lab Routine Renal mass Expected: 08/13/2022 (Approximate), Expires: 10/13/2022 [facility] Work Phone: Comment on above: Expected: 08/13/2022 (Approximate), Expires: 10/13/2022 Start: 08-02-2022 End: 10-02-2022 CONFIRM BLOOD TYPE CONFIRM BLOOD TYPE Blood Bank Routine Renal mass Expected: 08/02/2022 (Approximate), Expires: 10/02/2022 [facility] Work Phone: Comment on above: Expected: 08/02/2022 (Approximate), Expires: 10/02/2022 Start: 08-02-2022 End: 10-02-2022 TYPE AND SCREEN,30 DAY TYPE AND SCREEN,30 DAY Blood Bank Routine Renal mass Expected: 08/02/2022 (Approximate), Expires: 10/02/2022 [facility] Work Phone: Comment on above: Expected: 08/02/2022 (Approximate), Expires: 10/02/2022 Start: 06-09-2022 COVID-19 VACCINE (7 - Mixed Product series) COVID-19 VACCINE (7 - Mixed Product series) [facility] Start: 05-19-2022 ADVANCE DIRECTIVE DISCUSSION ADVANCE DIRECTIVE DISCUSSION [facility] Start: 05-19-2022 DEPRESSION ASSESSMENT DEPRESSION ASS ESSMENT [facility] Start: 03-26-2022 PNEUMOCOCCAL: 65+ (1 - PCV) PNEUMOCOCCAL: 65+ (1 - PCV) [facility] Start: 09-04-2021 FUV, Provider: Kaushik Guzman, Status: Pen, Time: 9:00 AM FUV, Provider: Kaushik Guzman, Status: Nithin, Time: 9:00 AM [place] [id number] DO Work Phone: Start: 03-22-2021 Screening for malign ant neoplasm of colon [facility] Start: 04-27-2020 SHINGRIX VACCINE (2 of 2) SHINGRIX VACCINE (2 of 2) [facility] Start: 04-27-2020 Zoster Vaccines (2 o f 2) Zoster Vaccines (2 of 2) [place] Start: 11-16-2019 PNEUMOCOCCAL: 65+ (1 - PCV) PNEUMOCOCCAL: 65+ (1 - PCV) [facility] Start: 2009 PROSTATE CANCER SCREENING DISCUSSION PROSTATE CANCER SCREENING DISCUSSION [facility] Start: 2009 Prostate specific antigen measurement Prostate Cancer Screening Discussion [facility] Start: 2004 SHINGRIX VACCINE (1 of 2) SHINGRIX VACCINE (1 of 2) [facility] Start: 11-16-1999 COLOGUARD (FIT-DNA) COLOGUARD (FIT-D NA) [facility] Start: 11-16-1999 Colonoscopy COLONOSCOPY [facility] Start: 11-16-1999 COLORECTAL CANCER SCREENING COLORECTAL CANCER SCREENING [facility] Start: 11-16-[address] COLONOGRAPHY [facility] Start: 11-16-1999 FECAL OCCULT BLOOD FECAL OCCULT BLOO D [facility] Start: 11-16-1999 Screening for malign ant neoplasm of colon [facility] Start: 11-16-1999 SIGMOIDOSCOPY SIGMOIDOSCOPY [facility] Start: 1989 Lipid 1996 panel - Serum or Plasma Lipid Screening [facility] Start: 1989 Lipid panel Lipid Screening [facility] Start: 1989 LIPID SCREEN LIPID SCREEN [facility] Start: 1973 Urine microalbumin profile DTAP,TDAP,TD (1 - Tdap) [facility] Start: 1972 ANNUAL PCP TEAM PROFESSOR OF COUNSELING MYLES DISEASE VISIT ANNUAL PCP TEAM CHRONIC DISEASE VISIT [facility] Start: 1972 Anxiety Screening Anxiety Screening [facility] Start: 1972 Depression Screening Depression Scre ening [facility] Start: 1972 Diabetes mellitus screening Diabetes Screening [place] Start: 1972 HEPATITIS C SCREENING HEPATITIS C [facility] Start: 1972 Hepatitis C screening Hepatitis C [facility] Start: 1954 Lipid panel Lipid Panel [place] Start: 1954 Screening for malign ant neoplasm of colon [place] Bacteria identified in Urine by Culture URINE CULTURE Microbiology Routine Left renal mass Ordered: 08/05/2022 [facility] Work Phone: Comment on above: Ordered: 08/05/2022 End: 01-03-2024 CBC W Auto Differential panel - Blood CBC + DIFF Lab Routine Renal cell carcinoma of left kidney (HCC) Every 3 weeks for 12 Occurrences starting 01/02/2023 until 01/03/2024 [facility] Work Phone: Comment on above: Every 3 weeks for 12 Occurrences starting 01/02/2023 until 01/03/2024 End: 01-03-2024 Comprehensive metabolic 2000 panel - Serum or Plasma COMP METABOLIC PANEL Lab Routine Renal cell carcinoma of left kidney (HCC) Every 3 weeks for 12 Occurrences starting 01/02/2023 until 01/03/2024 [facility] Work Phone: Comment on above: Every 3 weeks for 12 Occurrences starting 01/02/2023 until 01/03/2024 End: 09-26-2024 CT Abdomen and Pelvis W contrast IV CT ABD/PEL W IVCON Radiology Routine Renal cell carcinoma of left kidney (HCC) 1 Occurrences starting 08/28/2023 until 09/26/2024 [facility] Work Phone: Comment on above: 1 Occurrences starti ng 08/28/2023 until 09/26/2024 End: 01-30-2025 CT Abdomen and Pelvis W contrast IV CT ABD/PEL W IVCON Radiology Routine Cancer of left kidney (HCC) 1 Occurrences starting 01/01/2024 until 01/30/2025 [facility] Work Phone: Comment on above: 1 Occurrences starti ng 01/01/2024 until 01/30/2025 End: 09-26-2024 CT Chest W contrast IV CT CHEST W IVCON Radiology Routine Renal cell carcinoma of left kidney (HCC) 1 Occurrences starting 08/28/2023 until 09/26/2024 [facility] Work Phone: Comment on above: 1 Occurrences starti ng 08/28/2023 until 09/26/2024 End: 01-30-2025 CT Chest W contrast IV CT CHEST W IVCON Radiology Routine Cancer of left kidney (HCC) 1 Occurrences starting 01/01/2024 until 01/30/2025 [facility] Comment on above: 1 Occurrences starti ng 01/01/2024 until 01/30/2025 End: 09-01-2023 Ct thorax w/o contrast material CT CHEST WO IVCON Radiology Routine Renal mass 1 Occurrences starting 08/02/2022 until 09/01/2023 [facility] Work Phone: Comment on above: 1 Occurrences starti ng 08/02/2022 until 09/01/2023 End: 08-03-2023 ECG COMPLETE [facility] Work Phone: Comment on above: 1 Occurrences starti ng 08/02/2022 until 08/03/2023 End: 09-01-2023 NM CARDIAC PERF STRESS/PHARM NM CARDIAC PERF STRESS/PHARM Radiology Routine Renal mass Abnormal electrocardiogram (ECG) (EKG) 1 Occurrences starting 08/02/2022 until 09/01/2023 [facility] Work Phone: Comment on above: 1 Occurrences starti ng 08/02/2022 until 09/01/2023 End: 01-03-2024 Thyrotropin [Units/volume] in Serum or Plasma TSH BLD Lab Routine Renal cell carcinoma of left kidney (HCC) Every 3 weeks for 12 Occurrences starting 01/02/2023 until 01/03/2024 [facility] Work Phone: Comment on above: Every 3 weeks for 12 Occurrences starting 01/02/2023 until 01/03/2024 Thyrotropin [Units/volume] in Serum or Plasma TSH BLD Lab Routine Renal cell carcinoma of left kidney (HCC) 01/23/2023 3:31 PM EDT [facility] Work Phone: [facility] Immunizations Immunization Date Immunization Notes Care Provider Ariel zaidi 02-09-2024 hepatitis A and hepatitis B vaccine Katarina Sarikahattie SAMAYOA Work Phone: [facility] 01-29-2024 Pfizer Avilez Cap SARS-CoV-2 Vaccination Zohaib Cohen LPN Work Phone: [facility] 01-29-2024 RSV, recombinant, protein subunit RSVpreF, adjuvant reconstitu, 120mcg/0.5mL, PF (Arexvy) Zohaib Cohen LPN Work Phone: [facility] 01-09-2024 hepatitis A and hepatitis B vaccine Katarina Daniels DO Work Phone: [facility] 01-09-2024 Seasonal trivalent influenza vaccine, adjuvanted, preservative free Katarina Daniels DO Work Phone: [facility] 02-03-2023 COVID-19 vaccine, ag e 12+ yr, season (PIERIS Proteolab-BIONTZenitum) Chair Magana Work Phone: [facility] 01-25-2023 influenza (aIIV4) vaccine, age 65+ yr, quadrivalent, PF (FLUAD QUAD) Chair Almanzausky Work Phone: [facility] 01-25-2023 influenza nasal, unspecified formulation Izzy Work Phone: [facility] 01-25-2023 influenza virus vaccine, unspecified formulation Elliot AN [facility] 01-25-2023 respiratory syncytia l virus (RSV) vaccine, adjuvanted (AREXVY) [place] Work Phone: [facility] 02-07-2022 influenza (aIIV4) vaccine, age 65+ yr, quadrivalent, PF (FLUAD QUAD) Florencio Rose MD Work Phone: [facility] 02-07-2022 influenza nasal, unspecified formulation Chair Magana Work Phone: [facility] 02-07-2022 influenza virus vaccine, unspecified formulation Elliot AN [facility] 02-07-2022 influenza, high dose seasonal, preservative-free Zohaib Cohen LPN Work Phone: [facility] 02-07-[address] 12 Years And Older Zohaib Cohen LPN Work Phone: [facility] 02-07-2022 Pfizer COVID-19 vaccine, bivalent, age 12 years and older (30 mcg/0.3 mL) Bala Urias MD Work Phone: [place] Work Phone: 02-07-2022 Pfizer Purple Cap SARS-CoV-2 Vaccination Zohaib Cohen 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 Work Phone: [facility] 08-25-2021 Comirnaty 30 MCG/0.3 ML Intramuscular Suspension Katarina Daniels Work Phone: [facility] 250 DO Work Phone: 08-25-2021 SARS-CoV-2 mRNA (rbuopzeifzr-zncu-hyiua se) vaccine Elliot AN [facility] 08-25-2021 SARS-CoV-2, Unspecified Loga kaitlyn Cohen LPN Work Phone: [facility] 03-26-2021 pneumococcal polysaccharide vaccine, 23 valent Katarina Daniels Work Phone: [facility] 02-13-2021 Pfizer-BioNTech COVID-19 Vacc 30 MCG/0.3ML Intramuscular Suspension Katarina Daniels Work Phone: [facility] Comment on above: Result Comment: 2022: [id number] 02-12-2021 Pfizer Purple Cap SARS-CoV-2 Vaccination Zohaib Cohen KIM Work Phone: [facility] 01-30-2021 Fluad Quadrivalent 0 .5 ML Intramuscular Prefilled Syringe Katarina Daniels Work Phone: [facility] 01-30-2021 influenza nasal, unspecified formulation Izzy Work Phone: [facility] 01-30-2021 influenza virus vaccine, unspecified formulation Elliot AN [facility] 01-30-2021 tetanus toxoid, redu kai diphtheria toxoid, and acellular pertussis vaccine, adsorbed Katarina Daniels Work Phone: [facility] 08-10-2020 SARS-CoV-2 (COVID-19 ) mRNA BNT-162b2 vax Elliot AN [facility] Izzy Comment on above: Result Comment: 2022: [id number] 08-09-2020 Pfizer-BioNTech COVID-19 Vacc 30 MCG/0.3ML Intramuscular Suspension Kaushik Guzman DO Work Phone: [facility] 250 DO Work Phone: 08-09-2020 SARS-CoV-2 (COVID-19 ) mRNA-1273 vaccine Florencio AU [facility] Comment on above: Result Comment: 2nd shot 07-19-2020 Pfizer-BioNTech COVID-19 Vacc 30 MCG/0.3ML Intramuscular Suspension Katarina Daniels Work Phone: [facility] Comment on above: Result Comment: 2022: [id number] 07-18-2020 Pfizer Purple Cap SARS-CoV-2 Vaccination Zohaib Cohen KIM Work Phone: [facility] 07-12-2020 SARS-CoV-2 (COVID-19 ) mRNA-1273 vaccine Florencio AU [facility] Comment on above: Result Comment: 1st shot 03-07-2020 influenza nasal, unspecified formulation Chair Magana Work Phone: [facility] 03-07-2020 influenza virus vaccine, unspecified formulation Elliot AN [facility] [place] 03-07-2020 influenza, high dose seasonal, preservative-free Kaushik Guzman DO Work Phone: [facility] 03-07-2020 pneumococcal conjuga te vaccine, 13 valent Kaushik Rodriguezter DO Work Phone: [facility] 03-02-2020 zoster vaccine recombinant Katarina Daniels Work Phone: [facility] 02-29-2020 influenza nasal, unspecified formulation Chair Magana Work Phone: [facility] 02-29-2020 influenza virus vaccine, unspecified formulation Elliotmaryana AN [facility] 02-29-2020 influenza, injectabl e, quadrivalent, preservative free Florencio Rose MD Work Phone: [facility] 01-29-2020 pneumococcal conjuga te vaccine, 13 valent Katarina Daniels Work Phone: [facility] 01-29-2020 unknown vaccine or immune globulin Florencio Rose MD Work Phone: [facility] 01-28-2020 pneumococcal conjuga te vaccine, 13 valent Zohaib Noel LPN Work Phone: [facility] 01-24-2020 influenza nasal, unspecified formulation Florencio Rose MD Work Phone: [facility] 01-24-2020 influenza virus vaccine, unspecified formulation Florencio AU [facility] 02-16-2019 influenza nasal, unspecified formulation Florencio Rose MD Work Phone: [facility] 02-16-2019 influenza virus vaccine, unspecified formulation Florencio AU [facility] 02-01-2019 influenza nasal, unspecified formulation Chair Magana Work Phone: [facility] 02-01-2019 influenza virus vaccine, unspecified formulation Elliotmaryana AN [facility] 02-01-2019 influenza, injectabl e, quadrivalent, preservative free Katarina Daniels Work Phone: [facility] 01-17-2019 influenza nasal, unspecified formulation Chair Magana Work Phone: [facility] 01-17-2019 influenza virus vaccine, unspecified formulation Kaushik Guzman DO Work Phone: [facility] 01-17-2019 influenza, seasonal, injectable Florencio Rose MD Work Phone: [facility] 02-02-2018 unknown vaccine or immune globulin Florencio Rose MD Work Phone: [facility] 01-17-2018 influenza nasal, unspecified formulation Chair Magana Work Phone: [facility] 01-17-2018 influenza virus vaccine, unspecified formulation Kaushik Guzman DO Work Phone: [facility] 250 DO Work Phone: 02-16-2017 influenza nasal, unspecified formulation Chair Magana Work Phone: [facility] 02-16-2017 influenza virus vaccine, unspecified formulation Kaushik Guzman DO Work Phone: [facility] 250 DO Work Phone: 01-27-2017 influenza nasal, unspecified formulation Chair Magana Work Phone: [facility] 01-27-2017 influenza virus vaccine, unspecified formulation Elliot AN [facility] 01-27-2017 influenza, injectabl e, quadrivalent, preservative free Katarina Daniels Work Phone: [facility] 01-26-2017 influenza, injectabl e, quadrivalent, preservative free Florencio Rose MD Work Phone: [facility] 03-03-2015 influenza nasal, unspecified formulation Chair Magana Work Phone: [facility] 03-03-2015 influenza virus vaccine, unspecified formulation Elliot AN [facility] 03-03-2015 seasonal influenza, intradermal, preservative free Katarina Daniles Work Phone: [facility] 02-16-2015 influenza nasal, unspecified formulation Chair Magana Work Phone: [facility] 02-16-2015 influenza virus vaccine, unspecified formulation Kaushik Guzman DO Work Phone: [facility] 250 DO Work Phone: 02-16-2014 influenza virus vaccine, whole virus Kaushik Guzman DO Work Phone: [facility] 05-05-2009 novel [id number], preservative-free, injectable Katarina Daniels Work Phone: [facility] influenza virus vaccine, unspecified formulation Kaushik Guzman DO Work Phone: -[facility] 250 DO Work Phone: Comment on above: 2011 Payers Date Payer Category Payer Private Health Insurance [facility] AARP SUPPLEMENT [id number] 2022-Present [phone] [address] [place] [address] Indemnity [id number] 2020 Self-pay [id number] 2020 Unknown [id number] 2019 Medicare [id number] 2019 Medicare [id number] 2017 Unknown 1954 Unknown [id number] 7 1954 Unknown [id number]. 72 1954 Unknown [id number]. 727 1954 Unknown [id number]. 727 1954 Unknown [id number]. 727 1954 Unknown [id number]. 1244 1954 Unknown [id number] [id number]. 1244 1954 Unknown [id number] [id number]. 727 1954 Unknown [id number] [id number]. 1259 1954 Unknown [id number] [id number]. 1259 1954 Unknown [id number] [id number]. 1259 1954 Unknown [id number] [id number]. 1259 Unknown [id number] Unknown [id number] 531 Social History Date Type Detail Facility Start: 03-22-2020 End: 12-23-2022 Tobacco smoking status IAIS Never smoked tobacco (finding) [facility] Start: 1955 Sex Assigned At Male [facility] Start: 10-31-2022 End: 02-24-2024 Alcohol use Alcohol use [facility] Comment on above: occasional; tea 2 cups daily cof fee 1 cup daily; Start: 12-09-2022 Tobacco smoking status Never [facility] Start: 10-31-2022 End: 02-24-2024 Sex Assigned At Male [facility] Start: 08-02-2022 End: 12-23-2022 Tobacco use and exposure Smokeless tobacco non-user [facility] Start: 1955 Sex Assigned At Not on file [facility] Start: 08-05-2022 End: 02-26-2024 Alcohol intake Current drinker of alcohol (finding) [facility] Start: 08-05-2022 Alcohol Comment Less than eros hly per pt 08/05/2022 [facility] Start: 02-26-2023 Alcohol Comment social [facility] Work Phone: Start: 02-16-2023 End: 02-26-2023 Exposure to SARS-CoV-2 (event) Not sure [place] Within the last year , have you been afraid of your partner or ex-partner? No [facility] Do you belong to any clubs or organizations such as voodoo groups, unions, fraViewabill or athletic groups, or school groups? Yes [facility] Are you now , , , , never or living with a partner? [facility] How often to you hav e a drink containing alcohol? 2-4 times a month [facility] How many standard drinks containing alcohol do you have on a typical day? 1 or 2 [facility] How often do you hav e 6 or more drinks on 1 occasion? Never [facility] Do you feel stress - tense, restless, nervous, or anxious, or unable to sleep at night because your mind is troubled all the time - these days [OSQ] Not at all [facility] (I/We) worried whenima er (my/our) food would run out before (I/we) got money to buy more. Never true [facility] Start: 12-23-2022 Alcohol Comment caffeine 1-2 cupa/day [facility] Start: 12-09-2022 Gender identity Identifies as male gender (finding) [facility] NEGATED: Highlighted rowStart: JUDI History of tobacco use Passive smoker [facility] Medical Equipment Procedure Code Equipment Code Equipment Origin al Text Equipment Identifier Dates FDA Start: 05-29-2020 FDA Start: 05-29-2020 FDA Start: 05-29-2020 FDA Start: 05-29-2020 FDA Start: 05-29-2020 HIP TOTAL ARTHRO PLASTY Gallagher Kaushik SAMAYOA 05/29/20 Unknown Hip L FDA Start: 05-29-2020 HIP TOTAL ARTHRO PLASTY [facility] Kaushik SAMAYOA 05/29/20 Unknown Hip L FDA Start: 05-29-2020 HIP TOTAL ARTHRO PLASTY [facility] Kaushik SAMAYOA 05/29/20 Unknown Hip L FDA Start: 05-29-2020 HIP TOTAL ARTHRO PLASTY Gallagher DO, Kaushik T 05/29/20 Unknown Hip L FDA Start: 05-29-2020 HIP TOTAL ARTHRO PLASTY Gallagher DO, Kaushik T 05/29/20 Unknown Hip L FDA Start: 05-29-2020 HIP TOTAL ARTHRO PLASTY Gallagher DO, Kaushik T 05/29/20 Unknown Hip L FDA Start: 05-29-2020 HIP TOTAL ARTHRO PLASTY Gallagher DO, Kaushik T 05/29/20 Unknown Hip L FDA Start: 05-29-2020 HIP TOTAL ARTHRO PLASTY Gallagher DO, Kaushik T 05/29/20 Unknown Hip L FDA Start: 05-29-2020 HIP TOTAL ARTHRO PLASTY Gallagher DO, Kaushik T 05/29/20 Unknown Hip L FDA Start: 05-29-2020 HIP TOTAL ARTHRO PLASTY Gallagher DO, Kaushik T 05/29/20 Unknown Hip L FDA Start: 05-29-2020 HIP TOTAL ARTHRO PLASTY Gallagher DO, Kaushik T 05/29/20 Unknown Hip L FDA Start: 05-29-2020 HIP TOTAL ARTHRO PLASTY Gallagher DO, Kaushik T 05/29/20 Unknown Hip L FDA Start: 05-29-2020 HIP TOTAL ARTHRO PLASTY Gallagher DO, Kaushik T 05/29/20 Unknown Hip L FDA Start: 05-29-2020 HIP TOTAL ARTHRO PLASTY Gallagher DO, Kaushik T 05/29/20 Unknown Hip L FDA Start: 05-29-2020 HIP TOTAL ARTHRO PLASTY Gallagher DO, Kaushik T 05/29/20 Unknown Hip L FDA Start: 05-29-2020 HIP TOTAL ARTHRO PLASTY Gallagher DO, Kaushik T 05/29/20 Unknown Hip L FDA Start: 05-29-2020 HIP TOTAL ARTHRO PLASTY Gallagher DO, Kaushik T 05/29/20 Unknown Hip L FDA Start: 05-29-2020 HIP TOTAL ARTHRO PLASTY Gallagher DO, Kaushik T 05/29/20 Unknown Hip L FDA Start: 05-29-2020 HIP TOTAL ARTHRO PLASTY Gallagher DO, Kaushik T 05/29/20 Unknown Hip L FDA Start: 05-29-2020 HIP TOTAL ARTHRO PLASTY Gallagher DO, Kaushik T 05/29/20 Unknown Hip L FDA Start: 05-29-2020 HIP TOTAL ARTHRO PLASTY Gallagher DO, Kaushik T 05/29/20 Unknown Hip L FDA Start: 05-29-2020 HIP TOTAL ARTHRO PLASTY Gallagher DO, Kaushik T 05/29/20 Unknown Hip L FDA Start: 05-29-2020 HIP TOTAL ARTHRO PLASTY Gallagher DO, Kaushik T 05/29/20 Unknown Hip L FDA Start: 05-29-2020 HIP TOTAL ARTHRO PLASTY Gallagher DO, Kaushik T 05/29/20 Unknown Hip L FDA Start: 05-29-2020 HIP TOTAL ARTHRO PLASTY Gallagher DO, Kaushik T 05/29/20 Unknown Hip L FDA Start: 05-29-2020 HIP TOTAL ARTHRO PLASTY Gallagher DO, Kaushik T 05/29/20 Unknown Hip L FDA Start: 05-29-2020 HIP TOTAL ARTHRO PLASTY Gallagher DO, Kaushik T 05/29/20 Unknown Hip L FDA Start: 05-29-2020 HIP TOTAL ARTHRO PLASTY Gallagher DO, Kaushik T 05/29/20 Unknown Hip L FDA Start: 05-29-2020 HIP TOTAL ARTHRO PLASTY Gallagher DO, Kaushik T 05/29/20 Unknown Hip L FDA Start: 05-29-2020 HIP TOTAL ARTHRO PLASTY Gallagher DO, Kaushik T 05/29/20 Unknown Hip L FDA Start: 05-29-2020 HIP TOTAL ARTHRO PLASTY Gallagher DO, Kaushik T 05/29/20 Unknown Hip L FDA Start: 05-29-2020 HIP TOTAL ARTHRO PLASTY Gallagher DO, Kaushik T 05/29/20 Unknown Hip L FDA Start: 05-29-2020 HIP TOTAL ARTHRO PLASTY Gallagher DO, Kaushik T 05/29/20 Unknown Hip L FDA Start: 05-29-2020 HIP TOTAL ARTHRO PLASTY Gallagher DO, Kaushik T 05/29/20 Unknown Hip L FDA Start: 05-29-2020 HIP TOTAL ARTHRO PLASTY Gallagher DO, Kaushik T 05/29/20 Unknown Hip L FDA Start: 05-29-2020 Goals Date Patient Goal Desired Activity /State Functional Status Date Assessment Result Facility 01-20-2024 Functional Status N/A [facility] 12-24-2023 Functional Status N/A [facility] 05-21-2023 Functional Status N/A [facility] 07-16-2022 Functional Status N/A [facility] 07-16-2022 Functional Status Yes [facility] 12-31-2021 Functional Status N/A [facility] [place] Clinical Notes 05-19-2011 to 02-26-2024 Katarina Daniels, DO - 02/26/2024 9:20 AM EDT Note Date & Type Note Facility 02-26-2024 History of Presen t illness Narrative Images from the original note were not included. SUBJECTIVE: Juancarlos Baum is a 68 y.o. male presents with chief complaint of surgical clearance Pt presents to the office today for surgical clearance scheduled for 03/04/[address] An for cysto, holmium laser to break up bladder stone. Pt has had labs done and EKG done prior to OV. He has already been cleared from cardiology. Review of Systems: Review of Systems Problem List: Patient Active Problem List Diagnosis Renal mass Primary localized osteoarthritis of pelvic region and thigh Presence of left artificial hip joint Prediabetes Neuropathy Hyperlipidemia (CMS/HCC) Benign prostatic hyperplasia Atrial fibrillation (CMS/HCC) Arthritis of hip Anticoagulated Cancer of left kidney (CMS/HCC) Elevated PSA Gross hematuria Status post left hip replacement Status post left hip replacement Kidney stone Nocturia Obesity, Class III, BMI 40-49.9 (morbid obesity) (CMS/HCC) GEOVANNA (obstructive sleep apnea) Partial tear of right Achilles tendon Stage 3 chronic kidney disease (HCC) (CMS/HCC) Urinary retention Essential tremor Bladder neoplasm of uncertain malignant 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 Past Medical History: Past Medical History: Diagnosis Date Afib (CMS/HCC) Arthritis Broken ankle, right, closed, initial encounter 1983 Enlarged prostate Renal carcinoma (CMS/HCC) Visual loss with corrective lenses Family History: Family History Problem Relation Name Age of Onset COPD Mother Dulce Stone Diabetes Father Sathish Allergies: Allergies Allergen Reactions Meloxicam Other Reaction(s): stomach upset, Unknown Nsaids Other Reaction(s): bleed Surgical History: Past Surgical History: Procedure Laterality Date ANKLE SURGERY Right 1983 COLONOSCOPY JOINT REPLACEMENT 2020 hip NEPHRECTOMY Left 08/17/2022 ND TOTAL HIP ARTHROPLASTY Left 05/29/2020 ROTATOR CUFF REPAIR Left 2013 TRANSURETHRAL RESECTION OF PROSTATE X 2 - 2016, 2019 Social History: Social Determinants of Health Tobacco Use: Low Risk (02/26/2024) Patient History Smoking Tobacco Use: Never Smokeless Tobacco Use: Never Passive Exposure: Not on file Alcohol Use: Unknown (02/24/2024) AUDIT-C Frequency of Alcohol Consumption: Patient declined Average Number of Drinks: Patient declined Frequency of Binge Drinking: Not on file Financial Resource Strain: Patient Declined (02/24/2024) Overall Financial Resource Strain (CARDIA) Difficulty of Paying Living Expenses: Patient declined Food Insecurity: Patient Declined (02/24/2024) Hunger Vital Sign Worried About Running Out of Food in the Last Year: Patient declined Ran Out of Food in the Last Year: Patient declined Transportation Needs: Patient Declined (02/24/2024) PRAPARE - Transportation Lack of Transportation (Medical): Patient declined Lack of Transportation (Non-Medical): Patient declined Physical Activity: Patient Declined (02/24/2024) Exercise Vital Sign Days of Exercise per Week: Patient declined Minutes of Exercise per Session: Patient declined Stress: No Stress Concern Present (12/21/2022) [place] [facility] [employer] - Occupational Stress Questionnaire Feeling of Stress : Not at all Social Connections: Unknown (02/24/2024) Social Connection and Isolation Panel [NHANES] Frequency of Communication with Friends and Family: Patient declined Frequency of Social Gatherings with Friends and Family: Patient declined Attends Mormonism Services: Not on file Active Member of Clubs or Organizations: Patient declined Attends Club or Organization Meetings: Patient declined Marital Status: Intimate Partner Violence: Not At Risk (12/21/2022) Humiliation, Afraid, Rape, and Kick questionnaire Fear of Current or Ex-Partner: No Emotionally Abused: No Physically Abused: No Sexually Abused: No Depression: Not at risk (02/26/2024) PHQ-2 PHQ-2 Score: 0 Housing Stability: Patient Declined (02/24/2024) Housing Stability Vital Sign Unable to Pay for Housing in the Last Year: Patient declined Number of Times Moved in the Last Year: Not on file Homeless in the Last Year: Patient declined Health Literacy: Patient Declined (02/24/2024) B1300 Health Literacy Frequency of need for help with medical instructions: Patient declines to respond OBJECTIVE: Visit Vitals Ht 5' 8.5 BMI 46.75 kg/m Smoking Status Never BSA 2.62 m Physical Exam Constitutional: Appearance: Normal appearance. HENT: Head: Normocephalic and atraumatic. Eyes: Extraocular Movements: Extraocular movements intact. Pupils: Pupils are equal, round, and reactive to light. Cardiovascular: Rate and Rhythm: Normal rate and regular rhythm. Heart sounds: No murmur heard. Pulmonary: Effort: Pulmonary effort is normal. Breath sounds: Normal breath sounds. No wheezing, rhonchi or rales. Abdominal: General: Bowel sounds are normal. Palpations: Abdomen is soft. Tenderness: There is no abdominal tenderness. Musculoskeletal: General: Normal range of motion. Skin: General: Skin is warm. Neurological: General: No focal deficit present. Mental Status: He is alert and oriented to person, place, and time. Psychiatric: Mood and Affect: Mood normal. Behavior: Behavior normal. Recent Results (from the past 672 hour(s)) ALL CBC WITH AUTO DIFF Collection Time: 02/19/24 10:50 AM Result Value Ref Range [facility] WBC 5.2 4.0 - 11.0 10 3/uL [facility] RBC 4.62 (L) 4.70 - 6.10 10 6/uL [facility] HGB 14.3 14.0 - 18.0 g/dL TBH HCT 43.9 42.0 - 54.0 % TBH MCV 95.0 (H) 80.0 - 94.0 fL TBH MCH 31.0 25.9 - 34.0 pg TBH MCHC 32.6 29.9 - 35.2 g/dL TBH RDW 14.2 11.0 - 15.0 % TBH PLT 160 150 - 450 10 3/uL [facility] MPV 10.9 9.5 - 13.5 fL NEUTROPHILS PERCENT AUTO 57.6 43.0 - 75.0 % LYMPHOCYTES PERCENT AUTO 20.7 20.5 - 60.0 % MONOCYTES PERCENT AUTO 15.5 (H) 1.7 - 12.0 % TBH EO % 5.0 0.9 - 7.0 % BASOPHILS PERCENT AUTO 0.6 0.2 - 2.0 % IMMATURE GRANULOCYTES PCT AUTO 0.6 (H) 0.0 - 0.5 % NEUTROPHILS ABSOLUTE AUTO 3.0 1.4 - 6.5 10 3/uL LYMPHOCYTES ABSOLUTE AUTO 1.1 (L) 1.2 - 3.8 10 3/uL MONOCYTES ABSOLUTE AUTO 0.8 0.3 - 0.8 10 3/uL TBH EO # 0.3 0.0 - 0.7 10 3/uL BASOPHILS ABSOLUTE AUTO 0.0 0.0 - 0.1 10 3/uL IMMATURE GRANULOCYTES ABS AUTO 0.03 0.00 - 0.03 10 3/uL [facility] PROTHROMBIN TIME INR W/O COUM Collection Time: 02/19/24 10:50 AM Result Value Ref Range PROTHROMBIN TIME 11.6 9.0 - 11.6 sec TB INR 1.11 [facility] APTT Collection Time: 02/19/24 10:50 AM Result Value Ref Range PARTIAL THROMBOPLASTIN TIME 32.2 22.3 - 36.2 sec ALL BASIC METABOLIC PANEL Collection Time: 02/19/24 10:50 AM Result Value Ref Range SODIUM 137 136 - 145 mmol/L POTASSIUM 5.4 (H) 3.5 - 5.1 mmol/L CHLORIDE 103 98 - 107 mmol/L CARBON DIOXIDE 27.5 21.0 - 32.0 mmol/L ANION GAP 11.9 GLUCOSE 100 74 - 106 mg/dL BLOOD UREA NITROGEN 12.0 7.0 - 18.0 mg/dL CREATININE 1.28 0.70 - 1.30 mg/dL TBH EGFR-AF ECUADOREAN >60 >=60 mL/min/1.73m 2 TBH EGFR-NON AF ECUADOREAN 56 (L) >=60 mL/min/1.73m 2 BUN CREATININE RATIO 9.4 CALCIUM 9.2 8.5 - 10.1 mg/dL ASSESSMENT AND PLAN: Assessment/Plan Diagnoses and all orders for this visit: Bladder stones Pt is scheduled for surgery and has had presurgical testing. Will recheck mildly elevated potassium, but should not delay procedure. Chronic problems are all well controlled. He is low cardiovascular risk and is cleared with no restrictions Stage 3a chronic kidney disease (HCC) ([facility]/HCC) Labs ordered today, will follow up when results available - Basic metabolic panel; Future Hyperkalemia - Basic metabolic panel; Future Updated Medications: I have reviewed and reconciled the history and medication list with the patient today. Current Outpatient Medications: cephalexin (Keflex) 500 MG capsule, Take two caps evening prior to appointment, take two caps one hour prior to appointment, Disp: 4 capsule, Rfl: 2 dutasteride (Avodart) 0.5 MG capsule, Take 0.5 mg by mouth Daily, Disp: , Rfl: Eliquis 5 MG tablet, Take 5 mg by mouth in the morning and 5 mg before bedtime., Disp: , Rfl: levothyroxine (Synthroid, Levoxyl) 100 MCG tablet, Take 100 mcg by mouth in the morning., Disp: , Rfl: Multiple Vitamins-Minerals (Multivitamin Adults 50+) tablet, Take 1 tablet by mouth 1 (one) time each day., Disp: , Rfl: pregabalin (Lyrica) 150 MG capsule, Take 1 capsule (150 mg) by mouth in the morning and 1 capsule (150 mg) before bedtime., Disp: 60 capsule, Rfl: 0 primidone (Mysoline) 50 MG tablet, Take 2 tablets (100 mg) by mouth in the morning and 2 tablets (100 mg) in the evening and 2 tablets (100 mg) before bedtime., Disp: , Rfl: propranolol LA (Inderal LA) 160 MG 24 hr capsule, Take 1 capsule (160 mg) by mouth Daily, Disp: 30 capsule, Rfl: 3 documented in this encounter [facility] 01-20-2024 Evaluation + Plan note Extrac kosta from: Title:Urology Progress Note Author:Tara AN MD Date:01/20/24 Impression and Plan Impression: #1. Bladder calculi. 2. BPH with LUTS. 3. Hematuria. Plan: #1. The patient is desirous for cystolitholapaxy. This is getting scheduled today under general anesthesia. [facility] 09-03-2024 Hospital Discharge instructions Patient Education 01/20/2024 10:36:18 EU - Cystoscopy Discharge Instructions (CUSTOM) Cystoscopy Voiding after the procedure: there may be some pain, burning, urgency, frequency and blood tinged urine following the procedure. These symptoms usually resolve within 2-5 days. Drink the amount of fluid it takes to keep the urine pink to yellow or clear in color. Drinking enough water and fluids will help to ease any discomfort after your procedure. If you are having problems that seem out of the ordinary, please call. If unable to contact your physician and you feel it is an emergency, go to the nearest emergency room or call 911 Diet you may resume your normal diet. Activity you may resume your normal activities Call if you have a fever over 100 degrees. Follow Up Care 12/24/2023 10:30:02 With:Elliot AN Address: [address] [place] [address] [place] [address]- Business (1) When: Unknown Comments:Office will call to schedule follow up [facility] 09-03-2024 NoteProgress Note-Physician Patient: JUANCARLOS BAUM Age: 68 years Sex: Male : 1955 Associated Diagnoses: None Author: NATALIYA SAAVEDRA, Elliot Nichole X this gentleman has hematuria and known bladder stones. Cystoscopy today revealed that his multiple small stones had joined together and he has 2 larger stones within the bladder. Each of these seemto be approximately a centimeter in size. Review of Systems ROS reviewed as documented in chart Health Status Allergies: Allergic Reactions (Selected) Severity Not Documented Meloxicam- Nausea/ kidney pain. Current medications: Home Medications (9) Active Cipro 500 mg Tab 500 mg = 1 tab(s), Oral, As Directed digoxin 250 mcg (0.25 mg) Tab 250 mcg = 1 tab(s), Oral, Daily dutasteride 0.5 mg Cap 0.5 mg = 1 cap(s), Oral, Daily Eliquis 5 mg oral tablet , Oral, BID gabapentin 400 mg Cap , Oral, TID levothyroxine 125 mcg (0.125 mg) Tab 125 mcg = 1 tab(s), Oral, Daily Multi Vitamin+ pregabalin 150 mg Cap 150 mg = 1 cap(s), Oral, BID propranolol 80 mg Cap-ER 80 mg = 1 cap(s), Oral, Daily Problem list: All Problems Elevated PSA / SNOMED CT 2766213020 / Confirmed Urinary retention / SNOMED CT 167751674 / Confirmed Sleep apnea / SNOMED CT 297257103 / Confirmed Nocturia / SNOMED CT 057427425 / Confirmed Anticoagulated / SNOMED CT 308724025 / Confirmed Gross hematuria / SNOMED CT 470878684 / Confirmed Status post left hip replacement / SNOMED CT 5547355234 / Confirmed BMI 40.0-44.9, adult / SNOMED CT 3972210034 / Confirmed Kidney stone / SNOMED CT 588224510 / Confirmed BPH (benign prostatic hyperplasia) / SNOMED CT 948032192 / Confirmed Cancer of kidney / SNOMED CT 985680594 / Confirmed Bladder stone / SNOMED CT 484232550 / Confirmed Bladder neoplasm of uncertain malignant potential / SNOMED CT 9723226214 / Confirmed Hip osteoarthritis / SNOMED CT 798751834 / Confirmed Histories Past Medical History: Active Elevated PSA (1831313340) Resolved Atrial fibrillation (65988744): Resolved. Asymptomatic microscopic hematuria (1775141719): Resolved. Renal mass (404703952): Resolved. Family History: Diabetes mellitus type 2 Father Procedure history: Transrectal biopsy of prostate using ultrasound (US) guidance ([id number]) on 04/22/2023 at 67 Years. Cystoscopy (86874222) on 06/02/2020 at 64 Years. Total hip replacement (342419428) on 05/29/2020 at 64 Years. TURP - Transurethral resection of prostate x2 ([id number]) on 09/29/2018 at 62 Years. Ankle (1461661) in 1985 at 29 Years. Colonoscopy (783572415). Rotator cuff (04381160). Left nephrectomy (2014183072). Social History Social & Psychosocial Habits Alcohol 05/09/2020 Use: Current Type: Beer Frequency: 1-2 times per week 07/16/2022 Use: Current Frequency: 1-2 times per week Substance Abuse 05/09/2020 Risk Assessment: Denies Substance Abuse Comment: denies - 07/16/2022 07:16 Shruthi Estrella Tobacco 05/09/2020 Risk Assessment: Denies Tobacco Use Comment: denies - 07/16/2022 07:16 Shruthi Estrella 12/24/2023 Tobacco Use: Never (less than 100 in l Smokeless tobacco use: Never . Objective Afebrile vital signs are stable. He is in no acute distress. Abdomen is benign. External genitalia are unremarkable aside from bilateral hydroceles. Impression and Plan Impression: #1. Bladder calculi. 2. BPH with LUTS. 3. Hematuria. Plan: #1. The patient is desirous for cystolitholapaxy. This is getting scheduled today under general anesthesia.[facility]:Result Comment: Electronically Signed By: NATALIYA SAAVEDRA, Elliot Haywood\Date and Time Signed: 01/20/24 10:42 [id number] NotePatient Education Custom Cystoscopy ? Voiding after the procedure: there may be some pain, burning, urgency, frequency and blood tingedurine following the procedure. These symptoms usually resolve within 2-5 days. Drink the amount of fluid it takes to keep the urine pink to yellow or clear in color. Drinking enough water and fluids will help to ease any discomfort after your procedure. ? If you are having problems that seem out of the ordinary, please call. ? If unable to contact your physician and you feel it is an emergency, go to the nearest emergency room or call 911 ? Diet ? you may resume your normal diet. ? Activity ? you may resume your normal activities ? Call if you have a fever over 100 degrees.[facility] 12-31-2023 NoteHNO ID: [id number] Author: ABA AMAYA MD Service: ? Author Type: Physician Type: Progress Notes Filed: 01/02/2024 05:12 Note Text: PATIENT NAME: Juancarlos Baum DATE: 01/01/2024 PRIMARY CARE PHYSICIAN: Dr. Katarina Daniels OTHER PHYSICIANS: Dr. Florencio Rose. Dr. Urias, Dr. An Portions of this encounter note have been copied from the note from 08/28/2023 and has been updated where appropriate, and reflect my current medical decision making from today. CC: This is a 68 year old male with kidney cancer, seen for scheduled follow-up and treatment. INTERIM HISTORY: Since the patient's last visit here he completed his 1 year of adjuvant pembrolizumab on 08/28/2023. He tolerated treatment well with no apparent side effects. On follow-up today he feels well. No unusual pain or other systemic symptoms. He is urinating normally. MEDICATIONS: Current Outpatient Medications Medication Sig levothyroxine (SYNTHROID) 125 mcg tablet Take 1 tablet by mouth once daily. levothyroxine (SYNTHROID) 100 mcg tablet Take 1 tablet by mouth once daily. levothyroxine (SYNTHROID) 75 mcg tablet Take 1 tablet by mouth once daily. dutasteride (AVODART) 0.5 mg capsule Take 0.5 mg by mouth. gabapentin (NEURONTIN) 800 mg tablet Take 800 mg by mouth three times a day. ELIQUIS 5 mg tab(s) Take 1 tablet by mouth twice daily. You may resume this medication on August 26. digoxin (LANOXIN) 125 mcg (0.125 mg) tablet Take by mouth once daily. propranolol ER (INDERAL LA) 80 mg 24 hr capsule Take 80 mg by mouth once daily. multivit,thx,calcium,iron,mins (MULTIVITAMIN AND MINERAL ORAL) Take 1 Dose by mouth once daily. No current facility-administered medications for this visit. ALLERGIES: ALLERGIES Allergen Reactions Meloxicam Vomiting Nsaids (Non-Steroid* Other: See Comments PAST MEDICAL HISTORY: PAST MEDICAL HISTORY No date: Atrial fibrillation (HCC) No date: Renal cell carcinoma (HCC) PAST SURGICAL HISTORY: PAST SURGICAL HISTORY No date: NEPHRECTOMY PARTIAL; Left Comment: total left No date: TOTAL HIP REPLACEMENT; Left FAMILY HISTORY: No family history on file. SOCIAL HISTORY: Social History Tobacco Use Smoking status: Never Passive exposure: Never Smokeless tobacco: Never Vaping Use Vaping Use: Never used Substance Use Topics Alcohol use: Yes Comment: Less than monthly per pt 08/05/2022 Drug use: Never REVIEW OF SYSTEMS: General: No weight loss, malaise or fevers. HEENT: Negative for frequent or significant headaches. No changes in hearing or vision, no nose bleeds or other nasal problems. Respiratory: Negative for cough, wheezing or shortness of breath. Cardiovascular: Negative for chest pain, leg swelling or palpitations. GI: Negative for abdominal discomfort, blood in stools or black stools or change in bowel habits. : No history of dysuria, frequency or incontinence. See HPI. Musculoskeletal: Negative for: joint pain or swelling, back pain and muscle pain. Skin: Negative for lesions, rash and itching. Hematology/Lymphology: Negative for prolonged bleeding, bruising easily or swollen nodes. Neuro: No history of headaches, syncope, paralysis, seizures or tremors. PHYSICAL EXAM: BP 113/79 Pulse (!) 53 Temp 36.6 ?C (97.8 ?F) (Temporal) Resp 18 Ht 173 cm (5' 8.11 ) Wt (!) 141.5 kg (311 lb 15.2 oz) SpO2 98% BMI 47.28 kg/m? ECOG 0 General: Alert and oriented, no distress, pleasant and cooperative. Heart: Regular, normal S1 and S2, no murmurs, rubs, or gallops. Lungs: Clear to auscultation bilaterally. Abdomen: Benign. Extremities: Feet/ankles without edema, posterior tibial pulses full and symmetrical. PATHOLOGY: 08/14/2022 Kidney, left, total nephrectomy: - Renal cell carcinoma (7.7 cm), clear cell type, WHO/ISUP grade 3, with focal early invasion of renal sinus vessel. - Surgical margins are negative. LABS: Hemoglobin (g/dL) Date Value 12/22/2023 15.2 Hematocrit (%) Date Value 12/22/2023 45.4 WBC (k/uL) Date Value 12/22/2023 7.79 Platelet Count (k/uL) Date Value 12/22/2023 155 RADIOLOGY/OTHER STUDIES: 12/25/2023 CT chest IMPRESSION: No metastatic disease in the chest. 12/25/2023 CT abdomen/pelvis IMPRESSION: No recurrent disease in the nephrectomy bed and no metastatic disease in abdomen or pelvis. 07/12/2023 CT chest IMPRESSION: 1. Stable CT of the chest. Unchanged appearance of right upper lobe nodular opacity. No new or enlarging nodules are visualized. 2. No evidence of intrathoracic lymphadenopathy. 3. Stable sclerotic focus in the T4 vertebrae, likely on the basis of a bone island. 07/12/2023 CT abdomen/pelvis IMPRESSION: 1. Postsurgical changes in keeping with left nephrectomy. No findings to suggest local recurrence. 2. No findings to suggest abdominal or pelvic metastatic disease. 3. Cholelithiasis without evidence of acute cholecystitis. 4. Bladder willie (more content not included)...[facility] 12-31-2023 History of Present illness Narrative* Aba Amaya MD - 12/31/2023 3:09 PM EDT PATIENT NAME: Juancarlos Baum DATE: 01/01/2024 PRIMARY CARE PHYSICIAN: Dr. Katarina Daniels OTHER PHYSICIANS: Dr. Florencio Rose. Dr. Urias, Dr. An Portions of this encounter note have been copied from the note from 08/28/2023 and has been updated where appropriate, and reflect my current medical decision making from today. CC: This is a 68 year old male with kidney cancer, seen for scheduled follow-up and treatment. INTERIM HISTORY: Since the patient's last visit here he completed his 1 year of adjuvant pembrolizumab on 08/28/2023. He tolerated treatment well with no apparent side effects. On follow-up today he feels well. No unusual pain or other systemic symptoms. He is urinating normally. MEDICATIONS: Current Outpatient Medications Medication Sig levothyroxine (SYNTHROID) 125 mcg tablet Take 1 tablet by mouth once daily. levothyroxine (SYNTHROID) 100 mcg tablet Take 1 tablet by mouth once daily. levothyroxine (SYNTHROID) 75 mcg tablet Take 1 tablet by mouth once daily. dutasteride (AVODART) 0.5 mg capsule Take 0.5 mg by mouth. gabapentin (NEURONTIN) 800 mg tablet Take 800 mg by mouth three times a day. ELIQUIS 5 mg tab(s) Take 1 tablet by mouth twice daily. You may resume this medication on August 26. digoxin (LANOXIN) 125 mcg (0.125 mg) tablet Take by mouth once daily. propranolol ER (INDERAL LA) 80 mg 24 hr capsule Take 80 mg by mouth once daily. multivit,thx,calcium,iron,mins (MULTIVITAMIN AND MINERAL ORAL) Take 1 Dose by mouth once daily. No current facility-administered medications for this visit. ALLERGIES: ALLERGIES Allergen Reactions Meloxicam Vomiting Nsaids (Non-Steroid* Other: See Comments PAST MEDICAL HISTORY: PAST MEDICAL HISTORY No date: Atrial fibrillation (HCC) No date: Renal cell carcinoma (HCC) PAST SURGICAL HISTORY: PAST SURGICAL HISTORY No date: NEPHRECTOMY PARTIAL; Left Comment: total left No date: TOTAL HIP REPLACEMENT; Left FAMILY HISTORY: No family history on file. SOCIAL HISTORY: Social History Tobacco Use Smoking status: Never Passive exposure: Never Smokeless tobacco: Never Vaping Use Vaping Use: Never used Substance Use Topics Alcohol use: Yes Comment: Less than monthly per pt 08/05/2022 Drug use: Never REVIEW OF SYSTEMS: General: No weight loss, malaise or fevers. HEENT: Negative for frequent or significant headaches. No changes in hearing or vision, no nose bleeds or other nasal problems. Respiratory: Negative for cough, wheezing or shortness of breath. Cardiovascular: Negative for chest pain, leg swelling or palpitations. GI: Negative for abdominal discomfort, blood in stools or black stools or change in bowel habits. : No history of dysuria, frequency or incontinence. See HPI. Musculoskeletal: Negative for: joint pain or swelling, back pain and muscle pain. Skin: Negative for lesions, rash and itching. Hematology/Lymphology: Negative for prolonged bleeding, bruising easily or swollen nodes. Neuro: No history of headaches, syncope, paralysis, seizures or tremors. PHYSICAL EXAM: BP 113/79 Pulse (!) 53 Temp 36.6 C (97.8 F) (Temporal) Resp 18 Ht 173 cm (5'8.11 ) Wt (!) 141.5 kg (311 lb 15.2 oz) SpO2 98% BMI 47.28 kg/m ECOG 0 General: Alert and oriented, no distress, pleasant and cooperative. Heart: Regular, normal S1 and S2, no murmurs, rubs, or gallops. Lungs: Clear to auscultation bilaterally. Abdomen: Benign. Extremities: Feet/ankles without edema, posterior tibial pulses full and symmetrical. PATHOLOGY: 08/14/2022 Kidney, left, total nephrectomy: - Renal cell carcinoma (7.7 cm), clear cell type, WHO/ISUP grade 3, with focal early invasion of renal sinus vessel. - Surgical margins are negative. LABS: Hemoglobin (g/dL) Date Value 12/22/2023 15.2 Hematocrit (%) Date Value 12/22/2023 45.4 WBC (k/uL) Date Value 12/22/2023 7.79 Platelet Count (k/uL) Date Value 12/22/2023 155 RADIOLOGY/OTHER STUDIES: 12/25/2023 CT chest IMPRESSION: No metastatic disease in the chest. 12/25/2023 CT abdomen/pelvis IMPRESSION: No recurrent disease in the nephrectomy bed and no metastatic disease in abdomen or pelvis. 07/12/2023 CT chest IMPRESSION: 1. Stable CT of the chest. Unchanged appearance of right upper lobe nodular opacity. No new or enlarging nodules are visualized. 2. No evidence of intrathoracic lymphadenopathy. 3. Stable sclerotic focus in the T4 vertebrae, likely on the basis of a bone island. 07/12/2023 CT abdomen/pelvis IMPRESSION: 1. Postsurgical changes in keeping with left nephrectomy. No findings to suggest local recurrence. 2. No findings to suggest abdominal or pelvic metastatic disease. 3. Cholelithiasis without evidence of acute cholecystitis. 4. Bladder calculus. Prostatomegaly. 12/26/2022 CT chest IMPRESSION: 1. Interval resolution of a previously described nodular opacity along the right major fissure. 2. Residual subcentimeter nodular opacity measuring less than 5 mm, stable since 08/09/22. 3. Sclerotic osseous foci most likely bone islands, stable. 4. Streaky scarring/discoid atelectasis in the bilateral lower lung winkler. 5. No evidence of new intrathoracic abnormalities. 12/26/2022 CT abdomen/pelvis IMPRESSION: 1. Interval left nephrectomy. 2. New 2.2 cm rounded area of reticular fat adjacent to the sigmoid colon most likely an area of epiploic appendagitis. 3. Otherwise no evidence of intra-abdominal/pelvic metastases. 4. Fat-containing umbilical hernia. 5. Cholelithiasis. 08/09/2022 CT chest IMPRESSION: Small (less than 3 mm) pulmonary nodules, likely small lymph nodes. Otherwise no suspicious lung nodule identified. Recommend follow-up per clinical protocol given the left renal mass. No thoracic lymphadenopathy. Known left renal mass, partially visualized, better seen on prior CT of the abdomen and pelvis. 07/16/2022 CT abdomen/pelvis ([facility]) IMPRESSION: 9 cm left renal neoplasm with extension into the renal sinus fat, but without renal vein/IVC involvement. No metastatic disease in the abdomen or pelvis. ASSESSMENT/PLAN: 1. 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 Status post radical left nephrectomy 08/14/2022. Postop the patient received adjuvant therapy with pembrolizumab x 1 year 09/19/2022 through 08/28/2023. Most recent restaging CT scans 12/25/2023 negative. Currently the patient is clinically stable with no evidence of disease. At this time we will continue routine observation. Will schedule restaging CT scans in 6 months, the patient will then return for follow-up. 2. Atrial fibrillation (HCC) - ICD9: 427.31, ICD10: I48.91 Stable on current medications, continue management per PCP/cardiology. 3. Lower extremity neuropathy with chronic edema - ICD9: 782.3, ICD10: R60.0 Stable on current medications, continue management per PCP. 4. Benign prostatic hypertrophy, history of elevated prostate specific antigen (PSA) - ICD9: 790.93, ICD10: R97.20 The patient has a long history of LUTS. Status post TURP x 2. PSA Feb 2023 elevated at 5.8. TRUS biopsy of the prostate 04/22/2023 negative. Continue management per urology. 5. 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 Synthroid started June 2023, currently 125 mcg daily. Will repeat TFTs in 3 months and adjust Synthroid dosage accordingly. Aba Amaya MD documented [facility] History of Present illness Narrative* Alyssa Smiley RN - 12/25/2023 8:45 AM EDT Radiology Service Progress Note DATE OF SERVICE: December 25, 2023 TIME: 8:36 AM PATIENT WEIGHT: 313LBS PATIENT IDENTITY VERIFICATION COMPLETED USING TWO (2) STANDARD IDENTIFIERS: Name and Date of confirmed by patient verbally. FALL SCREENING: Has the patient had 2 falls in the last year or 1 fall with injury or currently using an Ambulatory Assistive Device (Walker, Cane, Wheelchair, Crutches, etc.)? Yes, Patient High Riskfor Falls What interventions were put in place to prevent falls during this visit? Instructed Patient to Callfor Help if Needed and Offered Assistance with Transfers/Clothing PATIENT GENDER DATA: Male ALLERGIES: Reviewed and unchanged CONTRAST ALLERGY: No EXAM: CT -CONTRAST INDUCED NEPHROPATHY RISK FACTORS: Patient age > 60 years CREATININE: Creatinine Date Value Ref Range Status 12/22/2023 1.40 (H) 0.73 - 1.22 mg/dL Final 10/02/2023 1.50 (H) 0.73 - 1.22 mg/dL Final 08/27/2023 1.51 (H) 0.73 - 1.22 mg/dL Final Estimated Glomerular Filtration Rate Date Value Ref Range Status 12/22/2023 54 (L) >=60 mL/min/1.73m Final Comment: Estimated Glomerular Filtration Rate (eGFR) is calculated using the 2020 CKD-EPI creatinine equation. This equation utilizes serum creatinine, sex, and age as parameters. The creatinine assay has traceable calibration to isotope dilution- mass spectrometry. Refer to KDIGO guidelines for clinical interpretation. In patients with unstable renal function, e.g. those with acute kidney injury, the eGFRmay not accurately reflect actual GFR. P.O.C.T. RESULTS: POC done: Yes, See Lab Tab December 25, 2023 TREATMENT: N/A IV SITE: Ambulatory: A peripheral IV was started in the Left antecubital site with a Angio cath: 20gauge. IV SITE APPEARANCE: Clean,Dry and Intact SIGNATURE: Alyssa Smiley RN PATIENT NAME: Juancarlos Baum DATE: December 25, 2023 TIME: 8:36 AM * Hannah Stovall RT(R) - 12/25/2023 8:45 AM EDT Radiology Service Progress Note PATIENT NAME: Juancarlos Baum DATE OF SERVICE: December 25, 2023 TIME: 9:38 AM PATIENT IDENTITY VERIFICATION COMPLETED USING TWO (2) IDENTIFIERS: Name and Date of confirmedby patient verbally. FALL SCREENING: Has the patient had 2 falls in the last year or 1 fall with injury or currently using an Ambulatory Assistive Device (Walker, Cane, Wheelchair, Crutches, etc.)? No PATIENT GENDER DATA: Male PATIENT RELEVANT IMPLANT DATA REVIEWED: Not Applicable PATIENT PRESENTS WITH AN IMPLANTABLE OR ATTACHED MINE EQUIPMENT DESIGN ENGINEER: No RADIOLOGY DEPARTMENT: CT; Exam(s) Completed: Chest Abdomen Pelvis PERIPHERAL IV DATA: Site assessment: Clean,Dry and Intact, Site disposition Discontinued 20g left ac SIGNED BY: RT Yifan(R) December 25, 2023 9:38 AM documented in this encounterProm[facility]24 NoteHNO ID: [id number] Author: ALYSSA SMILEY RN Service: ? Author Type: Registered Nurse Type: Progress Notes Filed: 12/25/2023 08:37 Note Text: Radiology Service Progress Note DATE OF SERVICE: December 25, 2023 TIME: 8:36 AM PATIENT WEIGHT: 313LBS PATIENT IDENTITY VERIFICATION COMPLETED USING TWO (2) STANDARD IDENTIFIERS: Name and Date of confirmed by patient verbally. FALL SCREENING: Has the patient had 2 falls in the last year or 1 fall with injury or currently using an Ambulatory Assistive Device (Walker, Cane, Wheelchair, Crutches, etc.)? Yes, Patient High Risk for Falls What interventions were put in place to prevent falls during this visit? Instructed Patient to Call for Help if Needed and Offered Assistance with Transfers/Clothing PATIENT GENDER DATA: Male ALLERGIES: Reviewed and unchanged CONTRAST ALLERGY: No EXAM: CT -CONTRAST INDUCED NEPHROPATHY RISK FACTORS: Patient age > 60 years CREATININE: Creatinine Date Value Ref Range Status 12/22/2023 1.40 (H) 0.73 - 1.22 mg/dL Final 10/02/2023 1.50 (H) 0.73 - 1.22 mg/dL Final 08/27/2023 1.51 (H) 0.73 - 1.22 mg/dL Final Estimated Glomerular Filtration Rate Date Value Ref Range Status 12/22/2023 54 (L) >=60 mL/min/1.73m? Final Comment: Estimated Glomerular Filtration Rate (eGFR) is calculated using the 2020 CKD-EPI creatinine equation. This equation utilizes serum creatinine, sex, and age as parameters. The creatinine assay has traceable calibration to isotope dilution-mass spectrometry. Refer to KDIGO guidelines for clinical interpretation. In patients with unstable renal function, e.g. those with acute kidney injury, the eGFR may not accurately reflect actual GFR. P.O.C.T. RESULTS: POC done: Yes, See Lab Tab December 25, 2023 TREATMENT: N/A IV SITE: Ambulatory: A peripheral IV was started in the Left antecubital site with a Angio cath: 20 gauge. IV SITE APPEARANCE: Clean,Dry and Intact SIGNATURE: Alyssa Smiley RN PATIENT NAME: Juancarlos Baum DATE: December 25, 2023 TIME: 8:36 [facility]08-08-2024 NoteHNO ID: [id number] Author: HANNAH STOVALL RT(R) Service: Radiology Author Type: Technologist Type: Progress Notes Filed: 12/25/2023 09:39 Note Text: Radiology Service Progress Note PATIENT NAME: Juancarlos Baum DATE OF SERVICE: December 25, 2023 TIME: 9:38 AM PATIENT IDENTITY VERIFICATION COMPLETED USING TWO (2) IDENTIFIERS: Name and Date of confirmed by patient verbally. FALL SCREENING: Has the patient had 2 falls in the last year or 1 fall with injury or currently using an Ambulatory Assistive Device (Walker, Cane, Wheelchair, Crutches, etc.)? No PATIENT GENDER DATA: Male PATIENT RELEVANT IMPLANT DATA REVIEWED: Not Applicable PATIENT PRESENTS WITH AN IMPLANTABLE OR ATTACHED MINE EQUIPMENT DESIGN ENGINEER: No RADIOLOGY DEPARTMENT: CT; Exam(s) Completed: Chest Abdomen Pelvis PERIPHERAL IV DATA: Site assessment: Clean,Dry and Intact, Site disposition Discontinued 20g left ac SIGNED BY: RT Yifan(R) December 25, 2023 9:38 [facility]08-07-2024 Hospital Discharge instructions Patient Education 12/24/2023 10:20:10 Bladder Stone Bladder Stone A bladder stone is a buildup of crystals made from the proteins and minerals found in urine. These substances build up when urine becomes too concentrated. Urine is concentrated when there is less water and more proteins and minerals in it. Bladder stones usually develop when a person has another medical condition that prevents the bladder from emptying completely. Crystals can form in the small amount of urine that is left in the bladder. Bladder stones that grow large can become painful and may block the flow of urine. What are the causes? This condition may be caused by: An enlarged prostate, which prevents the bladder from emptying well. An infection of a part of your urinary system (urinary tract infection, or UTI). This includes the: ?Kidneys. ?Bladder. ?Ureters. These are the tubes that carry urine to your bladder. ?Urethra. This is the tube that drains urine from your bladder. A weak spot in the bladder that creates a small pouch (bladder diverticulum). Nerve damage that may interfere with the signals from your brain to your bladder muscles (neurogenic bladder). This can result from conditions such as Parkinson's disease or spinal cord injuries. What increases the risk? This condition is more likely to develop in people who: Get frequent UTIs. Have another medical condition that affects the bladder. Have a history of bladder surgery. Have a spinal cord injury. Have an abnormal shape of the bladder (deformity). What are the signs or symptoms? Common symptoms of this condition include: Pain in the abdomen. A need to urinate more often. Difficulty or pain when urinating. Blood in the urine. Cloudy urine or urine that is dark in color. Pain in the penis or testicles in men. Small bladder stones do not always cause symptoms. How is this diagnosed? This condition may be diagnosed based on your symptoms, medical history, and physical exam. The physical exam will check for tenderness in your abdomen. For men, an exam in the rectum may be done to check the prostate gland. You may have tests, such as: ?A urine test (urinalysis). ?A urine sample test to check for other infections (culture). ?Blood tests, including tests to look for a certain substance (creatinine). A creatinine level thatis higher than normal could indicate a blockage. ?A procedure to check your bladder using a scope with a camera (cystoscopy). You may also have imaging studies, such as: ?CT scan or ultrasound of your abdomen and the area between your hip bones (pelvis or pelvic area). ?An X-ray of your urinary system. How is this treated? This condition may be treated with: Cystolitholapaxy. This procedure uses a laser, ultrasound, or other device to break the stone into smaller pieces. Fluids are used to flush the small pieces from the area. Surgery to remove the stone. A stent. This is a small mesh tube that is threaded into your ureter to make urine flow. Medicines to treat pain. Follow these instructions at home: Medicines Take mxju-svp-vcfmtpy and prescription medicines only as told by your health care provider. Ask your health care provider if the medicine prescribed to you: ?Requires you to avoid driving or using heavy machinery. ?Can cause constipation. You may need to take these actions to prevent or treat constipation: ?Take vpzb-mrg-asyvbuw or prescription medicines. ?Eat foods that are high in fiber, such as beans, whole grains, and fresh fruits and vegetables. ?Limit foods that are high in fat and processed sugars, such as fried or sweet foods. Alcohol use Do not drink alcohol if: ?Your health care provider tells you not to drink. ?You are , may be , or are planning to become . If you drink alcohol: ?Limit how much you drink to: ?0 1 drink a day for women. ?0 2 drinks a day for men. ?Be aware of how much alcohol is in your drink. In the [place] one drink equals one 12 oz bottle of beer (355 mL), one 5 oz glass of wine (148 mL), or one 1 oz glass of hard liquor (44 mL). Activity Rest as told by your health care provider. Return to your normal activities as told by your health care provider. Ask your health care provider what activities are safe for you. General instructions Drink enough fluid to keep your urine pale yellow. Tell your health care provider about any unusual symptoms related to urinating. Early diagnosis of an enlarged prostate and other bladder conditions may reduce your risk of getting bladder stones. Do not use any products that contain nicotine or tobacco, such as cigarettes, e- cigarettes, or chewing tobacco. If you need help quitting, ask your health care provider. Do not use drugs. Where to find more information [facility] ([facility]): www.[facility]rologyhealth.org Contact a health care provider if you: Have a fever. Feel nauseous or vomit. Are unable to urinate. Have a large amount of blood in your urine. Get help right away if you: Have severe back pain or pain in the lower part of your abdomen. Cannot eat or drink without vomiting. Vomit after taking your medicine. Summary A bladder stone is a buildup of crystals made from the proteins and minerals found in urine. These substances build up when urine becomes too concentrated. Bladder stones that grow large can become painful and may block the flow of urine. Bladder stones may be treated with a laser, a stent, surgery, or pain medicines. This information is not intended to replace advice given to you by your health care provider. Make sure you discuss any questions you have with your health care provider. Document Revised: 11/25/2019 Document Reviewed: 11/25/2019 [email or web address] Patient Education 2022 [employer]. Follow Up Care 05/21/2023 12:25:29 With:NATALIYA SAAVEDRA, Elliot Muniz, URL Address: [facility] [address] , [place] [address]- When: Unknown [facility] 08-07-2024 NotePatient Education Urology Bladder Stone A bladder stone is a buildup of crystals made from the proteins and minerals found in urine. These substances build up when urine becomes too concentrated. Urine is concentrated when there is less water and more proteins and minerals in it. Bladder stones usually develop when a person has another medical condition that prevents the bladder from emptying completely. Crystals can form in the small amount of urine that is left in the bladder. Bladder stones that grow large can become painful and may block the flow of urine. What are the causes? This condition may be caused by: ? An enlarged prostate, which prevents the bladder from emptying well. ? An infection of a part of your urinary system (urinary tract infection, or UTI). This includes the: ? Kidneys. ? Bladder. ? Ureters. These are the tubes that carry urine to your bladder. ? Urethra. This is the tube that drains urine from your bladder. ? A weak spot in the bladder that creates a small pouch (bladder diverticulum). ? Nerve damage that may interfere with the signals from your brain to your bladder muscles (neurogenic bladder). This can result from conditions such as Parkinson's disease or spinal cord injuries. What increases the risk? This condition is more likely to develop in people who: ? Get frequent UTIs. ? Have another medical condition that affects the bladder. ? Have a history of bladder surgery. ? Have a spinal cord injury. ? Have an abnormal shape of the bladder (deformity). What are the signs or symptoms? Common symptoms of this condition include: ? Pain in the abdomen. ? A need to urinate more often. ? Difficulty or pain when urinating. ? Blood in the urine. ? Cloudy urine or urine that is dark in color. ? Pain in the penis or testicles in men. Small bladder stones do not always cause symptoms. How is this diagnosed? This condition may be diagnosed based on your symptoms, medical history, and physical exam. The physical exam will check for tenderness in your abdomen. For men, an exam in the rectum may be done to check the prostate gland. ? You may have tests, such as: ? A urine test (urinalysis). ? A urine sample test to check for other infections (culture). ? Blood tests, including tests to look for a certain substance (creatinine). A creatinine level that is higher than normal could indicate a blockage. ? A procedure to check your bladder using a scope with a camera (cystoscopy). ? You may also have imaging studies, such as: ? CT scan or ultrasound of your abdomen and the area between your hip bones (pelvis or pelvic area). ? An X-ray of your urinary system. How is this treated? This condition may be treated with: ? Cystolitholapaxy. This procedure uses a laser, ultrasound, or other device to break the stone into smaller pieces. Fluids are used to flush the small pieces from the area. ? Surgery to remove the stone. ? A stent. This is a small mesh tube that is threaded into your ureter to make urine flow. ? Medicines to treat pain. Follow these instructions at home: Medicines ? Take unta-hmu-khdajsz and prescription medicines only as told by your health care provider. ? Ask your health care provider if the medicine prescribed to you: ? Requires you to avoid driving or using heavy machinery. ? Can cause constipation. You may need to take these actions to prevent or treat constipation: ? Take jaxx-ktc-bljsdql or prescription medicines. ? Eat foods that are high in fiber, such as beans, whole grains, and fresh fruits and vegetables. ? Limit foods that are high in fat and processed sugars, such as fried or sweet foods. Alcohol use ? Do not drink alcohol if: ? Your health care provider tells you not to drink. ? You are , may be , or are planning to become . ? If you drink alcohol: ? Limit how much you drink to: ? 0?1 drink a day for women. ? 0?2 drinks a day for men. ? Be aware of how much alcohol is in your drink. In the [place] one drink equals one 12 oz bottle of beer (355 mL), one 5 oz glass of wine (148 mL), or one 1? oz glass of hard liquor (44 mL). Activity ? Rest as told by your health care provider. ? Return to your normal activities as told by your health care provider. Ask your health care provider what activities are safe for you. General instructions ? Drink enough fluid to keep your urine pale yellow. ? Tell your health care provider about any unusual symptoms related to urinating. Early diagnosis of an enlarged prostate and other bladder conditions may reduce your risk of getting bladder stones. ? Do not use any products that contain nicotine or tobacco, such as cigarettes, e-cigarettes, or chewing tobacco. If you need help quitting, ask your health care provider. ? Do not use drugs. Where to find more information [facility] ([facility]): www. (more content not included)...[facility]08-05-2024 Telephone encounter Note* Telephone Encounter - Nirmala Regalado RN - 12/22/2023 10:28 AM EDT Pt requesting a letter confirming that he was in our office today for labs. Will hand picker when back on . Letter written and up at front office coordinator. Nirmala Regalado RN [facility] Work Phone: [phone]) 248-678608-05-2024 Miscellaneous Notes* Telephone Encounter - Nirmala Regalado RN - 12/22/2023 10:28 AM EDT Pt requesting a letter confirming that he was in our office today for labs. Will hand picker when back on . Letter written and up at front office coordinator. Nirmala Regalado RN documented in this encounterProm[facility]06-[facility] Telephone encounter Note * Telephone Encounter - Nirmala Regalado RN - 11/14/2023 2:19 PM EDT Pt's spouse notified and verbalizes understanding. BRM: New Rx pended. Nirmala Regalado RN [facility] Work Phone: [phone]) 347-964606-28-2024 Miscellaneous Notes* Telephone Encounter - Nirmala Regalado RN - 11/14/2023 2:19 PM EDT Pt's spouse notified and verbalizes understanding. BRM: New Rx pended. Nirmala Regalado RN * Telephone Encounter - Nirmala Regalado RN - 11/14/2023 2:17 PM EDT Images from the original note were not included. Aba Amaya MD You6 minutes ago (2:10 PM) Yes, would increase Synthroid to 125. please prescribe one month supply with three refills. * Telephone Encounter - Nirmala Regalado RN - 11/14/2023 12:01 PM EDT Yesterday's TSH was 21.2. Pt taking Synthroid 100 mcg/day. Does he need to adjust his dose? Nirmala Regalado RN [facility] * Telephone Encounter - Nirmlaa Regalado RN - 11/14/2023 2:17 PM EDT Images from the original note were not included. Aba Amaya MD You6 minutes ago (2:10 PM) Yes, would increase Synthroid to 125. please prescribe one month supply with three refills. [facility]06-28-[facility] Telephone encounter Note* Telephone Encounter - Nirmala Regalado RN - 11/14/2023 12:01 PM EDT Yesterday's TSH was 21.2. Pt taking Synthroid 100 mcg/day. Does he need to adjust his dose? Nirmala Regalado RN [facility]05-17-[facility] Telephone encounter Note* Telephone Encounter - Aminta Bolden - 10/03/2023 10:56 AM EDT Spoke to patient & scheduled repeat labs in 6 weeks on 11/13/2023 at 9:15 am. Aminta Cristiano Kimi [facility]05-17-2024 Miscellaneous Notes* Telephone Encounter - Aminta Bolden - 10/03/2023 10:56 AM EDT Spoke to patient & scheduled repeat labs in 6 weeks on 11/13/2023 at 9:15 am. Aminta Cristiano Kimi * Telephone Encounter - Lara Wells PA-C - 10/03/2023 10:32 AM EDT Signed Lara Wells PA-C * Telephone Encounter - Yoon Reynolds RN - 10/03/2023 10:01 AM EDT Pt informed of [facility] message and agreeable to increase of synthroid from 75 mcg to 100 mcg daily. Pt denies any questions, needs or concerns at this time. Yoon Reynolds RN BRM Please review and sign repeat lab orders and RX increase PSS: Please call to schedule repeat labs in 6 weeks Yoon Reynolds RN * Telephone Encounter - Yoon Reynolds RN - 10/03/2023 9:58 AM EDT ----- Message from Aba Amaya MD sent at 10/03/2023 6:57 AM EDT ----- Please inform the patient that his TSH remains elevated. Verify if he is on Synthroid 75 mcg. If sowould increase to 100 mcg daily. Repeat TFTs in 6 weeks. [facility] Tele[facility] encounter Note * Telephone Encounter - Lara Wells PA-C - 10/03/2023 10:32 AM EDT Signed Lara Wells PA-C [facility] Telephone encounter Note* Telephone Encounter - Yoon Reynolds RN - 10/03/2023 10:01 AM EDT Pt informed of BRM message and agreeable to increase of synthroid from 75 mcg to 100 mcg daily. Pt denies any questions, needs or concerns at this time. Yoon Reynolds RN BRM Please review and sign repeat lab orders and RX increase PSS: Please call to schedule repeat labs in 6 weeks Yoon Reynolds RN [facility]05-17-[facility] Telephone encounter Note* Telephone Encounter - Yoon Reynolds RN - 10/03/2023 9:58 AM EDT ----- Message from Aba Amaya MD sent at 10/03/2023 6:57 AM EDT ----- Please inform the patient that his TSH remains elevated. Verify if he is on Synthroid 75 mcg. If sowould increase to 100 mcg daily. Repeat TFTs in 6 weeks. [facility]04-[facility]24 NoteHNO ID: [id number] Author: ABA AMAYA MD Service: ? Author Type: Physician Type: Progress Notes Filed: 08/28/2023 19:23 Note Text: PATIENT NAME: Juancarlos Baum DATE: 08/28/2023 PRIMARY CARE PHYSICIAN: Dr. Katarina Daniels OTHER PHYSICIANS: Dr. Florencio Rose. Dr. Urias, Dr. An Portions of this encounter note have been copied from the note from 07/17/2023 and has been updated where appropriate, and reflect my current medical decision making from today. CC: This is a 67 year old male with kidney cancer, seen for scheduled follow-up and treatment. INTERIM HISTORY: Since the patient's last visit here he has had no significant medical changes. He remains on pembrolizumab every 6 weeks and is tolerating it well. He has had no apparent adverse effects. At this time he feels well with no complaints. MEDICATIONS: Current Outpatient Medications Medication Sig levothyroxine (SYNTHROID) 50 mcg tablet Take 1 tablet by mouth once daily. dutasteride (AVODART) 0.5 mg capsule Take 0.5 mg by mouth. gabapentin (NEURONTIN) 800 mg tablet Take 800 mg by mouth three times a day. ELIQUIS 5 mg tab(s) Take 1 tablet by mouth twice daily. You may resume this medication on August 26. digoxin (LANOXIN) 125 mcg (0.125 mg) tablet Take by mouth once daily. propranolol ER (INDERAL LA) 80 mg 24 hr capsule Take 80 mg by mouth once daily. multivit,thx,calcium,iron,mins (MULTIVITAMIN AND MINERAL ORAL) Take 1 Dose by mouth once daily. Current Facility-Administered Medications Medication Dose Route Frequency perflutren lipid microspheres 1.3 mL in NaCl (PF) 0.9% 10 mL injection (DEFINITY) INTRAVENOUS DIRECTED PRN sodium chloride 0.9 % (flush) 10 mL (BD POSIFLUSH) 10 mL INTRAVENOUS DIRECTED PRN ALLERGIES: ALLERGIES Allergen Reactions Meloxicam Vomiting Nsaids (Non-Steroid* Other: See Comments PAST MEDICAL HISTORY: PAST MEDICAL HISTORY Diagnosis Date Atrial fibrillation (HCC) Renal cell carcinoma (HCC) PAST SURGICAL HISTORY: PAST SURGICAL HISTORY Procedure Laterality Date NEPHRECTOMY PARTIAL Left total left TOTAL HIP REPLACEMENT Left FAMILY HISTORY: No family history on file. SOCIAL HISTORY: Social History Tobacco Use Smoking status: Never Passive exposure: Never Smokeless tobacco: Never Vaping Use Vaping Use: Never used Substance Use Topics Alcohol use: Yes Comment: Less than monthly per pt 08/05/2022 Drug use: Never REVIEW OF SYSTEMS: General: No weight loss, malaise or fevers. HEENT: Negative for frequent or significant headaches. No changes in hearing or vision, no nose bleeds or other nasal problems. Respiratory: Negative for cough, wheezing or shortness of breath. Cardiovascular: Negative for chest pain, leg swelling or palpitations. GI: Negative for abdominal discomfort, blood in stools or black stools or change in bowel habits. : No history of dysuria, frequency or incontinence. See HPI. Musculoskeletal: Negative for: joint pain or swelling, back pain and muscle pain. Skin: Negative for lesions, rash and itching. Hematology/Lymphology: Negative for prolonged bleeding, bruising easily or swollen nodes. Neuro: No history of headaches, syncope, paralysis, seizures or tremors. PHYSICAL EXAM: BP 130/83 Pulse (!) 58 Temp 36.6 ?C (97.9 ?F) (Temporal) Resp 18 Ht 173 cm (5' 8.11 ) Wt (!) 145.9 kg (321 lb 10.4 oz) SpO2 100% BMI 48.75 kg/m? ECOG 0 General: Alert and oriented, no distress, pleasant and cooperative. Heart: Regular, normal S1 and S2, no murmurs, rubs, or gallops. Lungs: Clear to auscultation bilaterally. Abdomen: Benign. Extremities: Feet/ankles without edema, posterior tibial pulses full and symmetrical. PATHOLOGY: 08/14/2022 Kidney, left, total nephrectomy: - Renal cell carcinoma (7.7 cm), clear cell type, WHO/ISUP grade 3, with focal early invasion of renal sinus vessel. - Surgical margins are negative. LABS: Hemoglobin (g/dL) Date Value 08/27/2023 14.8 Hematocrit (%) Date Value 08/27/2023 43.7 WBC (k/uL) Date Value 08/27/2023 7.18 Platelet Count (k/uL) Date Value 08/27/2023 183 RADIOLOGY/OTHER STUDIES: 07/12/2023 CT chest IMPRESSION: 1. Stable CT of the chest. Unchanged appearance of right upper lobe nodular opacity. No new or enlarging nodules are visualized. 2. No evidence of intrathoracic lymphadenopathy. 3. Stable sclerotic focus in the T4 vertebrae, likely on the basis of a bone island. 07/12/2023 CT abdomen/pelvis IMPRESSION: 1. Postsurgical changes in keeping with left nephrectomy. No findings to suggest local recurrence. 2. No findings to suggest abdominal or pelvic metastatic disease. 3. Cholelithiasis without evidence of acute cholecystitis. 4. Bladder calculus. Prostatomegaly. 12/26/2022 CT chest IMPRESSION: 1. Interval resolution of a previously described nodular opacity along the right major fissure. 2. Residual subcenti (more content not included)...[facility] 08-27-2023 History of Present illness Narrative* Aba Amaya MD - 08/27/2023 4:14 PM EDT PATIENT NAME: Juancarlos Baum DATE: 08/28/2023 PRIMARY CARE PHYSICIAN: Dr. Katarina Daniels OTHER PHYSICIANS: Dr. Florencio Rose. Dr. Urias, Dr. An Portions of this encounter note have been copied from the note from 07/17/2023 and has been updated where appropriate, and reflect my current medical decision making from today. CC: This is a 67 year old male with kidney cancer, seen for scheduled follow-up and treatment. INTERIM HISTORY: Since the patient's last visit here he has had no significant medical changes. He remains on pembrolizumab every 6 weeks and is tolerating it well. He has had no apparent adverse effects. At this time he feels well with no complaints. MEDICATIONS: Current Outpatient Medications Medication Sig levothyroxine (SYNTHROID) 50 mcg tablet Take 1 tablet by mouth once daily. dutasteride (AVODART) 0.5 mg capsule Take 0.5 mg by mouth. gabapentin (NEURONTIN) 800 mg tablet Take 800 mg by mouth three times a day. ELIQUIS 5 mg tab(s) Take 1 tablet by mouth twice daily. You may resume this medication on August 26. digoxin (LANOXIN) 125 mcg (0.125 mg) tablet Take by mouth once daily. propranolol ER (INDERAL LA) 80 mg 24 hr capsule Take 80 mg by mouth once daily. multivit,thx,calcium,iron,mins (MULTIVITAMIN AND MINERAL ORAL) Take 1 Dose by mouth once daily. Current Facility-Administered Medications Medication Dose Route Frequency perflutren lipid microspheres 1.3 mL in NaCl (PF) 0.9% 10 mL injection (DEFINITY) INTRAVENOUS DIRECTED PRN sodium chloride 0.9 % (flush) 10 mL (BD POSIFLUSH) 10 mL INTRAVENOUS DIRECTED PRN ALLERGIES: ALLERGIES Allergen Reactions Meloxicam Vomiting Nsaids (Non-Steroid* Other: See Comments PAST MEDICAL HISTORY: PAST MEDICAL HISTORY Diagnosis Date Atrial fibrillation (HCC) Renal cell carcinoma (HCC) PAST SURGICAL HISTORY: PAST SURGICAL HISTORY Procedure Laterality Date NEPHRECTOMY PARTIAL Left total left TOTAL HIP REPLACEMENT Left FAMILY HISTORY: No family history on file. SOCIAL HISTORY: Social History Tobacco Use Smoking status: Never Passive exposure: Never Smokeless tobacco: Never Vaping Use Vaping Use: Never used Substance Use Topics Alcohol use: Yes Comment: Less than monthly per pt 08/05/2022 Drug use: Never REVIEW OF SYSTEMS: General: No weight loss, malaise or fevers. HEENT: Negative for frequent or significant headaches. No changes in hearing or vision, no nose bleeds or other nasal problems. Respiratory: Negative for cough, wheezing or shortness of breath. Cardiovascular: Negative for chest pain, leg swelling or palpitations. GI: Negative for abdominal discomfort, blood in stools or black stools or change in bowel habits. : No history of dysuria, frequency or incontinence. See HPI. Musculoskeletal: Negative for: joint pain or swelling, back pain and muscle pain. Skin: Negative for lesions, rash and itching. Hematology/Lymphology: Negative for prolonged bleeding, bruising easily or swollen nodes. Neuro: No history of headaches, syncope, paralysis, seizures or tremors. PHYSICAL EXAM: BP 130/83 Pulse (!) 58 Temp 36.6 C (97.9 F) (Temporal) Resp 18 Ht 173 cm (5'8.11 ) Wt (!) 145.9 kg (321 lb 10.4 oz) SpO2 100% BMI 48.75 kg/m ECOG 0 General: Alert and oriented, no distress, pleasant and cooperative. Heart: Regular, normal S1 and S2, no murmurs, rubs, or gallops. Lungs: Clear to auscultation bilaterally. Abdomen: Benign. Extremities: Feet/ankles without edema, posterior tibial pulses full and symmetrical. PATHOLOGY: 08/14/2022 Kidney, left, total nephrectomy: - Renal cell carcinoma (7.7 cm), clear cell type, WHO/ISUP grade 3, with focal early invasion of renal sinus vessel. - Surgical margins are negative. LABS: Hemoglobin (g/dL) Date Value 08/27/2023 14.8 Hematocrit (%) Date Value 08/27/2023 43.7 WBC (k/uL) Date Value 08/27/2023 7.18 Platelet Count (k/uL) Date Value 08/27/2023 183 RADIOLOGY/OTHER STUDIES: 07/12/2023 CT chest IMPRESSION: 1. Stable CT of the chest. Unchanged appearance of right upper lobe nodular opacity. No new or enlarging nodules are visualized. 2. No evidence of intrathoracic lymphadenopathy. 3. Stable sclerotic focus in the T4 vertebrae, likely on the basis of a bone island. 07/12/2023 CT abdomen/pelvis IMPRESSION: 1. Postsurgical changes in keeping with left nephrectomy. No findings to suggest local recurrence. 2. No findings to suggest abdominal or pelvic metastatic disease. 3. Cholelithiasis without evidence of acute cholecystitis. 4. Bladder calculus. Prostatomegaly. 12/26/2022 CT chest IMPRESSION: 1. Interval resolution of a previously described nodular opacity along the right major fissure. 2. Residual subcentimeter nodular opacity measuring less than 5 mm, stable since 08/09/22. 3. Sclerotic osseous foci most likely bone islands, stable. 4. Streaky scarring/discoid atelectasis in the bilateral lower lung winkler. 5. No evidence of new intrathoracic abnormalities. 12/26/2022 CT abdomen/pelvis IMPRESSION: 1. Interval left nephrectomy. 2. New 2.2 cm rounded area of reticular fat adjacent to the sigmoid colon most likely an area of epiploic appendagitis. 3. Otherwise no evidence of intra-abdominal/pelvic metastases. 4. Fat-containing umbilical hernia. 5. Cholelithiasis. 08/09/2022 CT chest IMPRESSION: Small (less than 3 mm) pulmonary nodules, likely small lymph nodes. Otherwise no suspicious lung nodule identified. Recommend follow-up per clinical protocol given the left renal mass. No thoracic lymphadenopathy. Known left renal mass, partially visualized, better seen on prior CT of the abdomen and pelvis. 07/16/2022 CT abdomen/pelvis ([facility]) IMPRESSION: 9 cm left renal neoplasm with extension into the renal sinus fat, but without renal vein/IVC involvement. No metastatic disease in the abdomen or pelvis. ASSESSMENT/PLAN: 1. 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 Status post radical left nephrectomy 08/14/2022. Postop it was elected to give adjuvant therapy with pembrolizumab, with plans to give 200 mg IV every 3 weeks x1 year. Treatment started 09/19/2022. Restaging CT scans 12/26/2022 stable. February 2023 pembrolizumab was changed to 400 mg IV every [address] scans 07/12/2023 remains stable. Currently the patient is clinically stable and essentially asymptomatic. The patient will receive pembrolizumab 400 mg today. This will complete his planned adjuvant therapy. We will restage again with CT scans at 6 months (December 2023), he will then return for follow-up. 2. Atrial fibrillation (HCC) - ICD9: 427.31, ICD10: I48.91 Stable on current medications, continue management per PCP/cardiology. 3. Lower extremity neuropathy with chronic edema - ICD9: 782.3, ICD10: R60.0 Stable on current medications, continue management per PCP. 4. Benign prostatic hypertrophy, history of elevated prostate specific antigen (PSA) - ICD9: 790.93, ICD10: R97.20 The patient has a long history of LUTS. Status post TURP x 2. PSA Feb 2023 elevated at 5.8. TRUS biopsy of the prostate 04/22/2023 negative. Continue management per urology. 5. 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 Synthroid started June 2023, currently 50 mcg daily. TSH remains elevated. Will increase Synthroid to 75 mcg daily. Repeat TFTs in 4 to 5 weeks. Aba Amaya MD documented in [facility] Miscellaneous Notes* Telephone Encounter - Nirmala Regalado RN - 07/21/2023 9:40 AM EST Pt notified and verbalizes understanding. IVY/Lucio: Rx pended. Nirmala Regalado RN * Telephone Encounter - Nirmala Regalado RN - 07/21/2023 9:15 AM EST Call placed to pt. No answer. Message left requesting call back. Nirmala Regalado RN * Telephone Encounter - Nirmala Regalado RN - 07/21/2023 9:14 AM EST ----- Message from Aba Amaya MD sent at 07/21/2023 8:53 AM EST ----- Please inform the patient that his labs indicate moderate hypothyroidism. Would start Synthroid 50 mcg daily. Prescribed #30. Will repeat TFTs in 4 weeks. documented in this encounterProm[facility]02-29-[facility]24 NoteHNO ID: [id number] Author: ABA AMAYA MD Service: ? Author Type: Physician Type: Progress Notes Filed: 07/17/2023 17:36 Note Text: PATIENT NAME: Juancarlos Baum DATE: 07/17/2023 PRIMARY CARE PHYSICIAN: Dr. Katarina Daniels OTHER PHYSICIANS: Dr. Florencio Rose. Dr. Urias, Dr. An Portions of this encounter note have been copied from the note from 06/05/2023 and has been updated where appropriate, and reflect my current medical decision making from today. CC: This is a 67 year old male with kidney cancer, seen for scheduled follow-up and treatment. INTERIM HISTORY: Since the patient's last visit here he has had no significant medical changes. He remains on pembrolizumab every 6 weeks and is tolerating it well. He has had no apparent adverse effects. At this time he feels well with no complaints. MEDICATIONS: Current Outpatient Medications Medication Sig dutasteride (AVODART) 0.5 mg capsule Take 0.5 mg by mouth. gabapentin (NEURONTIN) 800 mg tablet Take 800 mg by mouth three times a day. ELIQUIS 5 mg tab(s) Take 1 tablet by mouth twice daily. You may resume this medication on August 26. digoxin (LANOXIN) 125 mcg (0.125 mg) tablet Take by mouth once daily. propranolol ER (INDERAL LA) 80 mg 24 hr capsule Take 80 mg by mouth once daily. multivit,thx,calcium,iron,mins (MULTIVITAMIN AND MINERAL ORAL) Take 1 Dose by mouth once daily. Current Facility-Administered Medications Medication Dose Route Frequency perflutren lipid microspheres 1.3 mL in NaCl (PF) 0.9% 10 mL injection (DEFINITY) INTRAVENOUS DIRECTED PRN sodium chloride 0.9 % (flush) 10 mL (BD POSIFLUSH) 10 mL INTRAVENOUS DIRECTED PRN ALLERGIES: ALLERGIES Allergen Reactions Meloxicam Vomiting Nsaids (Non-Steroid* Other: See Comments PAST MEDICAL HISTORY: PAST MEDICAL HISTORY Diagnosis Date Atrial fibrillation (HCC) Renal cell carcinoma (HCC) PAST SURGICAL HISTORY: PAST SURGICAL HISTORY Procedure Laterality Date NEPHRECTOMY PARTIAL Left total left TOTAL HIP REPLACEMENT Left FAMILY HISTORY: No family history on file. SOCIAL HISTORY: Social History Tobacco Use Smoking status: Never Passive exposure: Never Smokeless tobacco: Never Vaping Use Vaping Use: Never used Substance Use Topics Alcohol use: Yes Comment: Less than monthly per pt 08/05/2022 Drug use: Never REVIEW OF SYSTEMS: General: No weight loss, malaise or fevers. HEENT: Negative for frequent or significant headaches. No changes in hearing or vision, no nose bleeds or other nasal problems. Respiratory: Negative for cough, wheezing or shortness of breath. Cardiovascular: Negative for chest pain, leg swelling or palpitations. GI: Negative for abdominal discomfort, blood in stools or black stools or change in bowel habits. : No history of dysuria, frequency or incontinence. See HPI. Musculoskeletal: Negative for: joint pain or swelling, back pain and muscle pain. Skin: Negative for lesions, rash and itching. Hematology/Lymphology: Negative for prolonged bleeding, bruising easily or swollen nodes. Neuro: No history of headaches, syncope, paralysis, seizures or tremors. PHYSICAL EXAM: BP 100/86 Pulse (!) 55 Temp 36.2 ?C (97.1 ?F) (Temporal) Resp 16 Ht 173 cm (5' 8.11 ) Wt (!) 148.2 kg (326 lb 11.6 oz) SpO2 96% BMI 49.52 kg/m? ECOG 0 General: Alert and oriented, no distress, pleasant and cooperative. Heart: Regular, normal S1 and S2, no murmurs, rubs, or gallops. Lungs: Clear to auscultation bilaterally. Abdomen: Benign. Extremities: Feet/ankles without edema, posterior tibial pulses full and symmetrical. PATHOLOGY: 08/14/2022 Kidney, left, total nephrectomy: - Renal cell carcinoma (7.7 cm), clear cell type, WHO/ISUP grade 3, with focal early invasion of renal sinus vessel. - Surgical margins are negative. LABS: Hemoglobin (g/dL) Date Value 07/17/2023 14.9 Hematocrit (%) Date Value 07/17/2023 45.1 WBC (k/uL) Date Value 07/17/2023 6.63 Platelet Count (k/uL) Date Value 07/17/2023 170 RADIOLOGY/OTHER STUDIES: 07/12/2023 CT chest IMPRESSION: 1. Stable CT of the chest. Unchanged appearance of right upper lobe nodular opacity. No new or enlarging nodules are visualized. 2. No evidence of intrathoracic lymphadenopathy. 3. Stable sclerotic focus in the T4 vertebrae, likely on the basis of a bone island. 07/12/2023 CT abdomen/pelvis IMPRESSION: 1. Postsurgical changes in keeping with left nephrectomy. No findings to suggest local recurrence. 2. No findings to suggest abdominal or pelvic metastatic disease. 3. Cholelithiasis without evidence of acute cholecystitis. 4. Bladder calculus. Prostatomegaly. 12/26/2022 CT chest IMPRESSION: 1. Interval resolution of a previously described nodular opacity along the right major fissure. 2. Residual subcentimeter nodular opacity measuring less than 5 mm, stable since 08/09/22. 3. S (more content not included)...[facility]02-29-2024 History of Present illness Narrative* Aba Amaya MD - 07/17/2023 6:15 AM EST PATIENT NAME: Juancarlos Baum DATE: 07/17/2023 PRIMARY CARE PHYSICIAN: Dr. Katarina Daniels OTHER PHYSICIANS: Dr. Florencio Rose. Dr. Urias, Dr. An Portions of this encounter note have been copied from the note from 06/05/2023 and has been updated where appropriate, and reflect my current medical decision making from today. CC: This is a 67 year old male with kidney cancer, seen for scheduled follow-up and treatment. INTERIM HISTORY: Since the patient's last visit here he has had no significant medical changes. He remains on pembrolizumab every 6 weeks and is tolerating it well. He has had no apparent adverse effects. At this time he feels well with no complaints. MEDICATIONS: Current Outpatient Medications Medication Sig dutasteride (AVODART) 0.5 mg capsule Take 0.5 mg by mouth. gabapentin (NEURONTIN) 800 mg tablet Take 800 mg by mouth three times a day. ELIQUIS 5 mg tab(s) Take 1 tablet by mouth twice daily. You may resume this medication on August 26. digoxin (LANOXIN) 125 mcg (0.125 mg) tablet Take by mouth once daily. propranolol ER (INDERAL LA) 80 mg 24 hr capsule Take 80 mg by mouth once daily. multivit,thx,calcium,iron,mins (MULTIVITAMIN AND MINERAL ORAL) Take 1 Dose by mouth once daily. Current Facility-Administered Medications Medication Dose Route Frequency perflutren lipid microspheres 1.3 mL in NaCl (PF) 0.9% 10 mL injection (DEFINITY) INTRAVENOUS DIRECTED PRN sodium chloride 0.9 % (flush) 10 mL (BD POSIFLUSH) 10 mL INTRAVENOUS DIRECTED PRN ALLERGIES: ALLERGIES Allergen Reactions Meloxicam Vomiting Nsaids (Non-Steroid* Other: See Comments PAST MEDICAL HISTORY: PAST MEDICAL HISTORY Diagnosis Date Atrial fibrillation (HCC) Renal cell carcinoma (HCC) PAST SURGICAL HISTORY: PAST SURGICAL HISTORY Procedure Laterality Date NEPHRECTOMY PARTIAL Left total left TOTAL HIP REPLACEMENT Left FAMILY HISTORY: No family history on file. SOCIAL HISTORY: Social History Tobacco Use Smoking status: Never Passive exposure: Never Smokeless tobacco: Never Vaping Use Vaping Use: Never used Substance Use Topics Alcohol use: Yes Comment: Less than monthly per pt 08/05/2022 Drug use: Never REVIEW OF SYSTEMS: General: No weight loss, malaise or fevers. HEENT: Negative for frequent or significant headaches. No changes in hearing or vision, no nose bleeds or other nasal problems. Respiratory: Negative for cough, wheezing or shortness of breath. Cardiovascular: Negative for chest pain, leg swelling or palpitations. GI: Negative for abdominal discomfort, blood in stools or black stools or change in bowel habits. : No history of dysuria, frequency or incontinence. See HPI. Musculoskeletal: Negative for: joint pain or swelling, back pain and muscle pain. Skin: Negative for lesions, rash and itching. Hematology/Lymphology: Negative for prolonged bleeding, bruising easily or swollen nodes. Neuro: No history of headaches, syncope, paralysis, seizures or tremors. PHYSICAL EXAM: BP 100/86 Pulse (!) 55 Temp 36.2 C (97.1 F) (Temporal) Resp 16 Ht 173 cm (5'8.11 ) Wt (!) 148.2 kg (326 lb 11.6 oz) SpO2 96% BMI 49.52 kg/m ECOG 0 General: Alert and oriented, no distress, pleasant and cooperative. Heart: Regular, normal S1 and S2, no murmurs, rubs, or gallops. Lungs: Clear to auscultation bilaterally. Abdomen: Benign. Extremities: Feet/ankles without edema, posterior tibial pulses full and symmetrical. PATHOLOGY: 08/14/2022 Kidney, left, total nephrectomy: - Renal cell carcinoma (7.7 cm), clear cell type, WHO/ISUP grade 3, with focal early invasion of renal sinus vessel. - Surgical margins are negative. LABS: Hemoglobin (g/dL) Date Value 07/17/2023 14.9 Hematocrit (%) Date Value 07/17/2023 45.1 WBC (k/uL) Date Value 07/17/2023 6.63 Platelet Count (k/uL) Date Value 07/17/2023 170 RADIOLOGY/OTHER STUDIES: 07/12/2023 CT chest IMPRESSION: 1. Stable CT of the chest. Unchanged appearance of right upper lobe nodular opacity. No new or enlarging nodules are visualized. 2. No evidence of intrathoracic lymphadenopathy. 3. Stable sclerotic focus in the T4 vertebrae, likely on the basis of a bone island. 07/12/2023 CT abdomen/pelvis IMPRESSION: 1. Postsurgical changes in keeping with left nephrectomy. No findings to suggest local recurrence. 2. No findings to suggest abdominal or pelvic metastatic disease. 3. Cholelithiasis without evidence of acute cholecystitis. 4. Bladder calculus. Prostatomegaly. 12/26/2022 CT chest IMPRESSION: 1. Interval resolution of a previously described nodular opacity along the right major fissure. 2. Residual subcentimeter nodular opacity measuring less than 5 mm, stable since 08/09/22. 3. Sclerotic osseous foci most likely bone islands, stable. 4. Streaky scarring/discoid atelectasis in the bilateral lower lung winkler. 5. No evidence of new intrathoracic abnormalities. 12/26/2022 CT abdomen/pelvis IMPRESSION: 1. Interval left nephrectomy. 2. New 2.2 cm rounded area of reticular fat adjacent to the sigmoid colon most likely an area of epiploic appendagitis. 3. Otherwise no evidence of intra-abdominal/pelvic metastases. 4. Fat-containing umbilical hernia. 5. Cholelithiasis. 08/09/2022 CT chest IMPRESSION: Small (less than 3 mm) pulmonary nodules, likely small lymph nodes. Otherwise no suspicious lung nodule identified. Recommend follow-up per clinical protocol given the left renal mass. No thoracic lymphadenopathy. Known left renal mass, partially visualized, better seen on prior CT of the abdomen and pelvis. 07/16/2022 CT abdomen/pelvis ([facility]) IMPRESSION: 9 cm left renal neoplasm with extension into the renal sinus fat, but without renal vein/IVC involvement. No metastatic disease in the abdomen or pelvis. ASSESSMENT/PLAN: 1. 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 Status post radical left nephrectomy 08/14/2022. Postop it was elected to give adjuvant therapy with pembrolizumab, with plans to give 200 mg IV every 3 weeks x1 year. Treatment started 09/19/2022. Restaging CT scans 12/26/2022 stable. February 2023 itwas elected to change pembrolizumab to 400 mg IV every [address] scans 07/12/2023 remains stable. Currently the patient is clinically stable and essentially asymptomatic. The patient will receive pembrolizumab 400 mg today. Return in 6 for follow-up and continued treatment. 2. Atrial fibrillation (HCC) - ICD9: 427.31, ICD10: I48.91 Stable on current medications, continue management per PCP/cardiology. 3. Lower extremity neuropathy with chronic edema - ICD9: 782.3, ICD10: R60.0 Stable on current medications, continue management per PCP. 4. Benign prostatic hypertrophy; Elevated prostate specific antigen (PSA) - ICD9: 790.93, ICD10: R97.20 The patient has a long history of LUTS. Status post TURP x 2. PSA Feb 2023 elevated at 5.8. TRUS biopsy of the prostate 04/22/2023 negative. Continue management per urology. 5. Malaise and fatigue - ICD9: 780.79, ICD10: R53.81, R53.83 Continue to monitor TSH. Aba Amaya MD documented in this encounterProm[facility] History of Present illness Narrative* Alyssa Smiley RN - 07/10/2023 9:15 AM EST Radiology Service Progress Note DATE OF SERVICE: July 10, 2023 TIME: 9:02 AM PATIENT WEIGHT: 323LBS PATIENT IDENTITY VERIFICATION COMPLETED USING TWO (2) STANDARD IDENTIFIERS: Name and Date of confirmed by patient verbally. FALL SCREENING: Has the patient had 2 falls in the last year or 1 fall with injury or currently using an Ambulatory Assistive Device (Walker, Cane, Wheelchair, Crutches, etc.)? No PATIENT GENDER DATA: Male ALLERGIES: Reviewed and unchanged CONTRAST ALLERGY: No EXAM: CT -CONTRAST INDUCED NEPHROPATHY RISK FACTORS: Patient age > 60 years and History of Kidney surgery, Kidney neoplasm, Liver disease, and/or any recent Nephrotoxic Chemotherapy or other Nephrotoxic medications CREATININE: Creatinine Date Value Ref Range Status 06/05/2023 1.40 (H) 0.73 - 1.22 mg/dL Final 04/24/2023 1.47 (H) 0.73 - 1.22 mg/dL Final 04/03/2023 1.28 (H) 0.73 - 1.22 mg/dL Final Estimated Glomerular Filtration Rate Date Value Ref Range Status 06/05/2023 55 (L) >=60 mL/min/1.73m Final Comment: Estimated Glomerular Filtration Rate (eGFR) is calculated using the 2020 CKD-EPI creatinine equation. This equation utilizes serum creatinine, sex, and age as parameters. The creatinine assay has traceable calibration to isotope dilution- mass spectrometry. Refer to KDIGO guidelines for clinical interpretation. In patients with unstable renal function, e.g. those with acute kidney injury, the eGFRmay not accurately reflect actual GFR. P.O.C.T. RESULTS: POC done: Yes, See Lab Tab July 10, 2023 TREATMENT: N/A IV SITE: Ambulatory: A peripheral IV was started in the Right forearm with a Angio cath: 20 gauge. IV SITE APPEARANCE: Clean,Dry and Intact SIGNATURE: Alyssa Smiley RN PATIENT NAME: Juancarlos Baum DATE: July 10, 2023 TIME: 9:02 AM * Camilla Maldonado RT(R) - 07/10/2023 9:15 AM EST Radiology Service Progress Note PATIENT NAME: Juancarlos Baum DATE OF SERVICE: July 10, 2023 TIME: 9:09 AM PATIENT IDENTITY VERIFICATION COMPLETED USING TWO (2) IDENTIFIERS: Name and Date of confirmedby patient verbally. FALL SCREENING: Has the patient had 2 falls in the last year or 1 fall with injury or currently using an Ambulatory Assistive Device (Walker, Cane, Wheelchair, Crutches, etc.)? No PATIENT GENDER DATA: Male PATIENT RELEVANT IMPLANT DATA REVIEWED: Not Applicable PATIENT PRESENTS WITH AN IMPLANTABLE OR ATTACHED MINE EQUIPMENT DESIGN ENGINEER: No RADIOLOGY DEPARTMENT: CT; Exam(s) Completed: Chest Abdomen Pelvis PERIPHERAL IV DATA: Site assessment: Clean,Dry and Intact, Site disposition Discontinued SIGNED BY: RT Peyman(R) July 10, 2023 9:09 AM documented in this encounterPromed[facility]02-[facility]24 NoteHNO ID: [id number] Author: CAMILLA MALDONADO RT(R) Service: ? Author Type: Technologist Type: Progress Notes Filed: 07/10/2023 09:09 Note Text: Radiology Service Progress Note PATIENT NAME: Juancarlos Baum DATE OF SERVICE: July 10, 2023 TIME: 9:09 AM PATIENT IDENTITY VERIFICATION COMPLETED USING TWO (2) IDENTIFIERS: Name and Date of confirmed by patient verbally. FALL SCREENING: Has the patient had 2 falls in the last year or 1 fall with injury or currently using an Ambulatory Assistive Device (Walker, Cane, Wheelchair, Crutches, etc.)? No PATIENT GENDER DATA: Male PATIENT RELEVANT IMPLANT DATA REVIEWED: Not Applicable PATIENT PRESENTS WITH AN IMPLANTABLE OR ATTACHED MINE EQUIPMENT DESIGN ENGINEER: No RADIOLOGY DEPARTMENT: CT; Exam(s) Completed: Chest Abdomen Pelvis PERIPHERAL IV DATA: Site assessment: Clean,Dry and Intact, Site disposition Discontinued SIGNED BY: RT Peyman(R) July 10, 2023 9:09 [facility]02-22-2024 NoteHNO ID: [id number] Author: ALYSSA SMILEY RN Service: ? Author Type: Registered Nurse Type: Progress Notes Filed: 07/10/2023 09:03 Note Text: Radiology Service Progress Note DATE OF SERVICE: July 10, 2023 TIME: 9:02 AM PATIENT WEIGHT: 323LBS PATIENT IDENTITY VERIFICATION COMPLETED USING TWO (2) STANDARD IDENTIFIERS: Name and Date of confirmed by patient verbally. FALL SCREENING: Has the patient had 2 falls in the last year or 1 fall with injury or currently using an Ambulatory Assistive Device (Walker, Cane, Wheelchair, Crutches, etc.)? No PATIENT GENDER DATA: Male ALLERGIES: Reviewed and unchanged CONTRAST ALLERGY: No EXAM: CT -CONTRAST INDUCED NEPHROPATHY RISK FACTORS: Patient age > 60 years and History of Kidney surgery, Kidney neoplasm, Liver disease, and/or any recent Nephrotoxic Chemotherapy or other Nephrotoxic medications CREATININE: Creatinine Date Value Ref Range Status 06/05/2023 1.40 (H) 0.73 - 1.22 mg/dL Final 04/24/2023 1.47 (H) 0.73 - 1.22 mg/dL Final 04/03/2023 1.28 (H) 0.73 - 1.22 mg/dL Final Estimated Glomerular Filtration Rate Date Value Ref Range Status 06/05/2023 55 (L) >=60 mL/min/1.73m? Final Comment: Estimated Glomerular Filtration Rate (eGFR) is calculated using the 2020 CKD-EPI creatinine equation. This equation utilizes serum creatinine, sex, and age as parameters. The creatinine assay has traceable calibration to isotope dilution-mass spectrometry. Refer to KDIGO guidelines for clinical interpretation. In patients with unstable renal function, e.g. those with acute kidney injury, the eGFR may not accurately reflect actual GFR. P.O.C.T. RESULTS: POC done: Yes, See Lab Tab July 10, 2023 TREATMENT: N/A IV SITE: Ambulatory: A peripheral IV was started in the Right forearm with a Angio cath: 20 gauge. IV SITE APPEARANCE: Clean,Dry and Intact SIGNATURE: Alyssa Smiley RN PATIENT NAME: Juancarlos Baum DATE: July 10, 2023 TIME: 9:02 [facility]01-18-[facility]24 NoteHNO ID: [id number] Author: ABA AMAYA MD Service: ? Author Type: Physician Type: Progress Notes Filed: 06/06/2023 07:03 Note Text: PATIENT NAME: Juancarlos Baum DATE: 06/05/2023 PRIMARY CARE PHYSICIAN: Dr. Katarina Daniels OTHER PHYSICIANS: Dr. Florencio Rose. Dr. Urias, Dr. An Portions of this encounter note have been copied from the note from 04/24/2023 and has been updated where appropriate, and reflect my current medical decision making from today. CC: This is a 67 year old male with kidney cancer, seen for scheduled follow-up and treatment. INTERIM HISTORY: Since the patient's last visit here he underwent a prostate biopsy for evaluation of his elevated PSA. His prostate biopsy revealed no evidence of malignancy. Currently he has no significant urinary symptoms. Otherwise the patient has had no significant medical changes. He remains on pembrolizumab every 6 weeks and is tolerated well. MEDICATIONS: Current Outpatient Medications Medication Sig gabapentin (NEURONTIN) 800 mg tablet Take 800 mg by mouth three times a day. ELIQUIS 5 mg tab(s) Take 1 tablet by mouth twice daily. You may resume this medication on August 26. digoxin (LANOXIN) 125 mcg (0.125 mg) tablet Take by mouth once daily. propranolol ER (INDERAL LA) 80 mg 24 hr capsule Take 80 mg by mouth once daily. multivit,thx,calcium,iron,mins (MULTIVITAMIN AND MINERAL ORAL) Take 1 Dose by mouth once daily. Current Facility-Administered Medications Medication Dose Route Frequency perflutren lipid microspheres 1.3 mL in NaCl (PF) 0.9% 10 mL injection (DEFINITY) INTRAVENOUS DIRECTED PRN sodium chloride 0.9 % (flush) 10 mL (BD POSIFLUSH) 10 mL INTRAVENOUS DIRECTED PRN ALLERGIES: ALLERGIES Allergen Reactions Meloxicam Vomiting Nsaids (Non-Steroid* Other: See Comments PAST MEDICAL HISTORY: PAST MEDICAL HISTORY Diagnosis Date Atrial fibrillation (HCC) Renal cell carcinoma (HCC) PAST SURGICAL HISTORY: PAST SURGICAL HISTORY Procedure Laterality Date NEPHRECTOMY PARTIAL Left total left TOTAL HIP REPLACEMENT Left FAMILY HISTORY: No family history on file. SOCIAL HISTORY: Social History Tobacco Use Smoking status: Never Passive exposure: Never Smokeless tobacco: Never Vaping Use Vaping Use: Never used Substance Use Topics Alcohol use: Yes Comment: Less than monthly per pt 08/05/2022 Drug use: Never REVIEW OF SYSTEMS: General: No weight loss, malaise or fevers. HEENT: Negative for frequent or significant headaches. No changes in hearing or vision, no nose bleeds or other nasal problems. Respiratory: Negative for cough, wheezing or shortness of breath. Cardiovascular: Negative for chest pain, leg swelling or palpitations. GI: Negative for abdominal discomfort, blood in stools or black stools or change in bowel habits. : No history of dysuria, frequency or incontinence. See HPI. Musculoskeletal: Negative for: joint pain or swelling, back pain and muscle pain. Skin: Negative for lesions, rash and itching. Hematology/Lymphology: Negative for prolonged bleeding, bruising easily or swollen nodes. Neuro: No history of headaches, syncope, paralysis, seizures or tremors. PHYSICAL EXAM: BP 150/84 Pulse (!) 58 Temp 36.5 ?C (97.7 ?F) (Temporal) Resp 16 Ht 173 cm (5' 8.11 ) Wt (!) 145.3 kg (320 lb 5.3 oz) SpO2 93% BMI 48.55 kg/m? ECOG 0 General: Alert and oriented, no distress, pleasant and cooperative. Heart: Regular, normal S1 and S2, no murmurs, rubs, or gallops. Lungs: Clear to auscultation bilaterally. Abdomen: Benign. Extremities: Feet/ankles without edema, posterior tibial pulses full and symmetrical. PATHOLOGY: 08/14/2022 Kidney, left, total nephrectomy: - Renal cell carcinoma (7.7 cm), clear cell type, WHO/ISUP grade 3, with focal early invasion of renal sinus vessel. - Surgical margins are negative. LABS: Hemoglobin (g/dL) Date Value 06/05/2023 15.4 Hematocrit (%) Date Value 06/05/2023 46.1 WBC (k/uL) Date Value 06/05/2023 10.27 Platelet Count (k/uL) Date Value 06/05/2023 198 RADIOLOGY/OTHER STUDIES: 12/26/2022 CT chest IMPRESSION: 1. Interval resolution of a previously described nodular opacity along the right major fissure. 2. Residual subcentimeter nodular opacity measuring less than 5 mm, stable since 08/09/22. 3. Sclerotic osseous foci most likely bone islands, stable. 4. Streaky scarring/discoid atelectasis in the bilateral lower lung winkler. 5. No evidence of new intrathoracic abnormalities. 12/26/2022 CT abdomen/pelvis IMPRESSION: 1. Interval left nephrectomy. 2. New 2.2 cm rounded area of reticular fat adjacent to the sigmoid colon most likely an area of epiploic appendagitis. 3. Otherwise no evidence of intra-abdominal/pelvic metastases. 4. Fat-containing umbilical hernia. 5. Cholelithiasis. 08/09/2022 CT chest IMPRESSION: Small (less than 3 mm) pulmonar (more content not included)...[facility]01-03-2024 Hospital Discharge instructions Patient Education 05/21/2023 12:12:30 Prostate Cancer Screening Prostate Cancer Screening Prostate cancer screening is testing that is done to check for the presence of prostate cancer in men. The prostate gland is a walnut-sized gland that is located below the bladder and in front of therectum in males. The function of the prostate is to add fluid to semen during ejaculation. Prostatecancer is one of the most common types of cancer in men. Who should have prostate cancer screening? Screening recommendations vary based on age and other risk factors, as well as between the professional organizations who make the recommendations. In general, screening is recommended if: You are age 50 to 70 and have an average risk for prostate cancer. You should talk with your healthcare provider about your need for screening and how often screening should be done. Because most prostate cancers are slow growing and will not cause , screening in this age group is generally reserved for men who have a 10- to 15-year life expectancy. You are younger than age 50, and you have these risk factors: ?Having a father, brother, or uncle who has been diagnosed with prostate cancer. The risk is higherif your family member's cancer occurred at an early age or if you have multiple family members withprostate cancer at an early age. ?Being a male who is Black or is of [place] or sub-Saharan descent. In general, screening is not recommended if: You are younger than age 40. You are between the ages of 40 and 49 and you have no risk factors. You are 70 years of age or older. At this age, the risks that screening can cause are greater than the benefits that it may provide. If you are at high risk for prostate cancer, your health care provider may recommend that you have screenings more often or that you start screening at a younger age. How is screening for prostate cancer done? The recommended prostate cancer screening test is a blood test called the prostate-specific antigen(PSA) test. PSA is a protein that is made in the prostate. As you age, your prostate naturally produces more PSA. Abnormally high PSA levels may be caused by: Prostate cancer. An enlarged prostate that is not caused by cancer (benign prostatic hyperplasia, or BPH). This condition is very common in older men. A prostate gland infection (prostatitis) or urinary tract infection. Certain medicines such as male hormones (like testosterone) or other medicines that raise testosterone levels. A rectal exam may be done as part of prostate cancer screening to help provide information about the size of your prostate gland. When a rectal exam is performed, it should be done after the PSA level is drawn to avoid any effect on the results. Depending on the PSA results, you may need more tests, such as: A physical exam to check the size of your prostate gland, if not done as part of screening. Blood and imaging tests. A procedure to remove tissue samples from your prostate gland for testing (biopsy). This is the only way to know for certain if you have prostate cancer. What are the benefits of prostate cancer screening? Screening can help to identify cancer at an early stage, before symptoms start and when the cancer can be treated more easily. There is a small chance that screening may lower your risk of dying from prostate cancer. The chance is small because prostate cancer is a slow-growing cancer, and most men with prostate cancer from a different cause. What are the risks of prostate cancer screening? The main risk of prostate cancer screening is diagnosing and treating prostate cancer that would never have caused any symptoms or problems. This is called overdiagnosisand overtreatment. PSA screening cannot tell you if your PSA is high due to cancer or a different cause. A prostate biopsy is the only procedure to diagnose prostate cancer. Even the results of a biopsy may not tell you if your cancer needs to be treated. Slow-growing prostate cancer may not need any treatment other than monitoring, so diagnosing and treating it may cause unnecessary stress or other side effects. Questions to ask your health care provider When should I start prostate cancer screening? What is my risk for prostate cancer? How often do I need screening? What type of screening tests do I need? How do I get my test results? What do my results mean? Do I need treatment? Where to find more information The [employer]: www.cancer.org [employer]: www.auanet.org Contact a health care provider if: You have difficulty urinating. You have pain when you urinate or ejaculate. You have blood in your urine or semen. You have pain in your back or in the area of your prostate. Summary Prostate cancer is a common type of cancer in men. The prostate gland is located below the bladder and in front of the rectum. This gland adds fluid to semen during ejaculation. Prostate cancer screening may identify cancer at an early stage, when the cancer can be treated more easily and is less likely to have spread to other areas of the body. The prostate-specific antigen (PSA) test is the recommended screening test for prostate cancer, butit has associated risks. Discuss the risks and benefits of prostate cancer screening with your health care provider. If you are age 70 or older, the risks that screening can cause are greater than the benefits that it may provide. This information is not intended to replace advice given to you by your health care provider. Make sure you discuss any questions you have with your health care provider. Document Revised: 10/29/2021 Document Reviewed: 10/29/2021 [email or web address] Patient Education 2022 [employer]. Follow Up Care 02/05/2023 15:19:37 With:NATALIYA SAAVEDRA, Elliot Muniz, URL Address: [facility] [address] [place] [address]- When: Unknown [facility] Izzy [id number] NoteHNO ID: [id number] Author: Laurie Rogers RN Service: ? Author Type: Registered Nurse Type: Progress Notes Filed: 04/24/2023 12:08 PM Note Text: Patient is wanting to get 400 mg dose today to be able to travel to [place] to be with family for the holidays. Plan sent to Dr. Amaya to sign new orders. [facility]ie [facility] History of Present illness Narrative* Laurie Rogers RN - 04/24/2023 10:44 AM EST Patient is wanting to get 400 mg dose today to be able to travel to [place] to be with family for the holidays. Plan sent to Dr. Amaya to sign new orders. Laurie Rogers RN documented in this encounterProm[facility]23 NoteHNO ID: [id number] Author: Lucio Damon APRN.CNP Service: ? Author Type: Nurse Practitioner Type: Progress Notes Filed: 04/25/2023 11:15 AM Note Text: PATIENT NAME: Juancarlos Buam DATE: 04/24/2023 PRIMARY CARE PHYSICIAN: Dr. Katarina Daniels OTHER PHYSICIANS: Dr. Florencio Rose. Dr. Urias, Dr. An Portions of this encounter note have been copied from Dr. Amaya's note from 04/03/2023 and has been updated where appropriate, and reflect my current medical decision making from today. CC: This is a 67 year old male with kidney cancer, seen for scheduled follow-up and treatment. INTERIM HISTORY: Juancarlos Baum returns for follow-up and continued treatment. He remains on pembrolizumab and is tolerating it well. He has requested to go back to the 6-week dosing. He denies skin rashes. No cough, shortness of breath or other pulmonary complaints. No abdominal pain or diarrhea. No headaches or vision changes. He is urinating well. No pain, burning or difficulty. He has noticed a little blood in his urine. He has had an elevated PSA. He recently had a prostate biopsy by Dr. An. He denies fevers, chills, night sweats and signs/symptoms of infection. No bleeding or abnormal bruising. Overall, he is doing well and wishes to proceed with treatment as planned. MEDICATIONS: Current Outpatient Medications Medication Sig gabapentin (NEURONTIN) 800 mg tablet Take 800 mg by mouth three times a day. ELIQUIS 5 mg tab(s) Take 1 tablet by mouth twice daily. You may resume this medication on August 26. digoxin (LANOXIN) 125 mcg (0.125 mg) tablet Take by mouth once daily. propranolol ER (INDERAL LA) 80 mg 24 hr capsule Take 80 mg by mouth once daily. multivit,thx,calcium,iron,mins (MULTIVITAMIN AND MINERAL ORAL) Take 1 Dose by mouth once daily. Current Facility-Administered Medications Medication Dose Route Frequency perflutren lipid microspheres 1.3 mL in NaCl (PF) 0.9% 10 mL injection (DEFINITY) INTRAVENOUS DIRECTED PRN sodium chloride 0.9 % (flush) 10 mL (BD POSIFLUSH) 10 mL INTRAVENOUS DIRECTED PRN ALLERGIES: ALLERGIES Allergen Reactions Meloxicam Vomiting Nsaids (Non-Steroid* Other: See Comments PAST MEDICAL HISTORY: PAST MEDICAL HISTORY Diagnosis Date Atrial fibrillation (HCC) Renal cell carcinoma (HCC) PAST SURGICAL HISTORY: PAST SURGICAL HISTORY Procedure Laterality Date NEPHRECTOMY PARTIAL Left total left TOTAL HIP REPLACEMENT Left FAMILY HISTORY: History reviewed. No pertinent family history. SOCIAL HISTORY: Social History Tobacco Use Smoking status: Never Passive exposure: Never Smokeless tobacco: Never Vaping Use Vaping Use: Never used Substance Use Topics Alcohol use: Yes Comment: Less than monthly per pt 08/05/2022 Drug use: Never REVIEW OF SYSTEMS: General: No weight loss, malaise or fevers. HEENT: Negative for frequent or significant headaches. No changes in hearing or vision, no nose bleeds or other nasal problems. Respiratory: Negative for cough, wheezing or shortness of breath. Cardiovascular: Negative for chest pain, leg swelling or palpitations. GI: Negative for abdominal discomfort, blood in stools or black stools or change in bowel habits. : No history of dysuria, frequency or incontinence. See HPI. Musculoskeletal: Negative for: joint pain or swelling, back pain and muscle pain. Skin: Negative for lesions, rash and itching. Hematology/Lymphology: Negative for prolonged bleeding, bruising easily or swollen nodes. Neuro: No history of headaches, syncope, paralysis, seizures or tremors. PHYSICAL EXAM: BP 123/67 Pulse (!) 56 Temp 36.3 ?C (97.4 ?F) (Temporal) Resp 20 Ht 173 cm (5' 8.11 ) Wt (!) 143.7 kg (316 lb 12.8 oz) SpO2 98% BMI 48.01 kg/m? ECOG 0 General: Alert and oriented, no distress, pleasant and cooperative. Heart: Regular, normal S1 and S2, no murmurs, rubs, or gallops. Lungs: Clear to auscultation bilaterally. Abdomen: Benign. Extremities: Feet/ankles without edema, posterior tibial pulses full and symmetrical. PATHOLOGY: 08/14/2022 Kidney, left, total nephrectomy: - Renal cell carcinoma (7.7 cm), clear cell type, WHO/ISUP grade 3, with focal early invasion of renal sinus vessel. - Surgical margins are negative. LABS: Hemoglobin (g/dL) Date Value 04/24/2023 15.1 Hematocrit (%) Date Value 04/24/2023 44.2 WBC (k/uL) Date Value 04/24/2023 6.46 Platelet Count (k/uL) Date Value 04/24/2023 185 RADIOLOGY/OTHER STUDIES: 12/26/2022 CT chest IMPRESSION: 1. Interval resolution of a previously described nodular opacity along the right major fissure. 2. Residual subcentimeter nodular opacity measuring less than 5 mm, stable since 08/09/22. 3. Sclerotic osseous foci most likely bone islands, stable. 4. Streaky scarring/discoid atelectasis in the bilateral lower lung winkler. 5. No evidence of new intrathoracic abnor (more content not included)... [facility]12-07-2023 History of Present illness Narrative* Lucio Damon APRN.ORDER CLERK - 04/24/2023 10:27 AM EST PATIENT NAME: Juancarlos Baum DATE: 04/24/2023 PRIMARY CARE PHYSICIAN: Dr. Katarina Daniels OTHER PHYSICIANS: Dr. Florencio Rose. Dr. Urias, Dr. An Portions of this encounter note have been copied from Dr. Amaya's note from 04/03/2023 and has been updated where appropriate, and reflect my current medical decision making from today. CC: This is a 67 year old male with kidney cancer, seen for scheduled follow-up and treatment. INTERIM HISTORY: Juancarlos Baum returns for follow-up and continued treatment. He remains on pembrolizumab and is tolerating it well. He has requested to go back to the 6-week dosing. He denies skin rashes. No cough, shortness of breath or other pulmonary complaints. No abdominal pain or diarrh ea. No headaches or vision changes. He is urinating well. No pain, burning or difficulty. He has noticed a little blood in his urine. He has had an elevated PSA. He recently had a prostate biopsy by Dr. An. He denies fevers, chills, night sweats and signs/symptoms of infection. No bleeding or abnormal bruising. Overall, he is doing well and wishes to proceed with treatment as planned. MEDICATIONS: Current Outpatient Medications Medication Sig gabapentin (NEURONTIN) 800 mg tablet Take 800 mg by mouth three times a day. ELIQUIS 5 mg tab(s) Take 1 tablet by mouth twice daily. You may resume this medication on August 26. digoxin (LANOXIN) 125 mcg (0.125 mg) tablet Take by mouth once daily. propranolol ER (INDERAL LA) 80 mg 24 hr capsule Take 80 mg by mouth once daily. multivit,thx,calcium,iron,mins (MULTIVITAMIN AND MINERAL ORAL) Take 1 Dose by mouth once daily. Current Facility-Administered Medications Medication Dose Route Frequency perflutren lipid microspheres 1.3 mL in NaCl (PF) 0.9% 10 mL injection (DEFINITY) INTRAVENOUS DIRECTED PRN sodium chloride 0.9 % (flush) 10 mL (BD POSIFLUSH) 10 mL INTRAVENOUS DIRECTED PRN ALLERGIES: ALLERGIES Allergen Reactions Meloxicam Vomiting Nsaids (Non-Steroid* Other: See Comments PAST MEDICAL HISTORY: PAST MEDICAL HISTORY Diagnosis Date Atrial fibrillation (HCC) Renal cell carcinoma (HCC) PAST SURGICAL HISTORY: PAST SURGICAL HISTORY Procedure Laterality Date NEPHRECTOMY PARTIAL Left total left TOTAL HIP REPLACEMENT Left FAMILY HISTORY: History reviewed. No pertinent family history. SOCIAL HISTORY: Social History Tobacco Use Smoking status: Never Passive exposure: Never Smokeless tobacco: Never Vaping Use Vaping Use: Never used Substance Use Topics Alcohol use: Yes Comment: Less than monthly per pt 08/05/2022 Drug use: Never REVIEW OF SYSTEMS: General: No weight loss, malaise or fevers. HEENT: Negative for frequent or significant headaches. No changes in hearing or vision, no nose bleeds or other nasal problems. Respiratory: Negative for cough, wheezing or shortness of breath. Cardiovascular: Negative for chest pain, leg swelling or palpitations. GI: Negative for abdominal discomfort, blood in stools or black stools or change in bowel habits. : No history of dysuria, frequency or incontinence. See HPI. Musculoskeletal: Negative for: joint pain or swelling, back pain and muscle pain. Skin: Negative for lesions, rash and itching. Hematology/Lymphology: Negative for prolonged bleeding, bruising easily or swollen nodes. Neuro: No history of headaches, syncope, paralysis, seizures or tremors. PHYSICAL EXAM: BP 123/67 Pulse (!) 56 Temp 36.3 C (97.4 F) (Temporal) Resp 20 Ht 173 cm (5'8.11 ) Wt (!) 143.7 kg (316 lb 12.8 oz) SpO2 98% BMI 48.01 kg/m ECOG 0 General: Alert and oriented, no distress, pleasant and cooperative. Heart: Regular, normal S1 and S2, no murmurs, rubs, or gallops. Lungs: Clear to auscultation bilaterally. Abdomen: Benign. Extremities: Feet/ankles without edema, posterior tibial pulses full and symmetrical. PATHOLOGY: 08/14/2022 Kidney, left, total nephrectomy: - Renal cell carcinoma (7.7 cm), clear cell type, WHO/ISUP grade 3, with focal early invasion of renal sinus vessel. - Surgical margins are negative. LABS: Hemoglobin (g/dL) Date Value 04/24/2023 15.1 Hematocrit (%) Date Value 04/24/2023 44.2 WBC (k/uL) Date Value 04/24/2023 6.46 Platelet Count (k/uL) Date Value 04/24/2023 185 RADIOLOGY/OTHER STUDIES: 12/26/2022 CT chest IMPRESSION: 1. Interval resolution of a previously described nodular opacity along the right major fissure. 2. Residual subcentimeter nodular opacity measuring less than 5 mm, stable since 08/09/22. 3. Sclerotic osseous foci most likely bone islands, stable. 4. Streaky scarring/discoid atelectasis in the bilateral lower lung winkler. 5. No evidence of new intrathoracic abnormalities. 12/26/2022 CT abdomen/pelvis IMPRESSION: 1. Interval left nephrectomy. 2. New 2.2 cm rounded area of reticular fat adjacent to the sigmoid colon most likely an area of epiploic appendagitis. 3. Otherwise no evidence of intra-abdominal/pelvic metastases. 4. Fat-containing umbilical hernia. 5. Cholelithiasis. 08/09/2022 CT chest IMPRESSION: Small (less than 3 mm) pulmonary nodules, likely small lymph nodes. Otherwise no suspicious lung nodule identified. Recommend follow-up per clinical protocol given the left renal mass. No thoracic lymphadenopathy. Known left renal mass, partially visualized, better seen on prior CT of the abdomen and pelvis. 07/16/2022 CT abdomen/pelvis ([facility]) IMPRESSION: 9 cm left renal neoplasm with extension into the renal sinus fat, but without renal vein/IVC involvement. No metastatic disease in the abdomen or pelvis. ASSESSMENT/PLAN: 1. 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 Status post radical left nephrectomy 08/14/2022. Postop it was elected to give adjuvant therapy with pembrolizumab, with plans to give 200 mg IV every 3 weeks x1 year. Treatment started 09/19/2022. Restaging CT scans 12/26/2022 stable. February 2023 itwas elected to change his pembrolizumab to 400 mg IV every 6 weeks. Currently the patient is clinically stable and essentially asymptomatic. Patient will receive pembrolizumab 400 mg today. At the patient's request we will change his treatment back to 400 mg every 6 weeks to allow him to travel to [place] [facility] We will restage again with CT scan at 6 months (June 2023). 2. Atrial fibrillation (HCC) - ICD9: 427.31, ICD10: I48.91 Stable on current medications, continue management per PCP/cardiology. 3. Lower extremity neuropathy; Lower extremity edema - ICD9: 782.3, ICD10: R60.0 Stable on current medications, continue management per PCP. 4. Benign prostatic hypertrophy; Elevated prostate specific antigen (PSA) - ICD9: 790.93, ICD10: R97.20 The patient has a long history of LUTS. Status post TURP x 2. PSA Feb 2023 elevated at 5.8. Patientrecently had biopsy of the prostate. Will obtain results when available. 5. Malaise and fatigue - ICD9: 780.79, ICD10: R53.81, R53.83 Continue to monitor TSH. Lucio Damon APRN.CNP I spent a total of 30 minutes on the date of the service which included preparing to see the patient, [id number] patient care, completing clinical documentation, obtaining and/or reviewing separately obtained history, performing a medically appropriate examination, counseling and educating the pat ient/family/caregiver, ordering medications, tests, or procedures, independently interpreting results (not separately reported), and communicating results to the patient/family/caregiver. documented in this encounterProm[facility] Note [id number] NoteHNO ID: [id number] Author: Aba Amaya MD Service: ? Author Type: Physician Type: Progress Notes Filed: 04/04/2023 6:50 AM Note Text: PATIENT NAME: Juancarlos Baum DATE: 04/03/2023 PRIMARY CARE PHYSICIAN: Dr. Katarina Daniels OTHER PHYSICIANS: Dr. Florencio Rose. Dr. Urias, Dr. An Portions of this encounter note have been copied from my note from 02/20/2023 and has been updated where appropriate, and reflect my current medical decision making from today. CC: This is a 67 year old male with kidney cancer, seen for scheduled follow-up and treatment. INTERIM HISTORY: At the patient's last visit here he received pembrolizumab 400 mg. He subsequent developed intermittent hematuria, but most likely unrelated to the infusion. He was seen by his urologist and found to have an elevated PSA, and currently is scheduled undergo a biopsy. Otherwise the patient has had no significant medical changes. Currently he feels well with no other complaints. MEDICATIONS: Current Outpatient Medications Medication Sig gabapentin (NEURONTIN) 300 mg capsule Take 300 mg by mouth three times daily. ELIQUIS 5 mg tab(s) Take 1 tablet by mouth twice daily. You may resume this medication on August 26. digoxin (LANOXIN) 125 mcg (0.125 mg) tablet Take by mouth once daily. propranolol ER (INDERAL LA) 80 mg 24 hr capsule Take 80 mg by mouth once daily. multivit,thx,calcium,iron,mins (MULTIVITAMIN AND MINERAL ORAL) Take 1 Dose by mouth once daily. Current Facility-Administered Medications Medication Dose Route Frequency perflutren lipid microspheres 1.3 mL in NaCl (PF) 0.9% 10 mL injection (DEFINITY) INTRAVENOUS DIRECTED PRN sodium chloride 0.9 % (flush) 10 mL (BD POSIFLUSH) 10 mL INTRAVENOUS DIRECTED PRN ALLERGIES: ALLERGIES Allergen Reactions Meloxicam Vomiting Nsaids (Non-Steroid* Other: See Comments PAST MEDICAL HISTORY: PAST MEDICAL HISTORY Diagnosis Date Atrial fibrillation (HCC) Renal cell carcinoma (HCC) PAST SURGICAL HISTORY: PAST SURGICAL HISTORY Procedure Laterality Date NEPHRECTOMY PARTIAL Left total left TOTAL HIP REPLACEMENT Left FAMILY HISTORY: No family history on file. SOCIAL HISTORY: Social History Tobacco Use Smoking status: Never Passive exposure: Never Smokeless tobacco: Never Vaping Use Vaping Use: Never used Substance Use Topics Alcohol use: Yes Comment: Less than monthly per pt 08/05/2022 Drug use: Never REVIEW OF SYSTEMS: General: No weight loss, malaise or fevers. HEENT: Negative for frequent or significant headaches. No changes in hearing or vision, no nose bleeds or other nasal problems. Respiratory: Negative for cough, wheezing or shortness of breath. Cardiovascular: Negative for chest pain, leg swelling or palpitations. GI: Negative for abdominal discomfort, blood in stools or black stools or change in bowel habits. : No history of dysuria, frequency or incontinence. See HPI. Musculoskeletal: Negative for: joint pain or swelling, back pain and muscle pain. Skin: Negative for lesions, rash and itching. Hematology/Lymphology: Negative for prolonged bleeding, bruising easily or swollen nodes. Neuro: No history of headaches, syncope, paralysis, seizures or tremors. PHYSICAL EXAM: BP 117/69 Pulse (!) 55 Temp 36.3 ?C (97.4 ?F) (Temporal) Resp 16 Ht 173 cm (5' 8.11 ) Wt (!) 140.3 kg (309 lb 6.4 oz) SpO2 97% BMI 46.89 kg/m? ECOG 0 General: Alert and oriented, no distress, pleasant and cooperative. Heart: Regular, normal S1 and S2, no murmurs, rubs, or gallops. Lungs: Clear to auscultation bilaterally. Abdomen: Benign. Extremities: Feet/ankles without edema, posterior tibial pulses full and symmetrical. PATHOLOGY: 08/14/2022 Kidney, left, total nephrectomy: - Renal cell carcinoma (7.7 cm), clear cell type, WHO/ISUP grade 3, with focal early invasion of renal sinus vessel. - Surgical margins are negative. LABS: Hemoglobin (g/dL) Date Value 04/03/2023 15.1 Hematocrit (%) Date Value 04/03/2023 46.1 WBC (k/uL) Date Value 04/03/2023 8.16 Platelet Count (k/uL) Date Value 04/03/2023 167 RADIOLOGY/OTHER STUDIES: 12/26/2022 CT chest IMPRESSION: 1. Interval resolution of a previously described nodular opacity along the right major fissure. 2. Residual subcentimeter nodular opacity measuring less than 5 mm, stable since 08/09/22. 3. Sclerotic osseous foci most likely bone islands, stable. 4. Streaky scarring/discoid atelectasis in the bilateral lower lung winkler. 5. No evidence of new intrathoracic abnormalities. 12/26/2022 CT abdomen/pelvis IMPRESSION: 1. Interval left nephrectomy. 2. New 2.2 cm rounded area of reticular fat adjacent to the sigmoid colon most likely an area of epiploic appendagitis. 3. Otherwise no evidence of intra-abdominal/pelvic metastases. 4. Fat-containing umbilical hernia. 5. Cholelithiasis. 08/09/2022 C (more content not included)...[facility]11-16-2023 History of Present illness Narrative* Aba Amaya MD - 04/03/2023 7:00 AM EST PATIENT NAME: Juancarlos Baum DATE: 04/03/2023 PRIMARY CARE PHYSICIAN: Dr. Katarina Daniels OTHER PHYSICIANS: Dr. Florencio Rose. Dr. Urias, Dr. An Portions of this encounter note have been copied from my note from 02/20/2023 and has been updated where appropriate, and reflect my current medical decision making from today. CC: This is a 67 year old male with kidney cancer, seen for scheduled follow-up and treatment. INTERIM HISTORY: At the patient's last visit here he received pembrolizumab 400 mg. He subsequent developed intermittent hematuria, but most likely unrelated to the infusion. He was seen by his urologist and found to have an elevated PSA, and currently is scheduled undergo a biopsy. Otherwise the patient has had no significant medical changes. Currently he feels well with no othercomplaints. MEDICATIONS: Current Outpatient Medications Medication Sig gabapentin (NEURONTIN) 300 mg capsule Take 300 mg by mouth three times daily. ELIQUIS 5 mg tab(s) Take 1 tablet by mouth twice daily. You may resume this medication on August 26. digoxin (LANOXIN) 125 mcg (0.125 mg) tablet Take by mouth once daily. propranolol ER (INDERAL LA) 80 mg 24 hr capsule Take 80 mg by mouth once daily. multivit,thx,calcium,iron,mins (MULTIVITAMIN AND MINERAL ORAL) Take 1 Dose by mouth once daily. Current Facility-Administered Medications Medication Dose Route Frequency perflutren lipid microspheres 1.3 mL in NaCl (PF) 0.9% 10 mL injection (DEFINITY) INTRAVENOUS DIRECTED PRN sodium chloride 0.9 % (flush) 10 mL (BD POSIFLUSH) 10 mL INTRAVENOUS DIRECTED PRN ALLERGIES: ALLERGIES Allergen Reactions Meloxicam Vomiting Nsaids (Non-Steroid* Other: See Comments PAST MEDICAL HISTORY: PAST MEDICAL HISTORY Diagnosis Date Atrial fibrillation (HCC) Renal cell carcinoma (HCC) PAST SURGICAL HISTORY: PAST SURGICAL HISTORY Procedure Laterality Date NEPHRECTOMY PARTIAL Left total left TOTAL HIP REPLACEMENT Left FAMILY HISTORY: No family history on file. SOCIAL HISTORY: Social History Tobacco Use Smoking status: Never Passive exposure: Never Smokeless tobacco: Never Vaping Use Vaping Use: Never used Substance Use Topics Alcohol use: Yes Comment: Less than monthly per pt 08/05/2022 Drug use: Never REVIEW OF SYSTEMS: General: No weight loss, malaise or fevers. HEENT: Negative for frequent or significant headaches. No changes in hearing or vision, no nose bleeds or other nasal problems. Respiratory: Negative for cough, wheezing or shortness of breath. Cardiovascular: Negative for chest pain, leg swelling or palpitations. GI: Negative for abdominal discomfort, blood in stools or black stools or change in bowel habits. : No history of dysuria, frequency or incontinence. See HPI. Musculoskeletal: Negative for: joint pain or swelling, back pain and muscle pain. Skin: Negative for lesions, rash and itching. Hematology/Lymphology: Negative for prolonged bleeding, bruising easily or swollen nodes. Neuro: No history of headaches, syncope, paralysis, seizures or tremors. PHYSICAL EXAM: BP 117/69 Pulse (!) 55 Temp 36.3 C (97.4 F) (Temporal) Resp 16 Ht 173 cm (5'8.11 ) Wt (!) 140.3 kg (309 lb 6.4 oz) SpO2 97% BMI 46.89 kg/m ECOG 0 General: Alert and oriented, no distress, pleasant and cooperative. Heart: Regular, normal S1 and S2, no murmurs, rubs, or gallops. Lungs: Clear to auscultation bilaterally. Abdomen: Benign. Extremities: Feet/ankles without edema, posterior tibial pulses full and symmetrical. PATHOLOGY: 08/14/2022 Kidney, left, total nephrectomy: - Renal cell carcinoma (7.7 cm), clear cell type, WHO/ISUP grade 3, with focal early invasion of renal sinus vessel. - Surgical margins are negative. LABS: Hemoglobin (g/dL) Date Value 04/03/2023 15.1 Hematocrit (%) Date Value 04/03/2023 46.1 WBC (k/uL) Date Value 04/03/2023 8.16 Platelet Count (k/uL) Date Value 04/03/2023 167 RADIOLOGY/OTHER STUDIES: 12/26/2022 CT chest IMPRESSION: 1. Interval resolution of a previously described nodular opacity along the right major fissure. 2. Residual subcentimeter nodular opacity measuring less than 5 mm, stable since 08/09/22. 3. Sclerotic osseous foci most likely bone islands, stable. 4. Streaky scarring/discoid atelectasis in the bilateral lower lung winkler. 5. No evidence of new intrathoracic abnormalities. 12/26/2022 CT abdomen/pelvis IMPRESSION: 1. Interval left nephrectomy. 2. New 2.2 cm rounded area of reticular fat adjacent to the sigmoid colon most likely an area of epiploic appendagitis. 3. Otherwise no evidence of intra-abdominal/pelvic metastases. 4. Fat-containing umbilical hernia. 5. Cholelithiasis. 08/09/2022 CT chest IMPRESSION: Small (less than 3 mm) pulmonary nodules, likely small lymph nodes. Otherwise no suspicious lung nodule identified. Recommend follow-up per clinical protocol given the left renal mass. No thoracic lymphadenopathy. Known left renal mass, partially visualized, better seen on prior CT of the abdomen and pelvis. 07/16/2022 CT abdomen/pelvis ([facility]) IMPRESSION: 9 cm left renal neoplasm with extension into the renal sinus fat, but without renal vein/IVC involvement. No metastatic disease in the abdomen or pelvis. ASSESSMENT/PLAN: 1. 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 Status post radical left nephrectomy 08/14/2022. Postop it was elected to give adjuvant therapy with pembrolizumab, with plans to give 200 mg IV every 3 weeks x1 year. Treatment started 09/19/2022. Restaging CT scans 12/26/2022 stable. February 2023 itwas elected to change his pembrolizumab to 400 mg IV every 6 weeks. Currently the patient is clinically stable and essentially asymptomatic. Per patient request he will receive pembrolizumab 200 mg today. Return in 3 weeks for follow-up. Ifstable he would then like to change back to 400 mg every 6 weeks to allow him to travel to [place] to spend the holidays with his new grandchild. We will restage again with CT scan at 6 months (June 2023). 2. Atrial fibrillation (HCC) - ICD9: 427.31, ICD10: I48.91 Stable on current medications, continue management per PCP/cardiology. 3. Lower extremity neuropathy Stable on current medications, continue management per PCP. 4. Benign prostatic hypertrophy The patient has a long history of LUTS. Status post TURP x 2. PSA Feb 2023 elevated at 5.8. Currently the patient is scheduled undergo a prostate biopsy 04/22/[address] An. Aba Amaya MD documented in this encounterPromed[facility]11-13-[facility] Miscellaneous Notes* Telephone Encounter - Nirmala Regalado RN - 03/31/2023 11:31 AM EST Deandra @ Dr An' office notified and verbalizes understanding. Copy of this encounter faxed to [phone] for their records. Nirmala Regalado RN * Telephone Encounter - Aba Amaya MD - 03/31/2023 11:25 AM EST There should be no concerns about a prostate biopsy while receiving Keytruda. Ranjit Berger * Telephone Encounter - Nirmala Regalado RN - 03/31/2023 9:[address] Crawford's office reports that the pt is scheduled for a prostate biopsy under local anesthesia on 04/22. Any pre or post procedure concerns since pt is receiving Keytruda? Nirmala Regalado RN documented in this encounterPromedica [facility]10-11-2023 History of Present illness Narrative* Bala Urias MD - 02/26/2023 3:50 PM EDT Subjective Juancarlos Baum is a 67 y.o. male Chief Complaint Annual Exam HPI Patient is seen by me for the first time. He used to follow with Dr. Munguia for chronic atrial fibrillation. When the originally met he attempted to restore sinus rhythm but was unsuccessful and because of this the patient was relegated to rate control with antithrombotic therapy and he has done well. From a cardiology standpoint he has no symptoms. He denies exercise or activity intolerance and has no chest pain syncope near syncope or palpitation We discussed his management. Rate control consists of propranolol (originally prescribed for tremor) and digoxin for rate control with apixaban to mitigate stroke risk. He is happy and comfortable with this regimen. We discussed the merits of diet exercise and weight loss. Review of Systems All other systems reviewed and are negative. Objective Physical Exam Constitutional: Appearance: Normal appearance. He is normal weight. HENT: Nose: Nose normal. Neck: Vascular: No carotid bruit. Cardiovascular: Rate and Rhythm: Normal rate. Pulses: Normal pulses. Heart sounds: Normal heart sounds. Pulmonary: Effort: Pulmonary effort is normal. Abdominal: General: Bowel sounds are normal. Palpations: Abdomen is soft. Genitourinary: Rectum: Normal. Musculoskeletal: General: Normal range of motion. Cervical back: Normal range of motion. Right lower leg: No edema. Left lower leg: No edema. Skin: General: Skin is warm and dry. Neurological: General: No focal deficit present. Mental Status: He is alert. Psychiatric: Mood and Affect: Mood normal. Behavior: Behavior normal. Thought Content: Thought content normal. Judgment: Judgment normal. Current Medications Current Outpatient Medications: apixaban (Eliquis) 5 mg tablet, Take 1 tablet (5 mg) by mouth 2 times a day., Disp: , Rfl: digoxin (Lanoxin) 125 MCG tablet, Take 1 tablet (125 mcg) by mouth once daily., Disp: , Rfl: gabapentin (Neurontin) 300 mg capsule, Take 1 capsule (300 mg) by mouth 3 times a day., Disp: , Rfl: multivitamin tablet, Take 1 tablet by mouth once daily., Disp: , Rfl: propranolol XL (Innopran XL) 80 mg 24 hr capsule, Take 1 capsule (80 mg) by mouth once daily., Disp: , Rfl: Visit Vitals BP 120/70 (BP Location: Right arm, Patient Position: Sitting) Pulse 58 Ht 1.702 m (5' 7 ) Wt 139 kg (306 lb) BMI 47.93 kg/m Smoking Status Never BSA 2.56 m Assessment/Plan 1. Chronic atrial fibrillation (CMS/HCC) 2. Morbid obesity with BMI of 40.0-44.9, adult ([facility] [facility]) 3. Essential tremor documented [place] encounterCent[place] Work Phone: 1(366) 354-637610-11-2023 Instructions* Patient Instructions* Óscar Ford MA - 02/26/2023 3:50 PM EDT Please bring all medicines, vitamins, and herbal supplements with you when you come to the office. Prescriptions will not be filled unless you are compliant with your follow up appointments or have a follow up appointment scheduled as per instruction of your physician. Refills should be requested at the time of your visit. documented in this encounterCent[place] Work Phone: 1(865) 589-241410-05-2023 NoteHNO ID: [id number] Author: Lucio Damon APRN.ORDER CLERK Service: ? Author Type: Nurse Practitioner Type: Progress Notes Filed: 02/25/2023 11:22 AM Note Text: PATIENT NAME: Juancarlos Baum DATE: 02/20/2023 PRIMARY CARE PHYSICIAN: Dr. Katarina Daniels OTHER PHYSICIANS: Dr. Florencio Rose. Dr. Urias Portions of this encounter note have been copied from my note from 01/02/2023 and has been updated where appropriate, and reflect my current medical decision making from today. CC: This is a 67 year old male with kidney cancer, seen for scheduled follow-up and treatment. INTERIM HISTORY: Juancarlos Baum returns for follow-up and continued treatment. Since his last visit he had COVID. He tested negative on Friday. He currently denies cough, shortness of breath and other pulmonary complaints. No skin rashes. No nausea, vomiting, abdominal pain or diarrhea. He denies headaches and vision changes. He denies any treatment related side effects. He is scheduled for a prostate biopsy in April for an enlarged prostate. He denies any blood in his urine. No pain, burning or difficulty with urination. 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 He is heading to [place]. He will not be returning until sometime in March. MEDICATIONS: Current Outpatient Medications Medication Sig gabapentin (NEURONTIN) 300 mg capsule Take 300 mg by mouth three times daily. ELIQUIS 5 mg tab(s) Take 1 tablet by mouth twice daily. You may resume this medication on August 26. digoxin (LANOXIN) 125 mcg (0.125 mg) tablet Take by mouth once daily. propranolol ER (INDERAL LA) 80 mg 24 hr capsule Take 80 mg by mouth once daily. multivit,thx,calcium,iron,mins (MULTIVITAMIN AND MINERAL ORAL) Take 1 Dose by mouth once daily. PAXLOVID 150-100 mg tablets in a dose pack as directed. TAKE DIRECTED ON PACKAGE. (Patient not taking: Reported on 02/20/2023) Current Facility-Administered Medications Medication Dose Route Frequency perflutren lipid microspheres 1.3 mL in NaCl (PF) 0.9% 10 mL injection (DEFINITY) INTRAVENOUS DIRECTED PRN sodium chloride 0.9 % (flush) 10 mL (BD POSIFLUSH) 10 mL INTRAVENOUS DIRECTED PRN ALLERGIES: ALLERGIES Allergen Reactions Meloxicam Vomiting Nsaids (Non-Steroid* Other: See Comments PAST MEDICAL HISTORY: PAST MEDICAL HISTORY Diagnosis Date Atrial fibrillation (HCC) Renal cell carcinoma (HCC) PAST SURGICAL HISTORY: PAST SURGICAL HISTORY Procedure Laterality Date NEPHRECTOMY PARTIAL Left total left TOTAL HIP REPLACEMENT Left FAMILY HISTORY: History reviewed. No pertinent family history. SOCIAL HISTORY: Social History Tobacco Use Smoking status: Never Passive exposure: Never Smokeless tobacco: Never Vaping Use Vaping Use: Never used Substance Use Topics Alcohol use: Yes Comment: Less than monthly per pt 08/05/2022 Drug use: Never REVIEW OF SYSTEMS: General: No weight loss, malaise or fevers. HEENT: Negative for frequent or significant headaches. No changes in hearing or vision, no nose bleeds or other nasal problems. Respiratory: Negative for cough, wheezing or shortness of breath. Cardiovascular: Negative for chest pain, leg swelling or palpitations. GI: Negative for abdominal discomfort, blood in stools or black stools or change in bowel habits. : No history of dysuria, frequency or incontinence. See HPI. Musculoskeletal: Negative for: joint pain or swelling, back pain and muscle pain. Skin: Negative for lesions, rash and itching. Hematology/Lymphology: Negative for prolonged bleeding, bruising easily or swollen nodes. Neuro: No history of headaches, syncope, paralysis, seizures or tremors. PHYSICAL EXAM: BP (!) 143/49 Pulse 71 Temp 36.5 ?C (97.7 ?F) (Temporal) Resp 16 Ht 173 cm (5' 8.11 ) Wt (!) 139.4 kg (307 lb 6.4 oz) SpO2 99% BMI 46.59 kg/m? ECOG 0 General: Alert and oriented, no distress, pleasant and cooperative. Heart: Regular, normal S1 and S2, no murmurs, rubs, or gallops. Lungs: Clear to auscultation bilaterally. Abdomen: Benign. Extremities: Feet/ankles without edema, posterior tibial pulses full and symmetrical. PATHOLOGY: 08/14/2022 Kidney, left, total nephrectomy: - Renal cell carcinoma (7.7 cm), clear cell type, WHO/ISUP grade 3, with focal early invasion of renal sinus vessel. - Surgical margins are negative. LABS: Hemoglobin (g/dL) Date Value 02/20/2023 15.4 Hematocrit (%) Date Value 02/20/2023 46.0 WBC (k/uL) Date Value 02/20/2023 9.28 Platelet Count (k/uL) Date Value 02/20/2023 219 RADIOLOGY/OTHER STUDIES: 12/26/2022 CT chest IMPRESSION: 1. Interval resolution of a previously described nodular opacity along the right major fissure. 2. Residual subcentimeter nodular opacity measuring less than 5 mm, stable since 08/09/22. 3. Sclerotic osseous foci most likely bone islands, stable. 4. Streaky scarring/discoid atelectasis in the bilateral l (more content not included)...[facility]10-05-2023 History of Present illness Narrative* Lucio Damon, FIREPERSON.ORDER CLERK - 02/20/2023 9:47 AM EDT PATIENT NAME: Juancarlos Baum DATE: 02/20/2023 PRIMARY CARE PHYSICIAN: Dr. Katarina Daniels OTHER PHYSICIANS: Dr. Florencio Rose. Dr. Urias Portions of this encounter note have been copied from my note from 01/02/2023 and has been updated where appropriate, and reflect my current medical decision making from today. CC: This is a 67 year old male with kidney cancer, seen for scheduled follow-up and treatment. INTERIM HISTORY: Juancarlos Baum returns for follow-up and continued treatment. Since his last visit he had COVID. He tested negative on Friday. He currently denies cough, shortness of breath andother pulmonary complaints. No skin rashes. No nausea, vomiting, abdominal pain or diarrhea. He denies headaches and vision changes. He denies any treatment related side effects. He is scheduled for a prostate biopsy in April for an enlarged prostate. He denies any blood in his urine. No pain, burning or difficulty with urination. 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 He is heading to [place]. He will not be returning until sometime in March. MEDICATIONS: Current Outpatient Medications Medication Sig gabapentin (NEURONTIN) 300 mg capsule Take 300 mg by mouth three times daily. ELIQUIS 5 mg tab(s) Take 1 tablet by mouth twice daily. You may resume this medication on August 26. digoxin (LANOXIN) 125 mcg (0.125 mg) tablet Take by mouth once daily. propranolol ER (INDERAL LA) 80 mg 24 hr capsule Take 80 mg by mouth once daily. multivit,thx,calcium,iron,mins (MULTIVITAMIN AND MINERAL ORAL) Take 1 Dose by mouth once daily. PAXLOVID 150-100 mg tablets in a dose pack as directed. TAKE DIRECTED ON PACKAGE. (Patient not taking: Reported on 02/20/2023) Current Facility-Administered Medications Medication Dose Route Frequency perflutren lipid microspheres 1.3 mL in NaCl (PF) 0.9% 10 mL injection (DEFINITY) INTRAVENOUS DIRECTED PRN sodium chloride 0.9 % (flush) 10 mL (BD POSIFLUSH) 10 mL INTRAVENOUS DIRECTED PRN ALLERGIES: ALLERGIES Allergen Reactions Meloxicam Vomiting Nsaids (Non-Steroid* Other: See Comments PAST MEDICAL HISTORY: PAST MEDICAL HISTORY Diagnosis Date Atrial fibrillation (HCC) Renal cell carcinoma (HCC) PAST SURGICAL HISTORY: PAST SURGICAL HISTORY Procedure Laterality Date NEPHRECTOMY PARTIAL Left total left TOTAL HIP REPLACEMENT Left FAMILY HISTORY: History reviewed. No pertinent family history. SOCIAL HISTORY: Social History Tobacco Use Smoking status: Never Passive exposure: Never Smokeless tobacco: Never Vaping Use Vaping Use: Never used Substance Use Topics Alcohol use: Yes Comment: Less than monthly per pt 08/05/2022 Drug use: Never REVIEW OF SYSTEMS: General: No weight loss, malaise or fevers. HEENT: Negative for frequent or significant headaches. No changes in hearing or vision, no nose bleeds or other nasal problems. Respiratory: Negative for cough, wheezing or shortness of breath. Cardiovascular: Negative for chest pain, leg swelling or palpitations. GI: Negative for abdominal discomfort, blood in stools or black stools or change in bowel habits. : No history of dysuria, frequency or incontinence. See HPI. Musculoskeletal: Negative for: joint pain or swelling, back pain and muscle pain. Skin: Negative for lesions, rash and itching. Hematology/Lymphology: Negative for prolonged bleeding, bruising easily or swollen nodes. Neuro: No history of headaches, syncope, paralysis, seizures or tremors. PHYSICAL EXAM: BP (!) 143/49 Pulse 71 Temp 36.5 C (97.7 F) (Temporal) Resp 16 Ht 173 cm (5'8.11 ) Wt (!) 139.4 kg (307 lb 6.4 oz) SpO2 99% BMI 46.59 kg/m ECOG 0 General: Alert and oriented, no distress, pleasant and cooperative. Heart: Regular, normal S1 and S2, no murmurs, rubs, or gallops. Lungs: Clear to auscultation bilaterally. Abdomen: Benign. Extremities: Feet/ankles without edema, posterior tibial pulses full and symmetrical. PATHOLOGY: 08/14/2022 Kidney, left, total nephrectomy: - Renal cell carcinoma (7.7 cm), clear cell type, WHO/ISUP grade 3, with focal early invasion of renal sinus vessel. - Surgical margins are negative. LABS: Hemoglobin (g/dL) Date Value 02/20/2023 15.4 Hematocrit (%) Date Value 02/20/2023 46.0 WBC (k/uL) Date Value 02/20/2023 9.28 Platelet Count (k/uL) Date Value 02/20/2023 219 RADIOLOGY/OTHER STUDIES: 12/26/2022 CT chest IMPRESSION: 1. Interval resolution of a previously described nodular opacity along the right major fissure. 2. Residual subcentimeter nodular opacity measuring less than 5 mm, stable since 08/09/22. 3. Sclerotic osseous foci most likely bone islands, stable. 4. Streaky scarring/discoid atelectasis in the bilateral lower lung winkler. 5. No evidence of new intrathoracic abnormalities. 12/26/2022 CT abdomen/pelvis IMPRESSION: 1. Interval left nephrectomy. 2. New 2.2 cm rounded area of reticular fat adjacent to the sigmoid colon most likely an area of epiploic appendagitis. 3. Otherwise no evidence of intra-abdominal/pelvic metastases. 4. Fat-containing umbilical hernia. 5. Cholelithiasis. 08/09/2022 CT chest IMPRESSION: Small (less than 3 mm) pulmonary nodules, likely small lymph nodes. Otherwise no suspicious lung nodule identified. Recommend follow-up per clinical protocol given the left renal mass. No thoracic lymphadenopathy. Known left renal mass, partially visualized, better seen on prior CT of the abdomen and pelvis. 07/16/2022 CT abdomen/pelvis ([facility]) IMPRESSION: 9 cm left renal neoplasm with extension into the renal sinus fat, but without renal vein/IVC involvement. No metastatic disease in the abdomen or pelvis. ASSESSMENT/PLAN: 1. 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 Status post radical left nephrectomy 08/14/2022. Postop it was elected to give adjuvant therapy with pembrolizumab, with plans to give 200 mg IV every 3 weeks x1 year as tolerated. Treatment started 09/19/2022. Restaging CT scans 12/26/2022 stable. Currently the patient is clinically stable and essentially asymptomatic. The patient will continue as planned with pembrolizumab. The patient has requested to change his treatment to every 6 weeks. Therefore, we will increase the dose of pembrolizumab to 400 mg. He'll return in 6 weeks for follow-up and treatment. 2. Atrial fibrillation (HCC) - ICD9: 427.31, ICD10: I48.91 Stable on current medications, continue management per PCP/cardiology. 3. Lower extremity neuropathy Stable on current medications, continue management per PCP. 4. Benign prostatic hypertrophy The patient has a long history of LUTS. Status post TURP x2. Minimally symptomatic at this time. Continue management per PCP/urology. Patient is scheduled for a prostate biopsy April 2023. Lucio Damon APRN.KALI I spent a total of 30 minutes on the date of the service which included preparing to see the patient, [id number] patient care, completing clinical documentation, obtaining and/or reviewing separately obtained history, performing a medically appropriate examination, counseling and educating the pat ient/family/caregiver, ordering medications, tests, or procedures, independently interpreting results (not separately reported), and communicating results to the patient/family/caregiver. documented in this encounterProm[facility] NoteHNO ID: [id number] Author: Aba Amaya MD Service: ? Author Type: Physician Type: Progress Notes Filed: 01/02/2023 9:51 PM Note Text: PATIENT NAME: Juancarlos Baum DATE: 01/02/2023 PRIMARY CARE PHYSICIAN: Dr. Katarina Daniels OTHER PHYSICIANS: Dr. Florencio Rose. Dr. Urias Portions of this encounter note have been copied from my note from 12/12/2022 and has been updated where appropriate, and reflect my current medical decision making from today. CC: This is a 67 year old male with kidney cancer, seen for scheduled follow-up and treatment. INTERIM HISTORY: The patient remains on pembrolizumab every 3 weeks and is tolerating it well. He has had no apparent adverse effects. Currently feels well with no complaints. Recent staging CT scans revealed no evidence of disease. MEDICATIONS: Current Outpatient Medications Medication Sig gabapentin (NEURONTIN) 300 mg capsule Take 300 mg by mouth three times daily. ELIQUIS 5 mg tab(s) Take 1 tablet by mouth twice daily. You may resume this medication on August 26. digoxin (LANOXIN) 125 mcg (0.125 mg) tablet Take by mouth once daily. propranolol ER (INDERAL LA) 80 mg 24 hr capsule Take 80 mg by mouth once daily. multivit,thx,calcium,iron,mins (MULTIVITAMIN AND MINERAL ORAL) Take 1 Dose by mouth once daily. Current Facility-Administered Medications Medication Dose Route Frequency perflutren lipid microspheres 1.3 mL in NaCl (PF) 0.9% 10 mL injection (DEFINITY) INTRAVENOUS DIRECTED PRN sodium chloride 0.9 % (flush) 10 mL (BD POSIFLUSH) 10 mL INTRAVENOUS DIRECTED PRN ALLERGIES: ALLERGIES Allergen Reactions Meloxicam Vomiting Nsaids (Non-Steroid* Other: See Comments PAST MEDICAL HISTORY: PAST MEDICAL HISTORY Diagnosis Date Atrial fibrillation (HCC) Renal cell carcinoma (HCC) PAST SURGICAL HISTORY: PAST SURGICAL HISTORY Procedure Laterality Date NEPHRECTOMY PARTIAL Left total left TOTAL HIP REPLACEMENT Left FAMILY HISTORY: No family history on file. SOCIAL HISTORY: Social History Tobacco Use Smoking status: Never Passive exposure: Never Smokeless tobacco: Never Vaping Use Vaping Use: Never used Substance Use Topics Alcohol use: Yes Comment: Less than monthly per pt 08/05/2022 Drug use: Never REVIEW OF SYSTEMS: General: No weight loss, malaise or fevers. HEENT: Negative for frequent or significant headaches. No changes in hearing or vision, no nose bleeds or other nasal problems. Respiratory: Negative for cough, wheezing or shortness of breath. Cardiovascular: Negative for chest pain, leg swelling or palpitations. GI: Negative for abdominal discomfort, blood in stools or black stools or change in bowel habits. : No history of dysuria, frequency or incontinence. See HPI. Musculoskeletal: Negative for: joint pain or swelling, back pain and muscle pain. Skin: Negative for lesions, rash and itching. Hematology/Lymphology: Negative for prolonged bleeding, bruising easily or swollen nodes. Neuro: No history of headaches, syncope, paralysis, seizures or tremors. PHYSICAL EXAM: BP 118/66 Pulse (!) 51 Temp 36.4 ?C (97.6 ?F) (Temporal) Resp 16 Ht 173 cm (5' 8.11 ) Wt (!) 136.5 kg (301 lb) SpO2 100% BMI 45.62 kg/m? General: Alert and oriented, no distress, pleasant and cooperative. Heart: Regular, normal S1 and S2, no murmurs, rubs, or gallops. Lungs: Clear to auscultation bilaterally. Abdomen: Benign. Extremities: Feet/ankles without edema, posterior tibial pulses full and symmetrical. PATHOLOGY: 08/14/2022 Kidney, left, total nephrectomy: - Renal cell carcinoma (7.7 cm), clear cell type, WHO/ISUP grade 3, with focal early invasion of renal sinus vessel. - Surgical margins are negative. LABS: Hemoglobin (g/dL) Date Value 01/02/2023 15.3 Hematocrit (%) Date Value 01/02/2023 45.9 WBC (k/uL) Date Value 01/02/2023 5.86 Platelet Count (k/uL) Date Value 01/02/2023 199 RADIOLOGY/OTHER STUDIES: 12/26/2022 CT chest IMPRESSION: 1. Interval resolution of a previously described nodular opacity along the right major fissure. 2. Residual subcentimeter nodular opacity measuring less than 5 mm, stable since 08/09/22. 3. Sclerotic osseous foci most likely bone islands, stable. 4. Streaky scarring/discoid atelectasis in the bilateral lower lung winkler. 5. No evidence of new intrathoracic abnormalities. 12/26/2022 CT abdomen/pelvis IMPRESSION: 1. Interval left nephrectomy. 2. New 2.2 cm rounded area of reticular fat adjacent to the sigmoid colon most likely an area of epiploic appendagitis. 3. Otherwise no evidence of intra-abdominal/pelvic metastases. 4. Fat-containing umbilical hernia. 5. Cholelithiasis. 08/09/2022 CT chest IMPRESSION: Small (less than 3 mm) pulmonary nodules, likely small lymph nodes. Otherwise no suspicious lung nodule identified. Recommend follow-up per clinical protocol given the le (more content not included)...[facility]08-17-2023 History of Present illness Narrative* Aba Amaya MD - 01/02/2023 7:16 AM EDT PATIENT NAME: Juancarlos Baum DATE: 01/02/2023 PRIMARY CARE PHYSICIAN: Dr. Katarina Daniels OTHER PHYSICIANS: Dr. Florencio Rose. Dr. Urias Portions of this encounter note have been copied from my note from 12/12/2022 and has been updated where appropriate, and reflect my current medical decision making from today. CC: This is a 67 year old male with kidney cancer, seen for scheduled follow-up and treatment. INTERIM HISTORY: The patient remains on pembrolizumab every 3 weeks and is tolerating it well. He has had no apparent adverse effects. Currently feels well with no complaints. Recent staging CT scans revealed no evidence of disease. MEDICATIONS: Current Outpatient Medications Medication Sig gabapentin (NEURONTIN) 300 mg capsule Take 300 mg by mouth three times daily. ELIQUIS 5 mg tab(s) Take 1 tablet by mouth twice daily. You may resume this medication on August 26. digoxin (LANOXIN) 125 mcg (0.125 mg) tablet Take by mouth once daily. propranolol ER (INDERAL LA) 80 mg 24 hr capsule Take 80 mg by mouth once daily. multivit,thx,calcium,iron,mins (MULTIVITAMIN AND MINERAL ORAL) Take 1 Dose by mouth once daily. Current Facility-Administered Medications Medication Dose Route Frequency perflutren lipid microspheres 1.3 mL in NaCl (PF) 0.9% 10 mL injection (DEFINITY) INTRAVENOUS DIRECTED PRN sodium chloride 0.9 % (flush) 10 mL (BD POSIFLUSH) 10 mL INTRAVENOUS DIRECTED PRN ALLERGIES: ALLERGIES Allergen Reactions Meloxicam Vomiting Nsaids (Non-Steroid* Other: See Comments PAST MEDICAL HISTORY: PAST MEDICAL HISTORY Diagnosis Date Atrial fibrillation (HCC) Renal cell carcinoma (HCC) PAST SURGICAL HISTORY: PAST SURGICAL HISTORY Procedure Laterality Date NEPHRECTOMY PARTIAL Left total left TOTAL HIP REPLACEMENT Left FAMILY HISTORY: No family history on file. SOCIAL HISTORY: Social History Tobacco Use Smoking status: Never Passive exposure: Never Smokeless tobacco: Never Vaping Use Vaping Use: Never used Substance Use Topics Alcohol use: Yes Comment: Less than monthly per pt 08/05/2022 Drug use: Never REVIEW OF SYSTEMS: General: No weight loss, malaise or fevers. HEENT: Negative for frequent or significant headaches. No changes in hearing or vision, no nose bleeds or other nasal problems. Respiratory: Negative for cough, wheezing or shortness of breath. Cardiovascular: Negative for chest pain, leg swelling or palpitations. GI: Negative for abdominal discomfort, blood in stools or black stools or change in bowel habits. : No history of dysuria, frequency or incontinence. See HPI. Musculoskeletal: Negative for: joint pain or swelling, back pain and muscle pain. Skin: Negative for lesions, rash and itching. Hematology/Lymphology: Negative for prolonged bleeding, bruising easily or swollen nodes. Neuro: No history of headaches, syncope, paralysis, seizures or tremors. PHYSICAL EXAM: BP 118/66 Pulse (!) 51 Temp 36.4 C (97.6 F) (Temporal) Resp 16 Ht 173 cm (5'8.11 ) Wt (!) 136.5 kg (301 lb) SpO2 100% BMI 45.62 kg/m General: Alert and oriented, no distress, pleasant and cooperative. Heart: Regular, normal S1 and S2, no murmurs, rubs, or gallops. Lungs: Clear to auscultation bilaterally. Abdomen: Benign. Extremities: Feet/ankles without edema, posterior tibial pulses full and symmetrical. PATHOLOGY: 08/14/2022 Kidney, left, total nephrectomy: - Renal cell carcinoma (7.7 cm), clear cell type, WHO/ISUP grade 3, with focal early invasion of renal sinus vessel. - Surgical margins are negative. LABS: Hemoglobin (g/dL) Date Value 01/02/2023 15.3 Hematocrit (%) Date Value 01/02/2023 45.9 WBC (k/uL) Date Value 01/02/2023 5.86 Platelet Count (k/uL) Date Value 01/02/2023 199 RADIOLOGY/OTHER STUDIES: 12/26/2022 CT chest IMPRESSION: 1. Interval resolution of a previously described nodular opacity along the right major fissure. 2. Residual subcentimeter nodular opacity measuring less than 5 mm, stable since 08/09/22. 3. Sclerotic osseous foci most likely bone islands, stable. 4. Streaky scarring/discoid atelectasis in the bilateral lower lung winkler. 5. No evidence of new intrathoracic abnormalities. 12/26/2022 CT abdomen/pelvis IMPRESSION: 1. Interval left nephrectomy. 2. New 2.2 cm rounded area of reticular fat adjacent to the sigmoid colon most likely an area of epiploic appendagitis. 3. Otherwise no evidence of intra-abdominal/pelvic metastases. 4. Fat-containing umbilical hernia. 5. Cholelithiasis. 08/09/2022 CT chest IMPRESSION: Small (less than 3 mm) pulmonary nodules, likely small lymph nodes. Otherwise no suspicious lung nodule identified. Recommend follow-up per clinical protocol given the left renal mass. No thoracic lymphadenopathy. Known left renal mass, partially visualized, better seen on prior CT of the abdomen and pelvis. 07/16/2022 CT abdomen/pelvis ([facility]) IMPRESSION: 9 cm left renal neoplasm with extension into the renal sinus fat, but without renal vein/IVC involvement. No metastatic disease in the abdomen or pelvis. ASSESSMENT/PLAN: 1. 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 Status post radical left nephrectomy 08/14/2022. Postop it was elected to give adjuvant therapy with pembrolizumab, with plans to give 200 mg IV every 3 weeks x1 year as tolerated. Treatment started 09/19/2022. Restaging CT scans 12/26/2022 stable. Currently the patient is clinically stable and essentially asymptomatic. The patient will continue as planned with pembrolizumab, and receive treatment today and again in 3weeks. Return in 6 weeks for follow-up. 2. Atrial fibrillation (HCC) - ICD9: 427.31, ICD10: I48.91 Stable on current medications, continue management per PCP/cardiology. 3. Lower extremity neuropathy Stable on current medications, continue management per PCP. 4. Benign prostatic hypertrophy The patient has a long history of LUTS. Status post TURP x2. Minimally symptomatic at this time. Continue management per PCP/urology. Aba Amaya MD documented in this encounterPromed[facility]-10-[facility] History of Present illness Narrative* Nirmala Rodas RT(R) - 12/26/2022 8:45 AM EDT Radiology Service Progress Note PATIENT NAME: Juancarlos Baum DATE OF SERVICE: December 26, 2022 TIME: 8:45 AM PATIENT IDENTITY VERIFICATION COMPLETED USING TWO (2) IDENTIFIERS: Name and Date of confirmedby patient verbally. FALL SCREENING: Has the patient had 2 falls in the last year or 1 fall with injury or currently using an Ambulatory Assistive Device (Walker, Cane, Wheelchair, Crutches, etc.)? No PATIENT GENDER DATA: Male PATIENT RELEVANT IMPLANT DATA REVIEWED: Not Applicable RADIOLOGY DEPARTMENT: CT; Exam(s) Completed: Chest Abdomen Pelvis With IV and Oral contrast PERIPHERAL IV DATA: Site assessment: Clean,Dry and Intact, Site disposition Discontinued SIGNED BY: RT Dank(Cristy) December 26, 2022 8:45 AM documented in this encounterPromedica [facility]07-27-[facility] History of Present illness Narrative* Lucio Damon APRN.ORDER CLERK - 12/12/2022 1:12 PM EDT PATIENT NAME: Juancarlos Baum DATE: 12/12/2022 PRIMARY CARE PHYSICIAN: Dr. Katarina Daniels OTHER PHYSICIANS: Dr. Florencio Rose. Dr. Urias (Elements copied from TARA Castellano note dated November 20, 2022, have been reviewed and updated where appropriate, and all reflect current assessment and medical decision making during today's encounter, December 12, 2022) CC: This is a 67 year old male with kidney cancer, seen for scheduled follow-up and treatment and continued treatment. INTERIM HISTORY: Juancarlos Baum returns for follow-up and pembrolizumab. He is tolerating the pembrolizumab well. He denies any side effects from treatment. He denies cough, shortness of breath and other pulmonary complaints. He denies diarrhea and other GI complaints. He denies pain and burning with urination. He denies any blood in his urine. He states that for the last 2 weeks he has had slight pain in his left testicle which he rates a 2/10. He denies fevers, chills, night sweats and signs/symptoms of infection. No bleeding or abnormal bruising. Overall, he is doing well today and wishes to proceed with treatment as planned. MEDICATIONS: Current Outpatient Medications Medication Sig gabapentin (NEURONTIN) 300 mg capsule Take 300 mg by mouth twice daily. ELIQUIS 5 mg tab(s) Take 1 tablet by mouth twice daily. You may resume this medication on August 26. digoxin (LANOXIN) 125 mcg (0.125 mg) tablet Take by mouth once daily. propranolol ER (INDERAL LA) 80 mg 24 hr capsule Take 80 mg by mouth once daily. multivit,thx,calcium,iron,mins (MULTIVITAMIN AND MINERAL ORAL) Take 1 Dose by mouth once daily. Current Facility-Administered Medications Medication Dose Route Frequency perflutren lipid microspheres 1.3 mL in NaCl (PF) 0.9% 10 mL injection (DEFINITY) INTRAVENOUS DIRECTED PRN sodium chloride 0.9 % (flush) 10 mL (BD POSIFLUSH) 10 mL INTRAVENOUS DIRECTED PRN ALLERGIES: ALLERGIES Allergen Reactions Meloxicam Vomiting Nsaids (Non-Steroid* Other: See Comments PAST MEDICAL HISTORY: PAST MEDICAL HISTORY Diagnosis Date Atrial fibrillation (HCC) Renal cell carcinoma (HCC) PAST SURGICAL HISTORY: PAST SURGICAL HISTORY Procedure Laterality Date NEPHRECTOMY PARTIAL Left total left TOTAL HIP REPLACEMENT Left FAMILY HISTORY: No family history on file. SOCIAL HISTORY: Social History Tobacco Use Smoking status: Never Passive exposure: Never Smokeless tobacco: Never Vaping Use Vaping Use: Never used Substance Use Topics Alcohol use: Yes Comment: Less than monthly per pt 08/05/2022 Drug use: Never REVIEW OF SYSTEMS: General: No weight loss, malaise or fevers. HEENT: Negative for frequent or significant headaches. No changes in hearing or vision, no nose bleeds or other nasal problems. Respiratory: Negative for cough, wheezing or shortness of breath. Cardiovascular: Negative for chest pain, leg swelling or palpitations. GI: Negative for abdominal discomfort, blood in stools or black stools or change in bowel habits. : No history of dysuria, frequency or incontinence. See HPI. Musculoskeletal: Negative for: joint pain or swelling, back pain and muscle pain. Skin: Negative for lesions, rash and itching. Hematology/Lymphology: Negative for prolonged bleeding, bruising easily or swollen nodes. Neuro: No history of headaches, syncope, paralysis, seizures or tremors. PHYSICAL EXAM: BP 132/85 Pulse 60 Temp 36.3 C (97.3 F) (Temporal) Resp 16 Ht 173 cm (5' 8.11 ) Wt (!) 136.4 kg (300 lb 12.8 oz) SpO2 97% BMI 45.59 kg/m General: Alert and oriented, no distress, pleasant and cooperative. Heart: Regular, normal S1 and S2, no murmurs, rubs, or gallops. Lungs: Clear to auscultation bilaterally. Abdomen: Benign. Extremities: Feet/ankles without edema, posterior tibial pulses full and symmetrical. PATHOLOGY: 08/14/2022 Kidney, left, total nephrectomy: - Renal cell carcinoma (7.7 cm), clear cell type, WHO/ISUP grade 3, with focal early invasion of renal sinus vessel. - Surgical margins are negative. LABS: Hemoglobin (g/dL) Date Value 12/12/2022 14.6 Hematocrit (%) Date Value 12/12/2022 44.2 WBC (k/uL) Date Value 12/12/2022 7.19 Platelet Count (k/uL) Date Value 12/12/2022 190 RADIOLOGY/OTHER STUDIES: 08/09/2022 CT chest IMPRESSION: Small (less than 3 mm) pulmonary nodules, likely small lymph nodes. Otherwise no suspicious lung nodule identified. Recommend follow-up per clinical protocol given the left renal mass. No thoracic lymphadenopathy. Known left renal mass, partially visualized, better seen on prior CT of the abdomen and pelvis. 07/16/2022 CT abdomen/pelvis ([facility]) IMPRESSION: 9 cm left renal neoplasm with extension into the renal sinus fat, but without renal vein/IVC involvement. No metastatic disease in the abdomen or pelvis. ASSESSMENT/PLAN: 1. 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 Status post radical left nephrectomy 08/14/2022. Postop it was elected to give adjuvant therapy with pembrolizumab 200 mg IV every 3 weeks x1 year as tolerated. Treatment started 09/19/2022. Currently the patient is clinically stable and essentially asymptomatic. Today we will proceed with pembrolizumab. He is scheduled for CT scans on 12/26/2022. He will returnas scheduled on 01/02/[address] Amaya, labs and continued treatment. 2. Atrial fibrillation (HCC) - ICD9: 427.31, ICD10: I48.91 Stable on current medications, continue management per PCP/cardiology. 3. Lower extremity neuropathy Stable on current medications, continue management per PCP. 4. Benign prostatic hypertrophy The patient has a long history of LUTS. Status post TURP x2. Minimally symptomatic at this time. Continue management per PCP/urology. Lucio Damon APRN.KALI I spent a total of 30 minutes on the date of the service which included preparing to see the patient, [id number] patient care, completing clinical documentation, obtaining and/or reviewing separately obtained history, performing a medically appropriate examination, counseling and educating the pat ient/family/caregiver, ordering medications, tests, or procedures, independently interpreting results (not separately reported), and communicating results to the patient/family/caregiver. documented in this encounterPromedica [facility]07-14-2023 History of Present illness Narrative* Amarilis Rosario APRN.CNP - 11/29/2022 9:15 AM EDT VIRTUAL VISIT PROGRESS NOTE This is a virtual visit using Audio only. It required patient-provider interaction for the medical decision making as documented below. I have communicated my name and active licensure. The patient's identity and physical location wereverified at the time of this visit. 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 Persons Present: patient Chief Complaint/Reason: follow up [facility] note from 08/22/2022 copied and updated. HPI: Juancarlos Baum is a 67 year old male with hx of left renal mass who presents for follow up evaluation. He is s/p hand assisted laparoscopic left radical nephrectomy on 08/14/[address] Rose. FINAL DIAGNOSIS A. Kidney, left, total nephrectomy: - Renal cell carcinoma (7.7 cm), clear cell type, WHO/ISUP grade 3, with focal early invasion of renal sinus vessel. - Surgical margins are negative. - See synoptic template. Last seen via virtual visit 08/22/22. Hem/Onc consulted. Following with Hem/Onc (Dr. Amaya)- on adjuvant pembrolizumab- began on 09/19/22 and plan for every 3 weeks x 1 year as tolerated. Will f/u in 12/[address] scans. Interval Hx: Overall, doing well. States he is tolerating pembrolizumab without adverse effects. No flank or abdominal. Follows with local urologist for BPH/LUTS- notes hx of gross hematuria s/p negative cysto ~1 year ago. Data Reviewed: Most recent labs and imaging results. Labs: Creatinine Date Value Ref Range Status 11/21/2022 1.43 (H) 0.73 - 1.22 mg/dL Final 10/31/2022 1.31 (H) 0.73 - 1.22 mg/dL Final 10/10/2022 1.24 (H) 0.73 - 1.22 mg/dL Final 09/19/2022 1.26 (H) 0.73 - 1.22 mg/dL Final Imaging: CT CHEST WO IVCON 08/09/2022 IMPRESSION: Small (less than 3 mm) pulmonary nodules, likely small lymph nodes. Otherwise no suspicious lung nodule identified. Recommend follow-up per clinical protocol given the left renal mass. No thoracic lymphadenopathy. Known left renal mass, partially visualized, better seen on prior CT of the abdomen and pelvis. HISTORY REVIEWED (electronic chart updated): PAST MEDICAL HISTORY Diagnosis Date Atrial fibrillation (HCC) Renal cell carcinoma (HCC) PAST SURGICAL HISTORY Procedure Laterality Date NEPHRECTOMY PARTIAL Left total left TOTAL HIP REPLACEMENT Left No family history on file. Social History Tobacco Use Smoking status: Never Passive exposure: Never Smokeless tobacco: Never Vaping Use Vaping Use: Never used Substance Use Topics Alcohol use: Yes Comment: Less than monthly per pt 08/05/2022 Drug use: Never Current Outpatient Medications Medication Sig gabapentin (NEURONTIN) 300 mg capsule Take 300 mg by mouth twice daily. ELIQUIS 5 mg tab(s) Take 1 tablet by mouth twice daily. You may resume this medication on August 26. digoxin (LANOXIN) 125 mcg (0.125 mg) tablet Take by mouth once daily. propranolol ER (INDERAL LA) 80 mg 24 hr capsule Take 80 mg by mouth once daily. multivit,thx,calcium,iron,mins (MULTIVITAMIN AND MINERAL ORAL) Take 1 Dose by mouth once daily. Current Facility-Administered Medications Medication Dose Route Frequency perflutren lipid microspheres 1.3 mL in NaCl (PF) 0.9% 10 mL injection (DEFINITY) INTRAVENOUS DIRECTED PRN sodium chloride 0.9 % (flush) 10 mL (BD POSIFLUSH) 10 mL INTRAVENOUS DIRECTED PRN ALLERGIES Allergen Reactions Meloxicam Vomiting Nsaids (Non-Steroid* Other: See Comments REVIEW OF SYSTEMS: GENERAL: no recent change in weight GI: no abdominal pain : no flank pain PHYSICAL EXAMINATION: VIDEO EXAM: (if completed, performed via video enabled technology) No exam performed- telephone visit ASSESSMENT: (Z85.528) History of renal cell carcinoma (primary encounter diagnosis) (Z90.5) History of left nephrectomy 67 year old male s/p hand assisted laparoscopic left radical nephrectomy on 08/14/[address] Rose. Following with Hem/Onc (Dr. Amaya)- on adjuvant pembrolizumab. Scheduled for imaging in 12/2022 PLAN: -Continue to follow with Dr. Amaya for adjuvant therapy and RCC surveillance -Follow up with Dr. Rose PRN Discussed with Dr. Rose. There are no Patient Instructions on file for this visit. I spent a total of 20 minutes on the date of the service which included preparing to see the patient, [id number] patient care, and completing clinical documentation It was necessary to convert the virtual visit to a telephone encounter due to technical difficulties. Amarilis Rosario APRN.CNP documented in this encounterPromedica [facility]07-06-2023 History of Present illness Narrative* Lara Wells PA-C - 11/21/2022 10:00 AM EDT PATIENT NAME: Juancarlos Baum DATE: 11/21/2022 PRIMARY CARE PHYSICIAN: Katarina Daniels DO OTHER PHYSICIANS: Dr. Florencio Rose. Dr. Urias (Elements copied from Dr. Amaya's note dated October 31, 2022, have been reviewed and updated where appropriate, and all reflect current assessment and medical decision making during today's encounter,November 21, 2022) CC: This is a 66 year old male with kidney cancer, seen for scheduled follow-up and treatment. INTERIM HISTORY: Mr. Baum returns for adjuvant Pembrolizumab. He is tolerating it well. Denies anydiarrhea, rash, itching, cough, shortness of breath or pain. Overall he feels well. MEDICATIONS: Current Outpatient Medications Medication Sig gabapentin (NEURONTIN) 300 mg capsule Take 300 mg by mouth twice daily. ELIQUIS 5 mg tab(s) Take 1 tablet by mouth twice daily. You may resume this medication on August 26. digoxin (LANOXIN) 125 mcg (0.125 mg) tablet Take by mouth once daily. propranolol ER (INDERAL LA) 80 mg 24 hr capsule Take 80 mg by mouth once daily. multivit,thx,calcium,iron,mins (MULTIVITAMIN AND MINERAL ORAL) Take 1 Dose by mouth once daily. Current Facility-Administered Medications Medication Dose Route Frequency perflutren lipid microspheres 1.3 mL in NaCl (PF) 0.9% 10 mL injection (DEFINITY) INTRAVENOUS DIRECTED PRN sodium chloride 0.9 % (flush) 10 mL (BD POSIFLUSH) 10 mL INTRAVENOUS DIRECTED PRN ALLERGIES: ALLERGIES Allergen Reactions Meloxicam Vomiting Nsaids (Non-Steroid* Other: See Comments PAST MEDICAL HISTORY: PAST MEDICAL HISTORY Diagnosis Date Atrial fibrillation (HCC) Renal cell carcinoma (HCC) PAST SURGICAL HISTORY: PAST SURGICAL HISTORY Procedure Laterality Date NEPHRECTOMY PARTIAL Left total left TOTAL HIP REPLACEMENT Left FAMILY HISTORY: No family history on file. SOCIAL HISTORY: Social History Tobacco Use Smoking status: Never Passive exposure: Never Smokeless tobacco: Never Vaping Use Vaping Use: Never used Substance Use Topics Alcohol use: Yes Comment: Less than monthly per pt 08/05/2022 Drug use: Never COMPLETE REVIEW OF SYSTEMS: CONSTITUTION: Negative for pain, fatigue, weight loss, or appetite loss. EENT: Negative for mouth soreness, antibiotics use, epistaxis, visual problems, neck or facial swelling, fever/chills, bleeding gums, or hearing loss. CV: Negative for edema, calf swelling, palpitations, or chest pain. RESPIRATORY: Negative for cough, SOB, hemoptysis, or wheezing. GI: Negative for nausea/vomiting, heartburn, vomiting blood, dysphasia, diarrhea, blood in stool, constipation, early satiety, PICA, vegetarian, poor nutrition, abdominal fullness, or abdominal pain. NEUROLOGICAL: Negative for numbness/tingling, dizziness, gait disturbance, headache, speech disturbance, tremor, hemiparesis/sensory loss, or change in mental status. MUSCULOSKELETAL: Negative for joint pain, joint swelling, or proximal muscle weakness. SKIN: Negative for hair loss, bruising, nail changes, rash, itching, pallor, or jaundice. ENDO/URO: Negative for hot flashes, cold or heat intolerance, urinary frequency, urinary hesitancy,menorrhagia, or hematuria. PSYCH: Negative for anxiety, depression, or other. PHYSICAL EXAM: BP 117/80 Pulse (!) 50 Temp 36.3 C (97.4 F) (Temporal) Resp 16 Ht 173 cm (5'8.11 ) Wt (!) 136.4 kg (300 lb 9.6 oz) SpO2 97% BMI 45.56 kg/m General: Alert and oriented, no distress, pleasant and cooperative. Heart: Regular, normal S1 and S2, no murmurs, rubs, or gallops Lungs: Clear to auscultation bilaterally Abdomen: Benign Extremities: Feet/ankles without edema, posterior tibial pulses full and symmetrical PATHOLOGY: 08/14/2022 Kidney, left, total nephrectomy: - Renal cell carcinoma (7.7 cm), clear cell type, WHO/ISUP grade 3, with focal early invasion of renal sinus vessel. - Surgical margins are negative. LABS: Hemoglobin (g/dL) Date Value 11/21/2022 14.7 Hematocrit (%) Date Value 11/21/2022 44.8 WBC (k/uL) Date Value 11/21/2022 5.73 Platelet Count (k/uL) Date Value 11/21/2022 169 RADIOLOGY/OTHER STUDIES: 08/09/2022 CT chest IMPRESSION: Small (less than 3 mm) pulmonary nodules, likely small lymph nodes. Otherwise no suspicious lung nodule identified. Recommend follow-up per clinical protocol given the left renal mass. No thoracic lymphadenopathy. Known left renal mass, partially visualized, better seen on prior CT of the abdomen and pelvis. 07/16/2022 CT abdomen/pelvis ([facility]) IMPRESSION: 9 cm left renal neoplasm with extension into the renal sinus fat, but without renal vein/IVC involvement. No metastatic disease in the abdomen or pelvis. ASSESSMENT/PLAN: 1. 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 Status post radical left nephrectomy 08/14/2022. Postop it was elected to give adjuvant therapy with pembrolizumab 200 mg IV every 3 weeks x1 year as tolerated. Treatment started 09/19/2022. Currently the patient is clinically stable and essentially asymptomatic. Today we will proceed with pembrolizumab and again in 3 weeks with labs. He will then have CT scansin about 5 weeks for restaging and see us in 6 weeks for labs and continuation of pembrolizumab. 2. Atrial fibrillation (HCC) - ICD9: 427.31, ICD10: I48.91 Stable on current medications, continue management per PCP/cardiology. 3. Lower extremity neuropathy Stable on current medications, continue management per PCP. 4. Benign prostatic hypertrophy The patient has a long history of LUTS. Status post TURP x2. Minimally symptomatic at this time. Continue management per PCP/urology. Lara Wells PA-C documented in this encounterPromedica Defiance [facility]06-15-2023 Nurse Note* Dian Oropeza MA - 10/31/2022 10:15 AM EDT After patients last treatment he had diarrhea for approx 6 hours after and lasting about 4 hours. Dian Oropeza MA documented in this encounterPromedica Defiance [facility]06-15-2023 History of Present illness Narrative* Aba Amaya MD - 10/31/2022 6:58 AM EDT PATIENT NAME: Juancarlos Baum DATE: 10/31/2022 PRIMARY CARE PHYSICIAN: Katarina Daniels, OTHER PHYSICIANS: Dr. Florencio Rose. Dr. Urias Portions of this encounter note have been copied from the note from 10/10/2022 and has been updated where appropriate, and reflect my current medical decision making from today. CC: This is a 66 year old male with kidney cancer, seen for scheduled follow-up and treatment. INTERIM HISTORY: The patient remains on adjuvant pembrolizumab, and is tolerating treatment well. He has had no apparent side effects. Currently he feels well with no complaints. MEDICATIONS: Current Outpatient Medications Medication Sig gabapentin (NEURONTIN) 300 mg capsule Take 300 mg by mouth twice daily. oxybutynin (DITROPAN) 5 mg tablet Take 1 tablet by mouth three times daily. ELIQUIS 5 mg tab(s) Take 1 tablet by mouth twice daily. You may resume this medication on August 26. digoxin (LANOXIN) 125 mcg (0.125 mg) tablet Take by mouth once daily. propranolol ER (INDERAL LA) 80 mg 24 hr capsule Take 80 mg by mouth once daily. multivit,thx,calcium,iron,mins (MULTIVITAMIN AND MINERAL ORAL) Take 1 Dose by mouth once daily. Current Facility-Administered Medications Medication Dose Route Frequency perflutren lipid microspheres 1.3 mL in NaCl (PF) 0.9% 10 mL injection (DEFINITY) INTRAVENOUS DIRECTED PRN sodium chloride 0.9 % (flush) 10 mL (BD POSIFLUSH) 10 mL INTRAVENOUS DIRECTED PRN ALLERGIES: ALLERGIES Allergen Reactions Meloxicam Vomiting Nsaids (Non-Steroid* Other: See Comments PAST MEDICAL HISTORY: PAST MEDICAL HISTORY Diagnosis Date Atrial fibrillation (HCC) Renal cell carcinoma (HCC) PAST SURGICAL HISTORY: PAST SURGICAL HISTORY Procedure Laterality Date NEPHRECTOMY PARTIAL Left total left TOTAL HIP REPLACEMENT Left FAMILY HISTORY: No family history on file. SOCIAL HISTORY: Social History Tobacco Use Smoking status: Never Passive exposure: Never Smokeless tobacco: Never Vaping Use Vaping Use: Never used Substance Use Topics Alcohol use: Yes Comment: Less than monthly per pt 08/05/2022 Drug use: Never COMPLETE REVIEW OF SYSTEMS: CONSTITUTION: Negative for pain, fatigue, weight loss, or appetite loss. EENT: Negative for mouth soreness, antibiotics use, epistaxis, visual problems, neck or facial swelling, fever/chills, bleeding gums, or hearing loss. CV: Negative for edema, calf swelling, palpitations, or chest pain. RESPIRATORY: Negative for cough, SOB, hemoptysis, or wheezing. GI: Negative for nausea/vomiting, heartburn, vomiting blood, dysphasia, diarrhea, blood in stool, constipation, early satiety, PICA, vegetarian, poor nutrition, abdominal fullness, or abdominal pain. NEUROLOGICAL: Negative for numbness/tingling, dizziness, gait disturbance, headache, speech disturbance, tremor, hemiparesis/sensory loss, or change in mental status. MUSCULOSKELETAL: Negative for joint pain, joint swelling, or proximal muscle weakness. SKIN: Negative for hair loss, bruising, nail changes, rash, itching, pallor, or jaundice. ENDO/URO: Negative for hot flashes, cold or heat intolerance, urinary frequency, urinary hesitancy,menorrhagia, or hematuria. PSYCH: Negative for anxiety, depression, or other. PHYSICAL EXAM: BP 118/59 Pulse 63 Temp 36.4 C (97.6 F) (Temporal) Resp 16 Ht 173 cm (5' 8.11 ) Wt 133.3 kg (293 lb 12.8 oz) SpO2 96% BMI 44.53 kg/m General: Alert and oriented, no distress, pleasant and cooperative. Heart: Regular, normal S1 and S2, no murmurs, rubs, or gallops Lungs: Clear to auscultation bilaterally Abdomen: Benign, Left flank incisions are healed Extremities: Feet/ankles without edema, posterior tibial pulses full and symmetrical PATHOLOGY: 08/14/2022 Kidney, left, total nephrectomy: - Renal cell carcinoma (7.7 cm), clear cell type, WHO/ISUP grade 3, with focal early invasion of renal sinus vessel. - Surgical margins are negative. LABS: Hemoglobin (g/dL) Date Value 10/31/2022 15.1 Hematocrit (%) Date Value 10/31/2022 45.2 WBC (k/uL) Date Value 10/31/2022 6.02 Platelet Count (k/uL) Date Value 10/31/2022 196 RADIOLOGY/OTHER STUDIES: 08/09/2022 CT chest IMPRESSION: Small (less than 3 mm) pulmonary nodules, likely small lymph nodes. Otherwise no suspicious lung nodule identified. Recommend follow-up per clinical protocol given the left renal mass. No thoracic lymphadenopathy. Known left renal mass, partially visualized, better seen on prior CT of the abdomen and pelvis. 07/16/2022 CT abdomen/pelvis ([facility]) IMPRESSION: 9 cm left renal neoplasm with extension into the renal sinus fat, but without renal vein/IVC involvement. No metastatic disease in the abdomen or pelvis. ASSESSMENT/PLAN: 1. 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 Status post radical left nephrectomy 08/14/2022. Postop it was elected to give adjuvant therapy with pembrolizumab 200 mg IV every 3 weeks x1 year as tolerated. Treatment started 09/19/2022. Currently the patient is clinically stable and essentially asymptomatic. He will receive pembrolizumab today as scheduled. Return in 3 weeks for follow- up and continued treatment. We will plan to restage with CT scans at 4 months (December 2022). 2. Atrial fibrillation (HCC) - ICD9: 427.31, ICD10: I48.91 Stable on current medications, continue management per PCP/cardiology. 3. Lower extremity neuropathy Stable on current medications, continue management per PCP. 4. Benign prostatic hypertrophy The patient has a long history of LUTS. Status post TURP x2. Minimally symptomatic at this time. Continue management per PCP/urology. Aba Amaya MD documented in this encounterPromedica Def[facility]06-01-[facility]23 Evaluation note* Encounter Date Diagnosis Assessment Notes Treatment Notes Treatment Clinical Notes Oct, Obstructive sleep apnea (ICD-10 - G47.33) Fortunately, the patient is using and benefiting from treatment. Download was reviewed with patient, Current pressure is controlling apnea well, And we will make no changes at this time. We did briefly touch on [facility], he would need an updated sleep study that shows AHI within range and weight loss to BMI of 35 or lower. Pt states he is happy with the PAP machine for now (except for when he travels), but will follow up in the future if he changes his mind. A prescription was sent to the [facility] for new supplies throughout the year. He was encouraged to continue to use his machine nightly, throughout the entire night and for naps as this does provide clinical benefit. He will follow-up in the sleep clinic in 1 year or sooner if problems. Oct, BMI 40.0-44.9, adult (ICD-10 - Z68.41) We discussed the benefits of weight control in relation to GEOVANNA. Any significant increase in body weight typically will cause worsened apnea, and thus render current pressure settings less effective. Encouraged patient to maintain healthy diet that is low in fat/calories and nutrient-dense, and staying active. We will continue to monitor. Oct, Atrial fibrillation, unspecified type (ICD-10 - I48.91) Recurrence rates after cardioversion are nearly doubled in atrial fibrillation patients with untreated GEOVANNA, so controlling the patient's sleep apnea could have positive effects. In addition, rate control tends to be easier when total adrenergic load is decreased with controlled apnea. Pt continues to follow with cardiology. Oct, Other Call if any questions or problems. For Sleep Apnea: Patient is advised to work on healthy diet choices and appropriate servings, weight control, regular exercise as directed, and reduce fat intake. Use machine regularly, and keep up with mask changes as needed. Call if problems with mask toleration, increased sleepiness, or poor response to treatment. Take medication as prescribed, keep follow up appointments, get any testing that's been ordered in a timely fashion. Do not smoke [employer] Other [id number] Miscellaneous Notes* Telephone Encounter - Nirmala Regalado RN - 09/24/2022 11:25 AM EDT CYCLE 1/DAY 1 POST TREATMENT CALL Today's date: September 24, 2022 Treatment Regimen: Pembrolizumab C1D1 Date: 09/19/22 Called patient to follow-up on symptom management. Spoke with patient. SYMPTOM ASSESSMENT Neuro: Numbness/Weakness/Tingling in his toes. This is not new. No worse since starting treatment. CV/Resp: None GI/: Appetite: no changes in appetite, appetite fair, Fluid intake: Pt reports that he is drinking plenty of fluids. Unable to provide an estimated amount, and Bladder/Urinary Changes: None Integument: None Activity: Patient reported increased energy level Denies c/o fatigue. Reports that he is becoming more active everyday. Pain: No=0 (pain 0 on a scale of 0-10). Fever: No Chills: No Any new referrals needed? No Reinforced CURRENT treatment education based on current and anticipated symptoms. Discussed port/line care and patient verbalizes understanding: Not Applicable Patient instructed to contact office or after hours Hematology/Oncology fellow for: temperature ? 100.4; questions or concerns. Patient verbalized understanding of when to seek medical attention and after hours number protocol. Nirmala Regalado RN documented in this encounterPromedica [facility]05-04-[facility] History of Present illness Narrative* Aba Amaya MD - 09/19/2022 7:33 AM EDT PATIENT NAME: Juancarlos Baum DATE: 09/19/2022 PRIMARY CARE PHYSICIAN: Katarina Daniels DO OTHER PHYSICIANS: Dr. Florencio Rose. Dr. Urias Portions of this encounter note have been copied from my note from 08/29/2022 and has been updated where appropriate, and reflect my current medical decision making from today. CC: This is a 66 year old male with recently diagnosed kidney cancer, seen for scheduled follow-up and treatment. INTERIM HISTORY: Since the patient's initial visit here he has had no significant medical changes. He still has mild redness along his left flank incisions, but slowly improving with no evidence of infection. No abdominal pain or other GI symptoms. Overall he feels well and is ready to proceed with treatment today as planned. MEDICATIONS: Current Outpatient Medications Medication Sig gabapentin (NEURONTIN) 300 mg capsule Take 300 mg by mouth twice daily. oxybutynin (DITROPAN) 5 mg tablet Take 1 tablet by mouth three times daily. ELIQUIS 5 mg tab(s) Take 1 tablet by mouth twice daily. You may resume this medication on August 26. digoxin (LANOXIN) 125 mcg (0.125 mg) tablet Take by mouth once daily. propranolol ER (INDERAL LA) 80 mg 24 hr capsule Take 80 mg by mouth once daily. multivit,thx,calcium,iron,mins (MULTIVITAMIN AND MINERAL ORAL) Take 1 Dose by mouth once daily. Current Facility-Administered Medications Medication Dose Route Frequency perflutren lipid microspheres 1.3 mL in NaCl (PF) 0.9% 10 mL injection (DEFINITY) INTRAVENOUS DIRECTED PRN sodium chloride 0.9 % (flush) 10 mL (BD POSIFLUSH) 10 mL INTRAVENOUS DIRECTED PRN ALLERGIES: ALLERGIES Allergen Reactions Meloxicam Vomiting Nsaids (Non-Steroid* Other: See Comments PAST MEDICAL HISTORY: PAST MEDICAL HISTORY Diagnosis Date Atrial fibrillation (HCC) Renal cell carcinoma (HCC) PAST SURGICAL HISTORY: PAST SURGICAL HISTORY Procedure Laterality Date NEPHRECTOMY PARTIAL Left total left TOTAL HIP REPLACEMENT Left FAMILY HISTORY: No family history on file. SOCIAL HISTORY: Social History Tobacco Use Smoking status: Never Passive exposure: Never Smokeless tobacco: Never Vaping Use Vaping Use: Never used Substance Use Topics Alcohol use: Yes Comment: Less than monthly per pt 08/05/2022 Drug use: Never COMPLETE REVIEW OF SYSTEMS: CONSTITUTION: Negative for pain, fatigue, weight loss, or appetite loss. EENT: Negative for mouth soreness, antibiotics use, epistaxis, visual problems, neck or facial swelling, fever/chills, bleeding gums, or hearing loss. CV: Negative for edema, calf swelling, palpitations, or chest pain. RESPIRATORY: Negative for cough, SOB, hemoptysis, or wheezing. GI: Negative for nausea/vomiting, heartburn, vomiting blood, dysphasia, diarrhea, blood in stool, constipation, early satiety, PICA, vegetarian, poor nutrition, abdominal fullness, or abdominal pain. NEUROLOGICAL: Negative for numbness/tingling, dizziness, gait disturbance, headache, speech disturbance, tremor, hemiparesis/sensory loss, or change in mental status. MUSCULOSKELETAL: Negative for joint pain, joint swelling, or proximal muscle weakness. SKIN: Negative for hair loss, bruising, nail changes, rash, itching, pallor, or jaundice. ENDO/URO: Negative for hot flashes, cold or heat intolerance, urinary frequency, urinary hesitancy,menorrhagia, or hematuria. PSYCH: Negative for anxiety, depression, or other. PHYSICAL EXAM: BP 110/58 Pulse (!) 56 Temp 36.6 C (97.8 F) (Temporal) Resp 16 Ht 173 cm (5'8.11 ) Wt (!) 136.4 kg (300 lb 9.6 oz) SpO2 98% BMI 45.56 kg/m GENERAL EXAM: Well developed/well nourished; in no acute distress. SKIN: Negative for lesions, rashes, or ulcers on the upper and lower extremities and face. Negativefor palpations/nodules, purpura, and ecchymosis. EENT: Negative for conjunctiva, mucosal pallor, JVD, LAP, thyromegaly, and glossitis. Supple & PERRL. EXTREMITIES: Negative for cyanosis, clubbing, and crepitus. LUNGS: Negative to auscultation, respiratory effort, and percussion. CARDIOVASCULAR: Regular rate. Negative for murmurs/S3S4/abnormal sounds, edema, and carotid bruits. ABDOMEN: Negative for masses, hernia, and spleen/liver abnormalities. RECTAL: Not done PSYCHIATRIC: Negative for mood/affect changes, recent & remote memory changes, and judgement and insight. NEUROLOGICAL: Alert, oriented x person, place, time. Cranial nerves 2-12 intact. Sensory for pain, light touch, vibration intact on all 4 extremities. Reflexes symmetric for biceps/brachioradial/patella/achilles. MUSCULOSKELETAL: Negative examination of joints, bones, muscles/tendons of all four extremities forinspection, percussion, and palpation. Negative for misallignment, asymmetry, crepitation, tenderness, mass, effusions. Range of motion normal. Negative for joint instability, laxity, dislocation. Gait steady. Negative for swelling, erythema, tenderness, soft tissue swelling, and atrophy. PATHOLOGY: 08/14/2022 Kidney, left, total nephrectomy: - Renal cell carcinoma (7.7 cm), clear cell type, WHO/ISUP grade 3, with focal early invasion of renal sinus vessel. - Surgical margins are negative. LABS: Hemoglobin (g/dL) Date Value 09/19/2022 14.5 Hematocrit (%) Date Value 09/19/2022 44.2 WBC (k/uL) Date Value 09/19/2022 7.62 Platelet Count (k/uL) Date Value 09/19/2022 203 RADIOLOGY/OTHER STUDIES: 08/09/2022 CT chest IMPRESSION: Small (less than 3 mm) pulmonary nodules, likely small lymph nodes. Otherwise no suspicious lung nodule identified. Recommend follow-up per clinical protocol given the left renal mass. No thoracic lymphadenopathy. Known left renal mass, partially visualized, better seen on prior CT of the abdomen and pelvis. 07/16/2022 CT abdomen/pelvis ([facility]) IMPRESSION: 9 cm left renal neoplasm with extension into the renal sinus fat, but without renal vein/IVC involvement. No metastatic disease in the abdomen or pelvis. ASSESSMENT/PLAN: 1. 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 Status post radical left nephrectomy 08/14/2022. Currently no evidence of disease. As scheduled the patient will proceed with adjuvant pembrolizumab, with plans to give 200 mg IV every 3 weeks x 1 year as tolerated. He will receive cycle 1 today. Return in 3 weeks for cycle 2. Unless new problems develop we will restage with CT scans at 4 months (December 2022). 2. Atrial fibrillation (HCC) - ICD9: 427.31, ICD10: I48.91 Stable on current medications, continue management per PCP/cardiology. 3. Lower extremity neuropathy Stable on current medications, continue management per PCP. 4. Benign prostatic hypertrophy The patient has a long history of LUTS. Status post TURP x2. Minimally symptomatic at this time. Continue management per PCP/urology. Aba Amaya MD documented in this encounterPromedica [facility]05-02-2023 Miscellaneous Notes* Telephone Encounter - Niki Miguel RD - 09/17/2022 1:46 PM EDT Received voicemail from patient's Deandra asking for information regarding nutrition for solitarykidney and foods to eat and asked to hand picker this information on 09/19 when patient is in clinic for his first treatment. Called her back and this time. No answer. Left voicemail stating there are no specific diets or guidelines for patient's with solitary kidney and that the recommendation would be overall healthy balanced diet and good hydration. Noted in message my services are free and available to patient should they wish to schedule an appointment to discuss nutrition further. Niki Miguel MS, RDN, LD documented in this encounterPromedica [facility]04-13-2023 Nurse Note* Dian Oropeza MA - 08/29/2022 11:01 AM EDT Patient states that he has seepage at incision spot. Dian Oropeza MA documented in this encounterPromedica Defiance [facility]04-13-2023 History of Present illness Narrative* Aba Amaya MD - 08/29/2022 6:41 AM EDT PATIENT NAME: Juancarlos Baum DATE: 08/29/2022 PRIMARY CARE PHYSICIAN: Katarina Daniels DO OTHER PHYSICIANS: Dr. Florencio Rose. Dr. Urias HPI: This is a 66 year old male with recently diagnosed kidney cancer, referred for further management. The patient presented to [facility] emergency room on 07/16/2022 with lower abdominal pain. CT abdomen/pelvis revealed a large left kidney mass, which was felt to be unrelated to the pain (which subsequently resolved). The patient subsequently was referred to [facility] urology for evaluation, and was diagnosed with kidney cancer. He underwent a laparoscopic left radical nephrectomy on 08/14/2022. Pathology revealed grade 3 renal cell carcinoma, clear-cell type. The primary tumor was 7.7 cm with focal early invasion of the renal sinus vessel. Surgical margins were negative. He currently is referred to discuss options for adjuvant therapy. Postop the patient developed an apparent wound infection and was started on Keflex 08/22/2022. He still has several areas of redness around the port sites with slight drainage from the primary incision. No fevers or other signs of infection. The patient's past medical history is significant for atrial fibrillation, as well as bilateral lower extremity neuropathy and BPH. Prior to diagnosis he had no hematuria or other acute urinary symptoms. No bone pain or other systemic symptoms. The patient is and has 1 daughter. 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 Family history is negative for others with cancer. MEDICATIONS: Current Outpatient Medications Medication Sig cephALEXin (KEFLEX) 500 mg capsule Take 1 capsule by mouth four times daily for 7 days. oxyCODONE IR (ROXICODONE) 5 mg immediate release tablet Take 1 tablet by mouth every 8 hours as needed for pain. docusate sodium (COLACE) 100 mg capsule Take 1 capsule by mouth twice daily. oxybutynin (DITROPAN) 5 mg tablet Take 1 tablet by mouth three times daily. ELIQUIS 5 mg tab(s) Take 1 tablet by mouth twice daily. You may resume this medication on August 26. polyethylene glycol 3350 (MIRALAX) 17 gram packet Take 1 Packet by mouth once daily. digoxin (LANOXIN) 125 mcg (0.125 mg) tablet Take by mouth at bedtime as needed. gabapentin (NEURONTIN) 300 mg capsule TAKE 1 CAPSULE BY MOUTH EVERY DAY AT BEDTIME propranolol ER (INDERAL LA) 80 mg 24 hr capsule Take 80 mg by mouth once daily. multivit,thx,calcium,iron,mins (MULTIVITAMIN AND MINERAL ORAL) Take by mouth q 24 HR. Current Facility-Administered Medications Medication Dose Route Frequency perflutren lipid microspheres 1.3 mL in NaCl (PF) 0.9% 10 mL injection (DEFINITY) INTRAVENOUS DIRECTED PRN sodium chloride 0.9 % (flush) 10 mL (BD POSIFLUSH) 10 mL INTRAVENOUS DIRECTED PRN ALLERGIES: ALLERGIES Allergen Reactions Meloxicam Vomiting Nsaids (Non-Steroid* Other: See Comments PAST MEDICAL HISTORY: PAST MEDICAL HISTORY Diagnosis Date Atrial fibrillation (HCC) Renal cell carcinoma (HCC) PAST SURGICAL HISTORY: PAST SURGICAL HISTORY Procedure Laterality Date NEPHRECTOMY PARTIAL Left total left TOTAL HIP REPLACEMENT Left FAMILY HISTORY: No family history on file. SOCIAL HISTORY: Social History Tobacco Use Smoking status: Never Smokeless tobacco: Never Vaping Use Vaping Use: Never used Substance Use Topics Alcohol use: Yes Comment: Less than monthly per pt 08/05/2022 Drug use: Never COMPLETE REVIEW OF SYSTEMS: CONSTITUTION: Negative for pain, fatigue, weight loss, or appetite loss. EENT: Negative for mouth soreness, antibiotics use, epistaxis, visual problems, neck or facial swelling, fever/chills, bleeding gums, or hearing loss. CV: Negative for edema, calf swelling, palpitations, or chest pain. RESPIRATORY: Negative for cough, SOB, hemoptysis, or wheezing. GI: Negative for nausea/vomiting, heartburn, vomiting blood, dysphasia, diarrhea, blood in stool, constipation, early satiety, PICA, vegetarian, poor nutrition, abdominal fullness, or abdominal pain. NEUROLOGICAL: Negative for numbness/tingling, dizziness, gait disturbance, headache, speech disturbance, tremor, hemiparesis/sensory loss, or change in mental status. MUSCULOSKELETAL: Negative for joint pain, joint swelling, or proximal muscle weakness. SKIN: Negative for hair loss, bruising, nail changes, rash, itching, pallor, or jaundice. ENDO/URO: Negative for hot flashes, cold or heat intolerance, urinary frequency, urinary hesitancy,menorrhagia, or hematuria. PSYCH: Negative for anxiety, depression, or other. PHYSICAL EXAM: BP 112/61 Pulse (!) 56 Temp 36.1 C (96.9 F) (Temporal) Resp 18 Ht 177.8 cm (5' 10 ) Wt 134.9 kg (297 lb 6.4 oz) SpO2 97% BMI 42.67 kg/m GENERAL EXAM: Well developed/well nourished; in no acute distress. SKIN: Negative for lesions, rashes, or ulcers on the upper and lower extremities and face. Negativefor palpations/nodules, purpura, and ecchymosis. EENT: Negative for conjunctiva, mucosal pallor, JVD, LAP, thyromegaly, and glossitis. Supple & PERRL. EXTREMITIES: Negative for cyanosis, clubbing, and crepitus. LUNGS: Negative to auscultation, respiratory effort, and percussion. CARDIOVASCULAR: Regular rate. Negative for murmurs/S3S4/abnormal sounds, edema, and carotid bruits. ABDOMEN: Negative for masses, hernia, and spleen/liver abnormalities. RECTAL: Not done PSYCHIATRIC: Negative for mood/affect changes, recent & remote memory changes, and judgement and insight. NEUROLOGICAL: Alert, oriented x person, place, time. Cranial nerves 2-12 intact. Sensory for pain, light touch, vibration intact on all 4 extremities. Reflexes symmetric for biceps/brachioradial/patella/achilles. MUSCULOSKELETAL: Negative examination of joints, bones, muscles/tendons of all four extremities forinspection, percussion, and palpation. Negative for misallignment, asymmetry, crepitation, tenderness, mass, effusions. Range of motion normal. Negative for joint instability, laxity, dislocation. Gait steady. Negative for swelling, erythema, tenderness, soft tissue swelling, and atrophy. PATHOLOGY: 08/14/2022 Kidney, left, total nephrectomy: - Renal cell carcinoma (7.7 cm), clear cell type, WHO/ISUP grade 3, with focal early invasion of renal sinus vessel. - Surgical margins are negative. LABS: Hemoglobin (g/dL) Date Value 08/16/2022 12.2 Hematocrit (%) Date Value 08/16/2022 37.1 WBC (k/uL) Date Value 08/16/2022 11.44 Platelet Count (k/uL) Date Value 08/16/2022 135 RADIOLOGY/OTHER STUDIES: 08/09/2022 CT chest IMPRESSION: Small (less than 3 mm) pulmonary nodules, likely small lymph nodes. Otherwise no suspicious lung nodule identified. Recommend follow-up per clinical protocol given the left renal mass. No thoracic lymphadenopathy. Known left renal mass, partially visualized, better seen on prior CT of the abdomen and pelvis. 07/16/2022 CT abdomen/pelvis ([facility]) IMPRESSION: 9 cm left renal neoplasm with extension into the renal sinus fat, but without renal vein/IVC involvement. No metastatic disease in the abdomen or pelvis. ASSESSMENT/PLAN: 1. 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 Status post radical left nephrectomy 08/14/2022. Currently no evidence of disease. Options for further management were discussed at length with the patient and his . Recent data indicates that adjuvant pembrolizumab improves disease-free survival in patients with resected stageIII renal cell carcinoma ([facility] 01/04/2021). Current guidelines are to give pembrolizumab 200 mg IV every 3 weeks x 1 year as tolerated. The pros and cons of this were discussed and the patient would like to proceed. I will see him back in 3 weeks for follow-up and labs, at which time we will start treatment if stable. Postop the patient developed an apparent infection around his left flank port sites. Currently on oral antibiotics with Keflex. I suggested he contact his surgeon for further management, but in the meantime he will continue with oral antibiotics (7 additional days prescribed). 2. Atrial fibrillation (HCC) - ICD9: 427.31, ICD10: I48.91 Stable on current medications, continue management per PCP/cardiology. 3. Lower extremity neuropathy Stable on current medications, continue management per PCP. 4. Benign prostatic hypertrophy The patient has a long history of LUTS. Status post TURP x2. Minimally symptomatic at this time. Continue management per PCP/urology. Aba Amaya MD CC: Dr. Urias, Dr. Katarina Daniels documented in this encounterPromedica Def[facility]04-06-2023 History of Present illness Narrative* Amarilis Rosario APRN.ORDER CLERK - 08/22/2022 3:30 PM EDT VIRTUAL VISIT PROGRESS NOTE This is a virtual visit using [employer] video visit. It required patient-provider interaction for themedical decision making as documented below. I have communicated my name and active licensure. The patient's identity and physical location wereverified at the time of this visit. 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 Persons Present: patient and patient's spouse/significant other (Deandra) Chief Complaint/Reason: post-op HPI: Juancarlos Baum is a 66 year old male with hx of left renal mass who presents for post-op evaluation. He is s/p hand assisted laparoscopic left radical nephrectomy on 08/14/[address] Rose. FINAL DIAGNOSIS A. Kidney, left, total nephrectomy: - Renal cell carcinoma (7.7 cm), clear cell type, WHO/ISUP grade 3, with focal early invasion of renal sinus vessel. - Surgical margins are negative. - See synoptic template. Hospital course uncomplicated and he was discharged home on 08/17/2022. Interval Hx: Overall, doing well. Reports gradually improving energy levels. Tolerating adequate PO intake. Clear urine- no hematuria. Prior constipation improved. Taking Oxycodoone and acetaminophen as needed for abdominal pain- pain is gradually improving but requesting extended course of Oxycodone Rx as pain still persists and unrelieved by acetaminophen only. No calf pain or swelling. Patient and spouse note increasing erythema around abdominal incisions- they note incisions are intact without drainage, although it appears there may be some yellow drainage under glue of one of his port sites. No fevers/chills. Data Reviewed: Most recent labs Most recent surgical pathology Labs: Creatinine Date Value Ref Range Status 08/16/2022 1.19 0.73 - 1.22 mg/dL Final 08/15/2022 1.18 0.73 - 1.22 mg/dL Final 08/14/2022 0.94 0.73 - 1.22 mg/dL Final 08/05/2022 0.98 0.73 - 1.22 mg/dL Final HISTORY REVIEWED (electronic chart updated): PAST MEDICAL HISTORY Diagnosis Date Atrial fibrillation (HCC) PAST SURGICAL HISTORY Procedure Laterality Date TOTAL HIP REPLACEMENT Left No family history on file. Social History Tobacco Use Smoking status: Never Smokeless tobacco: Never Substance Use Topics Alcohol use: Yes Comment: Less than monthly per pt 08/05/2022 Drug use: Never Current Outpatient Medications Medication Sig docusate sodium (COLACE) 100 mg capsule Take 1 capsule by mouth twice daily. oxybutynin (DITROPAN) 5 mg tablet Take 1 tablet by mouth three times daily. oxyCODONE IR (ROXICODONE) 5 mg immediate release tablet Take 1 tablet by mouth every 8 hours as needed for pain. ELIQUIS 5 mg tab(s) Take 1 tablet by mouth twice daily. You may resume this medication on August 26. polyethylene glycol 3350 (MIRALAX) 17 gram packet Take 1 Packet by mouth once daily. apixaban (ELIQUIS) 2.5 mg tab(s) Take 1 tablet by mouth twice daily for 9 days. digoxin (LANOXIN) 125 mcg (0.125 mg) tablet Take by mouth at bedtime as needed. gabapentin (NEURONTIN) 300 mg capsule TAKE 1 CAPSULE BY MOUTH EVERY DAY AT BEDTIME propranolol ER (INDERAL LA) 80 mg 24 hr capsule Take 80 mg by mouth once daily. multivit,thx,calcium,iron,mins (MULTIVITAMIN AND MINERAL ORAL) Take by mouth q 24 HR. Current Facility-Administered Medications Medication Dose Route Frequency perflutren lipid microspheres 1.3 mL in NaCl (PF) 0.9% 10 mL injection (DEFINITY) INTRAVENOUS DIRECTED PRN sodium chloride 0.9 % (flush) 10 mL (BD POSIFLUSH) 10 mL INTRAVENOUS DIRECTED PRN ALLERGIES Allergen Reactions Meloxicam Vomiting REVIEW OF SYSTEMS: GENERAL: no fever RESPIRATORY: no wheezing or shortness of breath CARDIOVASCULAR: no chest pain GI: normal appetite, tolerating PO well, BMs normal, no nausea, and no vomiting : urination is normal; no hematuria PHYSICAL EXAMINATION: VIDEO EXAM: (if completed, performed via video enabled technology) GENERAL: alert and appropriate, in no distress, well-hydrated, well nourished, and happy, smiling, interactive RESPIRATORY: breathing non-labored CHEST: equal chest rise with normal respiratory effort INCISIONS: abdominal incisions PRODUCT EXP[employer] with skin glue- with erythema surrounding incisions, which patient notes has increased; no visible drainage and incisions all appear intact ASSESSMENT: (C64.2) Renal cell carcinoma of left kidney (HCC) (primary encounter diagnosis) (Z90.5) History of left nephrectomy (T81.49XA) Postoperative wound infection (G89.18) Post-operative pain 66 year old male s/p hand assisted laparoscopic left radical nephrectomy on 08/14/[address] Rose. We discussed surgical pathology in detail and NCCN guidelines for surveillance. Discussed role of Hem/Onc referral to discuss potential adjuvant therapy. Reviewed post-op physical restrictions- encouraged use of abdominal binder. Pain improving although worse at night requiring Oxycodone Rx. Incisions with increasing erythema. PLAN: -Rx for Oxycodone sent to preferred pharmacy -Rx for Keflex sent to preferred pharmacy -Consult Hem/Onc (patient provided with scheduling phone number) -Follow up virtual visit in 11/2022 (will determine plan for f/u surveillance pending his f/u with oncology) Discussed with Dr. Rose. There are no Patient Instructions on file for this visit. I spent a total of 60 minutes on the date of the service which included preparing to see the patient, [id number] patient care, completing clinical documentation, ordering medications, tests, or procedures, and communicating with other HCPs (not separately reported) Amarilis Rosario APRN.KALI documented in this encounterPromedica Defiance [facility]04-01-2023 Miscellaneous Notes* Telephone Encounter - Emmy Armstrong - 11/20/2022 4:07 PM EDT Patient coming in on 11/21/22 for follow up. Please add lab orders. Thanks. Emmy Armstrong MA documented in this encounterPromedica Defiance [facility]03-20-2023 History of Present illness Narrative* Khang Bowen MD - 08/05/2022 3:48 PM EDT Attending Note I evaluated the patient and personally participated in the gallardo components. I agree with the resident's findings and plan as documented and have discussed the case and management of the patient's carewith the resident. Signature: Khang Bowen MD Date: 08/05/2022 Time: 3:48 PM documented in this encounterPromedica Defiance [facility]03-20-2023 History of Present illness Narrative* Orlando Arita MD - 08/05/2022 3:30 PM EDT [facility] PRE-OP NOTE Juancarlos Baum is a 66 year old male. Pre-op Date: August 05, 2022 Date of Procedure: 08/14/2022 Does the patient have an active COVID-19 test in Epic? NA Procedure/Surgery: Hand-assist laparoscopic left radical nephrectomy Diagnosis: Left renal mass Primary Surgeon: MD Rose Robert There were no vitals taken for this visit. Pain Assessment: Are you currently having pain? No 0 on a scale of 0 to 10 Surgical Guide Book Status: Patient given book today. Dialysis Guide Book Status: N/A Allergies Reviewed: Yes Medications Reviewed: Yes Is patient currently on oral steroids?: No Has the patient had a UTI in the past month?: No. Does the patient have any artificial joints (last 2 years), metal parts, pacemakers or cardiac/ureteral stents in place?: Yes, left hip Does the patient have diabetes?: No Is the patient routinely taking anticoagulants?: Yes. Patient will stop Eliqius on 08/11 (last dose on 08/11). Can the patient have an IV put in either arm?: Yes Urine Dip Complete?: Yes, in process URINE CULTURE COMPLETE?: Yes, pending Ostomy/Stoma Nurse appointment made/completed: N/A [facility]/Medical Clearance: Cleared per [facility] - Yes [facility]: Cleared per [facility] - N/A All testing on cureform has been scheduled: Yes Consent Signed: Yes. DOS Orders Placed and Signed: Yes. Pre-op H&P Done by Impact: Yes. PATIENT INSTRUCTIONS FOR SURGERY 1.) DO NOT HAVE ANYTHING TO EAT AFTER MIDNIGHT THE DAY BEFORE SURGERY except for certain morning medications as instructed by the doctor. Candy, mints, gum, and smoking are NOT permitted. You may drink clear liquids (Sprite, water, coni beck) up to two hours before your arrival time on the day of surgery. 2.) Medications to be taken on the morning of surgery with a few sips of water: per IMP[facility] 3.) Please bring all your prescribed inhalers (if you have any you normally take) to the hospital. 4.) Arrival time: Call for arrival. 5.) Prep given: No 6.) Lovenox instructions given: N/A 7.) Patient reminded that surgery time provided day before surgery is tentative based on potential changes with transplants. Recommendations: This patient is optimally prepared for surgery. Orlando Arita MD documented in this encounterPromedica Defiance [facility]03-20-2023 Miscellaneous Notes* Telephone Encounter - Omar Mendoza RN - 08/05/2022 1:40 PM EDT Spoke to patient's via telephone to remind them to have Juancarlos's pre- op labs done. stated they would get the labs drawn before they leave [facility] today. Omar Mendoza RN August 05, 2022 1:42 PM documented in this encounterPromedica Defiance [facility] Hospital03-20-2023 History and physical note * Teo Alcantar DO - 08/05/2022 11:20 AM EDT HISTORY AND PHYSICAL EXAMINATION SERVICE DATE: 08/05/2022 SERVICE TIME: 10:45 AM PRIMARY CARE PHYSICIAN: Katarina Daniels DO REASON FOR VISIT: Juancarlos Baum is a 66 year old male who is scheduled for LAPAROSCOPIC HAND ASSISTED NEPHRECTOMY at the request of Dr.Robert Rose for consultation. My final recommendation will be communicated back to the requesting physician by way of shared medical record or letter. The patient has the following: ACTIVE PROBLEM LIST Renal Mass Subjective CHIEF COMPLAINT: left kidney mass HPI: Juancarlos Baum is a 66 year old male with pmhx of GEOVANNA, BPH, hx of afib on eliqiuis/digoxin, left renal mass who presents to [facility] today for preop exam. Patient is scheduled for the above procedure on 08/14/22. Patient reports compliance with CPAP. States he was told he is always in afib but is controlled with digoxin as well as anticoagulated with eliquis. Patient follows with [facility] in [place], [place]. Denies fevers, chills, chest pain, and SOB. Patient reports passing kidney stone on Friday. Surgical Hx: Total Hip replacement 03/29/21 TURP 09/29/18 SOCIAL HISTORY: Social History Tobacco Use Smoking status: Never Smokeless tobacco: Never MEDICATIONS: Prior to Admission medications as of 08/02/22 0912 Medication Sig Last Dose Taking digoxin (LANOXIN) 125 mcg (0.125 mg) tablet Take by mouth at bedtime as needed. ELIQUIS 5 mg tab(s) Take 5 mg by mouth twice daily. gabapentin (NEURONTIN) 300 mg capsule TAKE 1 CAPSULE BY MOUTH EVERY DAY AT BEDTIME propranolol ER (INDERAL LA) 80 mg 24 hr capsule Take 80 mg by mouth once daily. multivit,thx,calcium,iron,mins (MULTIVITAMIN AND MINERAL ORAL) Take by mouth q 24 HR. No medication comments found. CURRENT ALLERGIES: ALLERGIES Allergen Reactions Meloxicam Vomiting COVID VACCINATION STATUS: Fully vaccinated REVIEW OF SYSTEMS: PAIN ASSESSMENT: General: No weight loss, malaise or fevers. Neuro: No history of TIA's, stroke, PROSPECT MANAGER tumor, impaired sensorium, hemiplegia, paraplegia or quadraplegia. No neurological symptoms or problems. Respiratory: No history of current cough or dyspnea, or pneumonia in the past 6 weeks. No history of respiratory/pulmonary symptoms or problems. Cardiovascular: Positive for: afib, negative for HTN, [place] GI: No history of GI symptoms or problems. No history of esophageal varices, recent ascites, or ETOH greater than 2 drinks per day. : +Left kidney mass, +BPH s/p TURP x2, +kidney stones ,no hematuria Endocrine: No history of diabetes. Has not taken steroids within the past 30 days. No history of endocrinological symptoms or problems. Hematology: no hx of bleeding or blood clots. On eliquis for afib Oncology: No history of CA metastasis, chemo within 30 days, or radiotherapy within 90 days. Has not lost 10% of body wt in 6 months. No history of oncological symptoms or problems. Musculoskeletal: Negative for joint pain or swelling, back pain or muscle pain. Skin: Negative for lesions, rash and itching. Objective PHYSICAL EXAM: VITALS: BP 114/73 Pulse 57 Temp (Src) 97.7 (Temporal) Ht 5' 10 (1.78m) Wt 304 lb (137.9kg) SpO2 98% BMI 43.62 kg/(m^2). General: Alert and oriented, No acute distress Skin: Normal color, no rash, no lesions. HEENT: EOM, pupils equal, round and reactive. Cardiovascular: atrial fibrillation. Rate controlled Lungs: Normal breath sounds, no wheezes or crackles. Abdomen: Soft, non-tender, no rigidity. Extremities: No deformity, no edema or tenderness, no joint swelling or clubbing. Neurological: Normal cognition and motor skills. Pulses: Carotid and radial pulses normal +2. Diagnostic tests reviewed for today's visit: Lab Value Units Date High Low HB No results within date range. HCT No results within date range. WBC No results within date range. PLT No results within date range. NA No results within date range. K No results within date range. GLUC No results within date range. BUN No results within date range. CREAT No results within date range. PTSEC No results within date range. INR No results within date range. APTT No results within date range. ALT No results within date range. AST No results within date range. TBILI No results within date range. TSH No results within date range. Lab Value Units Date High Low HCGQT No results within date range. UHCG No results within date range. HCG, BODY* No results within date range. Lab Value Units Date High Low ABORHD No results within date range. ABSCREEN No results within date range. No results found for: HBA1C PENDING EKG 08/05/22: afib, rate 65 Stress test: 68% LVEF, no inducible ischemia Assessment/Plan A-fib (HCC) Hx of afib. Diagnosed about ~10 years ago per patient On digoxin and eliquis GEOVANNA (obstructive sleep apnea) Compliant with CPAP METS: Climb a flight of stairs or walk up a hill (5.50 METs) ASA Class: 3 ANESTHESIA FINDINGS: Intubation History: No history of difficult intubation Significant Anesthesia Considerations: None Airway Exam: General: Morbid obesity Mallampati Score is CLASS I ULBT: Class I - Lower incisors can bite the upper lip above the ran line Neck: +thick neck, tmd >3 fb, good neck ROM Mouth: Normal tongue size Dentition: +missing teeth, nothing loos, no implants or dentures Airway History: No abnormal airway history Sleep Apnea Probability Snores loudly: No Tired, fatigued or sleepy in daytime: No Stops breathing or choking/gasping during sleep: Yes High blood pressure: No Sleep Apnea Probability Score 08/03/2022 Sleep Apnea Screen V2 18 (Sleep study not recommended) PLAN This patient is optimally prepared for surgery. CONSULTS: Patient does not require consults for optimization at this time. The Following Tests/Procedures Have Been Initiated: EKG, stress test completed CBC, CMP, Type and screen, CON ABO, aPTT, PT ordered by surgical service Planned Anesthetic: General Instructions Given to Patient: Instructions located in the after visit summary. Patient given verbal and written preop instructions and voices comprehension and compliance. SIGNATURE: Teo Alcantar DO PATIENT NAME: Juancarlos Baum DATE: August 05, 2022 TIME: 9:08 AM documented in this encounterPromedica Defiance [facility]03-20-2023 Instructions* Patient Instructions* Teo Alcantar DO - 08/05/2022 11:08 AM EDT PATIENT PREOPERATIVE INSTRUCTIONS No ref. provider found has scheduled you for your procedure at this surgery center: [facility] Scheduling Office: [phone] [address] [place] [address]. Please read below carefully for your personalized instructions. Dietary Restrictions: - No solid food after midnight. - You may have 12 ounces of clear liquids (water, clear juices such as apple juice or gatorade, carbonated beverages, clear tea, black coffee, jello) until 2 hours before scheduled arrival at facility. Medications: Unless instructed differently below, stay on all of your medications until your surgery. Approved medications to take the morning of surgery with a sip of water: digoxin, propranolol If you start any new medications after today's visit, please contact the surgeon's office. Blood Thinning Medications: - Stop NSAIDS (Ibuprofen, Advil, Aleve, Motrin, Celebrex, Mobic, etc.) 7 days before surgery, as directed by your surgeon. - Stop eliquis 3 days before surgery or as instructed by your surgical team Important Reminders: - If you use CPAP/BIPAP, bring the machine with you to the surgery center. - Candy, mints, and tobacco products are NOT permitted the morning of surgery. - Hearing aids, dentures and glasses may be worn the morning of surgery. - NO jewelry, body piercings, makeup, hairpins or contacts are to be worn the day of surgery. If you develop symptoms such as a fever, cold, or flu, or have other changes to your health within TWO DAYS of scheduled surgery or the morning of surgery, please contact the surgery center above. Personal Belongings: -Please have photo ID and insurance cards. -If you do not have a copy of advance directives on file with us, please bring a copy with you on the day of surgery. - Leave ALL valuables and money at home or with family members. For Outpatient Procedures: - YOU MUST HAVE A RESPONSIBLE EXTRACTION OPERATOR TAKE YOU HOME. A SINGLE RESOURCE BOSS OR BANK COMPLIANCE OFFICER CANNOT BE MADE A RESPONSIBLE EXTRACTION OPERATOR. - We recommend that a responsible person stays with you overnight to take care of you. - You cannot stay in a hotel alone after outpatient surgery. You will not be permitted to have yoursurgery, if you do not have someone to take care of you. Arrival Time for Surgery: - To obtain your arrival time for surgery, call your physician's office the day before your surgery. - If your surgery is scheduled for Friday, call the Friday before. Your surgeon s scheduler conveyor will tell you what time to call the office. - If you have not reached the departmental scheduler conveyor by 5 P.M., call [phone] after 5 P.M. the day before your surgery. Please be aware that emergency situations arise, which may delay or change your surgical time. If this happens, we will notify you as soon as possible and regret any inconvenience. If you already have an Advance Directive, please fax a copy to [phone] or email to for it to be added to your chart. If you do not have an Advance Directive, you can find the appropriate form and more information at [email or web address]. We recommend that youcomplete the Advance Directive form found on the website and bring it with you the day of your surgery. It can be witnessed and scanned into your chart that day. 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 CT A/P: 07/16/2022 IMPRESSION: APPROXIMATELY 8.5 CM PREDOMINANTLY LEFT UPPER POLE RENAL MASS, HIGHLY SUSPICIOUS FOR RENAL CELL CARCINOMA. 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 Interval Hx: Patient history notable for intermittent gross hematuria since first TURP in 2018. Most recent episode of gross hematuria on July 17. Pt presented to the ED on 07/16/2022 for right sided abdominal pain. Ultimately, sx were attributed to pain with ventral abdominal wall Upon workup, CT A/P showed 8.5 cm left renal mass. Able to walk a flight of stairs Denies CP upon activity 1-Duration: 2022 2-Location: Left kidney 3-Severity: N/A 8-Associated signs & symptoms: no additional symptoms Family History of Genitourinary Cancer: Yes, paternal uncle LABS PSA 12/25/21 - 4.8 with 33% 12/20/20 - 4.1 with 32% Creatinine 04/24/2021 - 0.8 07/16/2022 - 0.9 IMAGING See above REVIEW OF SYSTEMS: GENERAL: Negative for fevers, chills, or night sweats. HEENT: Negative for sudden vision or hearing changes. RESPIRATORY: Negative for cough or shortness of breath. CARDIAC: Negative for chest pain, palpitations, murmurs, or syncopal episodes. GASTROINTESTINAL: Positive for intermittent abdomina pain secondary to ventral abdominal hernia. Negative for diarrhea, constipation, and poor appetite GENITOURINARY: See HPI. MUSCULOSKELETAL: Negative Bone Aches/pain. NEUROLOGIC: Negative for dizziness, headache, weakness or numbness. HEMATOLOGIC: Negative for bleeding or easy bruising. SKIN: Negative for rashes or other skin changes. Social History Tobacco Use Smoking status: Never Smokeless tobacco: Never PHYSICAL EXAMINATION General appearance: Well appearing, alert, in no acute distress, and well- hydrated, well nourished,obese. Back: reflexes are 2+ and symmetric, motor and sensory appear to be normal Lungs: Lungs clear to auscultation. No wheezing, rhonchi, rales. Heart: RRR without murmur, gallop, or rubs. No ectopy Abdomen: Abdomen soft, non-tender. Bowel sounds normal. Large ventral abdominal hernia. Extremities: Extremities normal. No deformities, edema, or skin discoloration. Good capillary refill. Musculoskeletal: Spine range of motion normal. 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 Imaging reveals a large renal mass highly suspicious for malignancy. Evaluation for RCC is presently incomplete. Patient requires chest imaging to evaluate for metastasis. Mass is large and primarilyendophytic. Plan - CT Chest to complete staging - Consult for 2nd read of 06/26/2022 CT AP - Plan for Hand-assisted laparoscopic left radical nephrectomy on 08/14/2022 for large, primarily endophytic left renal mass. Pre ops including labs, EKG, [facility], pre op teaching, CT Chest w/o Ivcon, Echo & Pharmacologic stress test - PAT appointment for pre-operative testing and clearance - Patient will need to hold Eliquis prior to surgery Scribe Attestation: By signing my name below, Marely Carrasco, attest that this documentation has been prepared under thedirection and in the presence of Dr. Florencio Rose MD. Electronically signed: Ines Méndez, August 02, 2022 10:24 AM Florencio Carrasco MD, personally performed the services described in this documentation. All medical record entries made by the scribe were at my direction and in my presence. I have reviewed the chart and discharge instructions (if applicable) and agree that the record reflects my personal performance and is accurate and complete. Florenico Rose MD documented in this encounterPromedica Defiance [facility] Hospital02-28-2023 Hospital Discharge instructions Patient Education 07/16/2022 13:23:08 Renal Mass Renal Mass A renal mass is a growth in the kidney. A renal mass may be found while performing an MRI, CT scan,or ultrasound for other problems of the abdomen. Certain types of cancers, infections, or injuries can cause a renal mass. A renal mass that is cancerous (malignant) may grow or spread quickly. Others are harmless (benign). What are common types of renal masses? Renal masses include: Tumors. These may be cancerous (malignant) or noncancerous (benign). ?The most common type of kidney cancer is renal cell carcinoma. ?The most common benign tumors of the kidney include renal adenomas, oncocytomas, and angiomyolipoma (AML). Cysts. These are fluid-filled sacs that form on or in the kidney. ?It is not always known what causes a cyst to develop in or on the kidney. ?Most kidney cysts do not cause symptoms and do not need to be treated. What type of testing might I need? Your health care provider may recommend that you have tests to diagnose the cause of your renal mass. The following tests may be done if a renal mass is found: Physical exam. Blood tests. Urine tests. Imaging tests, such as ultrasound, CT scan, or MRI. Biopsy. This is a small sample that is removed from the renal mass and tested in a lab. The exact tests and how often they are done will depend on: The size and appearance of the renal mass. Risk factors or medical conditions that increase your risk for problems. Any symptoms associated with the renal mass, or concerns that you have about it. Tests and physical exams may be done once, or they may be done regularly for a period of time. Tests and exams that are done regularly will help monitor whether the mass is growing and beginning to cause problems. What are common treatments for renal masses? Treatment is not always needed for this condition. Your health care provider may recommend careful monitoring (watchful waiting) and regular tests and exams. Treatment will depend on the cause of themass. Follow these instructions at home: What you need to do at home will depend on the cause of the mass. Follow the instructions that yourhealth care provider gives to you. In general: Take gcfw-fop-dslbdha and prescription medicines only as told by your health care provider. If you are prescribed an antibiotic medicine, take it as told by your health care provider. Do not stop taking the antibiotic even if you start to feel better. Follow any restrictions that are given to you by your health care provider. Keep all follow-up visits as told by your health care provider. This is important. ?You may need to see your health care provider once or twice a year to have CT scans and ultrasounds done. These tests will show if your renal mass has changed or grown bigger. Contact a health care provider if you: Have pain in the side or back (flank pain). Have a fever. Feel full soon after eating. Have pain or swelling in the abdomen. Lose weight. Get help right away if: Your pain gets worse. There is blood in your urine. You cannot urinate. You have chest pain. You have trouble breathing. Summary A renal mass is a growth in the kidney. It may be cancerous (malignant) and grow or spread quickly,or it may be harmless (benign). Renal masses may be found while performing an MRI, CT scan, or ultrasound for other problems of theabdomen. Your health care provider may recommend that you have tests to diagnose the cause of your renal mass. This may include a physical exam, blood tests, urine tests, imaging, or a biopsy. Treatment is not always needed for this condition. Careful monitoring (watchful waiting) may be recommended. This information is not intended to replace advice given to you by your health care provider. Make sure you discuss any questions you have with your health care provider. Document Released: 11/30/2014 Document Revised: 06/11/2018 Document Reviewed: 06/11/2018 [email or web address] Patient Education 2020 [employer]. Follow Up Care 07/16/2022 11:17:18 With:ANGELY SAAVEDRA, Florencio Muñoz, URL Address: [address] [place] [address]- When: Unknown [facility] 02-28-2023 Evaluation + Plan noteExtracted from: Title:ED Note Author:Reji HART, Anurag Ahmadi te:07/16/22 Abdominal wall hernia (K43.9 : Ventral hernia without obstruction or gangrene) Ordered: acetaminophen-oxycodone, 1 tab(s), Oral, q6hr as needed for pain for 3 day(s), 15 tab(s), Refill(s) 0 Renal mass (N28.89: Other specified disorders of kidney and ureter) Orders: Sodium Chloride 0.9% intravenous solution 1,000 mL, 1,000 mL, IV, bolus, STAT, Start date 07/16/22 7:29:00 EST, Total volume (mL): 1,000, 138 kg, 2.6, m2 Automated Diff Basic Metabolic Panel CBC w/ Auto Diff CT Abdomen/Pelvis w/ Contrast eGFR Hepatic Function Panel Lipase Level UA With Cult Reflex Future Appointments Appointment Date:01/27/2023 09:30:00 AM Scheduled Provider:Florencio AU MD Location:[facility] Appointment Type:URO Office Visit [facility]23 Hospital Discharge instructions Patient Education 07/16/2022 10:22:56 Renal Mass Renal Mass A renal mass is a growth in the kidney. A renal mass may be found while performing an MRI, CT scan,or ultrasound for other problems of the abdomen. Certain types of cancers, infections, or injuries can cause a renal mass. A renal mass that is cancerous (malignant) may grow or spread quickly. Others are harmless (benign). What are common types of renal masses? Renal masses include: Tumors. These may be cancerous (malignant) or noncancerous (benign). ?The most common type of kidney cancer is renal cell carcinoma. ?The most common benign tumors of the kidney include renal adenomas, oncocytomas, and angiomyolipoma (AML). Cysts. These are fluid-filled sacs that form on or in the kidney. ?It is not always known what causes a cyst to develop in or on the kidney. ?Most kidney cysts do not cause symptoms and do not need to be treated. What type of testing might I need? Your health care provider may recommend that you have tests to diagnose the cause of your renal mass. The following tests may be done if a renal mass is found: Physical exam. Blood tests. Urine tests. Imaging tests, such as ultrasound, CT scan, or MRI. Biopsy. This is a small sample that is removed from the renal mass and tested in a lab. The exact tests and how often they are done will depend on: The size and appearance of the renal mass. Risk factors or medical conditions that increase your risk for problems. Any symptoms associated with the renal mass, or concerns that you have about it. Tests and physical exams may be done once, or they may be done regularly for a period of time. Tests and exams that are done regularly will help monitor whether the mass is growing and beginning to cause problems. What are common treatments for renal masses? Treatment is not always needed for this condition. Your health care provider may recommend careful monitoring (watchful waiting) and regular tests and exams. Treatment will depend on the cause of themass. Follow these instructions at home: What you need to do at home will depend on the cause of the mass. Follow the instructions that yourhealth care provider gives to you. In general: Take xbzx-jhj-albeyxv and prescription medicines only as told by your health care provider. If you are prescribed an antibiotic medicine, take it as told by your health care provider. Do not stop taking the antibiotic even if you start to feel better. Follow any restrictions that are given to you by your health care provider. Keep all follow-up visits as told by your health care provider. This is important. ?You may need to see your health care provider once or twice a year to have CT scans and ultrasounds done. These tests will show if your renal mass has changed or grown bigger. Contact a health care provider if you: Have pain in the side or back (flank pain). Have a fever. Feel full soon after eating. Have pain or swelling in the abdomen. Lose weight. Get help right away if: Your pain gets worse. There is blood in your urine. You cannot urinate. You have chest pain. You have trouble breathing. Summary A renal mass is a growth in the kidney. It may be cancerous (malignant) and grow or spread quickly,or it may be harmless (benign). Renal masses may be found while performing an MRI, CT scan, or ultrasound for other problems of theabdomen. Your health care provider may recommend that you have tests to diagnose the cause of your renal mass. This may include a physical exam, blood tests, urine tests, imaging, or a biopsy. Treatment is not always needed for this condition. Careful monitoring (watchful waiting) may be recommended. This information is not intended to replace advice given to you by your health care provider. Make sure you discuss any questions you have with your health care provider. Document Released: 11/30/2014 Document Revised: 06/11/2018 Document Reviewed: 06/11/2018 [employer] Patient Education 2020 [employer]. 07/16/2022 10:22:56 Hernia, Adult Hernia, Adult A hernia is the bulging of an organ or tissue through a weak spot in the muscles of the abdomen (abdominal wall). Hernias develop most often near the belly button (navel) or the area where the leg meets the lower abdomen (groin). Common types of hernias include: Incisional hernia. This type bulges through a scar from an abdominal surgery. Umbilical hernia. This type develops near the navel. Inguinal hernia. This type develops in the groin or scrotum. Femoral hernia. This type develops under the groin, in the upper thigh area. Hiatal hernia. This type occurs when part of the stomach slides above the muscle that separates theabdomen from the chest (diaphragm). What are the causes? This condition may be caused by: Heavy lifting. Coughing over a long period of time. Straining to have a bowel movement. Constipation can lead to straining. An incision made during an abdominal surgery. A physical problem that is present at (congenital defect). Being overweight or obese. Smoking. Excess fluid in the abdomen. Undescended testicles in males. What are the signs or symptoms? The main symptom is a skin-colored, rounded bulge in the area of the hernia. However, a bulge may not always be present. It may grow bigger or be more visible when you cough or strain (such as when lifting something heavy). A hernia that can be pushed back into the area (is reducible) rarely causes pain. A hernia that cannot be pushed back into the area (is incarcerated) may lose its blood supply (become strangulated). A hernia that is incarcerated may cause: Pain. Fever. Nausea and vomiting. Swelling. Constipation. How is this diagnosed? A hernia may be diagnosed based on: Your symptoms and medical history. A physical exam. Your health care provider may ask you to cough or move in certain ways to see if the hernia becomes visible. Imaging tests, such as: ?X-rays. ?Ultrasound. ?CT scan. How is this treated? A hernia that is small and painless may not need to be treated. A hernia that is large or painful may be treated with surgery. Inguinal hernias may be treated with surgery to prevent incarceration orstrangulation. Strangulated hernias are always treated with surgery because a lack of blood supply to the trapped organ or tissue can cause it to . Surgery to treat a hernia involves pushing the bulge back into place and repairing the weak area ofthe muscle or abdominal wall. Follow these instructions at home: Activity Avoid straining. Do not lift anything that is heavier than 10 lb (4.5 kg), or the limit that you are told, until your health care provider says that it is safe. When lifting heavy objects, lift with your leg muscles, not your back muscles. Preventing constipation Take actions to prevent constipation. Constipation leads to straining with bowel movements, which can make a hernia worse or cause a hernia repair to break down. Your health care provider may recommend that you: ?Drink enough fluid to keep your urine pale yellow. ?Eat foods that are high in fiber, such as fresh fruits and vegetables, whole grains, and beans. ?Limit foods that are high in fat and processed sugars, such as fried or sweet foods. ?Take an fejv-pui-saiykyw or prescription medicine for constipation. General instructions When coughing, try to cough gently. You may try to push the hernia back in place by very gently pressing on it while lying down. Do nottry to force the bulge back in if it will not push in easily. If you are overweight, work with your health care provider to lose weight safely. Do not use any products that contain nicotine or tobacco, such as cigarettes and e-cigarettes. If you need help quitting, ask your health care provider. If you are scheduled for hernia repair, watch your hernia for any changes in shape, size, or color.Tell your health care provider about any changes or new symptoms. Take dwxx-msx-asclisq and prescription medicines only as told by your health care provider. Keep all follow-up visits as told by your health care provider. This is important. Contact a health care provider if: You develop new pain, swelling, or redness around your hernia. You have signs of constipation, such as: ?Fewer bowel movements in a week than normal. ?Difficulty having a bowel movement. ?Stools that are dry, hard, or larger than normal. Get help right away if: You have a fever. You have abdomen pain that gets worse. You feel nauseous or you vomit. You cannot push the hernia back in place by very gently pressing on it while lying down. Do not tryto force the bulge back in if it will not push in easily. The hernia: ?Changes in shape, size, or color. ?Feels hard or tender. These symptoms may represent a serious problem that is an emergency. Do not wait to see if the symptoms will go away. Get medical help right away. Call your local emergency services (911 in the [place] Summary A hernia is the bulging of an organ or tissue through a weak spot in the muscles of the abdomen (abdominal wall). The main symptom is a skin-colored, rounded lump (bulge) in the hernia area. However, a bulge may not always be present. It may grow bigger or more visible when you cough or strain (such as when having a bowel movement). A hernia that is small and painless may not need to be treated. A hernia that is large or painful may be treated with surgery. Surgery to treat a hernia involves pushing the bulge back into place and repairing the weak part ofthe abdomen. This information is not intended to replace advice given to you by your health care provider. Make sure you discuss any questions you have with your health care provider. Document Released: 05/05/2006 Document Revised: 08/26/2019 Document Reviewed: 02/04/2018 [employer] Patient Education 2020 [employer] Follow Up Care 07/16/2022 07:02:58 With:Sathish Gan Address: [address] [phone] Business (1) When:07/19/2022 10:08:06 Comments:for hernia repair With:Xander Mcintosh Address: [facility] [address] [place] [address]- When:07/19/2022 10:07:27 Comments:Cancer doctor With:Florencio AU Address: [address] [place] [address]- Business (1) When:07/19/2022 10:06:49 With:JARED TRAORE Address: [address] [place] [address] [place] [phone]- Business (1) When:07/19/2022 09:56:11 Comments:Urology follow-up if [facility] cannot see you With:Dewey DANIELS Address: [address] [place] [address], [address] [address]- Business (1) When:07/19/2022 09:56:06 [facility]08-15-2022 Hospital Discharge instructions Patient Education 12/31/2021 10:17:11 Benign Prostatic Hyperplasia Benign Prostatic Hyperplasia Benign prostatic hyperplasia (BPH) is an enlarged prostate gland that is caused by the normal agingprocess and not by cancer. The prostate is a walnut-sized gland that is involved in the production of semen. It is located in front of the rectum and below the bladder. The bladder stores urine and the urethra is the tube that carries the urine out of the body. The prostate may get bigger as a man gets older. An enlarged prostate can press on the urethra. This can make it harder to pass urine. The build-up of urine in the bladder can cause infection. Back pressure and infection may progress to bladder damage and kidney (renal) failure. What are the causes? This condition is part of a normal aging process. However, not all men develop problems from this condition. If the prostate enlarges away from the urethra, urine flow will not be blocked. If it enlarges toward the urethra and compresses it, there will be problems passing urine. What increases the risk? This condition is more likely to develop in men over the age of 50 years. What are the signs or symptoms? Symptoms of this condition include: Getting up often during the night to urinate. Needing to urinate frequently during the day. Difficulty starting urine flow. Decrease in size and strength of your urine stream. Leaking (dribbling) after urinating. Inability to pass urine. This needs immediate treatment. Inability to completely empty your bladder. Pain when you pass urine. This is more common if there is also an infection. Urinary tract infection (UTI). How is this diagnosed? This condition is diagnosed based on your medical history, a physical exam, and your symptoms. Tests will also be done, such as: A post-void bladder scan. This measures any amount of urine that may remain in your bladder after you finish urinating. A digital rectal exam. In a rectal exam, your health care provider checks your prostate by putting a lubricated, gloved finger into your rectum to feel the back of your prostate gland. This exam detects the size of your gland and any abnormal lumps or growths. An exam of your urine (urinalysis). A prostate specific antigen (PSA) screening. This is a blood test used to screen for prostate cancer. An ultrasound. This test uses sound waves to electronically produce a picture of your prostate gland. Your health care provider may refer you to a specialist in kidney and prostate diseases (urologist). How is this treated? Once symptoms begin, your health care provider will monitor your condition (active surveillance or watchful waiting). Treatment for this condition will depend on the severity of your condition. Treatment may include: Observation and yearly exams. This may be the only treatment needed if your condition and symptoms are mild. Medicines to relieve your symptoms, including: ?Medicines to shrink the prostate. ?Medicines to relax the muscle of the prostate. Surgery in severe cases. Surgery may include: ?Prostatectomy. In this procedure, the prostate tissue is removed completely through an open incision or with a laparoscope or robotics. ?Transurethral resection of the prostate (TURP). In this procedure, a tool is inserted through the opening at the tip of the penis (urethra). It is used to cut away tissue of the inner core of the prostate. The pieces are removed through the same opening of the penis. This removes the blockage. ?Transurethral incision (TUIP). In this procedure, small cuts are made in the prostate. This lessens the prostate's pressure on the urethra. ?Transurethral microwave thermotherapy (TUMT). This procedure uses microwaves to create heat. The heat destroys and removes a small amount of prostate tissue. ?Transurethral needle ablation (TUNA). This procedure uses radio frequencies to destroy and remove a small amount of prostate tissue. ?Interstitial laser coagulation (ILC). This procedure uses a laser to destroy and remove a small amount of prostate tissue. ?Transurethral electrovaporization (TUVP). This procedure uses electrodes to destroy and remove a small amount of prostate tissue. ?Prostatic urethral lift. This procedure inserts an implant to push the lobes of the prostate away from the urethra. Follow these instructions at home: Take atlr-eeb-ozavecy and prescription medicines only as told by your health care provider. Monitor your symptoms for any changes. Contact your health care provider with any changes. Avoid drinking large amounts of liquid before going to bed or out in public. Avoid or reduce how much caffeine or alcohol you drink. Give yourself time when you urinate. Keep all follow-up visits as told by your health care provider. This is important. Contact a health care provider if: You have unexplained back pain. Your symptoms do not get better with treatment. You develop side effects from the medicine you are taking. Your urine becomes very dark or has a bad smell. Your lower abdomen becomes distended and you have trouble passing your urine. Get help right away if: You have a fever or chills. You suddenly cannot urinate. You feel lightheaded, or very dizzy, or you faint. There are large amounts of blood or clots in the urine. Your urinary problems become hard to manage. You develop moderate to severe low back or flank pain. The flank is the side of your body between the ribs and the hip. These symptoms may represent a serious problem that is an emergency. Do not wait to see if the symptoms will go away. Get medical help right away. Call your local emergency services (911 in the [place] Do not drive yourself to the hospital. Summary Benign prostatic hyperplasia (BPH) is an enlarged prostate that is caused by the normal aging process and not by cancer. An enlarged prostate can press on the urethra. This can make it hard to pass urine. This condition is part of a normal aging process and is more likely to develop in men over the age of 50 years. Get help right away if you suddenly cannot urinate. This information is not intended to replace advice given to you by your health care provider. Make sure you discuss any questions you have with your health care provider. Document Released: 05/05/2006 Document Revised: 03/30/2019 Document Reviewed: 06/09/2017 [employer] Patient Education 2020 [employer] Follow Up Care 12/28/2020 09:54:29 With:ANGELY SAAVEDRA, Florencio Muñoz, ALVARADOL Address: [address] [place] [phone]- When:Within 1 Year(s) Comments:PSA F/T [facility] [place] 04-08-2022 Hospital Discharge instructions Follow Up Care 08/24/2021 14:13:03 With:Florencio AU Address: [facility] [place] [address] Business (1) When: Unknown With:Florencio AU Address: [facility] [place] [address]- Business (1) When: Unknown With:Florencio AU Address: [facility] [place] [address] [facility] (1) When: Unknown [facility]01-01-2012 History of Present illness Narrative* Mr. Baum is a 65-year-old male who is seen back today for follow-up on his atrial fibrillation which is now chronic. His atrial fibrillation was discovered in May 2011. At that time he had a chest trauma and was in the emergency room and his rhythm was found to be atrial fibrillation. He had no symptoms related to the atrial fibrillation and was therefore unclear how long he had had this. Hehas chronic obesity and sleep apnea. Echocardiogram as previously demonstrated the atria to be significantly dilated but no significant valve disease. Ejection fraction was normal. He has been cardiov erted which was done in June 2011 but he had prompt recurrence of atrial fibrillation and he elected chronic anticoagulation and rate control. He is on chronic Eliquis. He typically does well with this but has occasional episodes of urinary tract bleeding apparently from prostate problem. This is relatively infrequent. * Physical exam: * Neck: No carotid bruits are heard * Lungs: Clear * Heart: Irregularly irregular without murmurs or extra sounds * Extremities: Trace edema * Recommendation is continuation of current medications. I have discussed with him on multiple occasions the importance of weight loss and has been quite unsuccessful with this and actually again his weight is up compared to his previous office visit. Weight loss was again discussed with him. He is to return in 1 year [facility]up. [facility] Work Phone: Evaluation + Plan note Future Appointments Appointment Date:12/31/2021 09:30:00 AM Scheduled Provider:Florencio AU MD Location:[facility]ments Appointment Date:01/27/2023 09:30:00 AM Scheduled Provider:Florencio AU MD Location:[facility] Appointment Type:URO Office Visit Diagnostic Tests Pending * PSA Free & Total 09/16/22 [facility] Evaluation + Plan note Future Appointments Appointment Date:01/27/2023 09:30:00 AM Scheduled Provider:Florencio UA MD Location:[facility] Appointment Type:URO Office Visit [facility] Evaluation + Plan note Future Appointments Appointment Date:11/26/2023 08:15:00 AM Scheduled Provider:Elliot AN MD Location:[facility] Appointment Type:URO Office Visit Diagnostic Tests Pending * PSA Free & Total 05/21/23 [facility] Evaluation + Plan note Future Appointments Appointment Date:01/16/2024 11:00:00 AM Scheduled Provider: Location:[facility] Appointment Type:Urology CALL PAT FT Appointment Date:01/20/2024 10:15:00 AM Scheduled Provider: Location:[facility] Appointment Type:Urology FT [facility] Evaluation + Plan note Future Appointments Appointment Date:01/16/2024 11:00:00 AM Scheduled Provider: Location:[facility] Appointment Type:Urology CALL PAT FT Appointment Date:01/20/2024 10:15:00 AM Scheduled Provider: Location:[facility] Appointment Type:Urology FT Diagnostic Tests Pending * Urine Cytology ([facility]) 12/24/23 [facility] evaluation note* Diagnosis Renal mass- Primary Unspecified disorder of kidney and ureter Abnormal electrocardiogram (ECG) (EKG) Renal mass Unspecified disorder of kidney and ureter [facility] Screening for genitourinary condition Screening for other and unspecified genitourinary condition Renal mass Unspecified disorder of kidney and ureter [facility] Pre-op evaluation- Primary Preoperative examination, unspecified Atrial fibrillation, unspecified type (HCC) GEOVANNA (obstructive sleep apnea) Obstructive sleep apnea (adult) (pediatric) Renal mass Unspecified disorder of kidney and ureter [facility] Diagnosis Left renal mass- Primary Unspecified disorder of kidney and ureter Renal mass Unspecified disorder of kidney and ureter [facility] [place] [facility] Diagnosis Screening for genitourinary condition Screening for other and unspecified genitourinary condition Renal mass Unspecified disorder of kidney and ureter [facility] Diagnosis Renal cell carcinoma of left kidney (HCC)- Primary History of left nephrectomy Postoperative wound infection Other postoperative infection Post-operative pain Other acute postoperative pain [facility] Left renal mass- Primary Unspecified disorder of kidney and ureter Renal mass Unspecified disorder of kidney and ureter Left renal stone Benign prostatic hyperplasia with urinary obstruction Encounter for preprocedural cardiovascular examination Pre-operative cardiovascular examination Obstructive sleep apnea (adult) (pediatric) Obstructive sleep apnea (adult) (pediatric) [facility] [place] [facility]* Diagnosis Renal cell carcinoma of left kidney (HCC)- Primary [facility] [place] [facility]* Diagnosis Cancer of left kidney (HCC)- Primary [facility]* Diagnosis Renal cell carcinoma of left kidney (HCC)- Primary [facility] [place] noteNo assessment information [facility]South[facility] Work Phone: Evaluation note* Diagnosis Renal cell carcinoma of left kidney (HCC)- Primary [facility] [place] [facility]* Diagnosis Renal cell carcinoma of left kidney (HCC)- Primary Screening for thyroid disorder Malaise and fatigue Other malaise and fatigue [facility] [facility] [place] note* Diagnosis Renal cell carcinoma of left kidney (HCC)- Primary Malaise and fatigue Other malaise and fatigue Obesity, Class III, BMI 40-49.9 (morbid obesity) (HCC) Morbid obesity [facility] [place] [facility] Diagnosis Cancer of left kidney (HCC)- [facility] History of renal cell carcinoma- Primary History of left nephrectomy [facility] Diagnosis Cancer of left kidney (HCC)- Primary [facility] Diagnosis Renal cell carcinoma of left kidney (HCC)- Primary Obesity, Class III, BMI 40-49.9 (morbid obesity) (HCC) Morbid obesity Stage 3 chronic kidney disease, unspecified whether stage 3a or 3b CKD (HCC) [facility] Diagnosis Renal cell carcinoma of left kidney (HCC)- Primary [facility] Diagnosis Renal cell carcinoma of left kidney (HCC)- Primary Cancer of left kidney (HCC) [facility] [place] [facility]* Diagnosis Cancer of left kidney (HCC)- Primary [facility] Diagnosis Renal cell carcinoma of left kidney (HCC)- Primary Malaise and fatigue Other malaise and fatigue Stage 3 chronic kidney disease, unspecified whether stage 3a or 3b CKD (HCC) [facility] [place] [facility]* Diagnosis Chronic atrial fibrillation (CMS/HCC)- Primary Atrial fibrillation Morbid obesity with BMI of 40.0-44.9, adult (CMS/HCC) Essential tremor documented in this encounter [place] Work Phone: Evaluation note* Diagnosis Renal cell carcinoma of left kidney (HCC)- Primary Elevated prostate specific antigen (PSA) [facility] [place] [facility]* Diagnosis Cancer of left kidney (HCC)- Primary [facility] Diagnosis Renal cell carcinoma of left kidney (HCC)- Primary Elevated prostate specific antigen (PSA) Malaise and fatigue Other malaise and fatigue Atrial fibrillation, unspecified type (HCC) Lower extremity edema Edema Stage 3 chronic kidney disease, unspecified whether stage 3a or 3b CKD (HCC) [facility] Diagnosis Renal cell carcinoma of left kidney (HCC)- Primary [facility] Diagnosis Cancer of left kidney (HCC)- Primary [facility]* Diagnosis Renal cell carcinoma of left kidney (HCC)- Primary Hypothyroidism due to medication [facility] Diagnosis Hypothyroidism due to medication- Primary [facility] [place] [facility] Diagnosis Cancer of left kidney (HCC)- Primary Hypothyroidism due to medication [facility] [place] [facility]* Diagnosis Pre-op evaluation- Primary Preoperative examination, unspecified Atrial fibrillation, unspecified type (HCC) GEOVANNA (obstructive sleep apnea) Obstructive sleep apnea (adult) (pediatric) Renal cell carcinoma of left kidney (HCC) [facility] [place] [facility]* Diagnosis Pre-op evaluation- Primary Preoperative examination, unspecified Atrial fibrillation, unspecified type (HCC) GEOVANNA (obstructive sleep apnea) Obstructive sleep apnea (adult) (pediatric) Renal cell carcinoma of left kidney (HCC) [facility] [place] [facility]* Diagnosis Pre-op evaluation- Primary Preoperative examination, unspecified Atrial fibrillation, unspecified type (HCC) GEOVANNA (obstructive sleep apnea) Obstructive sleep apnea (adult) (pediatric) Renal cell carcinoma of left kidney (HCC) Malaise and fatigue Other malaise and fatigue documented in this encounter [facility] note* Diagnosis Neuropathy Mononeuritis of unspecified site documented in this encounter [facility]* Diagnosis Bladder stones- Primary Other calculus in bladder Stage 3a chronic kidney disease (HCC) (CMS/HCC) Hyperkalemia Hyperpotassemia documented in this encounter [facility] Healthcare[facility] general Narrative - Reported* Type Description Date Medical History Obstructive sleep apnea Medical History A-fib Medical History BPH (benign prostatic hyperplasi a) Surgical History prostatectomy Surgical History left hip replacement Hospitalization History see above [employer] Other Hospital course Narrative No data available for this section [facility] No data available for this section [facility] Progress note No data available for this section [facility] [place] Reason for referral (narrative) Referred by: Florencio AU MD [facility] [place] Reason for referral (narrative)* Outpatient Procedure (Routine) - Closed Specialty Diagnoses / Procedures Referred By Guzman ibrahim Referred To [facility] Diagnoses Renal mass Left renal mass Left renal stone Benign prostatic hyperplasia with urinary obstruction Obstructive sleep apnea (adult) (pediatric) Procedures ECHO ECHO TTHRC R-T 2D W/WOM-MODE COMPL SPEC&COLR D Florencio Rose MD [address] [place] [address] [place] [address] Referral ID Status Reason Start Date Expiration Date V isits Requested Visits Authorized [id number] Closed Auto-Generate d Referral 08/02/2022 08/02/2023 1 1 * Diagnostic Procedure Only (Routine) - Closed Specialty Diagnoses / Procedures Referred By Guzman ibrahim Referred To Contact [facility]LECULAR & FUNCTIONAL IMAGING Diagnoses Renal mass Left renal mass Left renal stone Benign prostatic hyperplasia with urinary obstruction Encounter for preprocedural cardiovascular examination Procedures NM CARDIAC PERF STRESS/PHARM MYOCARDIAL SPECT MULTIPLE STUDIES Florencio Rose MD [facility] [place] [address] Molecular & Functional Imaging [address] [place] [address] Referral ID Status Reason Start Date Expiration Date V isits Requested Visits Authorized [id number] Closed Auto-Generate d Referral 08/02/2022 09/01/2023 1 1 * Outpatient Procedure (Routine) - Pending Review Specialty Diagnoses / Procedures Referred By Guzman ibrahim Referred To Contact [facility] Diagnoses Renal mass Left renal mass Left renal stone Benign prostatic hyperplasia with urinary obstruction Procedures ECG COMPLETE ECG ROUTINE ECG W/LEAST 12 LDS W/I&R Florencio Rose MD [address] [place] [address] [place] [address] Referral ID Status Reason Start Date Expiration Date Visits Requested Visits Authorized [id number] Pending Review Auto-Generat ed Referral 08/02/2022 08/02/2023 1 1 * MRI/CT (Routine) - Closed Specialty Diagnoses / Procedures Referred By Guzman ibrahim Referred To Contact CT IMAGING Diagnoses Left renal mass Procedures CT CHEST WO IVCON DIAGNOSTIC COMPUTED TOMOGRAPHY THORAX W/O CNTRST Florencio Rose MD [address] [place] [address] Ct Imaging Referral ID Status Reason Start Date Expiration Date V isits Requested Visits Authorized [id number] Closed Auto-Generate d Referral 08/02/2022 09/01/2023 1 1 [facility] for referral (narrative)* Consultation (Routine) - Authorized Specialty Diagnoses / Procedures Referred By Guzman ibrahim Referred To Contact Cardiology Diagnoses Chronic atrial fibrillation (CMS/HCC) Procedures Follow Up In Cardiology Bala Urias MD [address] [place] [address] Referral ID Status Reason Start Date Expiration Date V isits Requested Visits Authorized [id number] Authorized 02/26/2023 08/25/2023 1 1 [place] Work Phone: Summary Purpose Family History Relationship Condition Age at Onset Recorded Date/T james father Diabetes mellitus Unknown Not Specified Malignant neoplasm of lung Unknown Unknown Family Member Name Dates Details No pertinent family history: Mother, Father, Sibling(V49.89, Z78.9) Status:Active Unknown Family Member Name Dates Details No pertinent family history: Mother, Father, Sibling(V49.89, Z78.9) Status:Active Unknown Family Member Name Dates Details No pertinent family history: Mother, Father, Sibling(V49.89, Z78.9) Status:Active Advance Directives Advance Directive Response Recorded Date/ Time Advance Directives No January 2:59pm Advance Directive Response Recorded Date/ Time Advance Directives No January 3:59pm Chief Complaint and Reason for Visit Chief Complaint POST OP Left DELORES Chief Complaint Obstructive sleep ap navdeep Chief Complaint GEOVANNA/ ANNUAL Assessments No Assessments Information Available Chief Complaint JUANCARLOS BAUM is being seen for an annual follow-up of. Reason for Referral Specialty Diagnoses / Procedures Referred By Contac t Referred To Contact CT IMAGING Diagnoses Cancer of left kidney (HCC) Procedures CT CHEST W IVCON DIAGNOSTIC COMPUTED TOMOGRAPHY THORAX W/CONTRAST Aba Amaya MD [address] [facility] [place] [address] [place] [address] Referral ID Status Reason Start Date Expiration Date Visits Requested Visits Authorized [id number] New Request Auto-Generat ed Referral 01/01/2024 01/30/2025 1 1 Specialty Diagnoses / Procedures Referred By Contac t Referred To Contact CT IMAGING Diagnoses Cancer of left kidney (HCC) Procedures CT ABD/PEL W IVCON CT ABD & PELVIS W/CONTRAST Aba Amaya MD [address] [facility] [place] [address] [place] [address] Referral ID Status Reason Start Date Expiration Date Visits Requested Visits Authorized [id number] New Request Auto-Generat ed Referral 01/01/2024 01/30/2025 1 1 Specialty Diagnoses / Procedures Referred By Contac t Referred To Contact CT IMAGING Diagnoses Renal cell carcinoma of left kidney (HCC) Malaise and fatigue Procedures CT ABD/PEL WO IVCON CT ABD & PELVIS W/O CONTRAST Lara Wells PA-C [address] [place] [address] [place] [address] Ct Imaging Referral ID Status Reason Start Date Expiration Date Visits Requested Visits Authorized [id number] Authorized Auto-Generat ed Referral 12/26/2022 12/21/2023 1 1 Specialty Diagnoses / [facility] Diagnoses Renal cell carcinoma of left kidney (HCC) Malaise and fatigue Procedures CT CHEST WO IVCON DIAGNOSTIC COMPUTED TOMOGRAPHY THORAX W/O CNTRST Lara Wells PA-C [address] [place] [address] [place] [address] Ct Imaging Referral ID Status Reason Start Date Expiration Date Visits Requested Visits Authorized [id number] Authorized Auto-Generat ed Referral 12/26/2022 12/21/2023 1 1 Specialty Diagnoses / Procedures Referred By Contac t Referred To Contact Diagnoses Renal cell carcinoma of left kidney (HCC) Procedures CONSULT TO HEMATOLOGY/ONCOLOGY OFFICE/OUTPATIENT [facility] AT [place] 60-74 MINUTES Amarilis Rosario APRN.CNP [address] [place] [address] Referral ID Status Reason Start Date Expiration Date Visits Requested Visits Authorized [id number] Authorized PCP Requested Referral 08/22/2022 08/22/2023 1 1 Specialty Diagnoses / Procedures Referred By Contac t Referred To Contact Diagnoses Renal mass Procedures REFER TO PACC - PRE ANESTHESIA CONSULTATION CLINIC OFFICE/OUTPATIENT [facility] AT [place] 60-74 MINUTES Florencio Rose MD [address] [place] [address] Referral ID Status Reason Start Date Expiration Date Visits Requested Visits Authorized [id number] Authorized PCP Requested Referral 08/02/2022 08/02/2023 1 1 Specialty Diagnoses / Procedures Referred By Contact Referred To Contact [facility]LECULAR & FUNCTIONAL IMAGING Diagnoses Renal mass Abnormal electrocardiogram (ECG) (EKG) Procedures NM CARDIAC PERF STRESS/PHARM MYOCARDIAL SPECT MULTIPLE STUDIES Florencio Rose MD [address] [place] [address] Molecular & Functional Imaging [address] [place] [address] Referral ID Status Reason Start Date Expiration Date Visits Requested Visits Authorized [id number] Pending Review Auto-Generat ed Referral 08/02/2022 09/01/2023 1 1 Specialty Diagnoses / Procedures Referred By Contac t Referred To Contact CT IMAGING Diagnoses Renal mass Procedures CT CHEST WO IVCON DIAGNOSTIC COMPUTED TOMOGRAPHY THORAX W/O CNTRST Florencio Rose MD [address] [address] [address] Imaging Referral ID Status Reason Start Date Expiration Date Visits Requested Visits Authorized [id number] Pending Review Auto-Generat ed Referral 08/02/2022 09/01/2023 1 1 Specialty Diagnoses / Procedures Referred By Contac t Referred To Contact [facility] Diagnoses Renal mass Procedures ECG COMPLETE ECG ROUTINE ECG W/LEAST 12 LDS W/I&R Florencio Rose MD [address] [place] [address] [facility] [place] [address] [place] [address] Referral ID Status Reason Start Date Expiration Date Visits Requested Visits Authorized [id number] Pending Review Auto-Generat ed Referral 08/02/2022 08/02/2023 1 1 Medications Administered Section Inactive Administered Medications - up to 3 most recent administrations Medication Order MAR Action Action Date Dose Rate Site pembrolizumab 200 mg in NaCl 0.9% 66 mL (KEYTRUDA) 200 mg, INTRAVENOUS, Administer over 30 Minutes, ONCE, 1 dose, On [place] 09/19/22 at 1400, Approx Total Volume: EXP: 1945 Administer with 0.2 micron filter. New Bag/Syringe/Bottle 09/19/2022 2:05 PM EDT 200 mg Inactive Administered Medications - up to 3 most recent administrations Medication Order MAR Action Action Date Dose Rate Site pembrolizumab 200 mg in NaCl 0.9% 66 mL (KEYTRUDA) 200 mg, INTRAVENOUS, Administer over 30 Minutes, ONCE, 1 dose, On [place] 10/31/22 at 1100, Approx Total Volume EXP: 10/31/22 @ 1700 Administer with 0.2 micron filter. New Bag/Syringe/Bottle 10/31/2022 11:10 AM EDT 200 mg Inactive Administered Medications - up to 3 most recent administrations Medication Order MAR Action Action Date Dose Rate Site pembrolizumab 200 mg in NaCl 0.9% 66 mL (KEYTRUDA) 200 mg, INTRAVENOUS, Administer over 30 Minutes, ONCE, 1 dose, On [place] 11/21/22 at 1030, Approx Total Volume: 66 mL EXP 1030 11/22/22 Administer with 0.2 micron filter. New Bag/Syringe/Bottle 11/21/2022 10:48 AM EDT 200 mg Inactive Administered Medications - up to 3 most recent administrations Medication Order MAR Action Action Date Dose Rate Site pembrolizumab 200 mg in NaCl 0.9% 66 mL (KEYTRUDA) 200 mg, INTRAVENOUS, Administer over 30 Minutes, ONCE, 1 dose, On [place] 12/12/22 at 1400, Approx Total Volume: 66 mL EXP: 199912/12/22 Administer with 0.2 micron filter. New Bag/Syringe/Bottle 12/12/2022 2:32 PM EDT 200 mg Inactive Administered Medications - up to 3 most recent administrations Medication Order MAR Action Action Date Dose Rate Site pembrolizumab 200 mg in NaCl 0.9% 66 mL (KEYTRUDA) 200 mg, INTRAVENOUS, Administer over 30 Minutes, ONCE, 1 dose, On [place] 01/23/23 at 1430, EXP 01/24/23 @ 1423 RF Administer with 0.2 micron filter. New Bag/Syringe/Bottle 01/23/2023 2:43 PM EDT 200 mg Inactive Administered Medications - up to 3 most recent administrations Medication Order MAR Action Action Date Dose Rate Site pembrolizumab 400 mg in NaCl 0.9% 74 mL (KEYTRUDA) 400 mg, INTRAVENOUS, Administer over 30 Minutes, ONCE, 1 dose, On [place] 02/20/23 at 1100, EXP 1030 02/21/23 RF Administer with 0.2 micron filter. New Bag/Syringe/Bottle 02/20/2023 11:10 AM EDT 400 mg Inactive Administered Medications - up to 3 most recent administrations Medication Order MAR Action Action Date Dose Rate Site pembrolizumab 400 mg in NaCl 0.9% 74 mL (KEYTRUDA) 400 mg, INTRAVENOUS, Administer over 30 Minutes, ONCE, 1 dose, On [place] 04/24/23 at 1100, EXP 04/24/23 1700 RT Administer with 0.2 micron filter. New Bag/Syringe/Bottle 04/24/2023 11:28 AM EST 400 mg Additional Source Comments (unrecognized sect ion and content) No Status Records FoundNo Status Records FoundNo Status Records FoundNo Status Records FoundNo Status Records FoundNo Status Records FoundNo Status Records FoundNo Status Records FoundNo Status Records Found INFORMATION SOURCE (unrecogn ized section and content) DATE CREATED AUTHOR 03/15/2018 [facility] DATE CREATED AUTHOR AUTHOR'S ORGANIZ ATION 04/25/2021 [facility] DATE CREATED AUTHOR AUTHOR'S ORGANIZ ATION 09/05/2021 [facility] DATE CREATED AUTHOR AUTHOR'S ORGANIZ ATION 11/05/2022 [facility] DATE CREATED AUTHOR AUTHOR'S ORGANIZ ATION 12/26/2023 [facility] DATE CREATED AUTHOR AUTHOR'S ORGANIZ ATION 01/02/2024 [facility] DATE CREATED AUTHOR AUTHOR'S ORGANIZ ATION 01/29/2024 [facility] DATE CREATED AUTHOR AUTHOR'S ORGANIZ ATION 01/31/2024 [facility] DATE CREATED AUTHOR AUTHOR'S ORGANIZ ATION 02/28/2024 [facility] Care Team (unrecognized sect ion and content) Piece Cutter Relationship Specialty Start Date End Date Katarina Dnaiels Jr. [address] [place] [address] [phone] PCP - General Family Medicine 08/05/22 Piece Cutter Relationship Specialty Start Date End Date Katarina Daniels Jr. [address] [place] [address] [phone] PCP - General Family Medicine 08/05/22 Piece Cutter Relationship Specialty Start Date End Date Katarina Daniels Jr. [address] [place] [address] PCP - General Family Medicine 08/05/22 Piece Cutter Relationship Specialty Start Date End Date Katarina Daniels Jr. [address] [place] [address] PCP - General Family Medicine 08/05/22 Piece Cutter Relationship Specialty Start Date End Date Katarina Daniels Jr. [address] [place] [address] PCP - General Family Medicine 08/05/22 Piece Cutter Relationship Specialty Start Date End Date Katarina Daniels Jr. [address] [place] [address] PCP - General Family Medicine 08/05/22 bAa Amaya MD [address] [place] [address] [place] [address] Physician Hematology/Oncology 08/29/22 Lucio Damon, FIREPERSON.ORDER CLERK [address] [facility] [place] [address] Nurse Practitioner Hematology/Oncology 08/29/22 Nirmala Regalado, RN [address] [facility] [place] [address] Specialty Painter Sign Maintenance Hematology/Oncology 08/29/22 Piece Cutter Relationship Specialty Start Date End Date Katarina Daniels Jr. [address] [place] [address] PCP - General Family Medicine 08/05/22 Aba Amaya MD [address] [facility] [place] [address] Physician Hematology/Oncology 08/29/22 Lucio Damon, FIREPERSON.ORDER CLERK [address] [facility] [place] [place] [address] Nurse Practitioner Hematology/Oncology 08/29/22 Nirmala Regalado, RN [address] [facility] [place] [address] Specialty Painter Sign Maintenance Hematology/Oncology 08/29/22 Piece Cutter Relationship Specialty Start Date End Date Katarina Daniels Jr. [address] [place] [address] PCP - General Family Medicine 08/05/22 Aba Amaya MD [address] [facility] [place] [address] Physician Hematology/Oncology 08/29/22 Lucio Damon, FIREPERSON.ORDER CLERK [address] [facility] [place] [address] Nurse Practitioner Hematology/Oncology 08/29/22 Nirmala Regalado, RN [address] [facility] [place] [address] Specialty Painter Sign Maintenance Hematology/Oncology 08/29/22 Piece Cutter Relationship Specialty Start Date End Date Katarina Daniels JrSummer [address] [place] [address] PCP - General Family Medicine 08/05/22 Aba Amaya MD [address] [facility] [place] [address] Physician Hematology/Oncology 08/29/22 Lucio Damon, FIREPERSON.ORDER CLERK [address] [facility] [place] [address] Nurse Practitioner Hematology/Oncology 08/29/22 Nirmala Regalado, RN [address] [facility] [place] [address] Specialty Painter Sign Maintenance Hematology/Oncology 08/29/22 Team Status: Active Member Role Status Dates Shelby Daniels , DO Primary Care Provider Active Team Status: Inactive Member Role Status Dates Shelby Daniels , DO Primary Care Provider Active CARLA Walters Attending Provider Active Piece Cutter Relationship Specialty Start Date End Date Martinglory Katarina Bowling [address] [place] [address] PCP - General Family Medicine 08/05/22 Aba Amaya MD [address] [facility] [place] [address] Physician Hematology/Oncology 08/29/22 Lucio Damon, FIREPERSON.ORDER CLERK [address] [facility] [place] [address] Nurse Practitioner Hematology/Oncology 08/29/22 Nirmala Regalado, RN [address] [facility] [place] [place] [address] Specialty Painter Sign Maintenance Hematology/Oncology 08/29/22 Piece Cutter Relationship Specialty Start Date End Date Katarina Daniels Jr. [address] [place] [address] PCP - General Family Medicine 08/05/22 Aba Amaya MD [address] [place] [address] Physician Hematology/Oncology 08/29/22 Lucio Damon, FIREPERSON.ORDER CLERK [address] [facility] [place] [address] Nurse Practitioner Hematology/Oncology 08/29/22 Nirmala Regalado, EUSEBIO [address] [facility] [place] [address] Specialty Painter Sign Maintenance Hematology/Oncology 08/29/22 Piece Cutter Relationship Specialty Start Date End Date SarikaKatarina chadwick Jr. [address] [place] [address] PCP - General Family Medicine 08/05/22 Aba Amaya MD [address] [facility] [place] [address] Physician Hematology/Oncology 08/29/22 Lucio Damon, FIREPERSON.ORDER CLERK [address] [facility] [place] [address] Nurse Practitioner Hematology/Oncology 08/29/22 Nirmala Regalado, RN [address] [facility] [place] [address] Specialty Painter Sign Maintenance Hematology/Oncology 08/29/22 Piece Cutter Relationship Specialty Start Date End Date Katarina Daniels Jr. [address] [place] [address] PCP - General Family Medicine 08/05/22 Aba Amaya MD [address] [facility] [place] [address] Physician Hematology/Oncology 08/29/22 Lucio Damon, FIREPERSON.ORDER CLERK [address] [facility] [place] [address] Nurse Practitioner Hematology/Oncology 08/29/22 Nirmala Regalado, EUSEBIO [address] [facility] [place] [address] Specialty Painter Sign Maintenance Hematology/Oncology 08/29/22 Piece Cutter Relationship Specialty Start Date End Date Katarina Daniels Jr. [address] [facility] [address] [facility] [address] [place] [address] PCP - General Family Medicine 08/05/22 Aba Amaya MD [address] [facility] [place] [address] Physician Hematology/Oncology 08/29/22 Lucio Damon, FIREPERSON.ORDER CLERK [address] [facility] [place] [address] Nurse Practitioner Hematology/Oncology 08/29/22 Nirmala Regalado, EUSEBIO [address] [facility] [place] [address] Specialty Painter Sign Maintenance Hematology/Oncology 08/29/22 Piece Cutter Relationship Specialty Start Date End Date Katarina Daniels Jr. [address] [place] [address] PCP - General Family Medicine 08/05/22 Aba Amaya MD [address] [place] [address] Physician Hematology/Oncology 08/29/22 Lucio Damon, FIREPERSON.ORDER CLERK [address] [place] [id number] Nurse Practitioner Hematology/Oncology 08/29/22 Nirmala Regalado, EUSEBIO [address] [place] [address] Specialty Painter Sign Maintenance Hematology/Oncology 08/29/22 Piece Cutter Relationship Specialty Start Date End Date Katarina Daniels Jr. [address] [place] [address] PCP - General Family Medicine 08/05/22 Aba Amaya MD [address] [facility] [place] [place] [address] Physician Hematology/Oncology 08/29/22 Lucio Damon, FIREPERSON.ORDER CLERK [address] [facility] [place] [address] Nurse Practitioner Hematology/Oncology 08/29/22 Nirmala Regalado, EUSEBIO [address] [facility] [place] [address] Specialty Painter Sign Maintenance Hematology/Oncology 08/29/22 Piece Cutter Relationship Specialty Start Date End Date Katarina Daniels Jr. [address] [place] [address] PCP - General Family Medicine 08/05/22 Aba Amaya MD [address] [facility] [place] [address] Physician Hematology/Oncology 08/29/22 Lucio Damon, FIREPERSON.ORDER CLERK [address] [facility] [place] [address] Nurse Practitioner Hematology/Oncology 08/29/22 Nirmala Regalado, EUSEBIO [address] [facility] [place] [address] Specialty Painter Sign Maintenance Hematology/Oncology 08/29/22 Piece Cutter Relationship Specialty Start Date End Date Katarina Daniels Jr. [address] [place] [id number] PCP - General Family Medicine 08/05/22 Aba Amaya MD [address] [facility] [place] [address] Physician Hematology/Oncology 08/29/22 Lucio Damon, FIREPERSON.ORDER CLERK [address] [facility] [place] [place] [address] Nurse Practitioner Hematology/Oncology 08/29/22 Nirmala Regalado, EUSEBIO [address] [facility] [place] [address] Specialty Painter Sign Maintenance Hematology/Oncology 08/29/22 Piece Cutter Relationship Specialty Start Date End Date Katarina Daniels Jr. [address] [place] [address] PCP - General Family Medicine 08/05/22 Aba Amaya MD [address] [facility] [place] [address] Physician Hematology/Oncology 08/29/22 Lucio Damon, FIREPERSON.ORDER CLERK [address] [facility] [place] [place] [address] Nurse Practitioner Hematology/Oncology 08/29/22 Nirmala Regalado, EUSEBIO [address] [facility] [place] [place] [address] Specialty Painter Sign Maintenance Hematology/Oncology 08/29/22 Piece Cutter Relationship Specialty Start Date End Date Katarina Daniels Jr. [address] [place] [phone] PCP - General Family Medicine 08/05/22 Aba Amaya MD [address] [facility] [place] [address] Physician Hematology/Oncology 08/29/22 Lucio Damon, FIREPERSON.ORDER CLERK [address] [facility] [place] [address] Nurse Practitioner Hematology/Oncology 08/29/22 Nirmala Regalado, EUSEBIO [address] [facility] [place] [place] [address] Specialty Painter Sign Maintenance Hematology/Oncology 08/29/22 Piece Cutter Relationship Specialty Start Date End Date Katarina Daniels DO [address] [facility], [facility] [address] [place] [address] PCP - General 05/19/99 Piece Cutter Relationship Specialty Start Date End Date Katarina Daniels Jr., DO [address] [place] [address] PCP - General Family Medicine 08/05/22 Aba Amaya MD [address] [facility] [place] [place] [address] Physician Hematology/Oncology 08/29/22 Lucio Damon, FIREPERSON.ORDER CLERK [address] [facility] [place] [address] Nurse Practitioner Hematology/Oncology 08/29/22 Nirmala Regalado, EUSEBIO [address] [facility] [place] [address] Specialty Painter Sign Maintenance Hematology/Oncology 08/29/22 Piece Cutter Relationship Specialty Start Date End Date Katarina Daniels Jr., DO [address] [place] [phone] PCP - General Family Medicine 08/05/22 Aba Amaya MD [address] [facility] [place] [place] [address] Physician Hematology/Oncology 08/29/22 Lucio Damon, FIREPERSON.ORDER CLERK [address] [facility] [place] [place] [address] Nurse Practitioner Hematology/Oncology 08/29/22 Nirmala Regalado RN [address] [facility] [place] [address] Specialty Painter Sign Maintenance Hematology/Oncology 08/29/22 Piece Cutter Relationship Specialty Start Date End Date Katarina Daniels Jr., DO [address] [place] [address] PCP - General Family Medicine 08/05/22 Aba Amaya MD [address] [facility] [address] [place], [place] [address] Physician Hematology/Oncology 08/29/22 Lucio Damon, FIREPERSON.ORDER CLERK [address] [facility] [place] [place] [address] Nurse Practitioner Hematology/Oncology 08/29/22 Nirmala Regalado, EUSEBIO [address] [facility] [place] [place] [address] Specialty Painter Sign Maintenance Hematology/Oncology 08/29/22 Piece Cutter Relationship Specialty Start Date End Date Katarina Daniels Jr., DO [address] [place] [phone] PCP - General Family Medicine 08/05/22 Aba Amaya MD [address] [facility] [place] [address] Physician Hematology/Oncology 08/29/22 Lucio Damon, FIREPERSON.ORDER CLERK [address] [facility] [place] [address] Nurse Practitioner Hematology/Oncology 08/29/22 Nirmala Regalado RN [address] [facility] [place] [address] Specialty Painter Sign Maintenance Hematology/Oncology 08/29/22 Piece Cutter Relationship Specialty Start Date End Date Katarina Daniels Jr., DO [address] [place] [address] PCP - General Family Medicine 08/05/22 Aba Amaya MD [address] [facility] [place] [address] Physician Hematology/Oncology 08/29/22 Lucio Damon FIREPERSON.ORDER CLERK [address] [facility] [place] [address] Nurse Practitioner Hematology/Oncology 08/29/22 Nirmala Regalado, EUSEBIO [address] [facility] [place] [address] Specialty Painter Sign Maintenance Hematology/Oncology 08/29/22 Piece Cutter Relationship Specialty Start Date End Date Katarina Daniels Jr., DO [address] [place] [phone] PCP - General Family Medicine 08/05/22 Aba Amaya MD [address] [place] [address] Physician Hematology/Oncology 08/29/22 Lucio Damon, FIREPERSON.ORDER CLERK [address] [place] [address] Nurse Practitioner Hematology/Oncology 08/29/22 Nirmala Regalado, EUSEBIO [address] [facility] [place] [address] Specialty Painter Sign Maintenance Hematology/Oncology 08/29/22 Piece Cutter Relationship Specialty Start Date End Date Katarina Daniels Jr., DO [address] [place] [address] PCP - General Family Medicine 08/05/22 Aba Amaya MD [address] [facility] [place] [address] Physician Hematology/Oncology 08/29/22 Lucio Damon, FIREPERSON.ORDER CLERK [address] [facility] [place] [address] Nurse Practitioner Hematology/Oncology 08/29/22 Nirmala Regalado, EUSEBIO [address] [facility] [place] [address] Specialty Painter Sign Maintenance Hematology/Oncology 08/29/22 Piece Cutter Relationship Specialty Start Date End Date Katarina Daniels Jr., DO [address] [place] [phone] PCP - General Family Medicine 08/05/22 Aba Amaya MD [address] [place] [address] [place] [address] Physician Hematology/Oncology 08/29/22 Lucio Damon APRN.ORDER CLERK [address] [place] [address] [place] [address] Nurse Practitioner Hematology/Oncology 08/29/22 Nirmala Regalado, EUSEBIO [address] [facility] [place] [address] Specialty Painter Sign Maintenance Hematology/Oncology 08/29/22 Team Status: Inactive Member Role Status Dates Shelby Daniels DO Primary Care Provider Active Start: October 21, 2023 End: October 21, 2023 Ebony Reyes NP Attending Provider Active Start: October 21, 2023 End: October 21, 2023 Piece Cutter Relationship Specialty Start Date End Date Katarina Daniels Jr., DO [address] [place] [phone] PCP - General Family Medicine 08/05/22 Aba Amaya MD [address] [facility] [place] [address] Physician Hematology/Oncology 08/29/22 Lucio Damon, FIREPERSON.ORDER CLERK [address] [facility] [place] [address] Nurse Practitioner Hematology/Oncology 08/29/22 Nirmala Regalado, EUSEBIO [address] [facility] [place] [address] Specialty Painter Sign Maintenance Hematology/Oncology 08/29/22 Piece Cutter Relationship Specialty Start Date End Date Katarina Daniels Jr., DO [address] [place] [phone] PCP - General Family Medicine 08/05/22 Aba Amaya MD [address] [facility] [place] [address] Physician Hematology/Oncology 08/29/22 Lucio Damon, FIREPERSON.ORDER CLERK [address] [facility] [place] [place] [address] Nurse Practitioner Hematology/Oncology 08/29/22 Nirmala Regalado, EUSEBIO [address] [facility] [place] [place] [address] Specialty Painter Sign Maintenance Hematology/Oncology 08/29/22 Piece Cutter Relationship Specialty Start Date End Date Katarina Daniels Jr., DO [address] [place] [address] PCP - General Family Medicine 08/05/22 Aba Amaya MD [address] [facility] [place] [place] [address] Physician Hematology/Oncology 08/29/22 Lucio Damon, FIREPERSON.ORDER CLERK [address] [facility] [place] [address] Nurse Practitioner Hematology/Oncology 08/29/22 Nirmala Regalado, EUSEBIO [address] [facility] [place] [address] Specialty Painter Sign Maintenance Hematology/Oncology 08/29/22 Piece Cutter Relationship Specialty Start Date End Date Katarina Daniels Jr., DO [address] [facility] [address] [place] [address] PCP - General Family Medicine 08/05/22 Aba Amaya MD [address] [facility] [place] [address] Physician Hematology/Oncology 08/29/22 Lucio Damon, FIREPERSON.ORDER CLERK [address] [facility] [place] [address] Nurse Practitioner Hematology/Oncology 08/29/22 Nirmala Regalado RN [address] [facility] [address] Specialty Painter Sign Maintenance Hematology/Oncology 08/29/22 Piece Cutter Relationship Specialty Start Date End Date Katarina Daniels Jr., DO [address] [facility] [address] [place] [address] PCP - General Family Medicine 08/05/22 Aba Amaya MD [address] [facility] [place] [address] Physician Hematology/Oncology 08/29/22 Lucio Damon, FIREPERSON.ORDER CLERK [address] [facility] [place] [address] Nurse Practitioner Hematology/Oncology 08/29/22 Nirmala Regalado, RN [address] [place] [address] [address] [place], [id number] Specialty Painter Sign Maintenance Hematology/Oncology 08/29/22 Piece Cutter Relationship Specialty Start Date End Date Katarina Daniels DO [address] [place] [address] PCP - ACO Reach 10/10/22 Katarina Daniels, [address] [place] [address] PCP - General Family Medicine 12/09/22 Nicole Valadez LPN Licensed Practical Nurse Family Medicine 03/10/23 Piece Cutter Relationship Specialty Start Date End Date Katarina Daniels DO [address] [place] [address] PCP - ACO Reach 10/10/22 Katarina Daniels DO [address] [place] [address] PCP - General Family Medicine 12/09/22 Nicole Valadez LPN Licensed Practical Nurse Family Medicine 03/10/23 Piece Cutter Relationship Specialty Start Date End Date Katarina Daniels DO [address] [place] [address] PCP - ACO Reach 10/10/22 Katarina Daniels DO [address] [place] [address] PCP - General Family Medicine 12/09/22 Nicole Valadez LPN Licensed Practical Nurse Family Medicine 03/10/23 Piece Cutter Relationship Specialty Start Date End Date Katarina Daniels DO [address] [place] [address] PCP - ACO Reach 10/10/22 Katarina Daniels DO [address] [place] [address] PCP - General Family Medicine 12/09/22 Nicole Valadez LPN Licensed Practical Nurse Family Medicine 03/10/23 Source Comments (unrecognize d section and content) In the event this informatio n is protected by the Federal Confidentiality of Alcohol and Drug Abuse Patient Records regulations: The Federal rules restrict any use of the information to criminally investigate or prosecute any alcohol or drug abuse patient.[facility] the event this information is protected by the Federal Confidentiality of Alcohol and Drug Abuse Patient Records regulations: The Federal rules restrict any use of the information to criminally investigate or prosecute any alcohol or drug abuse patient.[facility] HospitalIn the event this information is protected by the Federal Confidentiality of Alcohol and Drug Abuse Patient Records regulations: The Federal rules restrict any use of the information to criminally investigate or prosecute any alcohol or drug abuse patient.[facility] HospitalIn the event this information is protected by the Federal Confidentiality of Alcohol and Drug Abuse Patient Records regulations: The Federal rules restrict any use of the information to criminally investigate or prosecute any alcohol or drug abuse patient.[facility] HospitalIn the event this information is protected by the Federal Confidentiality of Alcohol and Drug Abuse Patient Records regulations: The Federal rules restrict any use of the information to criminally investigate or prosecute any alcohol or drug abuse patient.[facility] HospitalIn the event this information is protected by the Federal Confidentiality of Alcohol and Drug Abuse Patient Records regulations: The Federal rules restrict any use of the information to criminally investigate or prosecute any alcohol or drug abuse patient.[facility] HospitalIn the event this information is protected by the Federal Confidentiality of Alcohol and Drug Abuse Patient Records regulations: The Federal rules restrict any use of the information to criminally investigate or prosecute any alcohol or drug abuse patient.[facility] HospitalIn the event this information is protected by the Federal Confidentiality of Alcohol and Drug Abuse Patient Records regulations: The Federal rules restrict any use of the information to criminally investigate or prosecute any alcohol or drug abuse patient.[facility] HospitalIn the event this information is protected by the Federal Confidentiality of Alcohol and Drug Abuse Patient Records regulations: The Federal rules restrict any use of the information to criminally investigate or prosecute any alcohol or drug abuse patient.[facility] HospitalIn the event this information is protected by the Federal Confidentiality of Alcohol and Drug Abuse Patient Records regulations: The Federal rules restrict any use of the information to criminally investigate or prosecute any alcohol or drug abuse patient.[facility] HospitalIn the event this information is protected by the Federal Confidentiality of Alcohol and Drug Abuse Patient Records regulations: The Federal rules restrict any use of the information to criminally investigate or prosecute any alcohol or drug abuse patient.[facility] HospitalIn the event this information is protected by the Federal Confidentiality of Alcohol and Drug Abuse Patient Records regulations: The Federal rules restrict any use of the information to criminally investigate or prosecute any alcohol or drug abuse patient.[facility] HospitalIn the event this information is protected by the Federal Confidentiality of Alcohol and Drug Abuse Patient Records regulations: The Federal rules restrict any use of the information to criminally investigate or prosecute any alcohol or drug abuse patient.[facility] HospitalIn the event this information is protected by the Federal Confidentiality of Alcohol and Drug Abuse Patient Records regulations: The Federal rules restrict any use of the information to criminally investigate or prosecute any alcohol or drug abuse patient.[facility] HospitalIn the event this information is protected by the Federal Confidentiality of Alcohol and Drug Abuse Patient Records regulations: The Federal rules restrict any use of the information to criminally investigate or prosecute any alcohol or drug abuse patient.[facility] HospitalIn the event this information is protected by the Federal Confidentiality of Alcohol and Drug Abuse Patient Records regulations: The Federal rules restrict any use of the information to criminally investigate or prosecute any alcohol or drug abuse patient.[facility] HospitalIn the event this information is protected by the Federal Confidentiality of Alcohol and Drug Abuse Patient Records regulations: The Federal rules restrict any use of the information to criminally investigate or prosecute any alcohol or drug abuse patient.[facility] HospitalIn the event this information is protected by the Federal Confidentiality of Alcohol and Drug Abuse Patient Records regulations: The Federal rules restrict any use of the information to criminally investigate or prosecute any alcohol or drug abuse patient.[facility] HospitalIn the event this information is protected by the Federal Confidentiality of Alcohol and Drug Abuse Patient Records regulations: The Federal rules restrict any use of the information to criminally investigate or prosecute any alcohol or drug abuse patient.[facility] HospitalIn the event this information is protected by the Federal Confidentiality of Alcohol and Drug Abuse Patient Records regulations: The Federal rules restrict any use of the information to criminally investigate or prosecute any alcohol or drug abuse patient.[facility] HospitalIn the event this information is protected by the Federal Confidentiality of Alcohol and Drug Abuse Patient Records regulations: The Federal rules restrict any use of the information to criminally investigate or prosecute any alcohol or drug abuse patient.[facility] HospitalIn the event this information is protected by the Federal Confidentiality of Alcohol and Drug Abuse Patient Records regulations: The Federal rules restrict any use of the information to criminally investigate or prosecute any alcohol or drug abuse patient.[facility] HospitalIn the event this information is protected by the Federal Confidentiality of Alcohol and Drug Abuse Patient Records regulations: The Federal rules restrict any use of the information to criminally investigate or prosecute any alcohol or drug abuse patient.[facility] HospitalIn the event this information is protected by the Federal Confidentiality of Alcohol and Drug Abuse Patient Records regulations: The Federal rules restrict any use of the information to criminally investigate or prosecute any alcohol or drug abuse patient.[facility] HospitalIn the event this information is protected by the Federal Confidentiality of Alcohol and Drug Abuse Patient Records regulations: The Federal rules restrict any use of the information to criminally investigate or prosecute any alcohol or drug abuse patient.[facility] HospitalIn the event this information is protected by the Federal Confidentiality of Alcohol and Drug Abuse Patient Records regulations: The Federal rules restrict any use of the information to criminally investigate or prosecute any alcohol or drug abuse patient.[facility] HospitalIn the event this information is protected by the Federal Confidentiality of Alcohol and Drug Abuse Patient Records regulations: The Federal rules restrict any use of the information to criminally investigate or prosecute any alcohol or drug abuse patient.[facility] HospitalIn the event this information is protected by the Federal Confidentiality of Alcohol and Drug Abuse Patient Records regulations: The Federal rules restrict any use of the information to criminally investigate or prosecute any alcohol or drug abuse patient.[facility] HospitalIn the event this information is protected by the Federal Confidentiality of Alcohol and Drug Abuse Patient Records regulations: The Federal rules restrict any use of the information to criminally investigate or prosecute any alcohol or drug abuse patient.[facility] HospitalIn the event this information is protected by the Federal Confidentiality of Alcohol and Drug Abuse Patient Records regulations: The Federal rules restrict any use of the information to criminally investigate or prosecute any alcohol or drug abuse patient.[facility] HospitalIn the event this information is protected by the Federal Confidentiality of Alcohol and Drug Abuse Patient Records regulations: The Federal rules restrict any use of the information to criminally investigate or prosecute any alcohol or drug abuse patient.[facility] HospitalIn the event this information is protected by the Federal Confidentiality of Alcohol and Drug Abuse Patient Records regulations: The Federal rules restrict any use of the information to criminally investigate or prosecute any alcohol or drug abuse patient.[facility] HospitalIn the event this information is protected by the Federal Confidentiality of Alcohol and Drug Abuse Patient Records regulations: The Federal rules restrict any use of the information to criminally investigate or prosecute any alcohol or drug abuse patient.[facility] HospitalIn the event this information is protected by the Federal Confidentiality of Alcohol and Drug Abuse Patient Records regulations: The Federal rules restrict any use of the information to criminally investigate or prosecute any alcohol or drug abuse patient.[facility] HospitalIn the event this information is protected by the Federal Confidentiality of Alcohol and Drug Abuse Patient Records regulations: The Federal rules restrict any use of the information to criminally investigate or prosecute any alcohol or drug abuse patient.[facility] HospitalIn the event this information is protected by the Federal Confidentiality of Alcohol and Drug Abuse Patient Records regulations: The Federal rules restrict any use of the information to criminally investigate or prosecute any alcohol or drug abuse patient.[facility] HospitalIn the event this information is protected by the Federal Confidentiality of Alcohol and Drug Abuse Patient Records regulations: The Federal rules restrict any use of the information to criminally investigate or prosecute any alcohol or drug abuse patient.[facility] HospitalIn the event this information is protected by the Federal Confidentiality of Alcohol and Drug Abuse Patient Records regulations: The Federal rules restrict any use of the information to criminally investigate or prosecute any alcohol or drug abuse patient.[facility] Hospital[facility] the event this information is protected by the Federal Confidentiality of Alcohol and Drug Abuse Patient Records regulations: The Federal rules restrict any use of the information to criminally investigate or prosecute any alcohol or drug abuse patient.[facility] the event this information is protected by the Federal Confidentiality of Alcohol and Drug Abuse Patient Records regulations: The Federal rules restrict any use of the information to criminally investigate or prosecute any alcohol or drug abuse patient.[facility] Reason for Visit (unrecogniz ed section and content) Reason Comments Pre-op Labs Reason Comments left renal mass Reason Comments Post-Op Visit Reason Comments Consult Reason Comments Renal Cell Cancer New patient consult Specialty Diagnoses / Procedures Referred By Contac t Referred To Contact Diagnoses Renal cell carcinoma of left kidney (HCC) Procedures CONSULT TO HEMATOLOGY/ONCOLOGY OFFICE/OUTPATIENT NEW HIGH MDM 60-74 MINUTES Amarilis Rosario APRN.ORDER CLERK [address] [place] [address] Referral ID Status Reason Start Date Expiration Date V isits Requested Visits Authorized [id number] Closed PCP Requested Referral 08/22/2022 08/22/2023 1 1 Reason Comments Returning Patient's Call Specialty Diagnoses / Procedures Referred By Contac t Referred To Contact Diagnoses Cancer of left kidney (HCC) bAa Amaya MD [address] [place] [address] [place] [address] Miguel Treat Izzy [address] [place] [address] Referral ID Status Reason Start Date Expiration Date V isits Requested Visits Authorized [id number] Authorized 08/29/2022 11/27/2022 99 99 Reason Comments Renal Cell Cancer 3 week follow up Reason Comments Care Coordination C1D1 Post Treatment Call Reason Comments Lab Orders Reason Comments renal cell carcinoma Reason Comments Follow Up Reason Comments Renal Cell Cancer Reason Comments Renal Cell Cancer Treatment visit Reason Comments Annual Exam 1yr Reason Comments Care Coordination Clearance Request Reason Comments Renal Cell Cancer 1 month follow up Referral ID Status Reason Start Date Expiration Date Visits Re quested Visits Authorized [id number] Closed 08/29/2022 11/27/2022 99 99 Reason Comments Care Coordination TSH Results Reason Comments Renal Cell Cancer Reason Comments Results Reason Comments Results TSH Reason Comments Care Coordination Letter Request Specialty Diagnoses / Procedures Referred By Contac t Referred To Contact CT IMAGING Diagnoses Renal cell carcinoma of left kidney (HCC) Procedures CT CHEST W IVCON DIAGNOSTIC COMPUTED TOMOGRAPHY THORAX W/CONTRAST Aba Amaya MD [address] [place] [address] [place] [address] [place] [address] Referral ID Status Reason Start Date Expiration Date V isits Requested Visits Authorized [id number] Closed Auto-Generate d Referral 08/28/2023 09/26/2024 1 1 Referral ID Status Reason Start Date Expiration Date V isits Requested Visits Authorized [id number] Closed Auto-Generate d Referral 06/05/2023 07/04/2024 [address] Specialty Diagnoses / Procedures Referred By Contac t Referred To Contact CT IMAGING Diagnoses Renal cell carcinoma of left kidney (HCC) Malaise and fatigue Procedures CT ABD/PEL WO IVCON CT ABD & PELVIS W/O CONTRAST Lara Wells PA-C [address] [facility] [place] [place] [address] [place] [address] Referral ID Status Reason Start Date Expiration Date V isits Requested Visits Authorized [id number] Closed Auto-Generate d Referral 12/26/2022 12/21/2023 1 1 Reason Onset Date Comments Med Refill 02/17/2024 Reason Comments surgical clearance Goals (unrecognized section and content) Goals may be documented in a n alternate section Inactive Administered Medications - up to 3 most recent administrations Administered Medications (un recognized section and content) Medication Order MAR Action Action Date Dose Rate Site pembrolizumab 400 mg in NaCl 0.9% 74 mL (KEYTRUDA) 400 mg, INTRAVENOUS, Administer over 30 Minutes, ONCE, 1 dose, On Nida 07/17/23 at 1030, EXP: 07/17/2023 1625 RT Administer with 0.2 micron filter. New Bag/Syringe/Bottle 07/17/2023 10:46 AM EST 400 mg Inactive Administered Medications - up to 3 most recent administrations Medication Order MAR Action Action Date Dose Rate Site pembrolizumab 400 mg in NaCl 0.9% 74 mL (KEYTRUDA) 400 mg, INTRAVENOUS, Administer over 30 Minutes, ONCE, 1 dose, On Nida 08/28/23 at 1000, EXP: 08/28/2023 1545 RT Administer with 0.2 micron filter. New Bag/Syringe/Bottle 08/28/2023 10:02 AM EDT 400 mg FOR RECORDS PERTAINING TO PATIENTS WHO ARE OR HAVE BEEN ENROLLED IN A CHEMICAL DEPENDENCY/SUBSTANCEABUSE PROGRAM, SOME INFORMATION MAY BE OMITTED. This clinical summary was aggregated from multiple sources. Caution should be exercised in using it in the provision of clinical care. This summary normalizes information from multiple sources, and as a consequence, information in this document may materially change the coding, format and clinical context of patient data. In addition, data may be omitted in some cases. CLINICAL DECISIONS SHOULD BE BASED ON THE PRIMARY CLINICAL RECORDS. [employer] provides no warranty or guarantee of the accuracy or completeness of information in this document.
[2024-03-04 08:24] LABS: Carbon Dioxide 28.4 mmol/L (21.0-32.0); Chloride 104 mmol/L (98-107); Potassium 5.4 mmol/L (3.5-5.1); Sodium 141 mmol/L (136-145)
[2024-03-04 08:25] LABS: BUN Creatinine Ratio 12.5; Calcium 9.3 mg/dL (8.5-10.1); Estimated GFR (African America >60 (>=60 mL/min/1.73m^2); Estimated GFR (Non-African Ame 52 (>=60 mL/min/1.73m^2); Glucose 106 mg/dL (74-106)
[2024-03-04] MEDS: 0.9 % SODIUM CHLORIDE 500 ML 50 ML IV ×2 (08:30→10:27)
[2024-03-04] MEDS: CEFAZOLIN SODIUM 1 GM/50 ML D5W PREMIX IV (09:16)
--- NOTE | 2024-03-04 10:18 | P.URON_ITS ---
Urology Surgery Operative Note Operative Note Procedure Date: 03/04/24 Time Out Performed: yes Pre-op Diagnosis: Bladder calculi Post-op Diagnosis: same as pre-op Procedures performed: 1. Cystoscopy litholapaxy of multiple bladder calculi Anesthesia: General-LMA Primary Surgeon: Elliot Mendiola Complications: None Estimated blood loss (mL): 20 Findings: 3 moderately large bladder calculi Specimens: Bladder calculi pieces Drains: 20 Turkmen Cartagena catheter in the bladder Indications for Procedures: This gentleman has BPH with LUTS and bladder calculi causing gross hematuria. He now presents for cystoscopy litholapaxy. He has signed an informed consent after all risks were explained. Detailed description of Procedure: The patient was brought to the operating room and placed on the operating room table in the supine position. SCDs were placed on the lower extremities and turned on and functioning during the entire case. Timeout was done by all parties in the room. We all agreed upon the patient's identification and the planned procedures for this patient. Genn. anesthesia was then administered. The patient was then repositioned into the modified dorsal lithotomy position. All pressure points were satisfactorily padded. Genitalia were sterilely prepped and draped in usual fashion. I started by passing a 22 Turkmen Olympus cystoscope per urethra and into the bladder. Anterior urethra was normal. Prostatic urethra revealed very long and obstructing prostate lateral lobes. He also had a median lobe component. Panendoscopy in the bladder revealed 3 bladder calculi. Each 1 was about 2 cm in size. I then passed a 1000 Angstrom laser fiber through the scope and made contact with the first stone. At 40 W continuous I used the thulium laser to do lithotripsy on the stone. Once the first 1 was fragmented into small pieces I then did the second 1 and finally the third. During the procedure the prostate began to bleed from the scope. I did use the Ilich evacuator to get all the pieces out. These were sent for stone analysis. Upon completion, there was no evidence of any stone remaining in the bladder. The prostate was still minimally oozing. I removed the scope and then passed a 20 Turkmen Cartagena catheter in the bladder. It was irrigated to get any clots out and verify correct placement. 10 cc of fluid was placed in the balloon. It drained freely a blood tinged color. He was then transferred to a gurney bed and wheeled to PACU in stable condition.
== END 2024-03-04 11:18 | disposition home or self-care (01) ==
PROVIDERS: Anesthesiology; PCP Family Medicine; Visit Provider Urology
PROC: (CPT 52317; principal; 2024-03-04 09:15)
DX: N21.0 Calculus in bladder (principal); Z85.528 Personal history of other malignant neoplasm of kidney; Z79.01 Long term (current) use of anticoagulants; I48.91 Unspecified atrial fibrillation; R31.0 Gross hematuria; R97.20 Elevated prostate specific antigen [PSA]; N40.1 Benign prostatic hyperplasia with lower urinary tract symptoms; Z87.442 Personal history of urinary calculi; Z90.5 Acquired absence of kidney; G47.33 Obstructive sleep apnea (adult) (pediatric); E03.9 Hypothyroidism, unspecified
CPT/HCPCS: 52317; 36415; 80048; 82365; 99999; J0690; J2405; J2704; J3010